=== PATIENT | male | born 1970 | race Two or more races ===

== ENCOUNTER 2020-09-06 08:54 | Outpatient (REF) | payer MEDICARE, MEDICAID, SELFPAY ==
[2020-09-06 09:47] LABS: MANUAL DIFF FLAG NO
[2020-09-06 09:57] LABS: Basophils Percent Auto 0.4 % (0-2); Eosinophils Absolute Auto 0.3 X10*3/uL (0.0-0.4); Eosinophils Percent Auto 5.6 % (0-4); Hematocrit 41.7 % (42-52); Hemoglobin 13.7 g/dl (14.0-18.0); Lymphocytes Absolute Auto 1.4 X10*3/uL (1.2-4.9); Lymphocytes Percent Auto 28.6 % (20-40); Mean Corpuscular HGB Conc 32.9 g/dl (31.0-36.0); Mean Corpuscular Hemoglobin 29.9 pg (27.0-33.0); Mean Platelet Volume 9.5 fL (9.4-12.4); Monocytes Absolute Auto 0.4 X10*3/uL (0.1-1.2); Monocytes Percent Auto 8.4 % (2-11); Neutrophils Absolute Auto 2.9 X10*3/uL (2.0-8.3); Platelet Count 218 X10*3/uL (160-400); Red Blood Count 4.58 X10*6/uL (4.60-5.80); Red Cell Distribution Width 13.5 % (11.0-16.0)
[2020-09-06 10:17] LABS: Estimated Average Glucose 126 mg/dL
[2020-09-06 10:27] LABS: Alanine Aminotransferase 25 U/L (0-40); Albumin Level 4.5 g/dL (3.5-5.0); Alkaline Phosphatase 67 U/L (39-117); Anion Gap 13 (12-20); Aspartate Amino Transferase 20 U/L (5-37); Bilirubin Total 0.6 mg/dL (0.0-1.0); Blood Urea Nitrogen 20 mg/dL (9-16); Calcium 9.2 mg/dL (8.4-10.2); Carbon Dioxide 25 mmol/L (22-29); Chloride 107 mmol/L (96-108); Cholesterol 168 mg/dL; Estimated Glomerular Filt Rate > 60; Glucose Fasting 139 mg/dL (60-99); HDL Cholesterol 40 mg/dL; LDL Cholesterol Calculated 88 mg/dl; Potassium 4.6 mmol/l (3.3-5.1); Sodium 140 mmol/L (135-145); Total Protein 7.4 g/dL (6.5-8.0); Triglycerides 200 mg/dL
[2020-09-06 10:45] LABS: Glucose Urine UA NEG (NEG); Leukocyte Esterase Urine NEG (NEG); Nitrite Urine NEG (NEG); Urine Blood NEG (NEG); Urine Ketones NEG (NEG); Urine Protein NEG (NEG-TRACE)
[2020-09-06 10:50] LABS: Appearance Urine CLEAR; Color Urine YELLOW; UACC Culture Trigger NO
[2020-09-06 10:52] LABS: TSH reflex Free T4 0.62 mIU/mL (0.32-4.0); Vitamin D 25-OH Total 42.7 ng/mL (>30)
[2020-09-06 10:58] LABS: Creatinine Urine 79.79 mg/dL; Microalbumin Urine < 5.0 mg/L
[2020-09-06 11:05] LABS: RBC Urine 0 /HPF (0); Squamous Epithelial Cell Urine TRACE /LPF; WBC Urine 0 /HPF (0-4)
== END 2020-09-06 08:55 | disposition home or self-care (01) ==
LOC: HO.LAB 08:54
PROVIDERS: PCP Internal Medicine; Visit Provider Internal Medicine
DX: E78.5 Hyperlipidemia, unspecified (principal); I10 Essential (primary) hypertension; E11.9 Type 2 diabetes mellitus without complications; K29.70 Gastritis, unspecified, without bleeding; E55.9 Vitamin D deficiency, unspecified; E66.9 Obesity, unspecified; I49.9 Cardiac arrhythmia, unspecified
CPT/HCPCS: 36415; 80053; 80061; 81001; 81003; 82043; 82306; 83036; 84443; 85025

== ENCOUNTER 2020-10-08 10:51 | Outpatient (REF) | payer MEDICARE, MEDICAID, SELFPAY ==
--- NOTE | 2020-10-08 10:56 | XR_ITS ---
EXAMINATION: XR FINGER, RIGHT CLINICAL INFORMATION: Pain COMPARISON: Right hand radiographs 03/16/2019 TECHNIQUE: Three views of the right index finger. FINDINGS: The bones and soft tissues are normal. No fracture. Alignment is anatomic. Joint spaces are maintained. XR/XR finger RT min 2V IMPRESSION: Normal finger radiographs.
== END 2020-10-08 10:52 | disposition home or self-care (01) ==
LOC: HO.XRAY 10:51
PROVIDERS: PCP Internal Medicine; Visit Provider Internal Medicine
DX: M79.644 Pain in right finger(s) (principal)
CPT/HCPCS: 73140

== ENCOUNTER → 2020-10-10 10:40 | Outpatient (BNVA) | payer MEDICARE, MEDICAID, SELFPAY | PROVIDERS: PCP Internal Medicine; Referring Provider Internal Medicine; Visit Provider Nurse Practitioner | DX: R13.12 Dysphagia, oropharyngeal phase (principal); K22.4 Dyskinesia of esophagus; K21.9 Gastro-esophageal reflux disease without esophagitis; K58.2 Mixed irritable bowel syndrome | CPT/HCPCS: 99212 ==

== ENCOUNTER 2020-12-20 09:51 | Outpatient (REF) | payer MEDICARE, MEDICAID, SELFPAY ==
[2020-12-20 10:33] LABS: MANUAL DIFF FLAG NO
[2020-12-20 10:38] LABS: Basophils Percent Auto 0.2 % (0-2); Eosinophils Absolute Auto 0.2 X10*3/uL (0.0-0.4); Eosinophils Percent Auto 4.3 % (0-4); Hematocrit 42.1 % (42-52); Hemoglobin 13.6 g/dl (14.0-18.0); Imm Gran Abs Auto 0.01 X10*3/uL (0.00-0.03); Imm Gran Pct Auto 0.2 % (0.0-0.4); Lymphocytes Absolute Auto 1.4 X10*3/uL (1.2-4.9); Mean Corpuscular HGB Conc 32.3 g/dl (31.0-36.0); Mean Corpuscular Hemoglobin 29.8 pg (27.0-33.0); Mean Corpuscular Volume 92.1 fL (80-98); Mean Platelet Volume 9.5 fL (9.4-12.4); Monocytes Absolute Auto 0.3 X10*3/uL (0.1-1.2); Neutrophils Absolute Auto 2.9 X10*3/uL (2.0-8.3); Neutrophils Percent Auto 59.3 % (45-73); Platelet Count 208 X10*3/uL (160-400); Red Blood Count 4.57 X10*6/uL (4.60-5.80); Red Cell Distribution Width 13.2 % (11.0-16.0); White Blood Count 4.9 X10*3/uL (4.8-10.8)
[2020-12-20 10:50] LABS: Glucose Urine UA NEG (NEG); Leukocyte Esterase Urine NEG (NEG); Nitrite Urine NEG (NEG); Urine Blood NEG (NEG); Urine Ketones NEG (NEG); Urine Protein NEG (NEG-TRACE)
[2020-12-20 10:53] LABS: Appearance Urine CLEAR; Color Urine YELLOW
[2020-12-20 11:01] LABS: Alanine Aminotransferase 36 U/L (0-40); Albumin Level 4.5 g/dL (3.5-5.0); Alkaline Phosphatase 67 U/L (39-117); Anion Gap 11 (12-20); Aspartate Amino Transferase 21 U/L (5-37); Bilirubin Total 0.5 mg/dL (0.0-1.0); Blood Urea Nitrogen 15 mg/dL (9-16); Calcium 9.1 mg/dL (8.4-10.2); Carbon Dioxide 25 mmol/L (22-29); Chloride 109 mmol/L (96-108); Cholesterol 151 mg/dL; Estimated Glomerular Filt Rate > 60; Glucose Fasting 119 mg/dL (60-99); HDL Cholesterol 45 mg/dL; LDL Cholesterol Calculated 79 mg/dl; Potassium 4.3 mmol/l (3.3-5.1); Sodium 141 mmol/L (135-145); Total Protein 7.2 g/dL (6.5-8.0); Triglycerides 139 mg/dL
[2020-12-20 11:02] LABS: Creatinine Urine 124.82 mg/dL; Microalbumin Urine < 5.0 mg/L
[2020-12-20 11:23] LABS: TSH reflex Free T4 0.51 mIU/mL (0.32-4.0); Vitamin D 25-OH Total 42.7 ng/mL (>30)
[2020-12-20 11:40] LABS: Folate > 20.0 ng/mL (> or = 4.0); Vitamin B12 1042 pg/mL (200-900)
== END 2020-12-20 09:52 | disposition home or self-care (01) ==
LOC: HO.LAB 09:51
PROVIDERS: PCP Internal Medicine; Visit Provider Internal Medicine
DX: E53.8 Deficiency of other specified B group vitamins (principal); K29.70 Gastritis, unspecified, without bleeding; I10 Essential (primary) hypertension; E78.00 Pure hypercholesterolemia, unspecified; E11.9 Type 2 diabetes mellitus without complications; E66.3 Overweight; E55.9 Vitamin D deficiency, unspecified
CPT/HCPCS: 36415; 80053; 80061; 81003; 82043; 82306; 82607; 82746; 84443; 85025

== ENCOUNTER → 2021-01-04 08:27 | Outpatient (BNVA) | payer MEDICARE, MEDICAID, SELFPAY | PROVIDERS: PCP Internal Medicine; Visit Provider Internal Medicine Endocrinology, Diabetes & Metabolism | DX: E11.9 Type 2 diabetes mellitus without complications (principal); E16.1 Other hypoglycemia; E66.9 Obesity, unspecified; E53.8 Deficiency of other specified B group vitamins; E55.9 Vitamin D deficiency, unspecified; R14.0 Abdominal distension (gaseous); R10.9 Unspecified abdominal pain; E78.00 Pure hypercholesterolemia, unspecified; I10 Essential (primary) hypertension | CPT/HCPCS: 82947; 99212 ==

== ENCOUNTER 2021-03-20 09:36 | Outpatient (REF) | payer MEDICARE, MEDICAID, SELFPAY ==
[2021-03-20 10:48] LABS: MANUAL DIFF FLAG NO
[2021-03-20 10:51] LABS: Basophils Percent Auto 0.4 % (0-2); Eosinophils Absolute Auto 0.2 X10*3/uL (0.0-0.4); Eosinophils Percent Auto 4.1 % (0-4); Hematocrit 43.1 % (42-52); Imm Gran Abs Auto 0.01 X10*3/uL (0.00-0.03); Imm Gran Pct Auto 0.2 % (0.0-0.4); Lymphocytes Absolute Auto 1.6 X10*3/uL (1.2-4.9); Lymphocytes Percent Auto 30.4 % (20-40); Mean Corpuscular HGB Conc 32.5 g/dl (31.0-36.0); Mean Corpuscular Hemoglobin 29.7 pg (27.0-33.0); Mean Corpuscular Volume 91.5 fL (80-98); Mean Platelet Volume 9.5 fL (9.4-12.4); Monocytes Absolute Auto 0.4 X10*3/uL (0.1-1.2); Monocytes Percent Auto 8.2 % (2-11); Neutrophils Absolute Auto 3.1 X10*3/uL (2.0-8.3); Neutrophils Percent Auto 56.7 % (45-73); Platelet Count 220 X10*3/uL (160-400); Red Blood Count 4.71 X10*6/uL (4.60-5.80); Red Cell Distribution Width 13.4 % (11.0-16.0); White Blood Count 5.4 X10*3/uL (4.8-10.8)
[2021-03-20 10:56] LABS: Glucose Urine UA NEG (NEG); Leukocyte Esterase Urine NEG (NEG); Nitrite Urine NEG (NEG); PH 6.5 (5.0-8.0); Urine Blood NEG (NEG); Urine Ketones NEG (NEG); Urine Protein NEG (NEG-TRACE)
[2021-03-20 11:04] LABS: Appearance Urine CLEAR; Color Urine YELLOW
[2021-03-20 11:05] LABS: Estimated Average Glucose 117 mg/dL; Hemoglobin A1c % 5.7 %
[2021-03-20 11:27] LABS: Creatinine Urine 161.87 mg/dL
[2021-03-20 11:27] LABS: Alanine Aminotransferase 15 U/L (0-40); Albumin Level 4.5 g/dL (3.5-5.0); Alkaline Phosphatase 71 U/L (39-117); Anion Gap 12 (12-20); Aspartate Amino Transferase 14 U/L (5-37); Bilirubin Total 0.6 mg/dL (0.0-1.0); Blood Urea Nitrogen 17 mg/dL (9-16); Calcium 9.5 mg/dL (8.4-10.2); Carbon Dioxide 25 mmol/L (22-29); Chloride 108 mmol/L (96-108); Cholesterol 148 mg/dL; Estimated Glomerular Filt Rate > 60; Glucose Fasting 102 mg/dL (60-99); HDL Cholesterol 42 mg/dL; LDL Cholesterol Calculated 78 mg/dl; Potassium 4.8 mmol/L (3.3-5.1); Sodium 140 mmol/L (135-145); Total Protein 7.5 g/dL (6.5-8.0); Triglycerides 141 mg/dL
[2021-03-20 11:40] LABS: Vitamin D 25-OH Total 44.8 ng/mL (>30)
[2021-03-20 12:02] LABS: Folate > 20.0 ng/mL (> or = 4.0); Vitamin B12 863 pg/mL (200-900)
== END 2021-03-20 09:37 | disposition home or self-care (01) ==
LOC: HO.LAB 09:36
PROVIDERS: PCP Internal Medicine; Visit Provider Internal Medicine
DX: I10 Essential (primary) hypertension (principal); I49.9 Cardiac arrhythmia, unspecified; K29.70 Gastritis, unspecified, without bleeding; E11.9 Type 2 diabetes mellitus without complications; E66.3 Overweight; E78.00 Pure hypercholesterolemia, unspecified; E53.8 Deficiency of other specified B group vitamins; E55.9 Vitamin D deficiency, unspecified
CPT/HCPCS: 36415; 80053; 80061; 81003; 82043; 82306; 82607; 82746; 83036; 84443; 85025

== ENCOUNTER → 2021-04-05 08:24 | Outpatient (BNVA) | payer MEDICARE, MEDICAID, SELFPAY | PROVIDERS: PCP Internal Medicine; Visit Provider Internal Medicine Endocrinology, Diabetes & Metabolism | DX: E11.9 Type 2 diabetes mellitus without complications (principal); E55.9 Vitamin D deficiency, unspecified; E53.8 Deficiency of other specified B group vitamins; I10 Essential (primary) hypertension; E78.00 Pure hypercholesterolemia, unspecified; E66.9 Obesity, unspecified | CPT/HCPCS: 82947; 99212 ==

== ENCOUNTER → 2021-04-16 11:26 | Outpatient (BNVA) | payer MEDICARE, MEDICAID, SELFPAY | PROVIDERS: PCP Internal Medicine; Referring Provider Internal Medicine; Visit Provider Nurse Practitioner | DX: E66.9 Obesity, unspecified (principal); R14.0 Abdominal distension (gaseous); K58.2 Mixed irritable bowel syndrome; K22.4 Dyskinesia of esophagus; K21.9 Gastro-esophageal reflux disease without esophagitis; R13.12 Dysphagia, oropharyngeal phase | CPT/HCPCS: 99212 ==

== ENCOUNTER 2021-05-12 23:29 | Emergency (ER) | payer MEDICARE, MEDICAID, SELFPAY ==
--- NOTE | ~2021-05-12 | CT_ITS ---
EXAMINATION: CT ABDOMEN AND PELVIS WITHOUT CONTRAST CLINICAL INFORMATION: Right testicular/flank pain COMPARISON: 09/14/2018 TECHNIQUE: Multidetector volumetric imaging was performed from the superior aspect of the liver through the pubic symphysis. Sagittal and coronal reformatted images were obtained on the technologist's workstation. This CT examination was performed using dose optimization techniques as appropriate, variously including the following: *Automated exposure control *Adjustment of mA and/or kV according to patient size (this includes techniques or standardized protocols for targeted exams where dose is matched to indication/reason for exam; i.e. extremities or head) *Use of iterative reconstruction technique DLP: 875 mGy-cm FINDINGS: LUNG BASES: The visualized lung bases are unremarkable. LIVER, GALLBLADDER, AND BILIARY TREE: The liver is normal in size, shape, and attenuation. A hypodense lesion in the medial left hepatic lobe anteriorly measures approximately 2.4 cm in diameter, also present previously and in keeping with a known hemangioma. No biliary ductal dilatation is present. The gallbladder is unremarkable with no evidence of radiopaque gallstones, gallbladder wall thickening, or obvious pericholecystic inflammatory changes. PANCREAS: Unremarkable. SPLEEN: Unremarkable. ADRENAL GLANDS: Unremarkable. KIDNEYS AND URETERS: The kidneys are normal in size, shape, and attenuation. No hydronephrosis, hydroureter, or calculi seen. No perinephric stranding. BLADDER: Unremarkable. GASTROINTESTINAL TRACT: The small and large bowel are unremarkable. The appendix is unremarkable. No free fluid or free air is seen. ABDOMINAL WALL: Bilateral fat-containing inguinal hernias noted, right larger than left. LYMPH NODES: Normal. VASCULAR: Unremarkable. PELVIC VISCERA: Unremarkable. OSSEOUS STRUCTURES: Mild scattered endplate osteophytes are noted in the spine. CT/CT abdomen pelvis wo con IMPRESSION: No acute findings identified in the abdomen/pelvis. Bilateral fat-containing inguinal hernias, right larger than left.
--- NOTE | ~2021-05-12 | US_ITS ---
EXAMINATION: US SCROTUM CLINICAL INFORMATION: Testicular pain. COMPARISON: None TECHNIQUE: A sonogram of the scrotum was performed assessing sims-scale appearance and color Doppler flow. Spectral Doppler analysis of the arterial and venous flow were performed in the testes bilaterally. FINDINGS: RIGHT: Right testicle measures 4.3 x 1.8 x 2.1 cm, volume 8.1 mL. No focal testicular parenchymal lesions are visualized. Spectral Doppler analysis of the arterial and venous flow is normal in the right testis. Right epididymal head is normal in size. There is a right epididymal cyst measuring up to 0.7 cm. No right hydrocele or varicocele is seen. Right epididymal Doppler flow is normal. LEFT: Left testicle measures 4.6 x 2.0 x 2.5 cm, volume 11.7 mL. No focal testicular parenchymal lesions are visualized. Spectral Doppler analysis of the arterial and venous flow is normal in the left testis. Left scrotolith is noted measuring up to 0.4 cm. Left epididymal head is normal in size. No left hydrocele or varicocele is seen. Left epididymal Doppler flow is normal. US/US scrotum doppler IMPRESSION: No acute findings identified. Right epididymal head cyst measuring up to 0.7 cm.
--- NOTE | ~2021-05-12 | US_ITS ---
EXAMINATION: US SCROTUM CLINICAL INFORMATION: Testicular pain. COMPARISON: None TECHNIQUE: A sonogram of the scrotum was performed assessing sims-scale appearance and color Doppler flow. Spectral Doppler analysis of the arterial and venous flow were performed in the testes bilaterally. FINDINGS: RIGHT: Right testicle measures 4.3 x 1.8 x 2.1 cm, volume 8.1 mL. No focal testicular parenchymal lesions are visualized. Spectral Doppler analysis of the arterial and venous flow is normal in the right testis. Right epididymal head is normal in size. There is a right epididymal cyst measuring up to 0.7 cm. No right hydrocele or varicocele is seen. Right epididymal Doppler flow is normal. LEFT: Left testicle measures 4.6 x 2.0 x 2.5 cm, volume 11.7 mL. No focal testicular parenchymal lesions are visualized. Spectral Doppler analysis of the arterial and venous flow is normal in the left testis. Left scrotolith is noted measuring up to 0.4 cm. Left epididymal head is normal in size. No left hydrocele or varicocele is seen. Left epididymal Doppler flow is normal. US/US scrotum IMPRESSION: No acute findings identified. Right epididymal head cyst measuring up to 0.7 cm.
[2021-05-13 00:12] VITALS: BP 119/84; PULSE 89; RESP 18; TEMP 36.1; O2SAT 99; BMI 31.9
[2021-05-13 01:42] VITALS: BP 120/80; PULSE 88; RESP 18; TEMP 36.2; O2SAT 99
[2021-05-13 02:50] LABS: Basophils Percent Auto 0.4 % (0-2); Eosinophils Absolute Auto 0.4 X10*3/uL (0.0-0.4); Eosinophils Percent Auto 5.1 % (0-4); Hematocrit 40.3 % (42-52); Hemoglobin 13.4 g/dl (14.0-18.0); Imm Gran Abs Auto 0.01 X10*3/uL (0.00-0.03); Imm Gran Pct Auto 0.1 % (0.0-0.4); Lymphocytes Absolute Auto 2.5 X10*3/uL (1.2-4.9); Lymphocytes Percent Auto 35.7 % (20-40); MANUAL DIFF FLAG NO; Mean Corpuscular HGB Conc 33.3 g/dl (31.0-36.0); Mean Corpuscular Volume 90.4 fL (80-98); Mean Platelet Volume 9.1 fL (9.4-12.4); Monocytes Absolute Auto 0.6 X10*3/uL (0.1-1.2); Neutrophils Absolute Auto 3.4 X10*3/uL (2.0-8.3); Neutrophils Percent Auto 49.7 % (45-73); Platelet Count 197 X10*3/uL (160-400); Red Blood Count 4.46 X10*6/uL (4.60-5.80); Red Cell Distribution Width 13.3 % (11.0-16.0); White Blood Count 6.9 X10*3/uL (4.8-10.8)
[2021-05-13 02:51] LABS: Glucose Urine UA NEG (NEG); Leukocyte Esterase Urine NEG (NEG); Nitrite Urine NEG (NEG); PH 6.5 (5.0-8.0); Specific Gravity - Urine 1.025 (1.005-1.025); Urine Blood 3+ (NEG); Urine Ketones NEG (NEG); Urine Protein 1+ MG/DL (NEG-TRACE)
[2021-05-13 02:52] LABS: Appearance Urine HAZY; Color Urine PINK
[2021-05-13 03:04] LABS: Bacteria Urine 1+ /LPF; RBC Urine TNTC /HPF (0); Squamous Epithelial Cell Urine 1+ /LPF
[2021-05-13 03:31] LABS: Alanine Aminotransferase 12 U/L (0-40); Albumin Level 4.4 g/dL (3.5-5.0); Alkaline Phosphatase 66 U/L (39-117); Anion Gap 10 (12-20); Aspartate Amino Transferase 15 U/L (5-37); Bilirubin Total 0.4 mg/dL (0.0-1.0); Blood Urea Nitrogen 16 mg/dL (9-16); Calcium 9.7 mg/dL (8.4-10.2); Carbon Dioxide 25 mmol/L (22-29); Chloride 112 mmol/L (96-108); Creatinine Clr Calc Pharmacy 75.7; Estimated Glomerular Filt Rate 58; Glucose Random 103 mg/dL (60-115); Potassium 4.4 mmol/L (3.3-5.1); Sodium 143 mmol/L (135-145); Total Protein 7.2 g/dL (6.5-8.0)
--- NOTE | 2021-05-13 03:46 | ED.MALEGU ---
HPI - Male Genitourinary General Chief complaint: Urogenital-Male Stated complaint: bleeding when urinating Time Seen by Provider: 05/13/21 03:46 History of Present Illness HPI Narrative: Patient is a 51-year-old male presents today with having bloody urine. Also noticing pain going down to the testicular area. Patient denies any bowel urinary incontinence. There is no change in BMs. There is no vomiting. Positive sharp pain. Denies any fever chills. Patient from home. No history of similar symptoms in the past. No change with movement. No change with food. No history of abdominal surgery history irritable bowel. History of constipation and diarrhea from irritable bowel. History of GERD. Patient is from home. Related Data Home Medications Medication Instructions Recorded Confirmed alprazolam 1 mg tablet 1 mg PO TID PRN 01/04/21 04/10/21 amitriptyline 25 mg tablet 25 mg PO BEDTIME 01/04/21 04/10/21 clonidine HCl 0.1 mg tablet 0.1 mg PO BEDTIME 01/04/21 04/10/21 vitamin B complex 1 tab PO DAILY 04/05/21 04/10/21 Previous Rx's Medication Instructions Recorded naproxen 500 mg tablet 500 mg PO BID PRN #60 tab 03/25/21 alcohol swabs 1 pad TOPICAL BID 30 Days #100 ea 04/05/21 atorvastatin 40 mg tablet 40 mg PO BEDTIME 90 Days #90 tab 04/05/21 blood sugar diagnostic #100 ea 04/05/21 cholecalciferol (vitamin D3) 25 25 mcg PO DAILY 30 Days #30 cap 04/05/21 mcg (1,000 unit) capsule cyanocobalamin (vitamin B-12) 100 100 mcg PO DAILY 30 Days #30 tab 04/05/21 mcg tablet dulaglutide 0.75 mg/0.5 mL 0.75 mg SUBCUT QWEEK 30 Days #2.5 04/05/21 subcutaneous pen injector ml lancets 28 gauge #100 ea 04/05/21 lisinopril 10 mg tablet 10 mg PO DAILY 90 Days #90 tab 04/05/21 pioglitazone 15 mg tablet 15 mg PO DAILY 90 Days #90 tab 04/05/21 albuterol sulfate 90 mcg/actuation 2 puff INHALATION Q6H PRN 30 Days 04/10/21 aerosol inhaler #18 g topiramate 100 mg tablet 100 mg PO BEDTIME 30 Days #30 tab 04/10/21 dicyclomine 20 mg tablet 20 mg PO QID 30 Days #120 tab 04/16/21 [id number] 1 cap PO QID 30 Days #120 cap 04/16/21 24,000-76,000-120,000 unit capsule,delayed rel pantoprazole 40 mg tablet,delayed 40 mg PO BID #60 tab 04/16/21 release simethicone 180 mg capsule 180 mg PO QID 30 Days #120 cap 04/16/21 ibuprofen 800 mg tablet 800 mg PO TID PRN #90 tab 05/01/21 tramadol 50 mg tablet 50 mg PO TID PRN 30 Days #90 tab 05/10/21 Allergies Allergy/AdvReac Type Severity Reaction Status Date / Time No Known Allergies Allergy Verified 05/13/21 00:12 [No Known Allergies*] Review of Systems Review of Systems: Yes all other systems are reviewed and are negative [facility] Past Medical History Medical History Anxiety Asthma Benign essential hypertension Cardiac arrhythmia Gastritis Lumbar degenerative disc disease Migraine Obesity (BMI 30.0-34.9) Obstructive sleep apnea Pure hypercholesterolemia Type 2 diabetes mellitus without complication, with no history of insulin use Vitamin B12 deficiency Vitamin D deficiency Surgical History History of esophagogastroduodenoscopy (EGD) History of extraction of renal calculus History of repair of rotator cuff Hx of colonoscopy Family History Family History Father No problems noted. Mother Hypertension Cancer Sister Cancer Social History Social History Household Members: Significant Other Alcohol intake: current Alcohol intake frequency: does not drink Advance Directives: No Physical Exam Vital Signs: Vital Signs: Last Vital Signs Temp 97.1 F 05/13/21 01:42 Pulse 88 05/13/21 01:42 Resp 18 05/13/21 01:42 BP 120/80 05/13/21 01:42 Pulse Ox 99 05/13/21 01:42 Body Mass Index 31.9 Appearance: Alert. Oriented X3. No acute distress. Eyes: Pupils equal, round and reactive to light. ENT: Pharynx normal. Neck: Normal inspection. Neck supple. No lymph nodes noted. No crepitus CVS: Normal heart rate and rhythm. Pulses normal. Normal S1 and S2 Respiratory: No respiratory distress. Breath sounds normal. No Wheezing. No rales Abdomen: Soft and nontender. No rigidity. No distention. good BS x4 Skin: Skin warm and dry. Normal skin color. Normal skin turgor. Extremities: No lower extremity edema. Neurovascular intact to all extremities. No Lacerations. No Rash Neuro: Oriented X 3. No motor deficit. No sensory deficit. Moving all extermities. No slurred speech Genital exam creams therapy reflexes intact. There is mild tenderness on palpation of the right testicle. There is no discharge on stripping of the penis. MDM - Male Genitourinary MDM Narrative Medical decision making narrative: Patient's CT scan of the abdomen did not show any evidence of ureteral stone no abscess no perforation no appendicitis. Patient's creatinine is normal. Urine showed no signs of infection. Ultrasound showed no evidence of torsion. No evidence for epididymitis will discharge patient home close follow-up outpatient basis.. Medical Records Attestation: I reviewed the patient's medical records. Lab Data Result diagrams: 05/13/21 02:43 05/13/21 02:43 Labs: Lab Results 05/13/21 05/13/21 05/13/21 Range/Units 02:43 02:43 02:43 WBC 6.9 (4.8-10.8) X10*3/uL RBC 4.46 L (4.60-5.80) X10*6/uL Hgb 13.4 L (14.0-18.0) g/dl Hct 40.3 L (42-52) % MCV 90.4 (80-98) fL MCH 30.0 (27.0-33.0) pg MCHC 33.3 (31.0-36.0) g/dl RDW 13.3 (11.0-16.0) % Plt Count 197 (160-400) X10*3/uL MPV 9.1 L (9.4-12.4) fL Immature Gran % (Auto) 0.1 (0.0-0.4) % Neut % (Auto) 49.7 (45-73) % Lymph % (Auto) 35.7 (20-40) % [place] % (Auto) 9.0 (2-11) % Eos % (Auto) 5.1 H (0-4) % Baso % (Auto) 0.4 (0-2) % Lymph # (Auto) 2.5 (1.2-4.9) X10*3/uL [place] # (Auto) 0.6 (0.1-1.2) X10*3/uL Eos # (Auto) 0.4 (0.0-0.4) X10*3/uL Baso # (Auto) 0.0 (0.0-0.2) X10*3/uL Abs Immat Gran (auto) 0.01 (0.00-0.03) X10*3/uL Absolute Neuts (auto) 3.4 (2.0-8.3) X10*3/uL Absolute Nucleated RBC 0.000 (0.0-0.012) X10*3/uL Nucleated RBC % (auto) 0.0 (0.0-0.2) /100WBC Sodium 143 (135-145) mmol/L Potassium 4.4 (3.3-5.1) mmol/L Chloride 112 H (96-108) mmol/L Carbon Dioxide 25 (22-29) mmol/L Anion Gap 10 L (12-20) BUN 16 (9-16) mg/dL Creatinine 1.32 (0.5-1.4) mg/dL Estim Creat Clear Calc 75.7 Estimated GFR 58 Random Glucose 103 (60-115) mg/dL Calcium 9.7 (8.4-10.2) mg/dL Total Bilirubin 0.4 (0.0-1.0) mg/dL Direct Bilirubin 0.2 (0.0-0.5) mg/dL AST 15 (5-37) U/L ALT 12 (0-40) U/L Alkaline Phosphatase 66 (39-117) U/L Total Protein 7.2 (6.5-8.0) g/dL Albumin 4.4 (3.5-5.0) g/dL Urine Color PINK Urine Appearance HAZY Urine pH 6.5 (5.0-8.0) Ur Specific [place] 1.025 (1.005-1.025) Urine Protein 1+ H (NEG-TRACE) MG/DL Urine Glucose (UA) NEG (NEG) MG/DL Urine Ketones NEG (NEG) MG/DL Urine Blood 3+ H (NEG) Urine Nitrite NEG (NEG) Ur Leukocyte Esterase NEG (NEG) Urine RBC TNTC H (0) /HPF Urine WBC 1-4 (0-4) /HPF Ur Squamous Epith Cells 1+ /LPF Urine Bacteria 1+ /LPF Discharge Plan Discharge Clinical Impression: Abdominal pain in male Patient Disposition: Home, Self-Care Instructions: Abdominal Pain (ED) Prescriptions: No Action naproxen 500 mg tablet 500 mg PO BID PRN (Reason: for pain) Qty: 60 RF: 1 ibuprofen 800 mg tablet 800 mg PO TID PRN (Reason: for fever) Qty: 90 RF: 3 tramadol 50 mg tablet 50 mg PO TID PRN (Reason: pain) 30 Days Qty: 90 RF: 0 albuterol sulfate [ProAir HFA] 90 mcg/actuation HFA aerosol inhaler 2 puff inhalation Q6H PRN (Reason: shortness of breath or wheezing) 30 Days Qty: 18 RF: 5 topiramate 100 mg tablet 100 mg PO BEDTIME 30 Days Qty: 30 RF: 3 amitriptyline 25 mg tablet 25 mg PO BEDTIME RF: 0 alprazolam 1 mg tablet 1 mg PO TID PRNRF: 0 clonidine HCl 0.1 mg tablet 0.1 mg PO BEDTIME RF: 0 pantoprazole [Protonix] 40 mg tablet,delayed release (DR/EC) 40 mg PO BID Qty: 60 RF: 6 Creon 24,000-76,000 -120,000 unit capsule,delayed release(DR/EC) 1 cap PO QID 30 Days Qty: 120 RF: 6 dicyclomine 20 mg tablet 20 mg PO QID 30 Days Qty: 120 RF: 6 simethicone 180 mg capsule 180 mg PO QID 30 Days Qty: 120 RF: 6 vitamin B complex Tablet 1 tab PO DAILY RF: 0 alcohol swabs Pads, Medicated 1 pad topical BID 30 Days Qty: 100 RF: 6 atorvastatin 40 mg tablet 40 mg PO BEDTIME 90 Days Qty: 90 RF: 1 (DME) FreeStyle Lite Strips Strip See Rx Instructions .ROUTE .MEDSUPPLY Qty: 100 RF: 6 cholecalciferol (vitamin D3) 25 mcg (1,000 unit) capsule 25 mcg PO DAILY 30 Days Qty: 30 RF: 6 cyanocobalamin (vitamin B-12) 100 mcg tablet 100 mcg PO DAILY 30 Days Qty: 30 RF: 6 Trulicity 0.75 mg/0.5 mL pen injector 0.75 mg subcut QWEEK 30 Days Qty: 2.5 RF: 6 (DME) lancets 28 gauge misc See Rx Instructions ea topical DAILY Qty: 100 RF: 6 lisinopril 10 mg tablet 10 mg PO DAILY 90 Days Qty: 90 RF: 1 pioglitazone 15 mg tablet 15 mg PO DAILY 90 Days Qty: 90 RF: 1 Referrals: Physician,Unknown [Primary Care Provider] - 2 days
[2021-05-13 04:15] LABS: Bilirubin Direct 0.2 mg/dL (0.0-0.5)
== END 2021-05-13 06:40 | disposition home or self-care (01) ==
PROVIDERS: Emergency Provider Emergency Medicine Emergency Medical Services
DX: R10.9 Unspecified abdominal pain (principal); E11.9 Type 2 diabetes mellitus without complications; I10 Essential (primary) hypertension; Z79.899 Other long term (current) drug therapy
CPT/HCPCS: 36415; 74176; 76870; 80053; 81001; 82248; 85025; 93975; 99283; 99284

== ENCOUNTER → 2021-05-27 13:28 | Outpatient (BNVA) | payer MEDICARE, MEDICAID, SELFPAY | PROVIDERS: PCP Internal Medicine; Visit Provider Nurse Practitioner | DX: K21.9 Gastro-esophageal reflux disease without esophagitis (principal); K58.2 Mixed irritable bowel syndrome; K22.4 Dyskinesia of esophagus; R14.0 Abdominal distension (gaseous); R13.12 Dysphagia, oropharyngeal phase; E66.9 Obesity, unspecified; E11.9 Type 2 diabetes mellitus without complications; R68.81 Early satiety | CPT/HCPCS: 99212 ==

== ENCOUNTER 2021-07-01 08:39 | Outpatient (REF) | payer MEDICARE, MEDICAID, SELFPAY ==
[2021-07-01 09:50] LABS: MANUAL DIFF FLAG NO
[2021-07-01 10:00] LABS: Basophils Percent Auto 0.2 % (0-2); Eosinophils Absolute Auto 0.2 X10*3/uL (0.0-0.4); Eosinophils Percent Auto 3.8 % (0-4); Hematocrit 39.6 % (42-52); Hemoglobin 12.9 g/dl (14.0-18.0); Imm Gran Abs Auto 0.02 X10*3/uL (0.00-0.03); Imm Gran Pct Auto 0.4 % (0.0-0.4); Lymphocytes Absolute Auto 1.5 X10*3/uL (1.2-4.9); Lymphocytes Percent Auto 28.9 % (20-40); Mean Corpuscular HGB Conc 32.6 g/dl (31.0-36.0); Mean Corpuscular Hemoglobin 29.7 pg (27.0-33.0); Mean Corpuscular Volume 91.2 fL (80-98); Mean Platelet Volume 9.5 fL (9.4-12.4); Monocytes Absolute Auto 0.5 X10*3/uL (0.1-1.2); Monocytes Percent Auto 10.3 % (2-11); Neutrophils Absolute Auto 2.9 X10*3/uL (2.0-8.3); Neutrophils Percent Auto 56.4 % (45-73); Platelet Count 225 X10*3/uL (160-400); Red Blood Count 4.34 X10*6/uL (4.60-5.80); Red Cell Distribution Width 13.4 % (11.0-16.0); White Blood Count 5.1 X10*3/uL (4.8-10.8)
[2021-07-01 10:27] LABS: Glucose Urine UA NEG (NEG); Leukocyte Esterase Urine NEG (NEG); Nitrite Urine NEG (NEG); Specific Gravity - Urine >= 1.030 (1.005-1.025); Urine Blood NEG (NEG); Urine Ketones NEG (NEG); Urine Protein NEG (NEG-TRACE)
[2021-07-01 10:30] LABS: Estimated Average Glucose 128 mg/dL; Hemoglobin A1c % 6.1 %
[2021-07-01 10:34] LABS: Appearance Urine CLEAR; Color Urine YELLOW
[2021-07-01 11:08] LABS: Alanine Aminotransferase 28 U/L (0-40); Albumin Level 4.3 g/dL (3.5-5.0); Alkaline Phosphatase 62 U/L (39-117); Anion Gap 13 (12-20); Aspartate Amino Transferase 20 U/L (5-37); Bilirubin Total 0.5 mg/dL (0.0-1.0); Blood Urea Nitrogen 19 mg/dL (9-16); Calcium 9.3 mg/dL (8.4-10.2); Carbon Dioxide 21 mmol/L (22-29); Chloride 114 mmol/L (96-108); Cholesterol 155 mg/dL; Estimated Glomerular Filt Rate > 60; Glucose Fasting 139 mg/dL (60-99); HDL Cholesterol 39 mg/dL; LDL Cholesterol Calculated 81 mg/dl; Potassium 4.5 mmol/L (3.3-5.1); Sodium 143 mmol/L (135-145); Total Protein 7.2 g/dL (6.5-8.0); Triglycerides 175 mg/dL
[2021-07-01 11:13] LABS: Creatinine Urine 210.18 mg/dL; Microalbum/Creatinine Ratio Ur 5.2 ug/mg cr
[2021-07-01 11:16] LABS: TSH reflex Free T4 0.54 uIU/mL (0.32-4.0); Vitamin D 25-OH Total 36.7 ng/mL (>30)
[2021-07-01 11:29] LABS: Folate 15.6 ng/mL (> or = 4.0); Vitamin B12 1016 pg/mL (200-900)
== END 2021-07-01 08:40 | disposition home or self-care (01) ==
LOC: HO.LAB 08:39
PROVIDERS: PCP Internal Medicine; Visit Provider Internal Medicine
DX: E53.8 Deficiency of other specified B group vitamins (principal); I10 Essential (primary) hypertension; K29.70 Gastritis, unspecified, without bleeding; E78.00 Pure hypercholesterolemia, unspecified; E11.9 Type 2 diabetes mellitus without complications; E66.9 Obesity, unspecified; E55.9 Vitamin D deficiency, unspecified
CPT/HCPCS: 36415; 80053; 80061; 81003; 82043; 82306; 82607; 82746; 83036; 84443; 85025

== ENCOUNTER → 2021-07-04 08:28 | Outpatient (BNVA) | payer MEDICARE, MEDICAID, SELFPAY | PROVIDERS: PCP Internal Medicine; Visit Provider Urology | DX: R31.0 Gross hematuria (principal); N50.3 Cyst of epididymis | CPT/HCPCS: 99202 ==

== ENCOUNTER → 2021-07-18 09:25 | Outpatient (BNVA) | payer MEDICARE, MEDICAID, SELFPAY | PROVIDERS: PCP Internal Medicine; Visit Provider Urology | DX: R31.0 Gross hematuria (principal); L72.9 Follicular cyst of the skin and subcutaneous tissue, unspecified | CPT/HCPCS: 52000; 99212 ==

== ENCOUNTER → 2021-07-26 07:59 | Outpatient (REF) | payer MEDICARE, MEDICAID, SELFPAY ==
--- NOTE | ~2021-07-26 | NM_ITS ---
EXAMINATION: RADIONUCLIDE SOLID FOOD GASTRIC EMPTYING 4-HOUR STUDY CLINICAL INFORMATION: Type 2 diabetes. COMPARISON: No previous gastric emptying study is available for comparison. TECHNIQUE: A standard meal consisting of 4 oz of Egg Beaters brand equivalent tagged with 1 mCi Tc-99m Sulfur Colloid, 8 oz water and 2 slices of toast with jelly was administered orally to the patient. Images were obtained using a dual head gamma camera in the anterior and posterior projections over of the stomach immediately post ingestion and at hourly intervals up to 4 hours post ingestion. The anterior and posterior counts at each time interval were averaged using the geometric mean and expressed as percentage of the immediate post ingestion counts. FINDINGS: There is good visualization of activity in the stomach immediately post ingestion. As the study progresses, there there is abnormally decreased clearance of activity from the stomach. At the end of the study there is mild abnormal retention of activity in the stomach at 4 hours. Retention in the stomach at each time interval was: 1 hour 83% (normal 37%-90%) 2 hours 64% (normal 30%-60%) 3 hours 30% 4 hours 22% (normal 0%-10%) NM/NM gastric emptying study IMPRESSION: Abnormal study. There is mild abnormal retention of solid food in the stomach at 4 hours.
== END ==
LOC: HO.NUCMED 07:59
PROVIDERS: Visit Provider Nurse Practitioner
DX: R68.81 Early satiety (principal); E11.9 Type 2 diabetes mellitus without complications
CPT/HCPCS: 78264; A9541

== ENCOUNTER → 2021-08-23 09:31 | Outpatient (BNVA) | payer MEDICARE, MEDICAID, SELFPAY | PROVIDERS: PCP Internal Medicine; Visit Provider Nurse Practitioner | DX: K21.9 Gastro-esophageal reflux disease without esophagitis (principal); K58.2 Mixed irritable bowel syndrome; K22.4 Dyskinesia of esophagus; K30 Functional dyspepsia; K40.20 Bilateral inguinal hernia, without obstruction or gangrene, not specified as recurrent; R13.12 Dysphagia, oropharyngeal phase | CPT/HCPCS: 99212 ==

== ENCOUNTER 2021-09-13 08:36 | Outpatient (REF) | payer MEDICARE, MEDICAID, SELFPAY | END 2021-09-13 08:37 | disposition home or self-care (01) | LOC: HO.LAB 08:36 | PROVIDERS: PCP Internal Medicine; Visit Provider Internal Medicine | DX: Z20.822 Contact with and (suspected) exposure to COVID-19 (principal) | CPT/HCPCS: C9803; U0003; U0005 ==

== ENCOUNTER → 2021-09-27 10:28 | Outpatient (BNVA) | payer MEDICARE, MEDICAID, SELFPAY | PROVIDERS: PCP Internal Medicine; Referring Provider Internal Medicine; Visit Provider Nurse Practitioner | DX: K30 Functional dyspepsia (principal); K58.2 Mixed irritable bowel syndrome; K21.9 Gastro-esophageal reflux disease without esophagitis; K22.4 Dyskinesia of esophagus | CPT/HCPCS: Q3014 ==

== ENCOUNTER 2021-10-01 08:36 | Outpatient (REF) | payer MEDICARE, MEDICAID, SELFPAY ==
[2021-10-01 08:52] LABS: MANUAL DIFF FLAG NO
[2021-10-01 09:27] LABS: Basophils Percent Auto 0.4 % (0-2); Eosinophils Absolute Auto 0.3 X10*3/uL (0.0-0.4); Eosinophils Percent Auto 6.3 % (0-4); Hematocrit 40.9 % (42.0-52.0); Hemoglobin 13.5 g/dl (14.0-18.0); Imm Gran Abs Auto 0.01 X10*3/uL (0.00-0.03); Imm Gran Pct Auto 0.2 % (0.0-0.4); Lymphocytes Absolute Auto 1.6 X10*3/uL (1.2-4.9); Lymphocytes Percent Auto 32.5 % (20-40); Mean Corpuscular Hemoglobin 29.5 pg (27.0-33.0); Mean Corpuscular Volume 89.5 fL (80.0-98.0); Mean Platelet Volume 10.8 fL (9.4-12.4); Monocytes Absolute Auto 0.5 X10*3/uL (0.1-1.2); Monocytes Percent Auto 9.2 % (2-11); Neutrophils Absolute Auto 2.51 x10*3/uL (2.0-8.3); Neutrophils Percent Auto 51.4 % (45-73); Platelet Count 169 X10*3/uL (160-400); Red Blood Count 4.57 X10*6/uL (4.60-5.80); Red Cell Distribution Width 12.9 % (11.0-16.0); White Blood Count 4.9 X10*3/uL (4.8-10.8)
[2021-10-01 09:38] LABS: Estimated Average Glucose 137 mg/dL; Hemoglobin A1c % 6.4 %
[2021-10-01 09:52] LABS: Appearance Urine CLEAR; Color Urine YELLOW; Glucose Urine UA NEG (NEG); Leukocyte Esterase Urine NEG (NEG); Nitrite Urine NEG (NEG); Urine Blood NEG (NEG); Urine Ketones NEG (NEG); Urine Protein NEG (NEG-TRACE)
[2021-10-01 10:02] LABS: Alanine Aminotransferase 23 U/L (0-40); Albumin Level 4.6 g/dL (3.5-5.0); Alkaline Phosphatase 67 U/L (39-117); Anion Gap 12 (12-20); Aspartate Amino Transferase 21 U/L (5-37); Bilirubin Total 0.6 mg/dL (0.0-1.0); Blood Urea Nitrogen 19 mg/dL (9-16); Carbon Dioxide 22 mmol/L (22-29); Chloride 111 mmol/L (96-108); Cholesterol 151 mg/dL; Estimated Glomerular Filt Rate > 60; Glucose Fasting 149 mg/dL (60-99); HDL Cholesterol 38 mg/dL; LDL Cholesterol Calculated 86 mg/dl; Potassium 4.4 mmol/L (3.3-5.1); Sodium 141 mmol/L (135-145); Total Protein 7.6 g/dL (6.5-8.0); Triglycerides 138 mg/dL
[2021-10-01 10:07] LABS: Creatinine Urine 192.17 mg/dL; Microalbum/Creatinine Ratio Ur 4.6 ug/mg cr
[2021-10-01 10:28] LABS: TSH reflex Free T4 1.05 uIU/mL (0.32-4.0); Vitamin D 25-OH Total 38.7 ng/mL (>30)
[2021-10-01 11:34] LABS: Folate 13.2 ng/mL (> or = 4.0); Vitamin B12 1080 pg/mL (200-900)
== END 2021-10-01 08:37 | disposition home or self-care (01) ==
LOC: HO.LAB 08:36
PROVIDERS: PCP Internal Medicine; Visit Provider Internal Medicine
DX: I10 Essential (primary) hypertension (principal); E78.00 Pure hypercholesterolemia, unspecified; E11.9 Type 2 diabetes mellitus without complications; E53.8 Deficiency of other specified B group vitamins; E55.9 Vitamin D deficiency, unspecified
CPT/HCPCS: 36415; 80053; 80061; 81003; 82043; 82306; 82607; 82746; 83036; 84443; 85025

== ENCOUNTER → 2021-10-07 14:29 | Outpatient (BNVA) | payer MEDICARE, MEDICAID, SELFPAY | PROVIDERS: PCP Internal Medicine; Referring Provider Internal Medicine; Visit Provider Surgery | DX: K40.20 Bilateral inguinal hernia, without obstruction or gangrene, not specified as recurrent (principal) | CPT/HCPCS: 99202 ==

== ENCOUNTER 2021-11-05 08:51 | Day surgery (SDC) | payer MEDICARE, MEDICAID, SELFPAY ==
[2021-10-31 11:42] VITALS: BMI 34.4
--- NOTE | 2021-11-04 11:59 | HO.ANESPROP2 ---
Documented by User: Anayeli Ceja NP 11/04/21 12:06 HPI - Anesthesia Eval Consult details Narrative: 51yo M for Bilateral Inguinal Hernia Repairs FOR[facility]LY [facility], [facility] Active Problems Active Problems: All Active Problems (Updated 09/04/21 @ 10:01 by Nathan Mendoza MD) Inguinal hernia bilateral, non-recurrent (Acute) Delayed gastric emptying (Acute) Tonsillitis (Acute) Early satiety (Acute) Epididymal cyst (Acute) Hematuria (Acute) Obesity (BMI 30.0-34.9) (Acute) Abdominal bloating (Acute) Irritable bowel syndrome with both constipation and diarrhea (Acute) GERD (gastroesophageal reflux disease) (Acute) Esophageal dysmotility (Acute) Oropharyngeal dysphagia (Acute) Anxiety (Acute) Obstructive sleep apnea (Acute) Vitamin B12 deficiency (Acute) Vitamin D deficiency (Acute) Gastritis (Acute) Lumbar degenerative disc disease (Acute) Asthma (Acute) Pure hypercholesterolemia (Acute) Migraine (Acute) Cardiac arrhythmia (Acute) Type 2 diabetes mellitus without complication, with no history of insulin use (Acute) Benign essential hypertension (Acute) Past Medical History Medical History Anxiety Asthma Benign essential hypertension Cardiac arrhythmia Epididymal cyst Gastritis Hematuria Lumbar degenerative disc disease Migraine Obesity (BMI 30.0-34.9) Obstructive sleep apnea Pure hypercholesterolemia Type 2 diabetes mellitus without complication, with no history of insulin use Vitamin B12 deficiency Vitamin D deficiency Family History Family History Father No problems noted. Mother Hypertension Cancer Sister Cancer Surgical History Surgical History History of esophagogastroduodenoscopy (EGD) History of extraction of renal calculus History of repair of rotator cuff Hx of colonoscopy Social History Social History Household Members: Significant Other Housing: House Alcohol intake: current Alcohol intake frequency: does not drink Patient Tobacco Use Status: Former Tobacco user Are you DNR?: No Advance Directives: No Advance Directives Information Provided: Yes Advance Directives on File: No service: No Current occupational status: disabled Meds Allergies Allergy/AdvReac Type Severity Reaction Status Date / Time No Known Allergies Allergy Verified 10/07/21 14:36 [No Known Allergies*] Home Medications Medication Instructions Recorded Confirmed Last Taken Type alprazolam 1 mg tablet 1 mg PO TID PRN 01/04/21 10/31/21 Unknown History amitriptyline 25 mg tablet 25 mg PO BEDTIME 01/04/21 10/31/21 Unknown History clonidine HCl 0.1 mg tablet 0.1 mg PO BEDTIME 01/04/21 10/31/21 Unknown History ibuprofen 800 mg tablet 800 mg PO TID PRN 10/31/21 10/31/21 Unknown History lisinopril 10 mg tablet 1 tab PO DAILY 10/31/21 10/31/21 Unknown History Exam Exam Date and Time: November 04, 2021 1159 Height,Weight and Vital Signs: Height 5 ft 7 in Weight 99.79 kg Pertinent Lab Results Pertinent Lab Results: Laboratory Tests 10/01/21 10/01/21 08:44 08:44 WBC 4.9 Hgb 13.5 L Hct 40.9 L Plt Count 169 Sodium 141 Potassium 4.4 Chloride 111 H Carbon Dioxide 22 BUN 19 H Creatinine 1.25 Assessment and Plan Assessment Anesthesia Assessment: Chart Reviewed Documented by User: Alcides Allison 11/05/21 12:05 [facility] Past Medical History Medical History Anxiety Asthma Benign essential hypertension Cardiac arrhythmia Epididymal cyst Gastritis Hematuria Lumbar degenerative disc disease Migraine Obesity (BMI 30.0-34.9) Obstructive sleep apnea Pure hypercholesterolemia Type 2 diabetes mellitus without complication, with no history of insulin use Vitamin B12 deficiency Vitamin D deficiency Functional capacity: independent ambulation Family History Family History Father No problems noted. Mother Hypertension Cancer Sister Cancer Family history of problems with anesthesia: No Surgical History Surgical History History of esophagogastroduodenoscopy (EGD) History of extraction of renal calculus History of repair of rotator cuff Hx of colonoscopy History of Problems with Anesthesia: No Social History Social History Household Members: Significant Other Housing: House Alcohol intake: current Alcohol intake frequency: does not drink Patient Tobacco Use Status: Former Tobacco user Are you DNR?: No Advance Directives: No Advance Directives Information Provided: Yes Advance Directives on File: No service: No Current occupational status: disabled Meds Allergies Allergy/AdvReac Type Severity Reaction Status Date / Time No Known Allergies Allergy Verified 10/07/21 14:36 [No Known Allergies*] Home Medications Medication Instructions Recorded Confirmed Last Taken Type alprazolam 1 mg tablet 1 mg PO TID PRN 01/04/21 10/31/21 Unknown History amitriptyline 25 mg tablet 25 mg PO BEDTIME 01/04/21 10/31/21 Unknown History clonidine HCl 0.1 mg tablet 0.1 mg PO BEDTIME 01/04/21 10/31/21 Unknown History ibuprofen 800 mg tablet 800 mg PO TID PRN 10/31/21 10/31/21 Unknown History lisinopril 10 mg tablet 1 tab PO DAILY 10/31/21 10/31/21 Unknown History Exam Airway Mallampati Class: II Neck ROM: Full Loose/Missing/Broken Teeth: Yes Heart: rrr Lungs: bl breath sounds Assessment and Plan Final Anesthetic Review Family History of Problems with Anesthesia: No History of Problems with Anesthesia: No NPO: Yes ASA Class: II Final Preanesthetic Review: Meds/Allgs Chart Reviewed and Anes Risks/Benef Reviewed Patient Risk: Intermediate Procedure Risk: Intermediate Anesthetic Plan Anesthetic Plan: GA Disposition: Standard PACU
[2021-11-05] VITALS (13 sets, daily range): BP systolic 112–140; BP diastolic 60–83; PULSE 87–103; RESP 16; TEMP 36.3–36.6; O2SAT 90–100
[2021-11-05] MEDS: Lactated Ringers 1,000 ML 100 ML IVCONT (09:26)
[2021-11-05 09:31] LABS: Glucose, Whole Blood 110 mg/dL (60-115)
--- NOTE | 2021-11-05 12:02 | MHC.SHP ---
Pre-Procedural Eval Section A Date of Service: 11/05/21 Section B Chief Complaint: bilateral inguinal hernia Allergies: Allergies Allergy/AdvReac Type Severity Reaction Status Date / Time No Known Allergies Allergy Verified 10/07/21 14:36 [No Known Allergies*] Plan I have reviewed the history and physical and performed a pertinent physical examination on my patient. No changes have occurred unless specified.
--- NOTE | 2021-11-05 14:02 | W.PM.OPN ---
Operative Note Operative Note Date of Service: 11/05/21 Narrative: Preop diagnosis: Bilateral inguinal hernias Postop diagnosis: Bilateral inguinal hernias - direct hernia on the left, indirect hernia on the right Procedure: Repair of bilateral inguinal hernias with mesh Surgeon: Fidencio Perez MD assistant laboratory director: LA[facility] Champion The patient is a 51-year-old male referred to me in the office because of bilateral inguinal hernias.He wanted to proceed with repair. He understood the technique of repair with mesh. He was aware of the risks, benefits, and alternatives . He was brought to the operating room placed supine on the table under general anesthesia via endotracheal tube. Both inguinal areas were prepped and draped in the usual sterile fashion. A surgical time-out was done. The patient received cefazolin 2 g IV preoperatively I infiltrated the planned line of incision on the left inguinal area using lidocaine 1%. I made a short incision on the skin on an imaginary line from the anterior superior iliac spine to the pubic ramus using a blade 15. I carried down this incision through the full-thickness of the skin and thick subcutaneous fat with electrocautery. Please note that the patient was morbidly obese so he had to go through a lot of thick subcutaneous fat before we reached the external oblique aponeurosis. I bluntly dissected the external oblique aponeurosis to define the external ring. I made a short incision on the external oblique aponeurosis using blade 15. And extended this inferomedially to connect with the external ring. The inguinal canal was therefore entered. I applied status on both edges of the external oblique aponeurosis. I bluntly dissected the underside to create a pocket for the mesh. I then bluntly dissected the spermatic cord and its contents using my index finger until was able to pass a Rafael drain around this. This Rafael drain was used for retraction. I examined the spermatic cord and its contents and the vas deferens was identified. There was no hernia sac along the spermatic cord. However there was note of the hernia on the floor of the canal consistent with a direct hernia. I bluntly dissected the hernia off of the rest of the cord until was able to completely reduce this. I reinforced the site of the hernia with large size plug. The plug was secured with Prolene to suture to shelving edge of the inguinal and laterally and the internal oblique superiorly medially using its inner leaves. I then position a keyhole mesh on the canal. Past the tails of the mesh around the cord at the level of the internal ring and these were secured together Prolene 2 sutures. I flattened the mesh on the floor of the canal. I secured the mesh with Prolene to suture to shelving edge of the inguinal and laterally and the internal oblique superiorly and medially as well as the pubic ramus inferomedially. I irrigated And observed for hemostasis. Once hemostasis was ensured, proceeded to remove the [place] drain. I closed the external oblique aponeurosis with a running Dexon 2-0 stitch to re-create the external ring. We then proceeded to do the repair of the right inguinal hernia. The planned line of incision was infiltrated with lidocaine 1%. I made a short incision on the skin with the same landmarks as the contralateral groin. I carried down this incision through the full-thickness of the skin and subcutaneous fat until was able to expose the external oblique aponeurosis. I opened up the external oblique aponeurosis to enter the inguinal canal. I applied hemostats to both divided edges of the aponeurosis. I bluntly dissected the underside of the aponeurosis to create pocket for the mesh. I then proceeded to bluntly dissect the spermatic cord and its contents using my index finger until was able to pass a Rafael drain around this. This Rafael drain was used for traction. I identified the vas deferens and its accompanying vessels. I was able to visualize a fat containing small hernia. I dissected this off of the rest of the cord contents and this led into the internal ring. This was were for an indirect hernia . I reinforced this ring with a small-sized plug. The plug was secured with Prolene 2 sutures to shelving edge of the inguinal meant laterally and the internal oblique superiorly and medially. I reinforced the floor of the canal with a keyhole mesh. The tails of the mesh were passed around the cord at the level of the internal ring and were secured together with Prolene 2 sutures. I flattened the mesh on the floor of the canal. I secured the mesh with Prolene 2-0 sutures to The shelving edge of the inguinal ligament laterally and the internal oblique superiorly and medially and the ramus inferomedially. I then irrigated. Once hemostasis was ensured, I proceeded to then close the external oblique aponeurosis with a running Dexon 2-0 stitch to re-create the external ring. I then proceeded to close the subcutaneous layer on both incisions with simple interrupted 3-0 Dexon sutures. Skin closure was achieved on all incisions using Dexon 4-0 subcuticular running sutures. Steri-Strips and dressings were applied. Both incisions were infiltrated with Marcaine 0.5% for postop analgesia and the procedure was completed The patient tolerated the procedure well. There were no complications noted. Initial and final counts of sponges and instruments were correct. Estimated blood loss was about 20 cc . The patient was extubated without difficulty and transferred to the recovery room with stable vital signs.
[2021-11-05] MEDS: oxyCODONE HCl Immed Release 5 MG TABLET 10 MG PO (14:57)
[2021-11-05] MEDS: fentaNYL citrate/PF 100 MCG/2 ML VIAL 25 MCG IVPUSH ×2 (14:59→15:32)
== END 2021-11-05 16:22 | disposition home or self-care (01) ==
PROVIDERS: PCP Internal Medicine; Visit Provider Surgery
PROC: (CPT 49505; principal; 2021-11-05 11:00)
DX: K40.20 Bilateral inguinal hernia, without obstruction or gangrene, not specified as recurrent (principal); G47.33 Obstructive sleep apnea (adult) (pediatric); I10 Essential (primary) hypertension; E11.9 Type 2 diabetes mellitus without complications; J45.909 Unspecified asthma, uncomplicated; E66.01 Morbid (severe) obesity due to excess calories; Z68.34 Body mass index [BMI] 34.0-34.9, adult; Z79.899 Other long term (current) drug therapy; Z87.891 Personal history of nicotine dependence
CPT/HCPCS: 49505; 82947; C1781; J0690; J1100; J2250; J2405; J3010

== ENCOUNTER → 2021-11-15 07:11 | Outpatient (BNVA) | payer MEDICARE, MEDICAID, SELFPAY | PROVIDERS: PCP Internal Medicine; Referring Provider Internal Medicine; Visit Provider Nurse Practitioner | DX: K30 Functional dyspepsia (principal); K21.9 Gastro-esophageal reflux disease without esophagitis | CPT/HCPCS: 99212 ==

== ENCOUNTER → 2021-11-20 10:34 | Outpatient (BNVA) | payer MEDICARE, MEDICAID, SELFPAY | PROVIDERS: PCP Internal Medicine; Referring Provider Internal Medicine; Visit Provider Surgery | DX: Z48.815 Encounter for surgical aftercare following surgery on the digestive system (principal); Z87.19 Personal history of other diseases of the digestive system | CPT/HCPCS: 99212 ==

== ENCOUNTER → 2021-12-04 15:29 | Outpatient (BNVA) | payer MEDICARE, MEDICAID, SELFPAY | PROVIDERS: PCP Internal Medicine; Referring Provider Internal Medicine; Visit Provider Surgery | DX: K40.20 Bilateral inguinal hernia, without obstruction or gangrene, not specified as recurrent (principal) | CPT/HCPCS: 99212 ==

== ENCOUNTER 2022-01-01 08:32 | Outpatient (REF) | payer MEDICARE, MEDICAID, SELFPAY | END 2022-01-01 08:33 | disposition home or self-care (01) | LOC: HO.LAB 08:32 | PROVIDERS: PCP Internal Medicine; Visit Provider Internal Medicine | DX: Z13.89 Encounter for screening for other disorder (principal) ==

== ENCOUNTER 2022-02-10 08:01 | Outpatient (REF) | payer MEDICARE, MEDICAID, SELFPAY ==
[2022-02-10 08:20] LABS: MANUAL DIFF FLAG NO
[2022-02-10 08:41] LABS: Basophils Percent Auto 0.4 % (0-2); Eosinophils Absolute Auto 0.3 X10*3/uL (0.0-0.4); Eosinophils Percent Auto 5.7 % (0-4); Hematocrit 44.8 % (42.0-52.0); Hemoglobin 13.9 g/dl (14.0-18.0); Imm Gran Abs Auto 0.01 X10*3/uL (0.00-0.03); Imm Gran Pct Auto 0.2 % (0.0-0.4); Lymphocytes Absolute Auto 1.3 X10*3/uL (1.2-4.9); Lymphocytes Percent Auto 27.9 % (20-40); Mean Corpuscular Hemoglobin 28.8 pg (27.0-33.0); Mean Corpuscular Volume 92.9 fL (80.0-98.0); Mean Platelet Volume 9.1 fL (9.4-12.4); Monocytes Absolute Auto 0.5 X10*3/uL (0.1-1.2); Neutrophils Absolute Auto 2.6 x10*3/uL (2.0-8.3); Neutrophils Percent Auto 55.8 % (45-73); Platelet Count 203 X10*3/uL (160-400); Red Blood Count 4.82 X10*6/uL (4.60-5.80); Red Cell Distribution Width 13.2 % (11.0-16.0); White Blood Count 4.7 X10*3/uL (4.8-10.8)
[2022-02-10 08:51] LABS: Estimated Average Glucose 137 mg/dL; Hemoglobin A1c % 6.4 %
[2022-02-10 09:08] LABS: Appearance Urine CLEAR; Color Urine YELLOW; Glucose Urine UA NEG (NEG); Leukocyte Esterase Urine NEG (NEG); Nitrite Urine NEG (NEG); Specific Gravity - Urine 1.025 (1.005-1.025); Urine Blood NEG (NEG); Urine Ketones NEG (NEG); Urine Protein NEG (NEG-TRACE)
[2022-02-10 09:42] LABS: Creatinine Urine 133.61 mg/dL; Microalbum/Creatinine Ratio Ur 3.7 ug/mg cr
[2022-02-10 09:51] LABS: Alanine Aminotransferase 24 U/L (0-40); Albumin Level 4.3 g/dL (3.5-5.0); Alkaline Phosphatase 76 U/L (39-117); Anion Gap 12 (12-20); Aspartate Amino Transferase 16 U/L (5-37); Bilirubin Total 0.4 mg/dL (0.0-1.0); Blood Urea Nitrogen 16 mg/dL (9-16); Calcium 9.6 mg/dL (8.4-10.2); Carbon Dioxide 23 mmol/L (22-29); Chloride 110 mmol/L (96-108); Cholesterol 139 mg/dL; Estimated Glomerular Filt Rate > 60; Glucose Fasting 126 mg/dL (60-99); HDL Cholesterol 42 mg/dL; LDL Cholesterol Calculated 68 mg/dl; Potassium 4.3 mmol/L (3.3-5.1); Sodium 141 mmol/L (135-145); Total Protein 7.3 g/dL (6.5-8.0); Triglycerides 147 mg/dL
[2022-02-10 10:11] LABS: TSH reflex Free T4 0.91 uIU/mL (0.32-4.0); Vitamin D 25-OH Total 30.9 ng/mL (>30)
== END 2022-02-10 08:02 | disposition home or self-care (01) ==
LOC: HO.LAB 08:01
PROVIDERS: PCP Internal Medicine; Visit Provider Internal Medicine
DX: I10 Essential (primary) hypertension (principal); E78.00 Pure hypercholesterolemia, unspecified; E11.9 Type 2 diabetes mellitus without complications; E55.9 Vitamin D deficiency, unspecified
CPT/HCPCS: 36415; 80053; 80061; 81003; 82043; 82306; 83036; 84443; 85025

== ENCOUNTER → 2022-04-03 07:56 | Outpatient (REF) | payer MEDICARE, MEDICAID, SELFPAY ==
--- NOTE | 2022-04-03 08:14 | ECG_ITS ---
Test Reason : TACHYCARDIA Blood Pressure : / mmHG Vent. Rate : 095 BPM Atrial Rate : 095 BPM P-R Int : 196 ms QRS Dur : 094 ms QT Int : 348 ms P-R-T Axes : 049 -12 047 degrees QTc Int : 437 ms Normal sinus rhythm Normal ECG When compared with ECG of 30-JUL-2011 23:43, No significant change was found Referred By: Nathan Mendoza Electronically Signed By:Robert Bravo
== END ==
LOC: HO.CARD 07:56
PROVIDERS: PCP Internal Medicine; Visit Provider Internal Medicine
DX: R00.0 Tachycardia, unspecified (principal)
CPT/HCPCS: 93005

== ENCOUNTER 2022-04-21 08:23 | Outpatient (REF) | payer MEDICARE, MEDICAID, SELFPAY ==
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
== END 2022-04-21 08:24 | disposition home or self-care (01) ==
LOC: HO.SH 08:23
PROVIDERS: Visit Provider Internal Medicine
DX: Z01.118 Encounter for examination of ears and hearing with other abnormal findings (principal); H90.3 Sensorineural hearing loss, bilateral; H93.13 Tinnitus, bilateral
CPT/HCPCS: 92550; 92557; 92588

== ENCOUNTER → 2022-05-16 07:08 | Outpatient (BNVA) | payer MEDICARE, MEDICAID, SELFPAY | PROVIDERS: PCP Internal Medicine; Referring Provider Internal Medicine; Visit Provider Nurse Practitioner | DX: K30 Functional dyspepsia (principal); K21.9 Gastro-esophageal reflux disease without esophagitis; D12.6 Benign neoplasm of colon, unspecified | CPT/HCPCS: 99212 ==

== ENCOUNTER 2022-06-05 07:06 | Outpatient (REF) | payer MEDICARE, MEDICAID, SELFPAY ==
[2022-06-05 07:24] LABS: MANUAL DIFF FLAG NO
[2022-06-05 08:49] LABS: Basophils Percent Auto 0.5 % (0-2); Eosinophils Absolute Auto 0.4 X10*3/uL (0.0-0.4); Eosinophils Percent Auto 7.3 % (0-4); Hematocrit 42.5 % (42.0-52.0); Hemoglobin 13.8 g/dl (14.0-18.0); Imm Gran Abs Auto 0.01 X10*3/uL (0.00-0.03); Imm Gran Pct Auto 0.2 % (0.0-0.4); Lymphocytes Absolute Auto 1.7 X10*3/uL (1.2-4.9); Lymphocytes Percent Auto 28.2 % (20-40); Mean Corpuscular HGB Conc 32.5 g/dl (31.0-36.0); Mean Corpuscular Hemoglobin 29.7 pg (27.0-33.0); Mean Corpuscular Volume 91.4 fL (80.0-98.0); Mean Platelet Volume 9.7 fL (9.4-12.4); Monocytes Absolute Auto 0.5 X10*3/uL (0.1-1.2); Neutrophils Absolute Auto 3.4 x10*3/uL (2.0-8.3); Neutrophils Percent Auto 55.8 % (45-73); Platelet Count 240 X10*3/uL (160-400); Red Blood Count 4.65 X10*6/uL (4.60-5.80); Red Cell Distribution Width 13.6 % (11.0-16.0)
[2022-06-05 09:07] LABS: Estimated Average Glucose 120 mg/dL; Hemoglobin A1c % 5.8 %
[2022-06-05 09:09] LABS: Appearance Urine CLEAR; Color Urine YELLOW; Glucose Urine UA NEG (NEG); Leukocyte Esterase Urine NEG (NEG); Nitrite Urine NEG (NEG); PH 5.5 (5.0-8.0); Urine Blood NEG (NEG); Urine Ketones NEG (NEG); Urine Protein NEG (NEG-TRACE)
[2022-06-05 09:18] LABS: Alanine Aminotransferase 20 U/L (0-40); Albumin Level 4.5 g/dL (3.5-5.0); Alkaline Phosphatase 69 U/L (39-117); Anion Gap 11 (12-20); Aspartate Amino Transferase 17 U/L (5-37); Bilirubin Total 0.5 mg/dL (0.0-1.0); Blood Urea Nitrogen 17 mg/dL (9-16); Calcium 9.2 mg/dL (8.4-10.2); Carbon Dioxide 23 mmol/L (22-29); Chloride 112 mmol/L (96-108); Cholesterol 151 mg/dL; Estimated Glomerular Filt Rate > 60; Glucose Fasting 120 mg/dL (60-99); HDL Cholesterol 38 mg/dL; LDL Cholesterol Calculated 85 mg/dl; Potassium 4.5 mmol/L (3.3-5.1); Sodium 141 mmol/L (135-145); Total Protein 7.4 g/dL (6.5-8.0); Triglycerides 144 mg/dL
[2022-06-05 09:36] LABS: Creatinine Urine 144.08 mg/dL; Microalbum/Creatinine Ratio Ur 4.8 ug/mg cr
[2022-06-05 09:41] LABS: Prostate Specific Antigen Scr 0.74 ng/mL (<0.05-4.0); TSH reflex Free T4 0.84 uIU/mL (0.32-4.0)
== END 2022-06-05 07:07 | disposition home or self-care (01) ==
LOC: HO.LAB 07:06
PROVIDERS: PCP Internal Medicine; Visit Provider Internal Medicine
DX: Z00.00 Encounter for general adult medical examination without abnormal findings (principal); Z12.5 Encounter for screening for malignant neoplasm of prostate; E11.9 Type 2 diabetes mellitus without complications; E55.9 Vitamin D deficiency, unspecified; I10 Essential (primary) hypertension; E78.00 Pure hypercholesterolemia, unspecified
CPT/HCPCS: 36415; 80053; 80061; 81003; 82043; 82306; 83036; 84153; 84443; 85025

== ENCOUNTER → 2022-07-18 09:27 | Outpatient (BNVA) | payer MEDICARE, MEDICAID, SELFPAY | PROVIDERS: PCP Internal Medicine; Visit Provider Urology | DX: N50.3 Cyst of epididymis (principal) | CPT/HCPCS: 99212 ==

== ENCOUNTER 2022-07-28 07:09 | Outpatient (REF) | payer MEDICARE, MEDICAID, SELFPAY ==
--- NOTE | ~2022-07-28 | CT_ITS ---
EXAMINATION: CT HEAD WITHOUT CONTRAST CLINICAL INFORMATION: Migraine. Progressive headache for 2 months. COMPARISON: Previous head CT most recent July 2018 TECHNIQUE: Contiguous axial imaging was performed from the skull base to vertex without intravenous administration of contrast. This CT examination was performed using dose optimization techniques as appropriate, variously including the following: *Automated exposure control *Adjustment of mA and/or kV according to patient size (this includes techniques or standardized protocols for targeted exams where dose is matched to indication/reason for exam; i.e. extremities or head) *Use of iterative reconstruction technique DLP: 434 mGy-cm FINDINGS: There is no evidence of an extra-axial collection. There is no evidence of intra-axial or extra-axial hemorrhage. The ventricles and extra-axial CSF spaces are appropriate. Salvador-white matter differentiation is normal. No mass, mass effect or infarct is seen. Bone windows is normal. There may be small polyps or cysts in the maxillary sinuses, not completely imaged. The visualized paranasal sinuses, mastoid air cells and middle ears are otherwise clear. CT/CT head/brain wo con IMPRESSION: No acute intracranial findings. Question bilateral maxillary sinus disease.
== END 2022-07-28 07:10 | disposition home or self-care (01) ==
LOC: HO.CT 07:09
PROVIDERS: Visit Provider Psychiatry & Neurology Neurology
DX: G43.909 Migraine, unspecified, not intractable, without status migrainosus (principal)
CPT/HCPCS: 70450

== ENCOUNTER 2022-09-19 08:26 | Outpatient (REF) | payer MEDICARE, MEDICAID, SELFPAY ==
[2022-09-19 08:35] LABS: MANUAL DIFF FLAG NO
[2022-09-19 09:02] LABS: Basophils Percent Auto 0.3 % (0-2); Eosinophils Absolute Auto 0.3 X10*3/uL (0.0-0.4); Eosinophils Percent Auto 4.2 % (0-4); Hematocrit 42.6 % (42.0-52.0); Hemoglobin 13.6 g/dl (14.0-18.0); Imm Gran Abs Auto 0.02 X10*3/uL (0.00-0.03); Imm Gran Pct Auto 0.3 % (0.0-0.4); Lymphocytes Absolute Auto 1.6 X10*3/uL (1.2-4.9); Lymphocytes Percent Auto 27.1 % (20-40); Mean Corpuscular HGB Conc 31.9 g/dl (31.0-36.0); Mean Corpuscular Hemoglobin 29.4 pg (27.0-33.0); Mean Corpuscular Volume 92.2 fL (80.0-98.0); Mean Platelet Volume 9.6 fL (9.4-12.4); Monocytes Absolute Auto 0.5 X10*3/uL (0.1-1.2); Monocytes Percent Auto 8.8 % (2-11); Neutrophils Absolute Auto 3.5 x10*3/uL (2.0-8.3); Neutrophils Percent Auto 59.3 % (45-73); Platelet Count 216 X10*3/uL (160-400); Red Blood Count 4.62 X10*6/uL (4.60-5.80); Red Cell Distribution Width 13.5 % (11.0-16.0); White Blood Count 5.9 X10*3/uL (4.8-10.8)
[2022-09-19 09:09] LABS: Estimated Average Glucose 128 mg/dL; Hemoglobin A1C 152.5402 umol/L; Hemoglobin A1c % 6.1 %
[2022-09-19 09:24] LABS: Appearance Urine Clear; Color Urine Yellow; Glucose Urine UA Negative (Negative); Leukocyte Esterase Urine Negative (Negative); Nitrite Urine Negative (Negative); PH 5.5 (5.0-9.0); Specific Gravity - Urine 1.025 (1.005-1.025); Urine Blood Negative (Negative); Urine Ketones Negative (Negative); Urine Protein Negative (Neg-Trace)
[2022-09-19 09:35] LABS: Alanine Aminotransferase 62 U/L (0-40); Albumin Level 4.4 g/dL (3.5-5.0); Alkaline Phosphatase 71 U/L (39-117); Anion Gap 13 (12-20); Aspartate Amino Transferase 30 U/L (5-37); Bilirubin Total 0.5 mg/dL (0.0-1.0); Blood Urea Nitrogen 18 mg/dL (9-16); Calcium 9.1 mg/dL (8.4-10.2); Carbon Dioxide 25 mmol/L (22-29); Chloride 109 mmol/L (96-108); Cholesterol 167 mg/dL; Estimated Glomerular Filt Rate > 60; Glucose Fasting 172 mg/dL (60-99); HDL Cholesterol 45 mg/dL; LDL Cholesterol Calculated 97 mg/dl; Potassium 4.4 mmol/L (3.3-5.1); Sodium 143 mmol/L (135-145); Total Protein 7.3 g/dL (6.5-8.0); Triglycerides 128 mg/dL
[2022-09-19 09:46] LABS: Prostate Specific Antigen 0.74 ng/mL (<0.05-4.0); TSH reflex Free T4 0.69 uIU/mL (0.32-4.0); Vitamin D 25-OH Total 32.4 ng/mL (>30)
[2022-09-19 10:01] LABS: Creatinine Urine 228.99 mg/dL; Microalbum/Creatinine Ratio Ur 4.8 ug/mg cr
== END 2022-09-19 08:27 | disposition home or self-care (01) ==
LOC: HO.LAB 08:26
PROVIDERS: PCP Internal Medicine; Visit Provider Internal Medicine
DX: Z00.00 Encounter for general adult medical examination without abnormal findings (principal); N40.0 Benign prostatic hyperplasia without lower urinary tract symptoms; I10 Essential (primary) hypertension; E78.00 Pure hypercholesterolemia, unspecified; E55.9 Vitamin D deficiency, unspecified; E11.9 Type 2 diabetes mellitus without complications; Z12.5 Encounter for screening for malignant neoplasm of prostate
CPT/HCPCS: 36415; 80053; 80061; 81003; 82043; 82306; 83036; 84153; 84443; 85025

== ENCOUNTER 2022-10-30 07:01 | Day surgery (SDC) | payer MEDICARE, MEDICAID, SELFPAY ==
[2022-10-27 13:04] VITALS: BMI 34.6
--- NOTE | 2022-10-29 11:51 | HO.ANESPROP2 ---
Documented by User: Anayeli Ceja NP 10/29/22 11:53 HPI - Anesthesia Eval Consult details Narrative: 52yo M for Colonoscopy PMF Active Problems Active Problems: All Active Problems (Updated 10/03/22 @ 09:15 by Nathan Mendoza MD) Cellulitis of great toe of right foot (Acute) Left shoulder pain (Acute) Ingrown toenail of both feet (Acute) Tubular adenoma of colon (Acute) Colon cancer screening (Acute) Hearing impairment (Acute) Medicare annual wellness visit, subsequent (Acute) Tachycardia (Acute) Annual physical exam (Acute) Inguinal hernia bilateral, non-recurrent (Acute) Delayed gastric emptying (Acute) Tonsillitis (Acute) Early satiety (Acute) Epididymal cyst (Acute) Hematuria (Acute) Obesity (BMI 30.0-34.9) (Acute) Abdominal bloating (Acute) Irritable bowel syndrome with both constipation and diarrhea (Acute) GERD (gastroesophageal reflux disease) (Acute) Esophageal dysmotility (Acute) Oropharyngeal dysphagia (Acute) Anxiety (Acute) Obstructive sleep apnea (Acute) Vitamin B12 deficiency (Acute) Vitamin D deficiency (Acute) Gastritis (Acute) Lumbar degenerative disc disease (Acute) Asthma (Acute) Pure hypercholesterolemia (Acute) Migraine (Acute) Cardiac arrhythmia (Acute) Type 2 diabetes mellitus without complication, with no history of insulin use (Acute) Benign essential hypertension (Acute) Past Medical History Medical History Anxiety Asthma Benign essential hypertension Cardiac arrhythmia Epididymal cyst Gastritis Hematuria History of anoxic brain injury Lumbar degenerative disc disease Migraine Obesity (BMI 30.0-34.9) Obstructive sleep apnea Pure hypercholesterolemia Type 2 diabetes mellitus without complication, with no history of insulin use Vitamin B12 deficiency Vitamin D deficiency Family History Family History Father No problems noted. Mother Hypertension Cancer Sister Cancer Family history of problems with anesthesia: No Surgical History Surgical History H/O bilateral inguinal hernia repair H/O hernia repair History of esophagogastroduodenoscopy (EGD) History of extraction of renal calculus History of repair of rotator cuff Hx of colonoscopy History of Problems with Anesthesia: No Social History Social History Household Members: Significant Other Housing: House Alcohol intake: current Alcohol intake frequency: does not drink Patient Tobacco Use Status: Never used Tobacco e-Cigarette/Vaping Use: Never Used Second Hand Smoke Exposure: No service: No Current occupational status: disabled Cognitive needs: No Hearing needs: No Vision needs: No Meds Allergies Allergy/AdvReac Type Severity Reaction Status Date / Time No Known Allergies Allergy Verified 10/02/22 23:23 [No Known Allergies*] Home Medications Medication Instructions Recorded Confirmed Last Taken Type alprazolam 1 mg tablet 1 mg PO TID PRN Anxiety 01/04/21 10/02/22 Unknown History amitriptyline 25 mg tablet 25 mg PO BEDTIME 01/04/21 10/02/22 Unknown History clonidine HCl 0.1 mg tablet 0.1 mg PO BEDTIME 01/04/21 10/02/22 Unknown History ibuprofen 800 mg tablet 800 mg PO TID PRN Pain 10/31/21 10/02/22 Unknown History Exam Exam Date and Time: October 29, 2022 1151 Height,Weight and Vital Signs: Height 5 ft 7 in Weight 100.244 kg Pertinent Lab Results Pertinent Lab Results: Laboratory Tests 09/19/22 09/19/22 08:34 08:34 WBC 5.9 Hgb 13.6 L Hct 42.6 Plt Count 216 Sodium 143 Potassium 4.4 Chloride 109 H Carbon Dioxide 25 BUN 18 H Creatinine 1.24 Narrative Narrative: EKG 02/2022 Vent. Rate : 095 BPM ? ? Atrial Rate : 095 BPM ?? P-R Int : 196 ms? QRS Dur : 094 ms ? ? QT Int : 348 ms ? ? ? P-R-T Axes : 049 -12 047 degrees ?? QTc Int : 437 ms ? Normal sinus rhythm Normal ECG When compared with ECG of 30-JUL-2011 23:43, No significant change was found Assessment and Plan Assessment Anesthesia Assessment: Chart Reviewed Final Anesthetic Review Family History of Problems with Anesthesia: No History of Problems with Anesthesia: No Documented by User: Alcides Allison MD 10/30/22 17:35 HPI - Anesthesia Eval Consult details Narrative: 52yo M for Colonoscopy trmors both hands speech impairment , h/o anoxic brain injury . AOx4 PMFSH Past Medical History Medical History Anxiety Asthma Benign essential hypertension Cardiac arrhythmia Epididymal cyst Gastritis Hematuria History of anoxic brain injury Lumbar degenerative disc disease Migraine Obesity (BMI 30.0-34.9) Obstructive sleep apnea Pure hypercholesterolemia Type 2 diabetes mellitus without complication, with no history of insulin use Vitamin B12 deficiency Vitamin D deficiency Family History Family History Father No problems noted. Mother Hypertension Cancer Sister Cancer Surgical History Surgical History H/O bilateral inguinal hernia repair H/O hernia repair History of esophagogastroduodenoscopy (EGD) History of extraction of renal calculus History of repair of rotator cuff Hx of colonoscopy Social History Social History Household Members: Significant Other Housing: House Alcohol intake: current Alcohol intake frequency: does not drink Patient Tobacco Use Status: Never used Tobacco e-Cigarette/Vaping Use: Never Used Second Hand Smoke Exposure: No service: No Current occupational status: disabled Cognitive needs: No Hearing needs: No Vision needs: No Meds Allergies Allergy/AdvReac Type Severity Reaction Status Date / Time No Known Allergies Allergy Verified 10/02/22 23:23 [No Known Allergies*] Home Medications Medication Instructions Recorded Confirmed Last Taken Type alprazolam 1 mg tablet 1 mg PO TID PRN Anxiety 01/04/21 10/02/22 Unknown History amitriptyline 25 mg tablet 25 mg PO BEDTIME 01/04/21 10/02/22 Unknown History clonidine HCl 0.1 mg tablet 0.1 mg PO BEDTIME 01/04/21 10/02/22 Unknown History ibuprofen 800 mg tablet 800 mg PO TID PRN Pain 10/31/21 10/02/22 Unknown History Exam Airway Mallampati Class: II TM Dist: >3cm Neck ROM: Full Loose/Missing/Broken Teeth: Yes (Front tooth chipped . poor dentition ) Heart: S1,S2 Lungs: b/l breath sounds Assessment and Plan Assessment Anesthesia Assessment: Anesthesia Plan Discussed Final Anesthetic Review NPO: Yes ASA Class: III Final Preanesthetic Review: Meds/Allgs Chart Reviewed, Consent Obtained/Reviewed and Anes Risks/Benef Reviewed Patient Risk: Intermediate Procedure Risk: Intermediate Anesthetic Plan Anesthetic Plan: MAC: Disposition: Standard PACU
[2022-10-30 07:12] VITALS: BP 137/82; PULSE 95; RESP 18; TEMP 35.9; O2SAT 97
[2022-10-30 07:24] LABS: Glucose, Whole Blood 138 mg/dL (60-115)
[2022-10-30] MEDS: Lactated Ringers 1,000 ML 100 ML IVCONT (07:29)
--- NOTE | 2022-10-30 08:14 | P.HPSUR_ITS ---
Pre-Procedural Eval Section A Date of Service: 10/30/22 Section B Chief Complaint: screening Details of Present Illness: breast cancer history in family Relevant Family History (Specify if Yes): Yes Relevant Social History: None Present Medications: see Short Stay Collaborative assessment Medical History: Significant History (Anxiety Asthma Benign essential hypertension Cardiac arrhythmia Epididymal cyst Gastritis Hematuria History of anoxic brain injury Lumbar degenerative disc disease Migraine Obesity (BMI 30.0- 34.9) Obstructive sleep apnea Pure hypercholesterolemia Type 2 diabetes mellitus without complication, with n) History of Previous Operations: Relevant previous surgery/procedure and date(s) (H/O bilateral inguinal hernia repair H/O hernia repair History of esophagogastroduodenoscopy (EGD) History of extraction of renal calculus History of repair of rotator cuff Hx of colonoscopy) Allergies: Allergies Allergy/AdvReac Type Severity Reaction Status Date / Time No Known Allergies Allergy Verified 10/02/22 23:23 [No Known Allergies*] Review of Systems Sugical H&P ROS: Negative: Constitution, Cardiovascular, Respiratory, Neurological, Psychiatric, Hem-Onc, Allergic/Immunologic, Gastrointestinal, Genitourinary, Musculoskeletal, Integumentary, Endocrine and Eyes/Ears/Nose/Throat Exam Surgical H&P Exam: Normal: HEENT, Normal: Heart, Normal: Lungs, Normal: E xtremities, Normal: Abdomen, Normal: Skin and Normal: Neurological Plan Diagnosis/Plan: Unchanged I have reviewed the history and physical and performed a pertinent physical examination on my patient. No changes have occurred unless specified.
--- NOTE | 2022-10-30 08:16 | W.PM.OPN ---
Operative Note Operative Note Date of Service: 10/30/22 Narrative: Operative Information Procedure Description: Colonoscopy Indication: screening Anesthesia: MAC COLONOSCOPY Instrument: Olympus variable stiffness pediatric scope 190L Colonoscopy Monitoring: Vital signs and clinical assessment, continuous EKG monitoring, Pulse oximetry, Carbon Dioxide monitoring and blood pressure monitoring were done throughout the procedure. Colon withdrawal time was 8 minutes. Procedure: The patient was placed in the left lateral decubitis position and pre-procedure medications were administered. After a digital rectal examination of the ano-rectum, the video colonoscope was inserted into the rectum and advanced through the colon to the cecum/TI. The colonoscope was slowly withdrawn in a retrograde panoramic fashion and the colon mucosa was carefully examined including a retroflexed view of the rectum. Findings and interventions are described below. Procedure Difficulty: easy Findings: Terminal Ileum-normal Cecum:normal Ascending Colon: normal Transverse Colon -normal Descending Colon:normal Sigmoid Colon: normal Rectum: Retroflexion with medium sized internal hemorrhoids, grade I Anorectum - normal Colon preparation: Preston Bowel Preparation Scale Right colon; 1-2 Transverse colon: 1-2 Left colon; 1-2 (0 = Unprepared colon segment with mucosa not seen due to solid stool that cannot be cleared. 1 = Portion of mucosa of the colon segment seen, but other areas of the colon segment not well seen due to staining, residual stool and/or opaque liquid. 2 = Minor amount of residual staining, small fragments of stool and/or opaque liquid, but mucosa of colon segment seen well. 3 = Entire mucosa of colon segment seen well with no residual staining, small fragments of stool or opaque liquid) Impression and Post Procedure Diagnosis: fair to poor prep internal hemorrhoids Plan: High fiber diet leaflet Avoid straining at stool, epsom salts and sitz bath, anusol supps or cream Repeat Colonoscopy in 1-2 years or earlier if clinically indicated, review prep instructions for next time Above findings were reviewed with the patient and relevant handouts were provided if indicated.
[2022-10-30 08:54] VITALS: BP 105/52; PULSE 103; RESP 16; TEMP 36.3; O2SAT 97
[2022-10-30 09:09] VITALS: BP 130/84; PULSE 93; RESP 16; TEMP 36.2; O2SAT 97
--- NOTE | 2022-10-30 09:52 | PC.NURSE ---
PT LEFT WITH HIS GIRLFRIEND AMA BECAUSE HE DIDN'T WANT TO WAIT FOR THE SHUTTLE BUS WHICH THIS RN WAS TOLD WOULD BE HERE AT 1030 AM. IT WOULD HAVE BEEN AN HOUR WAIT. PT DIDN'T WANT TO SIGN AMA FORM. PT JUST GOT UP AND LEFT.
== END 2022-10-30 09:55 | disposition home or self-care (01) ==
PROVIDERS: PCP Internal Medicine; Visit Provider Internal Medicine Gastroenterology
PROC: 0DJD8ZZ Inspection of Lower Intestinal Tract, Via Natural or Artificial Opening Endoscopic (ICD-10-PCS; CPT 45378; principal; 2022-10-30 08:00)
DX: Z12.11 Encounter for screening for malignant neoplasm of colon (principal); Z86.010 Personal history of colon polyps; K64.0 First degree hemorrhoids; K58.2 Mixed irritable bowel syndrome; K21.9 Gastro-esophageal reflux disease without esophagitis; K29.70 Gastritis, unspecified, without bleeding; E78.5 Hyperlipidemia, unspecified; I10 Essential (primary) hypertension; J45.909 Unspecified asthma, uncomplicated; G47.33 Obstructive sleep apnea (adult) (pediatric); E66.9 Obesity, unspecified; Z68.34 Body mass index [BMI] 34.0-34.9, adult; E11.9 Type 2 diabetes mellitus without complications; Z79.84 Long term (current) use of oral hypoglycemic drugs; Z79.1 Long term (current) use of non-steroidal anti-inflammatories (NSAID); Z79.899 Other long term (current) drug therapy
CPT/HCPCS: G0105; 82947

== ENCOUNTER → 2022-11-13 07:56 | Outpatient (BNVA) | payer MEDICARE, MEDICAID, SELFPAY | PROVIDERS: PCP Internal Medicine; Referring Provider Internal Medicine; Visit Provider Nurse Practitioner | DX: Z12.11 Encounter for screening for malignant neoplasm of colon (principal); K30 Functional dyspepsia; K21.9 Gastro-esophageal reflux disease without esophagitis; K58.2 Mixed irritable bowel syndrome | CPT/HCPCS: 99212 ==

== ENCOUNTER → 2022-11-27 08:57 | Outpatient (REF) | payer MEDICARE, MEDICAID, SELFPAY | LOC: HO.SL 08:57 | PROVIDERS: PCP Internal Medicine; Visit Provider Psychiatry & Neurology Neurology | DX: G47.33 Obstructive sleep apnea (adult) (pediatric) (principal) | CPT/HCPCS: 95806 ==

== ENCOUNTER 2023-01-12 07:02 | Outpatient (REF) | payer MEDICARE, MEDICAID, SELFPAY ==
--- NOTE | ~2023-01-12 | XR_ITS ---
EXAMINATION: XR SHOULDER, LEFT CLINICAL INFORMATION: Left shoulder pain COMPARISON: 03/10/2017 TECHNIQUE: AP external rotation, Grashey, scapular Y, and axillary views of the left shoulder. FINDINGS: Postsurgical changes seen within the greater tuberosity of the humeral head. Secondary degenerative changes is seen along the greater tuberosity. No acute fracture. The joint spaces appear well-maintained. XR/XR shoulder LT min 2V IMPRESSION: Postsurgical changes with secondary degenerative changes of the greater tuberosity of the humeral head
[2023-01-12 07:17] LABS: MANUAL DIFF FLAG NO
[2023-01-12 07:49] LABS: Basophils Percent Auto 0.4 % (0-2); Eosinophils Absolute Auto 0.2 X10*3/uL (0.0-0.4); Eosinophils Percent Auto 4.7 % (0-4); Hematocrit 42.6 % (42.0-52.0); Hemoglobin 13.7 g/dl (14.0-18.0); Imm Gran Abs Auto 0.01 X10*3/uL (0.00-0.03); Imm Gran Pct Auto 0.2 % (0.0-0.4); Lymphocytes Absolute Auto 1.6 X10*3/uL (1.2-4.9); Lymphocytes Percent Auto 35.3 % (20-40); Mean Corpuscular HGB Conc 32.2 g/dl (31.0-36.0); Mean Corpuscular Hemoglobin 29.2 pg (27.0-33.0); Mean Corpuscular Volume 90.8 fL (80.0-98.0); Mean Platelet Volume 9.3 fL (9.4-12.4); Monocytes Absolute Auto 0.5 X10*3/uL (0.1-1.2); Monocytes Percent Auto 11.3 % (2-11); Neutrophils Absolute Auto 2.2 x10*3/uL (2.0-8.3); Neutrophils Percent Auto 48.1 % (45-73); Platelet Count 207 X10*3/uL (160-400); Red Blood Count 4.69 X10*6/uL (4.60-5.80); White Blood Count 4.5 X10*3/uL (4.8-10.8)
[2023-01-12 07:54] LABS: Appearance Urine Clear; Color Urine Yellow; Glucose Urine UA Negative (Negative); Leukocyte Esterase Urine Negative (Negative); Nitrite Urine Negative (Negative); Urine Blood Negative (Negative); Urine Ketones Negative (Negative); Urine Protein Negative (Neg-Trace)
[2023-01-12 07:58] LABS: Estimated Average Glucose 148 mg/dL; Hemoglobin A1c % 6.8 %
[2023-01-12 08:22] LABS: Creatinine Urine 178.29 mg/dL
[2023-01-12 08:28] LABS: Alanine Aminotransferase 22 U/L (0-40); Albumin Level 4.2 g/dL (3.5-5.0); Alkaline Phosphatase 86 U/L (39-117); Anion Gap 12 (12-20); Aspartate Amino Transferase 18 U/L (5-37); Bilirubin Total 0.4 mg/dL (0.0-1.0); Blood Urea Nitrogen 16 mg/dL (9-16); Calcium 9.9 mg/dL (8.4-10.2); Carbon Dioxide 25 mmol/L (22-29); Chloride 111 mmol/L (96-108); Cholesterol 130 mg/dL; Estimated Glomerular Filt Rate > 60; Glucose Fasting 129 mg/dL (60-99); HDL Cholesterol 40 mg/dL; LDL Cholesterol Calculated 65 mg/dl; Potassium 4.4 mmol/L (3.3-5.1); Sodium 144 mmol/L (135-145); Total Protein 6.9 g/dL (6.5-8.0); Triglycerides 127 mg/dL
[2023-01-12 08:35] LABS: TSH reflex Free T4 1.29 uIU/mL (0.32-4.0); Vitamin D 25-OH Total 34.2 ng/mL (>30)
== END 2023-01-12 07:03 | disposition home or self-care (01) ==
LOC: HO.LAB 07:02
PROVIDERS: PCP Internal Medicine; Visit Provider Internal Medicine
DX: Z13.89 Encounter for screening for other disorder (principal)
CPT/HCPCS: 36415; 73030; 80053; 80061; 81003; 82043; 82306; 83036; 84443; 85025

== ENCOUNTER 2023-01-12 07:29 | Emergency (ER) | payer MEDICARE, MEDICAID, SELFPAY ==
--- NOTE | ~2023-01-12 | XR_ITS ---
EXAMINATION: XR ELBOW, RIGHT CLINICAL INFORMATION: Fall. Pain. Rule out fracture. COMPARISON: None TECHNIQUE: AP, lateral, and oblique views of the right elbow. FINDINGS: The bones and soft tissues appear unremarkable. No fracture or joint effusion appreciated. Alignment is anatomic. Joint spaces are maintained. XR/XR elbow RT min 3V IMPRESSION: Normal plain film examination of the right elbow.
[2023-01-12 07:30] VITALS: BP 156/94; PULSE 98; O2SAT 98; BMI 35.2
--- NOTE | 2023-01-12 07:50 | ED_ITS ---
HPI - Extremity Problem General Chief complaint: Extremity Injury, Upper Stated complaint: fell down stairs r elbow inj Time Seen by Provider: 01/12/23 07:38 Source: patient Mode of arrival: ambulatory Limitations: no limitations History of Present Illness HPI Narrative: 52 yo male hx of GERD, anxiety, gastritis, back pain, DM2, arrhythmia, HTN here with c/o falling down the stairs this weekend after slipping landed directly on point of elbow - no other injuries hurts to bend and extend elbow. He has no other injuries. He is R handed - wanted to get it checked out. He can move the arm but was nervous. MD Complaint: extremity pain Onset (ago): day(s) (2) Pain Consistency: intermittent Location: right and elbow Quality: stabbing and dull Radiation: none Relieving factors: nothing Exacerbating factors: range of motion Associated symptoms: denies other symptoms Context: other (fall) Related Data Home Medications Medication Instructions Recorded Confirmed alprazolam 1 mg tablet 1 mg PO TID PRN Anxiety 01/04/21 11/07/22 amitriptyline 25 mg tablet 25 mg PO BEDTIME 01/04/21 10/02/22 clonidine HCl 0.1 mg tablet 0.1 mg PO BEDTIME 01/04/21 11/07/22 ibuprofen 800 mg tablet 800 mg PO TID PRN Pain 10/31/21 11/07/22 Previous Rx's Medication Instructions Recorded alcohol swabs 1 pad topical BID 30 days #100 ea 04/05/21 NEBULIZER and all related supplies #1 ea 05/13/21 blood sugar diagnostic (FreeStyle #100 ea 02/27/22 Lite Strips) lancets 28 gauge #100 ea 03/27/22 dicyclomine 20 mg tablet 20 mg PO QID 30 days #120 tabs 05/16/22 cholecalciferol (vitamin D3) 25 25 mcg PO DAILY 90 days #90 caps 06/10/22 mcg (1,000 unit) capsule dulaglutide 0.75 mg/0.5 mL 0.75 mg (0.5 mL) subcut QWEEK 30 06/10/22 subcutaneous pen injector days #2.5 mL (Trulicity) topiramate 100 mg tablet 100 mg PO BEDTIME 90 days #90 tabs 06/10/22 albuterol sulfate 2.5 mg/3 mL 2.5 mg (3 mL) inhalation TID PRN 09/30/22 (0.083 %) solution for nebulization shortness of breath or wheezing #90 mL albuterol sulfate 90 mcg/actuation 2 puff inhalation Q6H PRN 10/02/22 aerosol inhaler (ProAir HFA) shortness of breath or wheezing 30 days #18 grams atorvastatin 40 mg tablet 40 mg PO BEDTIME 90 days #90 tabs 10/02/22 lisinopril 10 mg tablet 10 mg PO DAILY 90 days #90 tabs 10/02/22 pioglitazone 15 mg tablet 15 mg PO DAILY 90 days #90 tabs 10/02/22 cyanocobalamin (vitamin B-12) 100 100 mcg PO DAILY 30 days #30 tabs 11/03/22 mcg tablet metoclopramide HCl 10 mg tablet 10 mg PO QIDACHS 30 days #120 tabs 11/13/22 (Reglan) pantoprazole 40 mg tablet,delayed 40 mg PO BID #60 tabs 11/13/22 release (Protonix) simethicone 180 mg capsule 180 mg PO QID 30 days #120 caps 11/13/22 acarbose 25 mg tablet 25 mg PO TID 90 days #270 tabs 12/09/22 tramadol 50 mg tablet 50 mg PO TID PRN pain 30 days #90 01/05/23 tabs Allergies Allergy/AdvReac Type Severity Reaction Status Date / Time No Known Allergies Allergy Verified 11/07/22 08:34 [No Known Allergies*] Review of Systems Review of Systems: Constitutional : No Fever, No Chills Cardiovascular : No Chest Pain, No SOB Respiratory : No Cough, No Dyspnea Gastrointestinal : No Nausea, No Vomiting, No Diarrhea, No abdominal Pain Genitourinary : No Dysuria, No Hematuria Musculoskeletal : positive joint pain, No Myalgias, No Joint Swelling Skin : No Skin lacerations, No rash Neuro : No Weakness, No Numbness, No Loss of Consciousness, No Dizziness, No Headache All other systems reviewed and are negative [facility] Past Medical History Attestation statement: The following information was validated with the patient. Medical History Anxiety Asthma Benign essential hypertension Cardiac arrhythmia Epididymal cyst Gastritis Hematuria History of anoxic brain injury Lumbar degenerative disc disease Migraine Obesity (BMI 30.0-34.9) Obstructive sleep apnea Pure hypercholesterolemia Type 2 diabetes mellitus without complication, with no history of insulin use Vitamin B12 deficiency Vitamin D deficiency Surgical History H/O bilateral inguinal hernia repair H/O hernia repair History of esophagogastroduodenoscopy (EGD) History of extraction of renal calculus History of repair of rotator cuff Hx of colonoscopy Family History Family History Father No problems noted. Mother Hypertension Cancer Sister Cancer Social History Social History Household Members: Significant Other Housing: House Alcohol intake: current Alcohol intake frequency: does not drink Patient Tobacco Use Status: Never used Tobacco e-Cigarette/Vaping Use: Never Used Second Hand Smoke Exposure: No Advance Directives: No Advance Directives Information Provided: Yes service: No Current occupational status: disabled Cognitive needs: No Hearing needs: No Vision needs: No Physical Exam Vital Signs: Vital Signs: Last Vital Signs Pulse 98 01/12/23 07:30 BP 156/94 H 01/12/23 07:30 Pulse Ox 98 01/12/23 07:30 O2 Del Method 01/12/23 07:30 BMI result Body Mass Index 35.2 Appearance: Alert. Oriented X3. No acute distress. Eyes: Pupils equal, round and reactive to light. ENT: Pharynx normal. Neck: Normal inspection. Neck supple. CVS: Normal heart rate and rhythm. Pulses normal. Respiratory: No respiratory distress. Breath sounds normal. Abdomen: Soft and nontender. Skin: Skin warm and dry. Normal skin color. Normal skin turgor. Extremities: R elbow full ROM - no effusion, distal NV can make full bicep no issues, some pain with ROM testing. on arrival to room using cellphone with R hand able to put phone in pocket no issues Neuro: Oriented X 3. No motor deficit. No sensory deficit. Medical Decision Making Medical Decision Making MDM Narrative: 52 yo male hx of GERD, anxiety, gastritis, back pain, DM2, arrhythmia, HTN - he has full ROM of elbow, distal NV intact at this time xray ordered no other injuries noted seems more strain fracture unlikely given physical exam. Differential Diagnosis fracture, sprain, strain Independent Interpretation I performed an independent interpretation of an: Plain X-Ray (no fracture seen) Discharge Plan Discharge Clinical Impression: Elbow strain Qualifiers: Encounter type: initial encounter Laterality: right Qualified Code(s): S46.911A - Strain of unspecified muscle, fascia and tendon at shoulder and upper arm level, right arm, initial encounter Patient Disposition: Home, Self-Care Instructions: Elbow Sprain (ED) Additional Instructions: rest ice elevate can take tylenol or motrin as needed for pain no fractures (broken bones) seen on your xray follow up with your doctor if not better in 1 week Prescriptions: No Action albuterol sulfate 2.5 mg /3 mL (0.083 %) solution for nebulization 2.5 mg inhalation TID PRN (Reason: shortness of breath or wheezing) Qty: 90 11RF cyanocobalamin (vitamin B-12) 100 mcg tablet 100 mcg PO DAILY 30 Days Qty: 30 6RF acarbose 25 mg tablet 25 mg PO TID 90 Days Qty: 270 1RF tramadol 50 mg tablet 50 mg PO TID PRN (Reason: pain) 30 Days Qty: 90 0RF ibuprofen 800 mg tablet 800 mg PO TID PRN (Reason: Pain) (DME) lancets 28 gauge misc See Rx Instructions topical DAILY Qty: 100 12RF Rx Instructions: use as directed once a day (DME) NEBULIZER and all related supplies See Rx Instructions .Route .MEDSUPPLY Qty: 1 0RF Rx Instructions: As directed cholecalciferol (vitamin D3) 25 mcg (1,000 unit) capsule 25 mcg PO DAILY 90 Days Qty: 90 3RF Trulicity 0.75 mg/0.5 mL pen injector 0.75 mg subcut QWEEK 30 Days Qty: 2.5 6RF topiramate 100 mg tablet 100 mg PO BEDTIME 90 Days Qty: 90 1RF atorvastatin 40 mg tablet 40 mg PO BEDTIME 90 Days Qty: 90 1RF pioglitazone 15 mg tablet 15 mg PO DAILY 90 Days Qty: 90 1RF lisinopril 10 mg tablet 10 mg PO DAILY 90 Days Qty: 90 1RF albuterol sulfate [ProAir HFA] 90 mcg/actuation HFA aerosol inhaler 2 puff inhalation Q6H PRN (Reason: shortness of breath or wheezing) 30 Days Qty: 18 5RF (DME) FreeStyle Lite Strips Strip See Rx Instructions .ROUTE .MEDSUPPLY Qty: 100 6RF Rx Instructions: Twice a day amitriptyline 25 mg tablet 25 mg PO BEDTIME alprazolam 1 mg tablet 1 mg PO TID PRN (Reason: Anxiety) clonidine HCl 0.1 mg tablet 0.1 mg PO BEDTIME alcohol swabs Pads, Medicated 1 pad topical BID 30 Days Qty: 100 6RF dicyclomine 20 mg tablet 20 mg PO QID 30 Days Qty: 120 6RF metoclopramide HCl [Reglan] 10 mg tablet 10 mg PO QIDACHS 30 Days Qty: 120 6RF pantoprazole [Protonix] 40 mg tablet,delayed release (DR/EC) 40 mg PO BID Qty: 60 6RF simethicone 180 mg capsule 180 mg PO QID 30 Days Qty: 120 6RF Rx Instructions: after meals
== END 2023-01-12 08:08 | disposition home or self-care (01) ==
PROVIDERS: Emergency Provider Emergency Medicine; PCP Internal Medicine
DX: S46.911A Strain of unspecified muscle, fascia and tendon at shoulder and upper arm level, right arm, initial encounter (principal); W10.8XXA Fall (on) (from) other stairs and steps, initial encounter; E11.9 Type 2 diabetes mellitus without complications; I10 Essential (primary) hypertension; E78.00 Pure hypercholesterolemia, unspecified; Y93.9 Activity, unspecified; Y92.9 Unspecified place or not applicable; Y99.9 Unspecified external cause status; Z79.85 Long-term (current) use of injectable non-insulin antidiabetic drugs; Z79.899 Other long term (current) drug therapy; Z79.02 Long term (current) use of antithrombotics/antiplatelets
CPT/HCPCS: 36415; 73030; 73080; 80053; 80061; 81003; 82043; 82306; 83036; 84443; 85025; 99283

== ENCOUNTER → 2023-02-02 10:25 | Outpatient (REF) | payer MEDICARE, MEDICAID, SELFPAY ==
--- NOTE | 2023-02-02 10:29 | CA_ITS ---
Acquisition Time: 2023-02-02 10:42:24 Total Exercise Time: 00:06:08 Test Indications: SOB, ARRHYTHMIA, DYSPNEA Medications: SEE H Protocol: OPAL Max HR: 162 BPM 95% of Pred: 169 BPM Max BP: 170/070 mmHG Max Work Load: 7.2 METS Exercise stress test with exercise 6 min 8 sec of Opal protocol, achieving 94% MPHR, with moderate sob, no chest discomfort, with isolated PVCs, with normotensive response to exercise, without EKG changes meeting criteria for ischemia. In recovery his breathing quickly normalized. Test reviewed with Dr Ren. Referred By: Nathan Mendoza Overread By: SRIKANTH LAMBERT
== END ==
LOC: HO.CARD 10:25
PROVIDERS: PCP Internal Medicine; Visit Provider Internal Medicine
DX: R06.09 Other forms of dyspnea (principal)
CPT/HCPCS: 93017

== ENCOUNTER 2023-02-16 07:30 | Outpatient (RCR) | payer MEDICARE, MEDICAID, SELFPAY ==
--- NOTE | 2023-02-09 14:05 | MHC.OT.EP ---
[address] [phone] Occupational Therapy Plan of Care Patient Name: He Rodríguez Date of Evaluation: 02/09/23 Diagnosis: Right elbow contusion Pain Location: 7/10 resting pain, deep ache 9/10 sharp pain w/ use of hitting elbow Pain Score: 7 Pain Scale Used: Numeric (0 - 10) Aggravating Factors: Lifting, gripping, sleeping Alleviating Factors: Occasional Motrin, ice packs Assessment: 53 yo male, primarily right hand dominant, presents to OT about one month s/p fall down stairs after slipping on ice. He continues to have high pain at rest and exacerbated further with movement, heavy use and sleeping. On assessment, no visible bruising, but has some palpable edema and tenderness in lateral elbow region. Gross grasp is low compared to left and he appears to have some specific ulnar nerve related weakness, but otherwise good range and sensation. He will benefit from cont'd therapy for progression of strength, functional use and pain management. Frequency and Duration: The patient will be seen 2x/wk x 4 weeks Short Term Goals: Ind w/ HEP Ind w/ use of heat and ice appropriately for pain and edema Pt to demo ease w/ reaching behind his back Gross grasp 40lb Ind w/ nighttime/sleep modifications Bioinformaticist Goals: Pain free w/ moderate home care tasks Gross grasp >60lb Pt to report ease w/ sleeping Pt to progress with strengthening program Treatment Plan: Therapeutic Exercise Therapeutic Activity Home Exercise Program Patient Education Edema Control ADL Training Ultrasound MHP Cold Packs Soft Tissue Mobilization Kinesiotaping Electronically Signed By: LIANE Guzman/Sonia CHT Please Sign and return to therapist. Thank you once again for your referral.
--- NOTE | 2023-02-27 10:10 | MHC.OT.DC ---
[address] [phone] F: [phone] Occupational Therapy Discharge Note Patient Name: He Rodríguez Provider: Dr Nathan Mendoza Diagnosis: Right elbow contusion Date of Evaluation: 02/09/23 Date of Discharge: 02/27/23 Treatments to Date: 2 Cancellations to Date: 1 No Shows to Date: 2 Discharge Status: Visit Non-compliance Discharge Summary: He was seen for initial OT visit after right elbow contusion and had one follow up treatment. He was reporting some improvement in pain, primarily occurring with end range flexion of elbow. He has been educated on home exercise program, joint protection and activity modification. We will be discharging at this time due to visit non-compliance. Electronically Signed By: LIANE Guzman/Sonia LORENZ Reviewed/agree with student documentation: Therapist: Please Sign and return to therapist, thank you for your referral.
== END 2023-02-27 10:11 | disposition home or self-care (01) ==
LOC: HO.OT 07:30
PROVIDERS: PCP Internal Medicine; Visit Provider Internal Medicine
DX: S50.01XS Contusion of right elbow, sequela (principal)
CPT/HCPCS: 97035; 97110; 97140; 97165

== ENCOUNTER 2023-03-19 09:37 | Outpatient (REF) | payer MEDICARE, MEDICAID, SELFPAY ==
[2023-03-19 09:52] LABS: MANUAL DIFF FLAG NO
[2023-03-19 10:47] LABS: Estimated Average Glucose 154 mg/dL
[2023-03-19 10:50] LABS: Basophils Percent Auto 0.4 % (0-2); Eosinophils Absolute Auto 0.1 X10*3/uL (0.0-0.4); Eosinophils Percent Auto 2.4 % (0-4); Hematocrit 41.4 % (42.0-52.0); Hemoglobin 13.4 g/dl (14.0-18.0); Imm Gran Abs Auto 0.02 X10*3/uL (0.00-0.03); Imm Gran Pct Auto 0.4 % (0.0-0.4); Lymphocytes Absolute Auto 0.7 X10*3/uL (1.2-4.9); Lymphocytes Percent Auto 13.8 % (20-40); Mean Corpuscular HGB Conc 32.4 g/dl (31.0-36.0); Mean Corpuscular Hemoglobin 29.3 pg (27.0-33.0); Mean Corpuscular Volume 90.4 fL (80.0-98.0); Mean Platelet Volume 9.3 fL (9.4-12.4); Monocytes Absolute Auto 0.4 X10*3/uL (0.1-1.2); Monocytes Percent Auto 7.2 % (2-11); Neutrophils Absolute Auto 3.8 x10*3/uL (2.0-8.3); Neutrophils Percent Auto 75.8 % (45-73); Platelet Count 203 X10*3/uL (160-400); Red Blood Count 4.58 X10*6/uL (4.60-5.80); Red Cell Distribution Width 13.2 % (11.0-16.0)
[2023-03-19 11:23] LABS: Appearance Urine Clear; Color Urine Yellow; Glucose Urine UA Negative (Negative); Leukocyte Esterase Urine Negative (Negative); Nitrite Urine Negative (Negative); Specific Gravity - Urine 1.025 (1.005-1.025); Urine Blood Negative (Negative); Urine Ketones Negative (Negative); Urine Protein Negative (Neg-Trace)
[2023-03-19 11:28] LABS: Alanine Aminotransferase 28 U/L (0-40); Albumin Level 4.1 g/dL (3.5-5.0); Alkaline Phosphatase 76 U/L (39-117); Anion Gap 11 (12-20); Aspartate Amino Transferase 18 U/L (5-37); Bilirubin Total 0.6 mg/dL (0.0-1.0); Blood Urea Nitrogen 19 mg/dL (9-16); Calcium 8.9 mg/dL (8.4-10.2); Carbon Dioxide 24 mmol/L (22-29); Chloride 110 mmol/L (96-108); Cholesterol 154 mg/dL; Estimated Glomerular Filt Rate > 60; Glucose Fasting 170 mg/dL (60-99); HDL Cholesterol 35 mg/dL; LDL Cholesterol Calculated 83 mg/dl; Potassium 4.2 mmol/L (3.3-5.1); Sodium 141 mmol/L (135-145); Total Protein 6.6 g/dL (6.5-8.0); Triglycerides 182 mg/dL
[2023-03-19 11:31] LABS: TSH reflex Free T4 0.65 uIU/mL (0.32-4.0); Vitamin D 25-OH Total 34.2 ng/mL (>30)
[2023-03-19 11:34] LABS: Creatinine Urine 215.06 mg/dL; Microalbum/Creatinine Ratio Ur 4.6 ug/mg cr
== END 2023-03-19 09:38 | disposition home or self-care (01) ==
LOC: HO.LAB 09:37
PROVIDERS: PCP Internal Medicine; Visit Provider Internal Medicine
DX: E78.00 Pure hypercholesterolemia, unspecified (principal); I10 Essential (primary) hypertension; R30.0 Dysuria; E55.9 Vitamin D deficiency, unspecified; E11.9 Type 2 diabetes mellitus without complications
CPT/HCPCS: 36415; 80053; 80061; 81003; 82043; 82306; 83036; 84443; 85025

== ENCOUNTER → 2023-05-14 08:02 | Outpatient (BNVA) | payer MEDICARE, MEDICAID, SELFPAY | PROVIDERS: PCP Internal Medicine; Visit Provider Nurse Practitioner | DX: K30 Functional dyspepsia (principal); K58.2 Mixed irritable bowel syndrome; K21.9 Gastro-esophageal reflux disease without esophagitis; K22.4 Dyskinesia of esophagus | CPT/HCPCS: 99212 ==

== ENCOUNTER 2023-06-29 07:55 | Outpatient (REF) | payer MEDICARE, MEDICAID, SELFPAY ==
--- NOTE | ~2023-06-29 | XR_ITS ---
Examination: Lumbar spine and left fingers. CLINICAL INDICATION: Low back pain and left ring finger pain. COMPARISON: None. TECHNIQUE: Lumbar spine 3 views. Left finger 3 views. FINDINGS: Lumbar spine: There is normal lumbar lordosis. The vertebral heights, alignment and disc heights are normal. There is mild ventral endplate spondylosis lower lumbar spine. No visible acute fracture, dislocation or subluxation seen. No bony erosive changes. The soft tissues are normal. SI joints are normal... Left finger: There is no visible acute fracture, dislocation. No bony erosive changes. The soft tissues are normal. XR/XR lumbar spine 2-3V IMPRESSION: 1. Unremarkable lumbar spine exam except for mild ventral spondylosis lower lumbar spine.. 2. Unremarkable left finger exam.
--- NOTE | ~2023-06-29 | XR_ITS ---
Examination: Lumbar spine and left fingers. CLINICAL INDICATION: Low back pain and left ring finger pain. COMPARISON: None. TECHNIQUE: Lumbar spine 3 views. Left finger 3 views. FINDINGS: Lumbar spine: There is normal lumbar lordosis. The vertebral heights, alignment and disc heights are normal. There is mild ventral endplate spondylosis lower lumbar spine. No visible acute fracture, dislocation or subluxation seen. No bony erosive changes. The soft tissues are normal. SI joints are normal... Left finger: There is no visible acute fracture, dislocation. No bony erosive changes. The soft tissues are normal. XR/XR finger LT min 2V IMPRESSION: 1. Unremarkable lumbar spine exam except for mild ventral spondylosis lower lumbar spine.. 2. Unremarkable left finger exam.
[2023-06-29 08:15] LABS: MANUAL DIFF FLAG NO
[2023-06-29 08:55] LABS: Basophils Percent Auto 0.6 % (0-2); Eosinophils Absolute Auto 0.3 X10*3/uL (0.0-0.4); Eosinophils Percent Auto 4.7 % (0-4); Hematocrit 43.9 % (42.0-52.0); Hemoglobin 14.5 g/dl (14.0-18.0); Imm Gran Abs Auto 0.01 X10*3/uL (0.00-0.03); Imm Gran Pct Auto 0.2 % (0.0-0.4); Lymphocytes Absolute Auto 1.6 X10*3/uL (1.2-4.9); Lymphocytes Percent Auto 30.2 % (20-40); Mean Corpuscular Hemoglobin 29.3 pg (27.0-33.0); Mean Corpuscular Volume 88.7 fL (80.0-98.0); Mean Platelet Volume 9.6 fL (9.4-12.4); Monocytes Absolute Auto 0.4 X10*3/uL (0.1-1.2); Monocytes Percent Auto 8.1 % (2-11); Neutrophils Percent Auto 56.2 % (45-73); Platelet Count 203 X10*3/uL (160-400); Red Blood Count 4.95 X10*6/uL (4.60-5.80); Red Cell Distribution Width 12.9 % (11.0-16.0); White Blood Count 5.3 X10*3/uL (4.8-10.8)
[2023-06-29 09:00] LABS: Appearance Urine Clear; Color Urine Yellow; Glucose Urine UA 100 mg/dL (Negative); Leukocyte Esterase Urine Negative (Negative); Nitrite Urine Negative (Negative); PH 5.5 (5.0-9.0); Specific Gravity - Urine 1.025 (1.005-1.025); Urine Blood Negative (Negative); Urine Ketones Negative (Negative); Urine Protein Negative (Neg-Trace)
[2023-06-29 09:02] LABS: Estimated Average Glucose 151 mg/dL; Hemoglobin A1c % 6.9 %
[2023-06-29 09:33] LABS: Alanine Aminotransferase 41 U/L (0-40); Albumin Level 4.2 g/dL (3.5-5.0); Alkaline Phosphatase 79 U/L (39-117); Anion Gap 14 (12-20); Aspartate Amino Transferase 21 U/L (5-37); Bilirubin Total 0.6 mg/dL (0.0-1.0); Blood Urea Nitrogen 15 mg/dL (9-16); Calcium 9.6 mg/dL (8.4-10.2); Carbon Dioxide 21 mmol/L (22-29); Chloride 109 mmol/L (96-108); Cholesterol 144 mg/dL; Estimated Glomerular Filt Rate > 60; Glucose Fasting 203 mg/dL (60-99); HDL Cholesterol 34 mg/dL; LDL Cholesterol Calculated 80 mg/dl; Potassium 4.2 mmol/L (3.3-5.1); Sodium 140 mmol/L (135-145); Total Protein 7.3 g/dL (6.5-8.0); Triglycerides 153 mg/dL
[2023-06-29 09:51] LABS: TSH reflex Free T4 0.99 uIU/mL (0.32-4.0); Vitamin D 25-OH Total 36.7 ng/mL (>30)
[2023-06-29 11:05] LABS: Creatinine Urine 271.51 mg/dL; Microalbum/Creatinine Ratio Ur 7.7 ug/mg cr
== END 2023-06-29 07:56 | disposition home or self-care (01) ==
LOC: HO.LAB 07:55
PROVIDERS: Absent Provider Internal Medicine; PCP Internal Medicine; Visit Provider Nurse Practitioner Family
DX: M79.645 Pain in left finger(s) (principal); M54.50 Low back pain, unspecified; I10 Essential (primary) hypertension; E78.00 Pure hypercholesterolemia, unspecified; R30.0 Dysuria; E11.9 Type 2 diabetes mellitus without complications; E55.9 Vitamin D deficiency, unspecified
CPT/HCPCS: 36415; 72100; 73140; 80053; 80061; 81003; 82043; 82306; 83036; 84443; 85025

== ENCOUNTER 2023-07-07 08:22 | Outpatient (REF) | payer MEDICARE, MEDICAID, SELFPAY ==
--- NOTE | 2023-07-07 09:05 | PFT_ITS ---
FLOWS: 1. FEV1 101% of predicted at 3.57 L. 2. FVC 87% of predicted at 3.91 L. 3. FEV1 to FVC ratio of 0.91. 4. No bronchodilator response. LUNG VOLUMES: 1. Total lung capacity 77% of predicted at 4.93 L. 2. Residual volume 51% of predicted at 0.98 L. 3. Slow vital capacity 88% of predicted at 3.95 L. 4. Expiratory reserve volume 42% of predicted at 0.43 L. 5. Diffusion capacity is normal. IMPRESSION: Mild restrictive ventilatory defect with no bronchodilator response. Decreased expiratory reserve volume suggests extrathoracic restriction, likely secondary to abdominal obesity. Erick Gifford MD AP/MODL / [id number]
== END 2023-07-07 08:23 | disposition home or self-care (01) ==
LOC: HO.RESP 08:22
PROVIDERS: PCP Internal Medicine; Visit Provider Internal Medicine
DX: J45.909 Unspecified asthma, uncomplicated (principal); R06.09 Other forms of dyspnea
CPT/HCPCS: 94010; 94727; 94729

== ENCOUNTER → 2023-07-07 09:05 | Outpatient (BNV) | payer MEDICARE, MEDICAID, SELFPAY | PROVIDERS: PCP Internal Medicine; Visit Provider Internal Medicine Pulmonary Disease | DX: J45.909 Unspecified asthma, uncomplicated (principal) | CPT/HCPCS: 94060; 94727; 94729 ==

== ENCOUNTER 2023-07-08 10:19 | Outpatient (AMB) | payer MEDICARE, MEDICAID, SELFPAY ==
[2023-07-08 10:30] VITALS: BP 116/80; PULSE 107; O2SAT 98; BMI 33.3
--- NOTE | 2023-07-08 10:30 | A.OFFPC_ITS ---
Vital Signs 07/08/23 10:30 Height 5 ft 8 in Weight 219 lb BMI 33.3 BP 116/80 Blood Pressure Location Lt brachial Position Sitting Pulse 107 H Pulse Source Pulse Oximeter Pulse Oximetry (%) 98 Oxygen Delivery Method Room Air Intake Visit Reasons: asthma, DM, hyperlipidemia, HTN Resistor Winder Required: No Accompanied by: Self / Same As Patient Allergies No Known Allergies [No Known Allergies*] Allergy (Verified 07/08/23 11:12) Medication List - Last Reconciled 07/08/23 by Nathan Mendoza MD acarbose 25 mg PO TID 90 days albuterol sulfate 2.5 mg (3 mL) inhalation TID PRN albuterol sulfate 90 mcg/actuation (ProAir HFA) 2 puffs inhalation Q6H PRN 30 days alcohol swabs 1 pad topical BID 30 days alprazolam 1 mg PO TID PRN amitriptyline 25 mg PO BEDTIME atorvastatin 40 mg PO BEDTIME 90 days blood sugar diagnostic (FreeStyle Lite Strips) Twice a day cholecalciferol (vitamin D3) 25 mcg PO DAILY 90 days clonidine HCl 0.1 mg PO BEDTIME cyanocobalamin (vitamin B-12) 100 mcg PO DAILY 30 days dicyclomine 20 mg PO QID 30 days dulaglutide (Trulicity) 0.75 mg (0.5 mL) subcut QWEEK 30 days fluticasone propionate 220 mcg/actuation (Flovent HFA) 1 puff inhalation BID ibuprofen 800 mg PO TID PRN lancets use as directed once a day lisinopril 10 mg PO DAILY 90 days metoclopramide HCl (Reglan) 10 mg PO QIDACHS 30 days [NEBULIZER and all related supplies As directed] pantoprazole (Protonix) 40 mg PO BID pioglitazone 15 mg PO DAILY 90 days topiramate 100 mg PO BEDTIME 90 days tramadol 50 mg PO TID PRN 30 days Tobacco use date assessed: 07/08/23 Dental Screening Dental Screen Date: 07/08/23 Did you have a dental visit in the last 12 months?: No Did you have a dental problem in the last 6 months where you did not have access to dental care?: No Was dental information given to patient?: No HPI asthma, DM, hyperlipidemia, HTN HPI Details Patient comes in today for his follow up visit States that he feels okay He denies any headaches or dizziness Denies any chest pains, no SOB - states that his breathing has improved a lot since he was started back on his Flovent inhaler Just had his PFTs done yesterday; recalls that he felt very good when they placed him on oxygen before doing the procedure No nausea/vomiting, no abdominal pain No change in bowel habits noted States that his low back pain has been adequately controlled on his current Rx Would like to know how his lower back x-rays done last week came out Needs a few of his Rx refilled Had his follow up labs done last week - to discuss his results [facility] Medical History Anxiety Asthma Benign essential hypertension Cardiac arrhythmia Epididymal cyst Gastritis Hematuria History of anoxic brain injury Lumbar degenerative disc disease Migraine Obesity (BMI 30.0-34.9) Obstructive sleep apnea Pure hypercholesterolemia Type 2 diabetes mellitus without complication, with no history of insulin use Vitamin B12 deficiency Vitamin D deficiency Surgical History H/O bilateral inguinal hernia repair H/O hernia repair History of esophagogastroduodenoscopy (EGD) History of extraction of renal calculus History of repair of rotator cuff Hx of colonoscopy Family History Father No problems noted. Mother Hypertension Cancer Sister Cancer Social History Household Members: Significant Other Housing: House Alcohol intake: never Patient Tobacco Use Status: Never used Tobacco e-Cigarette/Vaping Use: Never Used Second Hand Smoke Exposure: No service: No Current occupational status: disabled Cognitive needs: No Hearing needs: No Vision needs: No Questionnaire PHQ-9 Over the last 2 weeks, how often have you been bothered by any of the following problems? 1. Little interest or pleasure in doing things: more than half the days 2. Feeling down, depressed, or hopeless: several days 3. Trouble falling or staying asleep, or sleeping too much: more than half the days 4. Feeling tired or having little energy: more than half the days 5. Poor appetite or overeating: more than half the days 6. Feeling bad about yourself - or that you are a failure or have let yourself or your family down: not at all 7. Trouble concentrating on things, such as reading the newspaper or watching television: not at all 8. Moving or speaking so slowly that other people could have noticed. Or the opposite - being so fidgety or restless that you have been moving around a lot more than usual: nearly every day 9. Thoughts that you would be better off or of hurting yourself in some way: not at all Total score: 12 Depression Screening Interpretation: Positive Depression Screening Follow-up: Existing condition and In treatment 11263 - PHQ-9 Billing: Yes Source: Developed by Drs. Phil Medina, Leigh Ann, Daniel Ruelas and colleagues, with an educational marcin from [employer]. Thrive Questionnaire Date Thrive assessed: 07/08/23 I am a: Patient What is your living situation today?: I have a steady place to live Within the past 12 months, did the food you bought not last and you didn't have the money to get more?: Never true Within the past 12 months, did you worry whether your food would run out before you got money to buy more?: Never true Do you have trouble paying for medicines?: No Do you have trouble getting transportation to medical appointments?: No Do you have trouble paying your heating and electricity bill?: No Do you have trouble taking care of your child, family member or friend?: No Do you have trouble with day-to-day activities such as bathing, preparing meals, shopping, managing finances, etc.?: No Are you currently unemployed and looking for a job?: No Are you interested in more education?: No Please select the resources that you would like help with: None Currently or been in a relationship where the following occur: no concerns reported AUDIT C Alcohol Use Questionnaire (AUDIT-C) 1. How often do you have a drink containing alcohol?: Never 3. How often do you have six or more drinks on one occasion?: Never Total Score: 0 Score Reviewed/Action Taken: Yes DEVANTE-7 AMB Questionnaire DEVANTE-7 Date DEVANTE - 7 assessed: 07/08/23 Feeling nervous, anxious, or on edge: 0 = Not at all Not being able to stop or control worryin = Not at all Worrying too much about different things: 0 = Not at all Trouble relaxin = Not at all Being so restless that it is hard to sit still: 0 = Not at all Becoming easily annoyed or irritable: 0 = Not at all Feeling afraid as if something awful might happen: 0 = Not at all Total DEVANTE-7 score (0-4 normal; 5-9 mild; 10-14 moderate; 15-21 severe): 0 Source: Developed by Drs. Phil Medina, Leigh Ann, Daniel Ruelas and colleagues, with an educational marcin from [employer]. DEVANTE-7 Assessment Billing DEVANTE-7 Assessment Tool: DEVANTE-7 Assessment 83320 Review of Systems Const Denies fatigue, Denies fever(s) and Denies headache(s) ENT Denies dysphagia, Denies dizziness, Denies otalgia, Denies headache(s), Denies odynophagia and Denies sore throat Card Denies chest pain, Denies palpitations and Denies dyspnea Resp Denies chest congestion, Denies cough, Denies dyspnea and Denies wheezing GI Denies abdominal pain, Denies constipation, Denies dysphagia, Denies heartburn, Denies diarrhea, Denies nausea, Denies odynophagia and Denies vomiting Denies difficulty urinating, Denies dysuria, Denies nocturia and Denies urinary frequency Musc Reports back pain (over the lower back - chronic ) and Reports arthralgias (over both knees; on and off right elbow pain) Skin/Breast Denies rash Neuro Denies dizziness and Denies headache(s) Endo Denies fatigue and Denies palpitations Aller/Immun Denies wheezing Physical exam (Primary Care) Vital Signs: Last Vital Signs Pulse 107 H 07/08/23 10:30 BP 116/80 07/08/23 10:30 Pulse Ox 98 07/08/23 10:30 Oxygen Delivery Method Room Air 07/08/23 10:30 BMI result Body Mass Index 33.3 Tobacco/Smoking Status: Tobacco use Status Tobacco use date assessed 07/08/23 07/08/23 10:38 Patient Tobacco Use Status Never used Tobacco 07/08/23 10:38 e-Cigarette/Vaping Use Never Used 07/08/23 10:38 PHQ-9: PHQ-9 Score PHQ-9: Total score 12 07/08/23 11:18 Depression Screening Interpretation: Positive Depression Screening Follow-up: Existing condition and In treatment Thrive Assessment: Date of Thrive Assessment Date Thrive assessed 07/08/23 07/08/23 10:38 Currently or been in a relationship where the following occur: no concerns reported Const General: no acute distress and alert HENMT Ears: TM's normal bilaterally and EAC's normal Throat: Yes posterior oropharynx normal and Yes tonsils normal (no TP congestion noted) Neck Neck: Yes no lymphadenopathy and Yes supple Resp Auscultation: clear to auscultation bilaterally, no rales and no wheezes Cardio Rate: regular rate Rhythm: regular rhythm Heart sounds: no murmurs GI Palpation (GI): Soft to palpation and nontender Auscultation: normal bowel sounds Back/Spine/Pelvis Thoracic/Lumbar Spine: lumbar spinal tenderness Extrem General: Yes no clubbing, cyanosis or edema Right upper extremity: elbow/forearm Details: tenderness (mild) Location: of the olecranon; no swelling Right lower extremity: knee Details: tenderness and foot Details: tenderness Location: of the great toe and edema (with erythema) Location: of the great toe Left lower extremity: knee Details: tenderness Results Reviewed Results Reviewed: Laboratory Tests 06/29/23 06/29/23 06/29/23 08:12 08:12 08:13 WBC 5.3 Hgb 14.5 Hct 43.9 Plt Count 203 Sodium Potassium Creatinine Estimated GFR Fasting Glucose Hemoglobin A1c % Calcium AST ALT Triglycerides Cholesterol LDL Cholesterol, Calc HDL Cholesterol 25-OH Vitamin D Total TSH Ur Specific [place] 1.025 Urine Protein Negative Urine Glucose (UA) 100 H Urine Blood Negative Microalb/Creat Ratio 7.7 06/29/23 06/29/23 08:13 08:13 WBC Hgb Hct Plt Count Sodium 140 Potassium 4.2 Creatinine 1.26 Estimated GFR > 60 Fasting Glucose 203 H Hemoglobin A1c % 6.9 Calcium 9.6 D AST 21 ALT 41 H Triglycerides 153 Cholesterol 144 LDL Cholesterol, Calc 80 HDL Cholesterol 34 25-OH Vitamin D Total 36.7 TSH 0.99 Ur Specific [place] Urine Protein Urine Glucose (UA) Urine Blood Microalb/Creat Ratio Assessment and Plan Assessment & Plan (1) Pure hypercholesterolemia: Code(s): E78.00 - Pure hypercholesterolemia, unspecified Plan: Results of his labs done last week reviewed and discussed with patient Reinforced low cholesterol diet Continue Atorvastatin 20 mg QD Will recheck his labs in 3 months for follow-up (2) Type 2 diabetes mellitus without complication, with no history of insulin use: Code(s): E11.9 - Type 2 diabetes mellitus without complications Plan: HgbA1c was at 6.9% on his labs done last week (was at 7.0% a few months ago) - goal is < 6.5% Reinforced diabetic diet Continue?Pioglitazone?15 mg QD and Trulicity 0.75 mg SQ once a week; patient also takes Acarbose 25 mg TID Follow-up with endocrinology as scheduled (3) Benign essential hypertension: Code(s): I10 - Essential (primary) hypertension Plan: Reinforced low-sodium diet -? goal is systolic BP of at least 120 to 130 mm or less Continue Lisinopril 10 mg QD (4) Asthma: Code(s): J45.909 - Unspecified asthma, uncomplicated Qualifiers: Asthma complication type: uncomplicated Asthma persistence: persistent Asthma severity: moderate Qualified Code(s): J45.40 - Moderate persistent asthma, uncomplicated Plan: States that his breathing has improved a lot since he was started on Flovent a few months ago and his asthma has been much better controlled lately Had his PFT done yesterday - results are still pending at this time Continue Flovent HFA 220 mcg BID and ProAir HFA 2 puffs 4 times a day as needed Patient uses his nebulizer with Albuterol nebulizer solution 3 to 4 times a day when needed (5) Migraine: Code(s): G43.909 - Migraine, unspecified, not intractable, without status migrainosus Qualifiers: Intractability: not intractable Migraine type: unspecified Status migrainosus presence: without status migrainosus Qualified Code(s): G43.909 - Migraine, unspecified, not intractable, without status migrainosus Plan: Stable on prophylactic Tx with Topiramate 100 mg Q HS Follow up with neurology as scheduled (6) Left shoulder pain: Code(s): M25.512 - Pain in left shoulder Qualifiers: Chronicity: acute Qualified Code(s): M25.512 - Pain in left shoulder Plan: States that his shoulder pain has subsided lately X-rays of the left shoulder done a few months ago revealed (+) mild OA and postsurgical changes Follow up with orthopedics as scheduled (7) Lumbar degenerative disc disease: Code(s): M51.36 - Other intervertebral disc degeneration, lumbar region Plan: Repeat lumbar spine x-rays done last week revealed (+) mild spondylosis of the lumbar spine with no acute changes Reinforced activity and weight lifting restrictions Continue Tramadol 50 mg TID PRN and Naproxen 500 mg BID with food as needed for pain (8) Obesity (BMI 30.0-34.9): Code(s): E66.9 - Obesity, unspecified Plan: Reinforced diet/exercise as tolerated/lose weight Plan Follow up in 3 months Orders: Orders Comprehensive [place]. Panel Fast 3 Months E78.00 - Pure hypercholesterolemia, unspecified Complete Blood Count Auto Diff 3 Months I10 - Essential (primary) hypertension Microalbumin, Random (w Creat) 3 Months E11.9 - Type 2 diabetes mellitus without complications UA CC w/rflx Micro + Cult 3 Months R30.0 - Dysuria TSH reflex Free T4 3 Months E78.00 - Pure hypercholesterolemia, unspecified Hemoglobin A1c 3 Months E11.9 - Type 2 diabetes mellitus without complications Lipid Panel 3 Months E78.00 - Pure hypercholesterolemia, unspecified Vitamin B12 and Folate 3 Months E53.8 - Deficiency of other specified B group vitamins Vitamin D 25-OH Total 3 Months E55.9 - Vitamin D deficiency, unspecified Medications: Refilled albuterol sulfate 90 mcg/actuation (ProAir HFA) 2 puffs inhalation Q6H 30 days PRN 18 grams 5RF shortness of breath or wheezing J45.40 - Moderate persistent asthma, uncomplicated dulaglutide (Trulicity) 0.75 mg (0.5 mL) subcut QWEEK 30 days 2.5 mL 6RF E11.9 - Type 2 diabetes mellitus without complications tramadol 50 mg PO TID 30 days PRN 90 tabs 0RF pain M51.36 - Other intervertebral disc degeneration, lumbar region Coding Level of Care Code Est Pt Level 4 (57774) Diagnoses Pure hypercholesterolemia E78.00 Type 2 diabetes mellitus without complication, with no history of insulin use E11.9 Benign essential hypertension I10 Asthma J45.40 Asthma complication type: uncomplicated Asthma persistence: persistent Asthma severity: moderate Migraine G43.909 Intractability: not intractable Migraine type: unspecified Status migrainosus presence: without status migrainosus Left shoulder pain M25.512 Chronicity: acute Lumbar degenerative disc disease M51.36 Obesity (BMI 30.0-34.9) E66.9 Additional Codes DEVANTE-7 Assessment Billing - DEVANTE-7 Assessment Tool: DEVANTE-7 Assessment 86303 ([id number])
== END 2023-07-08 11:28 | disposition home or self-care (01) ==
PROVIDERS: PCP Internal Medicine; Visit Provider Internal Medicine
DX: E11.9 Type 2 diabetes mellitus without complications (principal); I10 Essential (primary) hypertension; J45.40 Moderate persistent asthma, uncomplicated; G43.909 Migraine, unspecified, not intractable, without status migrainosus; E78.00 Pure hypercholesterolemia, unspecified; M25.512 Pain in left shoulder; M51.36 Other intervertebral disc degeneration, lumbar region; E66.9 Obesity, unspecified
CPT/HCPCS: 99214

== ENCOUNTER 2023-08-26 07:56 | Emergency (ER) | payer MEDICARE, MEDICAID, SELFPAY ==
--- NOTE | ~2023-08-26 | XR_ITS ---
EXAMINATION: XR RIBS, LEFT CLINICAL INFORMATION: Left-sided rib pain COMPARISON: Left RIBS and chest 07/03/2016 TECHNIQUE: 3 views of the left ribs were obtained. FINDINGS: Lungs are clear. No consolidation, pneumothorax, or pleural effusion. Some minimal left basilar atelectasis is present The cardiomediastinal silhouette and pulmonary vasculature are normal. Suture anchors are present in the left humerus. Degenerative changes are seen at the left AC joint There is an acute nondisplaced fracture of the anterolateral left sixth rib. No other fractures are identified. XR/XR ribs LT min 3V w CXR1V IMPRESSION: Acute nondisplaced fracture anterolateral left sixth rib.
[2023-08-26 08:01] VITALS: BP 136/86; PULSE 91; RESP 16; TEMP 37; O2SAT 97; BMI 33.1
--- NOTE | 2023-08-26 08:13 | ED.GENADULT ---
HPI - General Adult General Chief complaint: General Medical Stated complaint: Bruised L Ribs Injury 08/24/23 Time Seen by Provider: 08/26/23 08:13 Source: patient Mode of arrival: ambulatory Limitations: no limitations History of Present Illness HPI narrative: 53-year-old male with history of HTN, diabetes HLD gastritis, lumbar degenerative disc disease migraines, GERD, IBS, obesity who presents to the ER for evaluation of left lateral rib pain after he tripped and fell on the concrete 2 days ago while bringing out the trash. He states he noticed bruising yesterday to the left lateral ribs. He has been having pain with movement and deep breathing. He has been taking Motrin and using icy Hot to the area with minimal relief. He is not on blood thinners. He denies any other injuries. MD complaint: left lateral rib pain Onset (ago): day(s) (2) Location: chest Radiation: non-radiation Severity: moderate Quality: stabbing and sharp Pain Consistency: intermittent Relieving factors: rest Exacerbating factors: movement and other (coughing and deep breaths) Associated symptoms: denies other symptoms Treatments prior to arrival: NSAID Related Data Home Medications Medication Instructions Recorded Confirmed alprazolam 1 mg tablet 1 mg PO TID PRN Anxiety 01/04/21 07/08/23 amitriptyline 25 mg tablet 25 mg PO BEDTIME 01/04/21 07/08/23 clonidine HCl 0.1 mg tablet 0.1 mg PO BEDTIME 01/04/21 07/08/23 ibuprofen 800 mg tablet 800 mg PO TID PRN Pain 10/31/21 07/08/23 Previous Rx's Medication Instructions Recorded alcohol swabs 1 pad topical BID 30 days #100 ea 04/05/21 NEBULIZER and all related supplies #1 ea 05/13/21 blood sugar diagnostic (FreeStyle #100 ea 02/27/22 Lite Strips) lancets 28 gauge #100 ea 03/27/22 dicyclomine 20 mg tablet 20 mg PO QID 30 days #120 tabs 05/16/22 albuterol sulfate 2.5 mg/3 mL 2.5 mg (3 mL) inhalation TID PRN 09/30/22 (0.083 %) solution for nebulization shortness of breath or wheezing #90 mL cyanocobalamin (vitamin B-12) 100 100 mcg PO DAILY 30 days #30 tabs 11/03/22 mcg tablet topiramate 100 mg tablet 100 mg PO BEDTIME 90 days #90 tabs 01/26/23 acarbose 25 mg tablet 25 mg PO TID 90 days #270 tabs 03/30/23 atorvastatin 40 mg tablet 40 mg PO BEDTIME 90 days #90 tabs 03/30/23 lisinopril 10 mg tablet 10 mg PO DAILY 90 days #90 tabs 03/30/23 pioglitazone 15 mg tablet 15 mg PO DAILY 90 days #90 tabs 03/30/23 fluticasone propionate 220 1 puff inhalation BID #12 grams 04/03/23 mcg/actuation HFA aerosol inhaler (Flovent HFA) metoclopramide HCl 10 mg tablet 10 mg PO QIDACHS 30 days #120 tabs 05/14/23 (Reglan) pantoprazole 40 mg tablet,delayed 40 mg PO BID #60 tabs 05/14/23 release (Protonix) cholecalciferol (vitamin D3) 25 25 mcg PO DAILY 90 days #90 caps 06/10/23 mcg (1,000 unit) capsule albuterol sulfate 90 mcg/actuation 2 puff inhalation Q6H PRN 07/08/23 aerosol inhaler (ProAir HFA) shortness of breath or wheezing 30 days #18 grams dulaglutide 0.75 mg/0.5 mL 0.75 mg (0.5 mL) subcut QWEEK 30 07/08/23 subcutaneous pen injector days #2.5 mL (Trulicity) tramadol 50 mg tablet 50 mg PO TID PRN pain 30 days #90 08/04/23 tabs ibuprofen 600 mg tablet 600 mg PO Q8H PRN pain #20 tabs 08/26/23 lidocaine 4 % topical patch 1 patch topical DAILY PRN pain #15 08/26/23 (Lidocaine Pain Relief) ea Allergies Allergy/AdvReac Type Severity Reaction Status Date / Time No Known Allergies Allergy Verified 08/26/23 08:00 [No Known Allergies*] Review of Systems Review of Systems: Yes all other systems are reviewed and are negative PMFSH Past Medical History Medical History Anxiety Asthma Benign essential hypertension Cardiac arrhythmia Epididymal cyst Gastritis Hematuria History of anoxic brain injury Lumbar degenerative disc disease Migraine Obesity (BMI 30.0-34.9) Obstructive sleep apnea Pure hypercholesterolemia Type 2 diabetes mellitus without complication, with no history of insulin use Vitamin B12 deficiency Vitamin D deficiency Surgical History H/O bilateral inguinal hernia repair H/O hernia repair History of esophagogastroduodenoscopy (EGD) History of extraction of renal calculus History of repair of rotator cuff Hx of colonoscopy Family History Family History Father No problems noted. Mother Hypertension Cancer Sister Cancer Social History Social History Household Members: Significant Other Housing: House Alcohol intake: never Patient Tobacco Use Status: Never used Tobacco e-Cigarette/Vaping Use: Never Used Second Hand Smoke Exposure: No Advance Directives: No Advance Directives Information Provided: Yes service: No Current occupational status: disabled Cognitive needs: No Hearing needs: No Vision needs: No Physical Exam ED Vital Signs: Vital Signs - 24 hr 08/26/23 08:01 08/26/23 09:00 Temperature 98.6 F 98.1 F Pulse Rate 91 74 Respiratory Rate 16 15 Blood Pressure 136/86 118/80 Pulse Oximetry 97 98 Oxygen Delivery Method Room Air Room Air BMI result Body Mass Index 33.1 Appearance: Alert. Oriented X3. No acute distress. Head: normocephalic, atraumatic. Eyes: Pupils equal, round and reactive to light. ENT: Pharynx normal. No tonsillar swelling or exudate. Neck: Normal inspection. Neck supple. CVS: Normal heart rate and rhythm. Pulses normal. Respiratory: Left lateral chest wall with 2 small areas of ecchymosis, approx 2cm x2cm w/ associated tenderness, no crepitus. No respiratory distress. Breath sounds normal. Abdomen: Soft and nontender. +BS x4 Skin: Skin warm and dry. Normal skin color. Normal skin turgor. No rashes. Extremities: No lower extremity edema. No joint swelling. Neuro/psych: Oriented X 3. No motor deficit. No sensory deficit. CN II-XII intact. Normal speech and cognition. Medical Decision Making Medical Decision Making MDM Narrative: 53 yo male presenting with left lateral rib pain and bruising s/p mechanical fall at home 2 days ago. Lung sounds are clear, saturating well. breathing comfortable. area of ecchymosis is tender. no crepitus. XRs showing acute nondisplaced fx left 6th rib. no PTX discussed results and treatment with the patient. stable for d/c home. will provide incentive spirometry he will f/u with his PCP. he is on chronic tramadol for pain Differential Diagnosis Differential Diagnoses: The differential diagnosis associated with the presentation includes single rib fx, multiple rib fx, rib contusion, pulmonary contusion Independent Interpretation I performed an independent interpretation of an: Plain X-Ray Interpretation: 1 rib fracture seen, nondisplaced. no PTX Radiology Impression Discussion of test interpretation with radiology: I have reviewed the radiologist's reading. Radiologist Impression: EXAMINATION: XR RIBS, LEFT CLINICAL INFORMATION: Left-sided rib pain COMPARISON: Left RIBS and chest 07/03/2016 TECHNIQUE: 3 views of the left ribs were obtained. FINDINGS: Lungs are clear. No consolidation, pneumothorax, or pleural effusion. Some minimal left basilar atelectasis is present The cardiomediastinal silhouette and pulmonary vasculature are normal. Suture anchors are present in the left humerus. Degenerative changes are seen at the left AC joint There is an acute nondisplaced fracture of the anterolateral left sixth rib. No other fractures are identified. XR/XR ribs LT min 3V w CXR1V IMPRESSION: Acute nondisplaced fracture anterolateral left sixth rib. Independent Historian Clinical information obtained from an independent historian. History obtained from or confirmed by: Spouse External Record Review External record reviewed: Outpatient record, Prior outpatient labs and Prior outpatient radiology Tests considered The following testing was considered but not selected: CT chest considered, low suspicion for multiple rib fractures or other traumatic injuries Prescription Management I considered prescription management with: Pain Medication Chronic Conditions Patient?s care impacted by: Other (chronic pain on chronic opiates) Critical Care Time Critical Care Time Critical Care Time: No Discharge Plan Discharge Clinical Impression: Fracture of rib Qualifiers: Encounter type: initial encounter Rib fracture type: single rib Fracture type: closed Laterality: left Qualified Code(s): S22.32XA - Fracture of one rib, left side, initial encounter for closed fracture Patient Disposition: Home, Self-Care Instructions: Rib Fracture (ED) Additional Instructions: your x-ray showed you broke 1 rib treatment is supportive care - management of the pain and breathing exercises to prevent pneumonia it is important to take deep breaths even though it can be painful take the prescribed medications as directed take your prescribed tramadol as needed for severe pain recommend tylenol 975 mg every 6 hours for pain use ice to the area several times per day follow up with your doctor If you develop new or worsening symptoms call 911 or come back to the ER for further evaluation. Prescriptions: New ibuprofen 600 mg tablet 600 mg PO Q8H PRN (Reason: pain) Qty: 20 0RF lidocaine [Lidocaine Pain Relief] 4 % adhesive patch,medicated 1 patch topical DAILY PRN (Reason: pain) Qty: 15 0RF No Action albuterol sulfate 2.5 mg /3 mL (0.083 %) solution for nebulization 2.5 mg inhalation TID PRN (Reason: shortness of breath or wheezing) Qty: 90 11RF cyanocobalamin (vitamin B-12) 100 mcg tablet 100 mcg PO DAILY 30 Days Qty: 30 6RF fluticasone propionate [Flovent HFA] 220 mcg/actuation HFA aerosol inhaler 1 puff inhalation BID Qty: 12 5RF Rx Instructions: Has to be used TWICE A DAY EVERYDAY cholecalciferol (vitamin D3) 25 mcg (1,000 unit) capsule 25 mcg PO DAILY 90 Days Qty: 90 3RF tramadol 50 mg tablet 50 mg PO TID PRN (Reason: pain) 30 Days Qty: 90 0RF ibuprofen 800 mg tablet 800 mg PO TID PRN (Reason: Pain) (DME) lancets 28 gauge misc See Rx Instructions topical DAILY Qty: 100 12RF Rx Instructions: use as directed once a day (DME) NEBULIZER and all related supplies See Rx Instructions .Route .MEDSUPPLY Qty: 1 0RF Rx Instructions: As directed acarbose 25 mg tablet 25 mg PO TID 90 Days Qty: 270 1RF atorvastatin 40 mg tablet 40 mg PO BEDTIME 90 Days Qty: 90 1RF lisinopril 10 mg tablet 10 mg PO DAILY 90 Days Qty: 90 1RF pioglitazone 15 mg tablet 15 mg PO DAILY 90 Days Qty: 90 1RF albuterol sulfate [ProAir HFA] 90 mcg/actuation HFA aerosol inhaler 2 puff inhalation Q6H PRN (Reason: shortness of breath or wheezing) 30 Days Qty: 18 5RF Trulicity 0.75 mg/0.5 mL pen injector 0.75 mg subcut QWEEK 30 Days Qty: 2.5 6RF (DME) FreeStyle Lite Strips Strip See Rx Instructions .ROUTE .MEDSUPPLY Qty: 100 6RF Rx Instructions: Twice a day topiramate 100 mg tablet 100 mg PO BEDTIME 90 Days Qty: 90 1RF amitriptyline 25 mg tablet 25 mg PO BEDTIME alprazolam 1 mg tablet 1 mg PO TID PRN (Reason: Anxiety) clonidine HCl 0.1 mg tablet 0.1 mg PO BEDTIME alcohol swabs Pads, Medicated 1 pad topical BID 30 Days Qty: 100 6RF dicyclomine 20 mg tablet 20 mg PO QID 30 Days Qty: 120 6RF metoclopramide HCl [Reglan] 10 mg tablet 10 mg PO QIDACHS 30 Days Qty: 120 6RF pantoprazole [Protonix] 40 mg tablet,delayed release (DR/EC) 40 mg PO BID Qty: 60 6RF
[2023-08-26 09:00] VITALS: BP 118/80; PULSE 74; RESP 15; TEMP 36.7; O2SAT 98
== END 2023-08-26 10:18 | disposition home or self-care (01) ==
PROVIDERS: Emergency Provider Emergency Medicine; PCP Internal Medicine
DX: S22.32XA Fracture of one rib, left side, initial encounter for closed fracture (principal); S20.212A Contusion of left front wall of thorax, initial encounter; R07.81 Pleurodynia; R05.9 Cough, unspecified; I10 Essential (primary) hypertension; W01.10XA Fall on same level from slipping, tripping and stumbling with subsequent striking against unspecified object, initial encounter; Y93.9 Activity, unspecified; Y92.480 Sidewalk as the place of occurrence of the external cause; Y99.9 Unspecified external cause status; Z79.899 Other long term (current) drug therapy
CPT/HCPCS: 71101; 94010; 99284

== ENCOUNTER 2023-08-26 12:23 | Outpatient (AMB) | payer MEDICARE, MEDICAID, SELFPAY ==
[2023-08-26 12:45] VITALS: BP 128/82; PULSE 98; O2SAT 97; BMI 33.3
--- NOTE | 2023-08-26 12:45 | MHC.PC.OV ---
Vital Signs 08/26/23 12:45 Height 5 ft 8 in Weight 219 lb BMI 33.3 BP 128/82 Blood Pressure Location Lt brachial Position Sitting Pulse 98 Pulse Source Pulse Oximeter Pulse Oximetry (%) 97 Oxygen Delivery Method Room Air Intake Visit Reasons: broken rib/[facility]/08-26 Mirror Specialist Required: No Accompanied by: Self / Same As Patient Allergies No Known Allergies [No Known Allergies*] Allergy (Verified 08/26/23 13:29) Medication List - Last Reconciled 08/26/23 by Nathan Mendoza MD acarbose 25 mg PO TID 90 days albuterol sulfate 2.5 mg (3 mL) inhalation TID PRN albuterol sulfate 90 mcg/actuation (ProAir HFA) 2 puffs inhalation Q6H PRN 30 days alcohol swabs 1 pad topical BID 30 days alprazolam 1 mg PO TID PRN amitriptyline 25 mg PO BEDTIME atorvastatin 40 mg PO BEDTIME 90 days blood sugar diagnostic (FreeStyle Lite Strips) Twice a day cholecalciferol (vitamin D3) 25 mcg PO DAILY 90 days clonidine HCl 0.1 mg PO BEDTIME cyanocobalamin (vitamin B-12) 100 mcg PO DAILY 30 days dicyclomine 20 mg PO QID 30 days dulaglutide (Trulicity) 0.75 mg (0.5 mL) subcut QWEEK 30 days fluticasone propionate 220 mcg/actuation (Flovent HFA) 1 puff inhalation BID ibuprofen 800 mg PO TID PRN ibuprofen 600 mg PO Q8H PRN lancets use as directed once a day lidocaine 4% (Lidocaine Pain Relief) 1 patch topical DAILY PRN lidocaine 5% 1 patch topical DAILY lisinopril 10 mg PO DAILY 90 days metoclopramide HCl (Reglan) 10 mg PO QIDACHS 30 days [NEBULIZER and all related supplies As directed] pantoprazole (Protonix) 40 mg PO BID pioglitazone 15 mg PO DAILY 90 days topiramate 100 mg PO BEDTIME 90 days tramadol 50 mg PO TID PRN 30 days Tobacco use date assessed: 08/26/23 Dental Screening Dental Screen Date: 08/26/23 Did you have a dental visit in the last 12 months?: No Did you have a dental problem in the last 6 months where you did not have access to dental care?: No Was dental information given to patient?: No HPI broken rib/[facility]/08-26 HPI Details Patient comes in today for his HDF follow up visit He went to the ER earlier this morning for evaluation of increasing pain over his left chest area States that he tripped and fell on his left side on concrete a couple of days ago while he was bringing out the trash He was taking some OTC Motrin and applying some Icy Hot over his left side for the past couple of days with little relief and decided to go to the ER when he felt his pain was getting worse X-rays done at the ER earlier today revealed (+) acute nondisplaced fracture of the anterolateral left 6th rib We was given Rx for 600 mg Ibuprofen as well as Lidocaine patches and discharged home with the appropriate precautions Patient states that he was informed by his pharmacy earlier today that his insurance would not cover the Lidocaine 4% patches that were sent in for him States that he still has the increased pain over his left lower lateral chest wall but otherwise feels okay with no other acute issues [facility] Medical History History of anoxic brain injury Epididymal cyst Hematuria Obesity (BMI 30.0-34.9) Anxiety Obstructive sleep apnea Vitamin B12 deficiency Vitamin D deficiency Gastritis Lumbar degenerative disc disease Asthma Pure hypercholesterolemia Migraine Cardiac arrhythmia Type 2 diabetes mellitus without complication, with no history of insulin use Benign essential hypertension Surgical History H/O bilateral inguinal hernia repair H/O hernia repair History of esophagogastroduodenoscopy (EGD) Hx of colonoscopy History of extraction of renal calculus History of repair of rotator cuff Family History Father No problems noted. Mother Hypertension Cancer Sister Cancer Social History Household Members: Significant Other Housing: House Alcohol intake: never Patient Tobacco Use Status: Never used Tobacco e-Cigarette/Vaping Use: Never Used Second Hand Smoke Exposure: No service: No Current occupational status: disabled Cognitive needs: No Hearing needs: No Vision needs: No Questionnaire PHQ-9 Over the last 2 weeks, how often have you been bothered by any of the following problems? 1. Little interest or pleasure in doing things: more than half the days 2. Feeling down, depressed, or hopeless: several days 3. Trouble falling or staying asleep, or sleeping too much: more than half the days 4. Feeling tired or having little energy: more than half the days 5. Poor appetite or overeating: more than half the days 6. Feeling bad about yourself - or that you are a failure or have let yourself or your family down: not at all 7. Trouble concentrating on things, such as reading the newspaper or watching television: not at all 8. Moving or speaking so slowly that other people could have noticed. Or the opposite - being so fidgety or restless that you have been moving around a lot more than usual: nearly every day 9. Thoughts that you would be better off or of hurting yourself in some way: not at all Total score: 12 Depression Screening Interpretation: Positive Depression Screening Follow-up: Existing condition and In treatment 45291 - PHQ-9 Billing: Yes Source: Developed by Drs. Phil Medina, Leigh Ann, Daniel Ruelas and colleagues, with an educational marcin from [employer]. Thrive Questionnaire Date Thrive assessed: 08/26/23 I am a: Patient What is your living situation today?: I have a steady place to live Within the past 12 months, did the food you bought not last and you didn't have the money to get more?: Never true Within the past 12 months, did you worry whether your food would run out before you got money to buy more?: Never true Do you have trouble paying for medicines?: No Do you have trouble getting transportation to medical appointments?: No Do you have trouble paying your heating and electricity bill?: No Do you have trouble taking care of your child, family member or friend?: No Do you have trouble with day-to-day activities such as bathing, preparing meals, shopping, managing finances, etc.?: No Are you currently unemployed and looking for a job?: No Are you interested in more education?: No Please select the resources that you would like help with: None Currently or been in a relationship where the following occur: no concerns reported AUDIT C Alcohol Use Questionnaire (AUDIT-C) 1. How often do you have a drink containing alcohol?: Never 3. How often do you have six or more drinks on one occasion?: Never Total Score: 0 Score Reviewed/Action Taken: Yes DEVANTE-7 AMB Questionnaire DEVANTE-7 Date DEVANTE - 7 assessed: 08/26/23 Feeling nervous, anxious, or on edge: 0 = Not at all Not being able to stop or control worryin = Not at all Worrying too much about different things: 0 = Not at all Trouble relaxin = Not at all Being so restless that it is hard to sit still: 0 = Not at all Becoming easily annoyed or irritable: 0 = Not at all Feeling afraid as if something awful might happen: 0 = Not at all Total DEVANTE-7 score (0-4 normal; 5-9 mild; 10-14 moderate; 15-21 severe): 0 Source: Developed by Drs. Phil Medina, Leigh Ann, Daniel Ruelas and colleagues, with an educational marcin from [employer]. DEVANTE-7 Assessment Billing DEVANTE-7 Assessment Tool: DEVANTE-7 Assessment 86377 Review of Systems Const Denies fatigue, Denies fever(s) and Denies headache(s) ENT Denies dysphagia, Denies dizziness, Denies headache(s), Denies odynophagia and Denies sore throat Card Reports chest pain (over the lower left lateral chest wall/rib area - see HPI), Denies palpitations and Denies dyspnea Resp Denies chest congestion, Denies cough, Denies dyspnea and Denies wheezing GI Denies abdominal pain, Denies constipation, Denies dysphagia, Denies heartburn, Denies diarrhea, Denies nausea, Denies odynophagia and Denies vomiting Musc Reports back pain (over the lower back - chronic ) and Reports arthralgias (over both knees; on and off right elbow pain) Skin/Breast Denies rash Neuro Denies dizziness and Denies headache(s) Endo Denies fatigue and Denies palpitations Aller/Immun Denies wheezing Physical exam (Primary Care) Vital Signs: Last Vital Signs Pulse 98 08/26/23 12:45 BP 128/82 08/26/23 12:45 Pulse Ox 97 08/26/23 12:45 Oxygen Delivery Method Room Air 08/26/23 12:45 BMI result Body Mass Index 33.3 Tobacco/Smoking Status: Tobacco use Status Tobacco use date assessed 08/26/23 08/26/23 12:51 Patient Tobacco Use Status Never used Tobacco 08/26/23 12:51 e-Cigarette/Vaping Use Never Used 08/26/23 12:51 PHQ-9: PHQ-9 Score PHQ-9: Total score 12 08/26/23 12:51 Depression Screening Interpretation: Positive Depression Screening Follow-up: Existing condition and In treatment Thrive Assessment: Date of Thrive Assessment Date Thrive assessed 08/26/23 08/26/23 12:51 Currently or been in a relationship where the following occur: no concerns reported Const General: no acute distress and alert Neck Neck: Yes no lymphadenopathy and Yes supple Chest Other: (+) tenderness on palpation over the anterolateral left lower chest wall/rib corresponding to the left 6th rib Resp Auscultation: clear to auscultation bilaterally, no rales and no wheezes Cardio Rate: regular rate Rhythm: regular rhythm Heart sounds: no murmurs GI Palpation (GI): Soft to palpation and nontender Auscultation: normal bowel sounds Back/Spine/Pelvis Thoracic/Lumbar Spine: lumbar spinal tenderness Extrem General: Yes no clubbing, cyanosis or edema Right lower extremity: knee Details: tenderness Left lower extremity: knee Details: tenderness Assessment and Plan Assessment & Plan (1) Fracture of rib: Code(s): S22.39XA - Fracture of one rib, unspecified side, initial encounter for closed fracture Qualifiers: Encounter type: subsequent encounter Fracture type: closed Laterality: left Rib fracture type: single rib Fracture healing: with routine healing Qualified Code(s): S22.32XD - Fracture of one rib, left side, subsequent encounter for fracture with routine healing Plan: S/P fall a couple of days ago (08/24/23) Rib x-rays done earlier to day revealed (+) acute nondisplaced fracture of the anterolateral left 6th rib Reminded NOT to do any heavy lifting or participate in any strenuous activities at least over the next couple of weeks so as not to risk aggravating his current injury Continue Ibuprofen 600 mg TID PRN with food Will try sending in Rx for Lidocaine 5% patches, which should be covered by his insurance - to apply to painful areas QD PRN Plan Follow up as scheduled in September 2023 Medications: New lidocaine 5% leave on most painful area for up to 12 hrs 1 patch topical DAILY 30 ea 0RF Coding Level of Care Code Est Pt Level 3 (97836) Diagnoses Closed fracture of one rib of left side with routine healing, subsequent encounter S22.32XD Encounter type: subsequent encounter Fracture type: closed Laterality: left Rib fracture type: single rib Fracture healing: with routine healing Additional Codes DEVANTE-7 Assessment Billing - DEVANTE-7 Assessment Tool: DEVANTE-7 Assessment [id number] ([id number])
== END 2023-08-26 13:31 | disposition home or self-care (01) ==
PROVIDERS: PCP Internal Medicine; Visit Provider Internal Medicine
DX: S22.32XD Fracture of one rib, left side, subsequent encounter for fracture with routine healing (principal)
CPT/HCPCS: 99213

== ENCOUNTER 2023-10-01 07:57 | Outpatient (REF) | payer MEDICARE, MEDICAID, SELFPAY ==
[2023-10-01 08:22] LABS: MANUAL DIFF FLAG NO
[2023-10-01 08:49] LABS: Basophils Percent Auto 0.7 % (0-2); Eosinophils Absolute Auto 0.4 X10*3/uL (0.0-0.4); Eosinophils Percent Auto 7.5 % (0-4); Hematocrit 42.4 % (42.0-52.0); Imm Gran Abs Auto 0.01 X10*3/uL (0.00-0.03); Imm Gran Pct Auto 0.2 % (0.0-0.4); Lymphocytes Absolute Auto 1.8 X10*3/uL (1.2-4.9); Lymphocytes Percent Auto 32.4 % (20-40); Mean Corpuscular Hemoglobin 29.5 pg (27.0-33.0); Mean Corpuscular Volume 89.3 fL (80.0-98.0); Mean Platelet Volume 9.7 fL (9.4-12.4); Monocytes Absolute Auto 0.4 X10*3/uL (0.1-1.2); Monocytes Percent Auto 7.6 % (2-11); Neutrophils Absolute Auto 2.8 x10*3/uL (2.0-8.3); Neutrophils Percent Auto 51.6 % (45-73); Platelet Count 206 X10*3/uL (160-400); Red Blood Count 4.75 X10*6/uL (4.60-5.80); Red Cell Distribution Width 13.1 % (11.0-16.0); White Blood Count 5.5 X10*3/uL (4.8-10.8)
[2023-10-01 08:55] LABS: Estimated Average Glucose 166 mg/dL; Hemoglobin A1c % 7.4 % (<6.0)
[2023-10-01 08:59] LABS: Appearance Urine Clear; Color Urine Yellow; Glucose Urine UA 500 mg/dL (Negative); Leukocyte Esterase Urine Negative (Negative); Nitrite Urine Negative (Negative); PH 5.5 (5.0-9.0); Urine Blood Negative (Negative); Urine Ketones Negative (Negative); Urine Protein Negative (Neg-Trace)
[2023-10-01 09:28] LABS: Alanine Aminotransferase 61 U/L (0-40); Albumin Level 4.3 g/dL (3.5-5.0); Alkaline Phosphatase 91 U/L (39-117); Anion Gap 13 (12-20); Aspartate Amino Transferase 35 U/L (5-37); Bilirubin Total 0.6 mg/dL (0.0-1.0); Blood Urea Nitrogen 16 mg/dL (9-16); Calcium 9.4 mg/dL (8.4-10.2); Carbon Dioxide 24 mmol/L (22-29); Chloride 107 mmol/L (96-108); Cholesterol 149 mg/dL (<200); Estimated Glomerular Filt Rate > 60; Glucose Fasting 231 mg/dL (60-99); HDL Cholesterol 35 mg/dL (>40); LDL Cholesterol Calculated 81 mg/dL (<100); Potassium 4.3 mmol/L (3.3-5.1); Sodium 140 mmol/L (135-145); Total Protein 7.4 g/dL (6.5-8.0); Triglycerides 166 mg/dL (<150)
[2023-10-01 09:31] LABS: Microalbum/Creatinine Ratio Ur 5.3 ug/mg cr (<30)
[2023-10-01 09:48] LABS: TSH reflex Free T4 0.86 uIU/mL (0.32-4.0); Vitamin D 25-OH Total 36.1 ng/mL (>30)
[2023-10-01 09:54] LABS: Folate 14.3 ng/mL (> or = 4.0); Vitamin B12 515 pg/mL (200-900)
== END 2023-10-01 07:58 | disposition home or self-care (01) ==
LOC: HO.LAB 07:57
PROVIDERS: PCP Internal Medicine; Visit Provider Internal Medicine
DX: I10 Essential (primary) hypertension (principal); E55.9 Vitamin D deficiency, unspecified; E53.8 Deficiency of other specified B group vitamins; R30.0 Dysuria; E78.00 Pure hypercholesterolemia, unspecified; E11.9 Type 2 diabetes mellitus without complications
CPT/HCPCS: 36415; 80053; 80061; 81003; 82043; 82306; 82570; 82607; 82746; 83036; 84443; 85025

== ENCOUNTER 2023-10-12 09:41 | Outpatient (AMB) | payer MEDICARE, MEDICAID, SELFPAY ==
[2023-10-12 09:45] VITALS: BP 120/78; PULSE 110; O2SAT 98; BMI 33.4
--- NOTE | 2023-10-12 09:45 | A.OFFPC_ITS ---
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 Required: No Accompanied by: Self / Same As Patient Allergies No Known Allergies [No Known Allergies*] Allergy (Verified 10/12/23 10:12) Medication List - Last Reconciled 10/12/23 by Nathan Mendoza MD acarbose 25 mg PO TID 90 days albuterol sulfate 2.5 mg (3 mL) inhalation TID PRN albuterol sulfate 90 mcg/actuation (ProAir HFA) 2 puffs inhalation Q6H PRN 30 days alcohol swabs 1 pad topical BID 30 days alprazolam 1 mg PO TID PRN amitriptyline 25 mg PO BEDTIME atorvastatin 40 mg PO BEDTIME 90 days blood sugar diagnostic (FreeStyle Lite Strips) Twice a day cholecalciferol (vitamin D3) 25 mcg PO DAILY 90 days clonidine HCl 0.1 mg PO BEDTIME cyanocobalamin (vitamin B-12) 100 mcg PO DAILY 30 days dicyclomine 20 mg PO QID 30 days dulaglutide (Trulicity) 0.75 mg (0.5 mL) subcut QWEEK 30 days fluticasone propionate 220 mcg/actuation (Flovent HFA) 1 puff inhalation BID ibuprofen 800 mg PO TID PRN ibuprofen 600 mg PO Q8H PRN lancets use as directed once a day lidocaine 4% (Lidocaine Pain Relief) 1 patch topical DAILY PRN lidocaine 5% 1 patch topical DAILY lisinopril 10 mg PO DAILY 90 days metoclopramide HCl (Reglan) 10 mg PO QIDACHS 30 days [NEBULIZER and all related supplies As directed] pantoprazole (Protonix) 40 mg PO BID pioglitazone 15 mg PO DAILY 90 days topiramate 100 mg PO BEDTIME 90 days tramadol 50 mg PO TID PRN 30 days Tobacco use date assessed: 10/12/23 Dental Screening Dental Screen Date: 10/12/23 Did you have a dental visit in the last 12 months?: No Did you have a dental problem in the last 6 months where you did not have access to dental care?: No Was dental information given to patient?: No HPI 3mth f/u HPI Details Patient comes in today for his follow up visit States that he feels okay He denies any headaches or dizziness Denies any exertional chest pains but states that his left lower chest wall anteriorly still feels sore from his previous rib Fx; he denies any increased SOB No nausea/vomiting, no abdominal pain No change in bowel habits noted States that his chronic low back pain and joint pains remain adequately controlled on his current Rx Had his follow up labs done a couple of weeks ago - to discuss his results He would also like to get his flu shot today [facility] Medical History History of anoxic brain injury Epididymal cyst Hematuria Obesity (BMI 30.0-34.9) Anxiety Obstructive sleep apnea Vitamin B12 deficiency Vitamin D deficiency Gastritis Lumbar degenerative disc disease Asthma Pure hypercholesterolemia Migraine Cardiac arrhythmia Type 2 diabetes mellitus without complication, with no history of insulin use Benign essential hypertension Surgical History H/O bilateral inguinal hernia repair H/O hernia repair History of esophagogastroduodenoscopy (EGD) Hx of colonoscopy History of extraction of renal calculus History of repair of rotator cuff Family History Father No problems noted. Mother Hypertension Cancer Sister Cancer Social History Household Members: Significant Other Housing: House Alcohol intake: never Patient Tobacco Use Status: Never used Tobacco e-Cigarette/Vaping Use: Never Used Second Hand Smoke Exposure: No service: No Current occupational status: disabled Cognitive needs: No Hearing needs: No Vision needs: No Questionnaire PHQ-9 Over the last 2 weeks, how often have you been bothered by any of the following problems? 1. Little interest or pleasure in doing things: more than half the days 2. Feeling down, depressed, or hopeless: several days 3. Trouble falling or staying asleep, or sleeping too much: more than half the days 4. Feeling tired or having little energy: more than half the days 5. Poor appetite or overeating: more than half the days 6. Feeling bad about yourself - or that you are a failure or have let yourself or your family down: not at all 7. Trouble concentrating on things, such as reading the newspaper or watching television: not at all 8. Moving or speaking so slowly that other people could have noticed. Or the opposite - being so fidgety or restless that you have been moving around a lot more than usual: nearly every day 9. Thoughts that you would be better off or of hurting yourself in some way: not at all Total score: 12 Depression Screening Interpretation: Positive Depression Screening Follow-up: Existing condition and In treatment Depression Screening Done: Yes [id number] - PHQ-9 Billing: Yes Source: Developed by Drs. Phil Medina, Leigh Ann, Daniel Ruelas and colleagues, with an educational marcin from [employer]. Thrive Questionnaire Date Thrive assessed: 10/12/23 I am a: Patient What is your living situation today?: I have a steady place to live Within the past 12 months, did the food you bought not last and you didn't have the money to get more?: Never true Within the past 12 months, did you worry whether your food would run out before you got money to buy more?: Never true Do you have trouble paying for medicines?: No Do you have trouble getting transportation to medical appointments?: No Do you have trouble paying your heating and electricity bill?: No Do you have trouble taking care of your child, family member or friend?: No Do you have trouble with day-to-day activities such as bathing, preparing meals, shopping, managing finances, etc.?: No Are you currently unemployed and looking for a job?: No Are you interested in more education?: No Please select the resources that you would like help with: None Currently or been in a relationship where the following occur: no concerns reported AUDIT C Alcohol Use Questionnaire (AUDIT-C) 1. How often do you have a drink containing alcohol?: Never 3. How often do you have six or more drinks on one occasion?: Never Total Score: 0 Score Reviewed/Action Taken: Yes DEVANTE-7 AMB Questionnaire DEVANTE-7 Date DEVANTE - 7 assessed: 10/12/23 Feeling nervous, anxious, or on edge: 0 = Not at all Not being able to stop or control worryin = Not at all Worrying too much about different things: 0 = Not at all Trouble relaxin = Not at all Being so restless that it is hard to sit still: 0 = Not at all Becoming easily annoyed or irritable: 0 = Not at all Feeling afraid as if something awful might happen: 0 = Not at all Total DEVANTE-7 score (0-4 normal; 5-9 mild; 10-14 moderate; 15-21 severe): 0 Source: Developed by Drs. Phil Medina, Leigh Ann, Daniel Ruelas and colleagues, with an educational marcin from [employer]. DEVANTE-7 Assessment Billing DEVANTE-7 Assessment Tool: DEVANTE-7 Assessment 31366 Review of Systems Const Denies chills, Denies fatigue, Denies fever(s) and Denies headache(s) ENT Denies dysphagia, Denies dizziness, Denies otalgia, Denies headache(s), Denies odynophagia and Denies sore throat Card Reports chest pain (over the lower left lateral chest wall/rib area - (+) rib Fx), Denies palpitations and Denies dyspnea Resp Denies chest congestion, Denies cough, Denies dyspnea and Denies wheezing GI Denies abdominal pain, Denies constipation, Denies dysphagia, Denies heartburn, Denies diarrhea, Denies nausea, Denies odynophagia and Denies vomiting Denies difficulty urinating, Denies nocturia and Denies urinary frequency Musc Reports back pain (over the lower back - chronic ) and Reports arthralgias (over both knees; on and off right elbow pain) Skin/Breast Denies rash Neuro Denies dizziness and Denies headache(s) Endo Denies fatigue and Denies palpitations Aller/Immun Denies wheezing Physical exam (Primary Care) Vital Signs: Last Vital Signs Pulse 110 H 10/12/23 09:45 BP 120/78 10/12/23 09:45 Pulse Ox 98 10/12/23 09:45 Oxygen Delivery Method Room Air 10/12/23 09:45 BMI result Body Mass Index 33.4 Tobacco/Smoking Status: Tobacco use Status Tobacco use date assessed 10/12/23 10/12/23 09:51 Patient Tobacco Use Status Never used Tobacco 10/12/23 09:51 e-Cigarette/Vaping Use Never Used 10/12/23 09:51 PHQ-9: PHQ-9 Score PHQ-9: Total score 12 10/12/23 10:18 Depression Screening Interpretation: Positive Depression Screening Follow-up: Existing condition and In treatment Thrive Assessment: Date of Thrive Assessment Date Thrive assessed 10/12/23 10/12/23 09:51 Currently or been in a relationship where the following occur: no concerns reported Const General: no acute distress and alert HENMT Ears: TM's normal bilaterally and EAC's normal Neck Neck: Yes no lymphadenopathy and Yes supple Chest Other: (+) mild tenderness on palpation over the anterolateral left lower chest wall/rib corresponding to the left 6th rib Resp Auscultation: clear to auscultation bilaterally, no rales and no wheezes Cardio Rate: regular rate Rhythm: regular rhythm Heart sounds: no murmurs GI Palpation (GI): Soft to palpation and nontender Auscultation: normal bowel sounds Back/Spine/Pelvis Thoracic/Lumbar Spine: lumbar spinal tenderness Extrem General: Yes no clubbing, cyanosis or edema Right lower extremity: knee Details: tenderness Left lower extremity: knee Details: tenderness Office Procedures Flu Questionnaire Does the patient have a severe egg allergy?: No Does the patient have severe life threatening allergies?: No Does the patient have a fever or illness today?: No Has the patient ever had Guillain-[place] Syndrome?: No Has the patient ever had any past reaction to a flu shot?: No Immunizations flu vacc [id number] 6mos up(PF) 60 mcg(15 mcgx4)/0.5 mL IM syringe Performing Provider: Nathan Mendoza MD [facility] Administered by: Jonnie Elloitt on 10/12/23 10:34 Dose Route Admin Location Dispensed Lot Number Expiration Date NDC Child Welfare Specialist 0.5 mL IM Left Deltoid 0.5 mL [id number] 05/29/24 [id number] [place] VIS Given Date VIS Provided VIS Publication Date 10/12/23 Single Vaccine 21 Eligibility Eligibility Date Funding Source Not C Eligible 10/12/23 Private Results Reviewed Results Reviewed: Laboratory Tests 10/01/23 10/01/23 10/01/23 08:20 08:20 08:37 WBC 5.5 Hgb 14.0 Hct 42.4 Plt Count 206 Sodium 140 Potassium 4.3 Creatinine 1.07 Estimated GFR > 60 Fasting Glucose 231 H Hemoglobin A1c % 7.4 H Calcium 9.4 AST 35 ALT 61 H Triglycerides 166 H Cholesterol 149 LDL Cholesterol, Calc 81 HDL Cholesterol 35 L Vitamin B12 515 25-OH Vitamin D Total 36.1 TSH 0.86 Urine pH 5.5 Ur Specific [place] 1.020 Urine Protein Negative Urine Glucose (UA) 500 H Urine Blood Negative Microalb/Creat Ratio 5.3 Assessment and Plan Assessment & Plan (1) Pure hypercholesterolemia: Code(s): E78.00 - Pure hypercholesterolemia, unspecified Plan: Results of his labs done a couple of weeks ago reviewed and discussed with patient Reinforced low cholesterol diet Continue Atorvastatin 20 mg QD Will recheck his labs and fasting lipids in 3 months for follow-up (2) Type 2 diabetes mellitus without complication, with no history of insulin use: Code(s): E11.9 - Type 2 diabetes mellitus without complications Plan: His HgbA1c has increased to 7.4% on his labs done a couple of weeks ago (was at 6.9% a few months ago) - goal is < 6.5% Reinforced diabetic diet Continue?Pioglitazone?15 mg QD and Trulicity 0.75 mg SQ once a week; patient also takes Acarbose 25 mg TID He used to see endocrinology but states that he has not been back to see them in about 3 years as he was reportedly advised that his diabetes is well-controlled and he can just follow up with his PCP He is advised to try to watch his diet better and that IF his blood sugar still does not improve by his next visit, then we will consider increasing the dose of his Trulicity to 1.5 mg (3) Benign essential hypertension: Code(s): I10 - Essential (primary) hypertension Plan: Reinforced low-sodium diet -? goal is systolic BP of at least 120 to 130 mm or less Continue Lisinopril 10 mg QD (4) Asthma: Code(s): J45.909 - Unspecified asthma, uncomplicated Qualifiers: Asthma severity: moderate Asthma persistence: persistent Asthma complication type: uncomplicated Qualified Code(s): J45.40 - Moderate persistent asthma, uncomplicated Plan: Stable/controlled Continue Flovent HFA 220 mcg BID and ProAir HFA 2 puffs 4 times a day as needed Patient also uses his nebulizer with Albuterol nebulizer solution 3 to 4 times a day when needed (5) Migraine: Code(s): G43.909 - Migraine, unspecified, not intractable, without status migrainosus Qualifiers: Migraine type: unspecified Status migrainosus presence: without status migrainosus Intractability: not intractable Qualified Code(s): G43.909 - Migraine, unspecified, not intractable, without status migrainosus Plan: Stable/controlled on prophylactic Tx with Topiramate 100 mg Q HS Follow up with neurology as scheduled (6) Fracture of rib: Code(s): S22.39XA - Fracture of one rib, unspecified side, initial encounter for closed fracture Qualifiers: Encounter type: subsequent encounter Fracture healing: with routine healing Fracture type: closed Laterality: left Rib fracture type: single rib Qualified Code(s): S22.32XD - Fracture of one rib, left side, subsequent encounter for fracture with routine healing Plan: S/P fall back on 08/24/23 Rib x-rays back then revealed (+) acute nondisplaced fracture of the anterolateral left 6th rib He is again reminded NOT to do any heavy lifting or participate in any strenuous activities for a few more weeks so as not to risk aggravating his injury Continue Ibuprofen 600 mg TID PRN with food (7) Left shoulder pain: Code(s): M25.512 - Pain in left shoulder Qualifiers: Chronicity: acute Qualified Code(s): M25.512 - Pain in left shoulder Plan: States that his shoulder pain has subsided lately X-rays of the left shoulder done a few months ago revealed (+) mild OA and postsurgical changes Follow up with orthopedics as scheduled (8) Lumbar degenerative disc disease: Code(s): M51.36 - Other intervertebral disc degeneration, lumbar region Plan: Repeat lumbar spine x-rays done last week revealed (+) mild spondylosis of the lumbar spine with no acute changes Reinforced activity and weight lifting restrictions Continue Tramadol 50 mg TID PRN and Naproxen 500 mg BID with food as needed for pain (9) Obesity (BMI 30.0-34.9): Code(s): E66.9 - Obesity, unspecified Plan: Reinforced diet/exercise as tolerated/lose weight Plan Flu vaccine given today Follow up in 3 months Orders: Orders Lipid Panel 3 Months E78.00 - Pure hypercholesterolemia, unspecified Comprehensive [place]. Panel Fast 3 Months E78.00 - Pure hypercholesterolemia, unspecified Hemoglobin A1c 3 Months E11.9 - Type 2 diabetes mellitus without complications Vitamin D 25-OH Total 3 Months E55.9 - Vitamin D deficiency, unspecified Complete Blood Count Auto Diff 3 Months I10 - Essential (primary) hypertension Microalbumin, Random (w Creat) 3 Months E11.9 - Type 2 diabetes mellitus without complications UA CC w/rflx Micro + Cult 3 Months R30.0 - Dysuria TSH reflex Free T4 3 Months E78.00 - Pure hypercholesterolemia, unspecified Influenza [id number] Immunization Today Z23 - Encounter for immunization Coding Level of Care Code Est Pt Level 4 (19720) Diagnoses Pure hypercholesterolemia E78.00 Type 2 diabetes mellitus without complication, with no history of insulin use E11.9 Benign essential hypertension I10 Moderate persistent asthma without complication J45.40 Asthma severity: moderate Asthma persistence: persistent Asthma complication type: uncomplicated Migraine without status migrainosus, not intractable, unspecified migraine type G43.909 Migraine type: unspecified Status migrainosus presence: without status migrainosus Intractability: not intractable Closed fracture of one rib of left side with routine healing, subsequent encounter S22.32XD Encounter type: subsequent encounter Fracture healing: with routine healing Fracture type: closed Laterality: left Rib fracture type: single rib Acute pain of left shoulder M25.512 Chronicity: acute Lumbar degenerative disc disease M51.36 Obesity (BMI 30.0-34.9) E66.9 Additional Codes DEVANTE-7 Assessment Billing - DEVANTE-7 Assessment Tool: DEVANTE-7 Assessment [id number] ([id number])
== END 2023-10-12 10:37 | disposition home or self-care (01) ==
PROVIDERS: PCP Internal Medicine; Visit Provider Internal Medicine
DX: E78.00 Pure hypercholesterolemia, unspecified (principal); E11.9 Type 2 diabetes mellitus without complications; I10 Essential (primary) hypertension; J45.40 Moderate persistent asthma, uncomplicated; G43.909 Migraine, unspecified, not intractable, without status migrainosus; S22.32XD Fracture of one rib, left side, subsequent encounter for fracture with routine healing; M25.512 Pain in left shoulder; M51.36 Other intervertebral disc degeneration, lumbar region; E66.9 Obesity, unspecified; Z68.33 Body mass index [BMI] 33.0-33.9, adult; Z23 Encounter for immunization
CPT/HCPCS: 90471; 90686; 99214

== ENCOUNTER 2023-11-13 07:57 | Outpatient (AMB) | payer MEDICARE, MEDICAID, SELFPAY ==
--- NOTE | 2023-11-13 08:01 | A.OFFVIS_ITS ---
Intake Vital Signs 11/13/23 08:08 Height 5 ft 8 in Weight 219 lb BMI 33.3 BP 121/69 Blood Pressure Location Lt brachial Position Sitting Pulse 89 Intake Visit Reasons: 6 month fu Intake Note: Patient follow up Patient denies any GI issues. Automotive Service Assistant Required: No Accompanied by: Self / Same As Patient Allergies No Known Allergies [No Known Allergies*] Allergy (Verified 11/13/23 08:06) HPI 6 month fu HPI Details Assessment & Plan (1) Delayed gastric emptying: Code(s): K30 - Functional dyspepsia Plan: He does not want to try the simethicone because it is not covered by his insurance and he would have to pay $18, he could consider Good[facility] and I give him a card and it would be closer to $8-9 through this. He is not willing right now. I tried to give him this because he c/o acid brash and I explain that this is gas carrying up stomach contents. He also would be well advised to not eat too late at night, to lose weight and to continue avoiding foods that can cause GERD in the 1st place including carbonated beverages. He continues on his metoclopramide 4 times a day, and his pantoprazole twice a day. He is moving his bowels well. ROV 6 mos. (2) Irritable bowel syndrome with both c onstipation and diarrhea: Code(s): K58.2 - Mixed irritable bowel syndrome (3) GERD (gastroesophageal reflux diseas e): Code(s): K21.9 - Gastro-esophageal reflux disease without esophagitis (4) Esophageal dysmotility: Code(s): K22.4 - Dyskinesia of esophagus Medications: Refilled metoclopramide HCl (Reglan) 10 mg PO QIDACHS 30 days 120 tabs 6 RF K30 - Functional d yspepsia pantoprazole (Prot leonor) 40 mg PO BID 60 t abs 6RF K21.9 - Gastro-eso phageal reflux dis ease without esoph agitis Laboratory Tests 10/01/23 08:20 WBC 5.5 Hgb 14.0 Hct 42.4 Plt Count 206 Estimated GFR > 60 Hemoglobin A1c % 7.4 H Total Bilirubin 0.6 AST 35 ALT 61 H Alkaline Phosphata se 91 TSH 0.86 TODAS VISIT He is out of many of his medications, and he could not get the simethicone because the pharmacy did not receive the rx. I resend it. He is also out of his reglan and bentyl. Will refill it all. He is due for colonoscopy in 2023, will get this ordered. He will need a 2 day prep because he did not fully clear at the last colonoscopy. There are no prior problems with anesthesia or sedation. His asthma is well controlled and he denies any cardiac problems. There are no infectious disease problems. Will see him after scope and in 6 mos. [facility] Medical History (Updated 11/13/23 @ 17:33 by LASHONDA Lay) Obesity (BMI 30-39.9) Screening for prostate cancer Status post fall Colon cancer screening Medicare annual wellness visit, subsequent Annual physical exam Tonsillitis Early satiety Oropharyngeal dysphagia Gastritis History of anoxic brain injury Epididymal cyst Hematuria Anxiety Obstructive sleep apnea Vitamin B12 deficiency Vitamin D deficiency Lumbar degenerative disc disease Asthma Pure hypercholesterolemia Migraine Cardiac arrhythmia Type 2 diabetes mellitus without complication, with no history of insulin use Benign essential hypertension Surgical History H/O bilateral inguinal hernia repair H/O hernia repair History of esophagogastroduodenoscopy (EGD) Hx of colonoscopy History of extraction of renal calculus History of repair of rotator cuff Family History Father No problems noted. Mother Hypertension Cancer Sister Cancer Social History Household Members: Significant Other Housing: House Alcohol intake: never Patient Tobacco Use Status: Never used Tobacco e-Cigarette/Vaping Use: Never Used Second Hand Smoke Exposure: No service: No Current occupational status: disabled Cognitive needs: No Hearing needs: No Vision needs: No Review of Systems Const Denies fatigue, Denies fever(s), Denies night sweats, Denies poor appetite and Denies weight loss Eyes Reports requires corrective lenses ENT Reports Normal hearing present, Denies dental pain, Denies dysphagia, Denies hearing loss, Denies mouth pain, Denies odynophagia, Denies throat swelling, Denies tongue swelling and Reports other (Dentition adequate) GI Denies abdominal pain, Denies melena, Denies bloating, Denies hematochezia, Denies constipation, Denies GI cramping, Denies dysphagia, Denies excessive flatus, Denies early satiety, Denies heartburn, Denies diarrhea, Denies nausea, Denies odynophagia, Denies vomiting and Denies hematemesis Skin/Breast Denies pruritus, Denies lesions, Denies rash and Denies jaundice Neuro Reports Normal hearing present and Denies Abnormal speech present Endo Denies fatigue Aller/Immun Denies throat swelling and Denies tongue swelling Physical Exam Vital Signs: Last Vital Signs Pulse 89 11/13/23 08:08 BP 121/69 11/13/23 08:08 BMI result Body Mass Index 33.3 Const General: cooperative, no acute distress, well developed and well groomed Nutritional Appearance: well nourished, obese and overweight Orientation/consciousness: oriented to person, oriented to place and oriented to time Limitations: No language barrier, ambulation with cane, ambulation with walker and wheelchair HEENT Head: Yes normocephalic and Yes atraumatic Eyes General: appearance normal, both eyes and all related structures Pupils: Equal, round and reactive pupils present Neck Neck: Yes normal visual inspection and Yes no lymphadenopathy Thyroid: Thyroid normal Resp Effort & Inspection: normal respiratory effort and able to speak in complete sentences Auscultation: clear to auscultation bilaterally Cardio Rate: regular rate Rhythm: regular rhythm Heart sounds: Normal, physiologic split S2 sound present Peripheral pulses: radial pulses present and posterior tibial pulses present GI Inspection: No distended and No Abdominal panniculus present Palpation (GI): Soft to palpation, nontender, no guarding, not rigid, No hepatosplenomegaly present and Hepatosplenomegaly present Percussion: Yes normal to percussion Auscultation: normal bowel sounds Rectal Exam - Male: Yes deferred Skin General skin exam: no rashes or lesions noted, turgor normal, skin not dry, no jaundice, No spider nevi and no striae Rashes: no rashes Nails: normal Neuro General: oriented to person, oriented to place and oriented to time Cranial nerves: Yes Equal, round and reactive pupils present and Yes Normal hearing present Speech: No Abnormal speech present Extrem General: Yes normal to inspection, No clubbing, No cyanosis and No edema Psych Thought process: Normal thought process present and not confabulating Thought content: Normal thought content present Insight: Good insight present (Psych) Judgement: Good judgement present (Psych) Results Reviewed Results Reviewed: Laboratory Tests 10/01/23 08:20 WBC 5.5 Hgb 14.0 Hct 42.4 Plt Count 206 Estimated GFR > 60 Hemoglobin A1c % 7.4 H Total Bilirubin 0.6 AST 35 ALT 61 H Alkaline Phosphatase 91 TSH 0.86 Assessment & Plan Assessment & Plan (1) Delayed gastric emptying: Code(s): K30 - Functional dyspepsia (2) Irritable bowel syndrome with both constipation and diarrhea: Code(s): K58.2 - Mixed irritable bowel syndrome (3) GERD (gastroesophageal reflux disease): Code(s): K21.9 - Gastro-esophageal reflux disease without esophagitis (4) Esophageal dysmotility: Code(s): K22.4 - Dyskinesia of esophagus (5) Tubular adenoma of colon: Comment: 2021 scope neg but insufficient prep, repeat 1-2 years with 2 day prep aeb; 2018 scope equals 2 TA s Code(s): D12.6 - Benign neoplasm of colon, unspecified (6) Abdominal bloating: Code(s): R14.0 - Abdominal distension (gaseous) (7) Pre-op examination: Code(s): Z01.818 - Encounter for other preprocedural examination Plan He is out of many of his medications, and he could not get the simethicone because the pharmacy did not receive the rx. I resend it. He is also out of his reglan and bentyl. Will refill it all. He is due for colonoscopy in 2023, will get this ordered. He will need a 2 day prep because he did not fully clear at the last colonoscopy. There are no prior problems with anesthesia or sedation. His asthma is well controlled and he denies any cardiac problems. There are no infectious disease problems. Will see him after scope and in 6 mos. Orders: Orders Colonoscopy - GI Use Only Today D12.6 - Benign neoplasm of colon, unspecified Medications: New simethicone after meals 180 mg PO QID 30 days 120 caps 6RF magnesium citrate Drink qhs 2 nights before colonoscopy and one qam day before colonoscpy 150 mL PO DAILY 300 mL 0RF bisacodyl (Dulcolax (bisacodyl)) 10 mg (2 x 5 mg) PO BEDTIME 2 days 4 tabs 0RF peg 3350-electrolytes 236-22.74-6.74 -5.86 gram (Golytely) until fecal effluent is clear; do not exceed a total volume of 2,000 mL 240 mL PO Q10M 1 day 4,000 mL 0RF Z12.11 - Encounter for screening for malignant neoplasm of colon Refilled pantoprazole (Protonix) 40 mg PO BID 60 tabs 6RF K21.9 - Gastro-esophageal reflux disease without esophagitis metoclopramide HCl (Reglan) 10 mg PO QIDACHS 30 days 120 tabs 6RF K30 - Functional dyspepsia dicyclomine 20 mg PO QID 30 days 120 tabs 6RF K58.2 - Mixed irritable bowel syndrome, R13.12 - Dysphagia, oropharyngeal phase Coding Level of Care Code Est Pt Level 4 (73749) Diagnoses Delayed gastric emptying K30 Irritable bowel syndrome with both constipation and diarrhea K58.2 GERD (gastroesophageal reflux disease) K21.9 Esophageal dysmotility K22.4 Tubular adenoma of colon D12.6 Abdominal bloating R14.0 Pre-op examination Z01.818
[2023-11-13 08:08] VITALS: BP 121/69; PULSE 89; BMI 33.3
== END 2023-11-13 09:27 | disposition home or self-care (01) ==
PROVIDERS: PCP Internal Medicine; Visit Provider Nurse Practitioner
DX: K30 Functional dyspepsia (principal); K58.2 Mixed irritable bowel syndrome; K21.9 Gastro-esophageal reflux disease without esophagitis; K22.4 Dyskinesia of esophagus; D12.6 Benign neoplasm of colon, unspecified; R14.0 Abdominal distension (gaseous); Z01.818 Encounter for other preprocedural examination
CPT/HCPCS: 99214

== ENCOUNTER → 2023-11-13 07:57 | Outpatient (BNVA) | payer MEDICARE, MEDICAID, SELFPAY | PROVIDERS: PCP Internal Medicine; Visit Provider Nurse Practitioner | DX: Z01.818 Encounter for other preprocedural examination (principal); K30 Functional dyspepsia; K58.2 Mixed irritable bowel syndrome; K21.9 Gastro-esophageal reflux disease without esophagitis; K22.4 Dyskinesia of esophagus; D12.6 Benign neoplasm of colon, unspecified; R14.0 Abdominal distension (gaseous) | CPT/HCPCS: 99212 ==

== ENCOUNTER 2023-12-15 10:09 | Outpatient (AMB) | payer MEDICARE, MEDICAID, SELFPAY ==
[2023-12-15 10:08] VITALS: BP 118/76; PULSE 114; TEMP 36.3; O2SAT 98; BMI 32.4
--- NOTE | 2023-12-15 10:08 | MHC.OFFWIV ---
Intake Vital Signs 12/15/23 10:08 12/15/23 10:49 Height 5 ft 8 in Weight 213 lb BMI 32.4 BP 118/76 Blood Pressure Location Lt brachial Position Sitting Pulse 114 H 94 Pulse Source Auscultation Temp 97.4 F Temp Source Temporal Artery Scan Pulse Oximetry (%) 98 Oxygen Delivery Method Room Air Intake Visit Reasons: EP, swollen testicle,blood in urine ([phone]) Intake Note: pt is here today for swollen testicle blood in urine started 3 days ago Patient Tobacco Use Status: Never used Tobacco Allergies No Known Allergies [No Known Allergies*] Allergy (Verified 12/15/23 10:09) Do you need a note to return to daycare/school/sports/work: No HPI HPI Comments History of Present Illness Details Patient is a 53-year-old male here today for a sick visit. He states that he developed blood in his urine and intermittent right testicle pain in his right testicle. Denies any trauma to the area. Patient states that the symptoms developed randomly. He has used [id number] Motrin with some relief. He has a past medical history significant for epididymal cyst and inguinal hernia. Patient states that he is able to pass urine. Denies nausea, vomiting, diarrhea, diaphoresis, chest pain, shortness a breath or fever. Denies saddle numbness. [facility] Medical History (Updated 12/15/23 @ 10:53 by LUDWIG Dunham) Obesity (BMI 30-39.9) Screening for prostate cancer Status post fall Colon cancer screening Medicare annual wellness visit, subsequent Annual physical exam Tonsillitis Early satiety Oropharyngeal dysphagia Gastritis History of anoxic brain injury Epididymal cyst Hematuria Anxiety Obstructive sleep apnea Vitamin B12 deficiency Vitamin D deficiency Lumbar degenerative disc disease Asthma Pure hypercholesterolemia Migraine Cardiac arrhythmia Type 2 diabetes mellitus without complication, with no history of insulin use Benign essential hypertension Surgical History H/O bilateral inguinal hernia repair H/O hernia repair History of esophagogastroduodenoscopy (EGD) Hx of colonoscopy History of extraction of renal calculus History of repair of rotator cuff Family History Father No problems noted. Mother Hypertension Cancer Sister Cancer Social History Household Members: Significant Other Housing: House Alcohol intake: never Patient Tobacco Use Status: Never used Tobacco e-Cigarette/Vaping Use: Never Used Second Hand Smoke Exposure: No service: No Current occupational status: disabled Cognitive needs: No Hearing needs: No Vision needs: No Review of Systems Const Details: Constitutional : No Weight loss, No Fever, No Chills, No Fatigue, No Malaise Cardiovascular : No Chest Pain, No SOB, No Dyspnea on Exertion, No Orthopnea, No Edema, No Palpitations Respiratory : No Cough, No Sputum, No Wheezing Gastrointestinal : No Nausea, No Vomiting, No Diarrhea, No Constipation, No abdominal Pain, No Hematochezia, No Melena Genitourinary : Admits some Hematuria, intermittent right testicle pain. Neuro : No Weakness, No Numbness, No Dizziness, No Headache Psych : No Anxiety/Panic, No Depression Endocrine : No Polyuria, No Polydipsia All other systems reviewed and are negative Physical Exam Vital Signs: Last Vital Signs Temp 97.4 F 12/15/23 10:08 Pulse 114 H 12/15/23 10:08 BP 118/76 12/15/23 10:08 Pulse Ox 98 12/15/23 10:08 Oxygen Delivery Method Room Air 12/15/23 10:08 BMI result Body Mass Index 32.4 Vital signs reviewed stable Const Other: Appearance: Alert.? Oriented X3.? No acute distress.? Neck: Normal inspection.? Neck supple.? CVS: Normal heart rate and rhythm.? Pulses normal.? Respiratory: No respiratory distress.? Breath sounds normal.? Abdomen: Soft and nontender.? Skin: Skin warm and dry.? Normal skin color.? Normal skin turgor.? Back: no CVA tenderness bilaterally Neuro: Oriented X 3.? No motor deficit.? No sensory deficit. CN 2-12 intact Male General Exam: No hernia Scrotum: not erythematous and no scrotal swelling Testes: testicular tenderness and other (Positive Cremasteric Reflex. ) Assessment & Plan Assessment & Plan (1) Right testicular pain: Comment: Will order ultrasound of right testicle. Patient had positive cremasteric reflex. Will prescribe meloxicam to be taken as directed. Patient has been educated on side effects of these medications. Patient has been educated on signs of worsening symptoms and when to report back to the walk-in or when to present to the emergency room. Patient states he understands Code(s): N50.811 - Right testicular pain Plan: Take your medications as prescribed. If you were prescribed antibiotics today, it is important that you take your medication to their entirety, do not skip any doses, do not finish them early. Follow-up with your primary care provider this week. Return to the emergency department with new or worsening symptoms. Such as fevers, chills, chest pain, shortness of breath, nausea, vomiting, dizziness, headache, vision changes, lethargy In case of emergency call 911 Plan Follow-up with PCP Orders: Orders US scrotum Today N50.811 - Right testicular pain Medications: New meloxicam Do not combine with other NSAID's 15 mg PO DAILY 10 tabs 0RF Discontinued ibuprofen Discontinued Reason: No Longer Medically Relevant 600 mg PO Q8H PRN 20 tabs 0RF pain Coding Level of Care Code Est Pt Level 3 (36406) Diagnoses Right testicular pain N50.811 Time Spent (min) 25
[2023-12-15 10:49] VITALS: PULSE 94
== END 2023-12-15 11:09 | disposition home or self-care (01) ==
PROVIDERS: PCP Internal Medicine; Visit Provider Nurse Practitioner Primary Care
DX: N50.811 Right testicular pain (principal)
CPT/HCPCS: 81003; 99213

== ENCOUNTER 2023-12-15 11:27 | Outpatient (REF) | payer MEDICARE, MEDICAID, SELFPAY ==
[2023-12-15 14:06] LABS: Appearance Urine Clear; Color Urine Yellow; Glucose Urine UA Negative (Negative); Leukocyte Esterase Urine Trace (Negative); Nitrite Urine Negative (Negative); UMIC TRIGGER UACC YES; Urine Blood Negative (Negative); Urine Ketones Negative (Negative); Urine Protein Negative (Neg-Trace)
[2023-12-15 14:10] LABS: Bacteria Urine None Seen (None Seen); Hyaline Casts Urine 0-2 /LPF (0-2); RBC Urine 0-2 /HPF (0-2); Squamous Epithelial Cell Urine 0-2 /HPF (0-2); UACC Culture Trigger YES
== END 2023-12-15 11:28 | disposition home or self-care (01) ==
LOC: HO.LAB 11:27
PROVIDERS: Visit Provider Nurse Practitioner Primary Care
DX: N50.811 Right testicular pain (principal)
CPT/HCPCS: 81001; 81003; 87086

== ENCOUNTER 2023-12-17 14:24 | Outpatient (REF) | payer MEDICARE, MEDICAID, SELFPAY ==
--- NOTE | ~2023-12-17 | US_ITS ---
EXAMINATION: US SCROTUM CLINICAL INFORMATION: Right testicular pain. COMPARISON: Ultrasound scrotum 05/13/2021. TECHNIQUE: A sonogram of the scrotum was performed assessing sims-scale appearance and color Doppler flow. Spectral Doppler analysis of the arterial and venous flow were performed in the testes bilaterally. FINDINGS: RIGHT: Right testicle measures 4.6 x 2.5 x 2.5 cm, volume 14.8 mL. No focal testicular parenchymal lesions are visualized. Spectral Doppler analysis of the arterial and venous flow is normal in the right testis. Right epididymal head is normal in size. Right epididymal head cyst measures 0.6 x 0.2 x 0.5 cm No right hydrocele or varicocele is seen. Right epididymal Doppler flow is normal. LEFT: Left testicle measures 4.1 x 2.3 x 1.9 cm, volume 9.5 mL. 0.4 x 0.1 x 0.3 cm scrotolith is noted Spectral Doppler analysis of the arterial and venous flow is normal in the left testis. Left epididymal head is normal in size. No left hydrocele or varicocele is seen. Left epididymal Doppler flow is normal. US/US scrotum IMPRESSION: No acute findings. 0.6 cm right epididymal head cyst. 0.4 cm left scrotolith.
== END 2023-12-17 14:25 | disposition home or self-care (01) ==
LOC: HO.US 14:24
PROVIDERS: PCP Nurse Practitioner Primary Care; Visit Provider Nurse Practitioner Primary Care
DX: N50.811 Right testicular pain (principal)
CPT/HCPCS: 76870

== ENCOUNTER 2024-01-25 08:32 | Outpatient (REF) | payer MEDICARE, MEDICAID, SELFPAY ==
[2024-01-25 08:57] LABS: MANUAL DIFF FLAG NO
[2024-01-25 09:14] LABS: Basophils Percent Auto 0.3 % (0-2); Eosinophils Absolute Auto 0.2 X10*3/uL (0.0-0.4); Hematocrit 45.1 % (42.0-52.0); Hemoglobin 14.8 g/dl (14.0-18.0); Imm Gran Abs Auto 0.02 X10*3/uL (0.00-0.03); Imm Gran Pct Auto 0.3 % (0.0-0.4); Lymphocytes Absolute Auto 1.7 X10*3/uL (1.2-4.9); Lymphocytes Percent Auto 26.7 % (20-40); Mean Corpuscular HGB Conc 32.8 g/dl (31.0-36.0); Mean Corpuscular Hemoglobin 29.3 pg (27.0-33.0); Mean Corpuscular Volume 89.3 fL (80.0-98.0); Mean Platelet Volume 9.4 fL (9.4-12.4); Monocytes Absolute Auto 0.4 X10*3/uL (0.1-1.2); Neutrophils Absolute Auto 3.9 x10*3/uL (2.0-8.3); Neutrophils Percent Auto 62.7 % (45-73); Platelet Count 230 X10*3/uL (160-400); Red Blood Count 5.05 X10*6/uL (4.60-5.80); White Blood Count 6.3 X10*3/uL (4.8-10.8)
[2024-01-25 09:25] LABS: Estimated Average Glucose 166 mg/dL; Hemoglobin A1c % 7.4 % (<6.0)
[2024-01-25 09:57] LABS: Alanine Aminotransferase 25 U/L (0-40); Albumin Level 4.6 g/dL (3.5-5.0); Alkaline Phosphatase 93 U/L (39-117); Anion Gap 11 (12-20); Aspartate Amino Transferase 18 U/L (5-37); Bilirubin Total 0.6 mg/dL (0.0-1.0); Blood Urea Nitrogen 20 mg/dL (9-16); Calcium 9.6 mg/dL (8.4-10.2); Carbon Dioxide 24 mmol/L (22-29); Chloride 110 mmol/L (96-108); Cholesterol 157 mg/dL (<200); Estimated Glomerular Filt Rate > 60; Glucose Fasting 235 mg/dL (60-99); HDL Cholesterol 40 mg/dL (>40); LDL Cholesterol Calculated 92 mg/dL (<100); Potassium 4.2 mmol/L (3.3-5.1); Sodium 141 mmol/L (135-145); Total Protein 7.9 g/dL (6.5-8.0); Triglycerides 126 mg/dL (<150)
[2024-01-25 09:58] LABS: Appearance Urine Clear; Color Urine Yellow; Glucose Urine UA 500 mg/dL (Negative); Leukocyte Esterase Urine Negative (Negative); Nitrite Urine Negative (Negative); Specific Gravity - Urine >= 1.030 (1.005-1.025); UMIC TRIGGER UACC YES; Urine Blood Moderate (2+) (Negative); Urine Ketones Negative (Negative); Urine Protein Negative (Neg-Trace)
[2024-01-25 10:06] LABS: TSH reflex Free T4 0.63 uIU/mL (0.32-4.0); Vitamin D 25-OH Total 30.6 ng/mL (>30)
[2024-01-25 10:21] LABS: Bacteria Urine None Seen (None Seen); Hyaline Casts Urine 0-2 /LPF (0-2); RBC Urine >20 /HPF (0-2); Squamous Epithelial Cell Urine 0-2 /HPF (0-2); WBC Urine 0-5 /HPF (0-5)
[2024-01-25 11:29] LABS: Creatinine Urine 283.76 mg/dL; Microalbum/Creatinine Ratio Ur 7.4 ug/mg cr (<30)
== END 2024-01-25 08:33 | disposition home or self-care (01) ==
LOC: HO.LAB 08:32
PROVIDERS: PCP Internal Medicine; Visit Provider Internal Medicine
DX: E78.00 Pure hypercholesterolemia, unspecified (principal); E11.9 Type 2 diabetes mellitus without complications; E55.9 Vitamin D deficiency, unspecified; I10 Essential (primary) hypertension
CPT/HCPCS: 36415; 80053; 80061; 81001; 81003; 82043; 82306; 82570; 83036; 84443; 85025

== ENCOUNTER 2024-02-08 08:52 | Outpatient (AMB) | payer MEDICARE, MEDICAID, SELFPAY ==
[2024-02-08 08:59] VITALS: BP 118/80; PULSE 96; O2SAT 97; BMI 32.0
--- NOTE | 2024-02-08 08:59 | MHC.PC.OV ---
Vital Signs 02/08/24 08:59 Height 5 ft 8 in Weight 210 lb 4 oz BMI 32.0 BP 118/80 Blood Pressure Location Lt brachial Position Sitting Pulse 96 Pulse Source Pulse Oximeter Pulse Oximetry (%) 97 Oxygen Delivery Method Room Air Intake Visit Reasons: HTN, DM, hyperlipidemia, OA Escort Patients Required: No Accompanied by: Self / Same As Patient Allergies No Known Allergies [No Known Allergies*] Allergy (Verified 02/08/24 09:22) Medication List - Last Reconciled 02/08/24 by Nathan Mendoza MD acarbose 25 mg PO TID 90 days albuterol sulfate 2.5 mg (3 mL) inhalation TID PRN albuterol sulfate 90 mcg/actuation (ProAir HFA) 2 puffs inhalation Q6H PRN 30 days alcohol swabs 1 pad topical BID 30 days alprazolam 1 mg PO TID PRN amitriptyline 25 mg PO BEDTIME atorvastatin 40 mg PO BEDTIME 90 days bisacodyl (Dulcolax (bisacodyl)) 10 mg (2 x 5 mg) PO BEDTIME 2 days blood sugar diagnostic (FreeStyle Lite Strips) Twice a day cholecalciferol (vitamin D3) 25 mcg PO DAILY 90 days clonidine HCl 0.1 mg PO BEDTIME cyanocobalamin (vitamin B-12) 100 mcg PO DAILY 30 days dicyclomine 20 mg PO QID 30 days dulaglutide (Trulicity) 0.75 mg (0.5 mL) subcut QWEEK 30 days fluticasone propionate 220 mcg/actuation (Flovent HFA) 1 puff inhalation BID lancets use as directed once a day lidocaine 4% (Lidocaine Pain Relief) 1 patch topical DAILY PRN lidocaine 5% 1 patch topical DAILY lisinopril 10 mg PO DAILY 90 days magnesium citrate 150 mL PO DAILY meloxicam 15 mg PO DAILY metoclopramide HCl (Reglan) 10 mg PO QIDACHS 30 days [NEBULIZER and all related supplies As directed] pantoprazole (Protonix) 40 mg PO BID peg 3350-electrolytes 236-22.74-6.74 -5.86 gram (Golytely) 240 mL PO Q10M 1 day pioglitazone 15 mg PO DAILY 90 days simethicone 180 mg PO QID 30 days topiramate 100 mg PO BEDTIME 90 days tramadol 50 mg PO TID PRN 30 days Tobacco use date assessed: 02/08/24 Dental Screening Dental Screen Date: 02/08/24 Did you have a dental visit in the last 12 months?: No Did you have a dental problem in the last 6 months where you did not have access to dental care?: No Was dental information given to patient?: No HPI HTN, DM, hyperlipidemia, OA HPI Details Patient comes in today for his follow up visit States that he feels okay He denies any headaches or dizziness Denies any chest pains, no SOB No nausea/vomiting, no abdominal pain No change in bowel habits noted Needs several of his Rx refilled Adds that he was advised by his pharmacist that his Flovent HFA is no longer available and he has to discuss with his PCP about switching him over to another alternative inhaler Had his follow up labs done a couple of weeks ago - to discuss his results FOR[facility]LY [facility] Medical History (Updated 02/08/24 @ 09:25 by Nathan Mendoza MD) Obesity (BMI 30-39.9) Colon cancer screening Oropharyngeal dysphagia Gastritis History of anoxic brain injury Epididymal cyst Hematuria Anxiety Obstructive sleep apnea Vitamin B12 deficiency Vitamin D deficiency Lumbar degenerative disc disease Asthma Pure hypercholesterolemia Migraine Cardiac arrhythmia Type 2 diabetes mellitus without complication, with no history of insulin use Benign essential hypertension Surgical History H/O bilateral inguinal hernia repair H/O hernia repair History of esophagogastroduodenoscopy (EGD) Hx of colonoscopy History of extraction of renal calculus History of repair of rotator cuff Family History Father No problems noted. Mother Hypertension Cancer Sister Cancer Social History Household Members: Significant Other Housing: House Alcohol intake: never Patient Tobacco Use Status: Never used Tobacco e-Cigarette/Vaping Use: Never Used Second Hand Smoke Exposure: No service: No Current occupational status: disabled Cognitive needs: No Hearing needs: No Vision needs: No Questionnaire PHQ-9 Over the last 2 weeks, how often have you been bothered by any of the following problems? 1. Little interest or pleasure in doing things: more than half the days 2. Feeling down, depressed, or hopeless: several days 3. Trouble falling or staying asleep, or sleeping too much: more than half the days 4. Feeling tired or having little energy: more than half the days 5. Poor appetite or overeating: more than half the days 6. Feeling bad about yourself - or that you are a failure or have let yourself or your family down: not at all 7. Trouble concentrating on things, such as reading the newspaper or watching television: not at all 8. Moving or speaking so slowly that other people could have noticed. Or the opposite - being so fidgety or restless that you have been moving around a lot more than usual: nearly every day 9. Thoughts that you would be better off or of hurting yourself in some way: not at all Total score: 12 Depression Screening Interpretation: Positive Depression Screening Follow-up: Existing condition and In treatment Depression Screening Done: Yes 67444 - PHQ-9 Billing: Yes Source: Developed by Drs. Phil Medina, Leigh Ann, Daniel Ruelas and colleagues, with an educational marcin from [employer]. Thrive Questionnaire Date Thrive assessed: 02/08/24 I am a: Patient What is your living situation today?: I have a steady place to live Within the past 12 months, did the food you bought not last and you didn't have the money to get more?: Never true Within the past 12 months, did you worry whether your food would run out before you got money to buy more?: Never true Do you have trouble paying for medicines?: No Do you have trouble getting transportation to medical appointments?: No Do you have trouble paying your heating and electricity bill?: No Do you have trouble taking care of your child, family member or friend?: No Do you have trouble with day-to-day activities such as bathing, preparing meals, shopping, managing finances, etc.?: No Are you currently unemployed and looking for a job?: No Are you interested in more education?: No Please select the resources that you would like help with: None Currently or been in a relationship where the following occur: no concerns reported THRIVE Score: 0 AUDIT C Alcohol Use Questionnaire (AUDIT-C) 1. How often do you have a drink containing alcohol?: Never 3. How often do you have six or more drinks on one occasion?: Never Total Score: 0 Score Reviewed/Action Taken: Yes DEVANTE-7 AMB Questionnaire DEVANTE-7 Date DEVANTE - 7 assessed: 02/08/24 Feeling nervous, anxious, or on edge: 0 = Not at all Not being able to stop or control worryin = Not at all Worrying too much about different things: 0 = Not at all Trouble relaxin = Not at all Being so restless that it is hard to sit still: 0 = Not at all Becoming easily annoyed or irritable: 0 = Not at all Feeling afraid as if something awful might happen: 0 = Not at all Total DEVANTE-7 score (0-4 normal; 5-9 mild; 10-14 moderate; 15-21 severe): 0 Source: Developed by Drs. Phil Medina, Leigh Ann, Daniel Ruelas and colleagues, with an educational marcin from [employer]. DEVANTE-7 Assessment Billing DEVANTE-7 Assessment Tool: DEVANTE-7 Assessment 82288 Review of Systems Const Denies chills, Denies fatigue, Denies fever(s) and Denies headache(s) ENT Denies dysphagia, Denies dizziness, Denies otalgia, Denies headache(s), Denies neck pain, Denies odynophagia and Denies sore throat Card Denies chest pain, Denies palpitations and Denies dyspnea Resp Denies chest congestion, Denies cough, Denies dyspnea and Denies wheezing GI Denies abdominal pain, Denies constipation, Denies dysphagia, Denies heartburn, Denies diarrhea, Denies nausea, Denies odynophagia and Denies vomiting Denies difficulty urinating, Denies nocturia and Denies urinary frequency Musc Reports back pain (over the lower back - chronic ), Reports arthralgias (over both knees; on and off right elbow pain) and Denies neck pain Skin/Breast Denies rash Neuro Denies dizziness and Denies headache(s) Endo Denies fatigue and Denies palpitations Aller/Immun Denies wheezing Physical exam (Primary Care) Vital Signs: Last Vital Signs Pulse 96 02/08/24 08:59 BP 118/80 02/08/24 08:59 Pulse Ox 97 02/08/24 08:59 Oxygen Delivery Method Room Air 02/08/24 08:59 BMI result Body Mass Index 32.0 Tobacco/Smoking Status: Tobacco use Status Tobacco use date assessed 02/08/24 02/08/24 09:07 Patient Tobacco Use Status Never used Tobacco 02/08/24 09:07 e-Cigarette/Vaping Use Never Used 02/08/24 09:07 PHQ-9: PHQ-9 Score PHQ-9: Total score 12 02/08/24 09:07 Depression Screening Interpretation: Positive Depression Screening Follow-up: Existing condition and In treatment Thrive Assessment: Date of Thrive Assessment Date Thrive assessed 02/08/24 02/08/24 09:07 Currently or been in a relationship where the following occur: no concerns reported Const General: no acute distress and alert HENMT Ears: TM's normal bilaterally and EAC's normal Throat: Yes posterior oropharynx normal and Yes tonsils normal Neck Neck: Yes no lymphadenopathy and Yes supple Thyroid: Thyroid normal Resp Auscultation: clear to auscultation bilaterally, no rales and no wheezes Cardio Rate: regular rate Rhythm: regular rhythm Heart sounds: no murmurs GI Palpation (GI): Soft to palpation and nontender Auscultation: normal bowel sounds General: Yes no CVA tenderness Back/Spine/Pelvis Back: no CVA tenderness Thoracic/Lumbar Spine: lumbar spinal tenderness Skin Rashes: no rashes Extrem General: Yes no clubbing, cyanosis or edema Right lower extremity: knee Details: tenderness Left lower extremity: knee Details: tenderness Results Reviewed Results Reviewed: Laboratory Tests 01/25/24 01/25/24 01/25/24 08:49 08:49 08:55 WBC 6.3 Hgb 14.8 Hct 45.1 Plt Count 230 Sodium Potassium 4.2 Creatinine 1.20 Estimated GFR > 60 Fasting Glucose 235 H Hemoglobin A1c % 7.4 H Calcium 9.6 AST 18 ALT 25 Triglycerides 126 Cholesterol 157 LDL Cholesterol, Calc 92 HDL Cholesterol 40 L 25-OH Vitamin D Total 30.6 L TSH 0.63 Ur Specific [place] >= 1.030 H Urine Protein Negative Urine Glucose (UA) 500 H Urine Blood Moderate (2+) H Urine Nitrite Negative Ur Leukocyte Esterase Negative Microalb/Creat Ratio 7.4 01/25/24 08:55 WBC Hgb Hct Plt Count Sodium 141 Potassium Creatinine Estimated GFR Fasting Glucose Hemoglobin A1c % Calcium AST ALT Triglycerides Cholesterol LDL Cholesterol, Calc HDL Cholesterol 25-OH Vitamin D Total TSH Ur Specific [place] Urine Protein Urine Glucose (UA) Urine Blood Urine Nitrite Ur Leukocyte Esterase Microalb/Creat Ratio Assessment and Plan Assessment & Plan (1) Pure hypercholesterolemia: Code(s): E78.00 - Pure hypercholesterolemia, unspecified Plan: Results of his labs done a couple of weeks ago reviewed and discussed with patient Reinforced low cholesterol diet Continue Atorvastatin 20 mg QD Will recheck his labs and fasting lipids in 3 months for follow-up (2) Type 2 diabetes mellitus without complication, with no history of insulin use: Code(s): E11.9 - Type 2 diabetes mellitus without complications Plan: His HgbA1c has remained unchanged at 7.4% on his labs done a couple of weeks ago (was also at 7.4% a few months ago) - goal is < 6.5% Reinforced diabetic diet Continue?Pioglitazone?15 mg QD and Trulicity 0.75 mg SQ once a week; patient also takes Acarbose 25 mg TID He used to see endocrinology but states that he has not been back to see them in about 3 years as he was reportedly advised that his diabetes is well-controlled and he can just follow up with his PCP He is advised to try to watch his diet better and that IF his blood sugar still does not improve by his next visit, then we will consider increasing the dose of his Trulicity to 1.5 mg (3) Benign essential hypertension: Code(s): I10 - Essential (primary) hypertension Plan: Reinforced low-sodium diet -? goal is systolic BP of at least 120 to 130 mm or less Continue Lisinopril 10 mg QD (4) Asthma: Code(s): J45.909 - Unspecified asthma, uncomplicated Qualifiers: Asthma severity: moderate Asthma persistence: persistent Asthma complication type: uncomplicated Qualified Code(s): J45.40 - Moderate persistent asthma, uncomplicated Plan: Stable/controlled Was doing well on Flovent HFA 220 mcg BID and ProAir HFA 2 puffs 4 times a day as needed for years but is unable to get Flovent HFA nowadays due to unavailability of the Rx Will switch him instead to Asmanex 200 mcg 1 inhalation BID Patient also uses his nebulizer with Albuterol nebulizer solution 3 to 4 times a day when needed (5) Migraine: Code(s): G43.909 - Migraine, unspecified, not intractable, without status migrainosus Qualifiers: Migraine type: unspecified Status migrainosus presence: without status migrainosus Intractability: not intractable Qualified Code(s): G43.909 - Migraine, unspecified, not intractable, without status migrainosus Plan: Stable/controlled on prophylactic Tx with Topiramate 100 mg Q HS Follow up with neurology as scheduled (6) Lumbar degenerative disc disease: Code(s): M51.36 - Other intervertebral disc degeneration, lumbar region Plan: Repeat lumbar spine x-rays done last week revealed (+) mild spondylosis of the lumbar spine with no acute changes Reinforced activity and weight lifting restrictions Continue Tramadol 50 mg TID PRN and Naproxen 500 mg BID with food as needed for pain (7) Obesity (BMI 30.0-34.9): Code(s): E66.9 - Obesity, unspecified Plan: Reinforced diet/exercise as tolerated/lose weight - he has been able to lose a few pounds since his last visit Plan Follow up in 3 months Orders: Orders Hemoglobin A1c 3 Months E11.9 - Type 2 diabetes mellitus without complications Complete Blood Count Auto Diff 3 Months D64.9 - Anemia, unspecified Lipid Panel 3 Months E78.00 - Pure hypercholesterolemia, unspecified UA CC w/rflx Micro + Cult 3 Months R30.0 - Dysuria TSH reflex Free T4 3 Months E78.00 - Pure hypercholesterolemia, unspecified Comprehensive [place]. Panel Fast 3 Months E78.00 - Pure hypercholesterolemia, unspecified Microalbumin, Random (w Creat) 3 Months E11.9 - Type 2 diabetes mellitus without complications Vitamin D 25-OH Total 3 Months E55.9 - Vitamin D deficiency, unspecified Medications: New Asmanex HFA 200 mcg/actuation (mometasone) 1 puff inhalation BID 30 days 13 grams 5RF NS Refilled dulaglutide (Trulicity) 0.75 mg (0.5 mL) subcut QWEEK 30 days 2.5 mL 6RF E11.9 - Type 2 diabetes mellitus without complications pioglitazone 15 mg PO DAILY 90 days 90 tabs 1RF E11.9 - Type 2 diabetes mellitus without complications acarbose 25 mg PO TID 90 days 270 tabs 1RF atorvastatin 40 mg PO BEDTIME 90 days 90 tabs 1RF E78.00 - Pure hypercholesterolemia, unspecified cholecalciferol (vitamin D3) 25 mcg PO DAILY 90 days 90 caps 3RF E55.9 - Vitamin D deficiency, unspecified lisinopril 10 mg PO DAILY 90 days 90 tabs 1RF Discontinued fluticasone propionate 220 mcg/actuation (Flovent HFA) Has to be used TWICE A DAY EVERYDAY Discontinued Reason: Doctor's Order 1 puff inhalation BID 12 grams 5RF J45.909 - Unspecified asthma, uncomplicated Coding Level of Care Code Est Pt Level 4 (72212) Diagnoses Pure hypercholesterolemia E78.00 Type 2 diabetes mellitus without complication, with no history of insulin use E11.9 Benign essential hypertension I10 Moderate persistent asthma without complication J45.40 Asthma severity: moderate Asthma persistence: persistent Asthma complication type: uncomplicated Migraine without status migrainosus, not intractable, unspecified migraine type G43.909 Migraine type: unspecified Status migrainosus presence: without status migrainosus Intractability: not intractable Lumbar degenerative disc disease M51.36 Obesity (BMI 30.0-34.9) E66.9 Additional Codes DEVANTE-7 Assessment Billing - DEVANTE-7 Assessment Tool: DEVANTE-7 Assessment 90602 ([id number])
== END 2024-02-08 09:41 | disposition home or self-care (01) ==
PROVIDERS: PCP Internal Medicine; Visit Provider Internal Medicine
DX: I10 Essential (primary) hypertension (principal); E11.9 Type 2 diabetes mellitus without complications; E78.00 Pure hypercholesterolemia, unspecified; J45.40 Moderate persistent asthma, uncomplicated; G43.909 Migraine, unspecified, not intractable, without status migrainosus; M51.36 Other intervertebral disc degeneration, lumbar region
CPT/HCPCS: 99214

== ENCOUNTER 2024-03-01 12:56 | Outpatient (AMB) | payer MEDICARE, MEDICAID, SELFPAY ==
--- NOTE | 2024-03-01 13:12 | A.OFFVIS_ITS ---
Intake Intake Visit Reasons: Testical pain Intake Note: Patient is Present for Follow Up Testicle Pain Urology Medication: none Antibiotic Allergies: none Blood Thinners: none Allergies No Known Allergies [No Known Allergies*] Allergy (Verified 03/01/24 13:17) HPI HPI Comments History of Present Illness Details He is a pleasant male. He is seen for the following urologic conditions - scrotal cyst - microscopic hematuria Scrotal ultrasound persistent small right scrotal cyst No change from prior imaging Background of TBI Reassurance provided Minimal issues at rest Some discomfort on exam Microscopic hematuria Cystoscopy 07/21 NAD 12 month UA negative Scrotal cyst Seen in emergency room with scrotal pain - April 2021 Imaging - 05/20 scrotal ultrasound 7 mm right scr otal cyst Epididymal cyst responded to anti-inflammatories Noted to have microscopic hematuria at same occasion Reassurance provided regarding cyst PFSH Medical History (Updated 03/01/24 @ 13:50 by Moises Pelaez MD) Obesity (BMI 30-39.9) Colon cancer screening Oropharyngeal dysphagia Gastritis History of anoxic brain injury Epididymal cyst Hematuria Anxiety Obstructive sleep apnea Vitamin B12 deficiency Vitamin D deficiency Lumbar degenerative disc disease Asthma Pure hypercholesterolemia Migraine Cardiac arrhythmia Type 2 diabetes mellitus without complication, with no history of insulin use Benign essential hypertension Surgical History H/O bilateral inguinal hernia repair H/O hernia repair History of esophagogastroduodenoscopy (EGD) Hx of colonoscopy History of extraction of renal calculus History of repair of rotator cuff Family History Father No problems noted. Mother Hypertension Cancer Sister Cancer Social History Household Members: Significant Other Housing: House Alcohol intake: never Patient Tobacco Use Status: Never used Tobacco e-Cigarette/Vaping Use: Never Used Second Hand Smoke Exposure: No service: No Current occupational status: disabled Cognitive needs: No Hearing needs: No Vision needs: No Review of Systems Const Denies chills and Denies fever(s) Card Reports no additional complaints and Denies syncope Resp Denies cough GI Denies abdominal pain and Denies heartburn Reports as per HPI and Denies change in libido Neuro Denies syncope Psych Denies change in libido Endo Denies change in libido Physical Exam Const General: cooperative, healthy appearing, comfortable and no acute distress Orientation/consciousness: patient oriented x3 HEENT Face and sinus: Yes normal facial exam Mouth: moist mucous membranes Neck Neck: Yes normal visual inspection, Yes full ROM and Yes trachea midline Chest Chest palpation & inspection: normal inspection of the chest Resp Effort & Inspection: normal respiratory effort, able to speak in complete sentences and no respiratory distress GI Inspection: Yes normal to inspection Back/Spine/Pelvis Cervical Spine: normal cervical lordosis Thoracic/Lumbar Spine: thoracic and lumbar spine normal to inspection Skin General skin exam: no rashes or lesions noted Neuro General: patient oriented x3, gait normal, tone normal and moves all extremities Extrem General: Yes normal to inspection and Yes capillary refill normal Assessment & Plan Assessment & Plan (1) Right testicular pain: Code(s): N50.811 - Right testicular pain Plan P.r.n. follow-up Patient Instructions: Imaging studies, laboratory and physical exam results were discussed and reviewed in detail. No major barriers to patient understanding were identified. An opportunity to ask questions regarding the treatment plan was provided. All questions were answered. The patient expressed understanding and agreement with the above treatment plan. The patient is aware they should contact our office by phone for worsening of their current condition or the appearance of new urologic symptoms. Compliance is encouraged with any medications and followup testing that is ordered. It is a privilege to participate in the urologic care of your patient. If you have any questions or concerns regarding treatment for the above conditions, or other urologic issues, please do not hesitate to contact me. The office telephone contact is [phone]. This note is constructed using voice recognition software. While every effort has been made to ensure accuracy international marketing coordinator errors may have been included. Yours sincerely, Dr Moises Pelaez MD, [facility] - Urology Providers of Expert, Compassionate Care for the Genitourinary System Coding Level of Care Code Est Pt Level 4 (22572) Diagnoses Right testicular pain N50.811
== END 2024-03-01 13:50 | disposition home or self-care (01) ==
PROVIDERS: PCP Internal Medicine; Visit Provider Urology
DX: N50.811 Right testicular pain (principal)
CPT/HCPCS: 99213

== ENCOUNTER → 2024-03-01 12:56 | Outpatient (BNVA) | payer MEDICARE, MEDICAID, SELFPAY | PROVIDERS: PCP Internal Medicine; Visit Provider Urology | DX: N50.811 Right testicular pain (principal) | CPT/HCPCS: 99212 ==

== ENCOUNTER 2024-03-02 08:34 | Day surgery (SDC) | payer MEDICARE, MEDICAID, SELFPAY ==
[2024-02-29 14:16] VITALS: BMI 33.3
[2024-03-02 10:17] VITALS: BMI 32.7
[2024-03-02 10:25] VITALS: BP 112/78; PULSE 70; RESP 16; TEMP 36.6; O2SAT 98
--- NOTE | 2024-03-02 10:30 | HO.ANESPROP2 ---
Documented by User: Anayeli Ceja NP 03/01/24 10:49 HPI - Anesthesia Eval Consult details Narrative: 54yo M for Colonoscopy Anesthesia Pre-Procedure Meds Is the patient on any of the following meds?: Dulaglutide (Trulicity) PMFSH Active Problems Active Problems: All Active Problems (Updated 02/08/24 @ 09:25 by Nathan Mendoza MD) Right testicular pain (Acute) Pre-op examination (Acute) Pain in finger of left hand (Acute) Exertional dyspnea (Acute) Contusion of right elbow (Acute) Cellulitis of great toe of right foot (Acute) Left shoulder pain (Acute) Ingrown toenail of both feet (Acute) Tubular adenoma of colon (Acute) Hearing impairment (Acute) Tachycardia (Acute) Inguinal hernia bilateral, non-recurrent (Acute) Delayed gastric emptying (Acute) Epididymal cyst (Acute) Hematuria (Acute) Obesity (BMI 30.0-34.9) (Acute) Abdominal bloating (Acute) Irritable bowel syndrome with both constipation and diarrhea (Acute) GERD (gastroesophageal reflux disease) (Acute) Esophageal dysmotility (Acute) Anxiety (Acute) Obstructive sleep apnea (Acute) Vitamin B12 deficiency (Acute) Vitamin D deficiency (Acute) Lumbar degenerative disc disease (Acute) Asthma (Acute) Pure hypercholesterolemia (Acute) Migraine (Acute) Cardiac arrhythmia (Acute) Type 2 diabetes mellitus without complication, with no history of insulin use (Acute) Benign essential hypertension (Acute) Past Medical History Medical History Obesity (BMI 30-39.9) Colon cancer screening Oropharyngeal dysphagia Gastritis History of anoxic brain injury Epididymal cyst Hematuria Anxiety Obstructive sleep apnea Vitamin B12 deficiency Vitamin D deficiency Lumbar degenerative disc disease Asthma Pure hypercholesterolemia Migraine Cardiac arrhythmia Type 2 diabetes mellitus without complication, with no history of insulin use Benign essential hypertension Family History Family History Father No problems noted. Mother Hypertension Cancer Sister Cancer Family history of problems with anesthesia: No Surgical History Surgical History H/O bilateral inguinal hernia repair H/O hernia repair History of esophagogastroduodenoscopy (EGD) Hx of colonoscopy History of extraction of renal calculus History of repair of rotator cuff History of Problems with Anesthesia: No Social History Social History Household Members: Significant Other Housing: House Alcohol intake: never Patient Tobacco Use Status: Never used Tobacco e-Cigarette/Vaping Use: Never Used Second Hand Smoke Exposure: No Use of substances other than those prescribed or required for medical reasons: No Are you DNR?: No Advance Directives: No Advance Directives Information Provided: Yes service: No Current occupational status: disabled Cognitive needs: No Hearing needs: No Vision needs: No Meds Allergies Allergy/AdvReac Type Severity Reaction Status Date / Time No Known Allergies Allergy Verified 03/01/24 13:17 [No Known Allergies*] Home Medications Medication Instructions Recorded Confirmed Last Taken Type alprazolam 1 mg tablet 1 mg PO TID PRN Anxiety 01/04/21 02/08/24 Unknown History amitriptyline 25 mg tablet 25 mg PO BEDTIME 01/04/21 02/08/24 Unknown History clonidine HCl 0.1 mg tablet 0.1 mg PO BEDTIME 01/04/21 02/08/24 Unknown History primidone 50 mg tablet 50 mg PO BID 03/01/24 Unknown History Exam Height,Weight and Vital Signs: Height 5 ft 8 in Weight 99.337 kg Pertinent Lab Results Pertinent Lab Results: Laboratory Tests 01/25/24 08:55 WBC 6.3 Hgb 14.8 Hct 45.1 Plt Count 230 Sodium 141 Potassium 4.2 Chloride 110 H Carbon Dioxide 24 BUN 20 H Creatinine 1.20 Assessment and Plan Assessment Anesthesia Assessment: Chart Reviewed Final Anesthetic Review Family History of Problems with Anesthesia: No History of Problems with Anesthesia: No Documented by User: Jaida Dailey DO 03/02/24 10:36 HPI - Anesthesia Eval Anesthesia Pre-Procedure Meds Is the patient on any of the following meds?: Dulaglutide (Trulicity) If Yes to any meds - educate patient: Pt education - increased risk of aspiration PMFSH Past Medical History Medical History Obesity (BMI 30-39.9) Colon cancer screening Oropharyngeal dysphagia Gastritis History of anoxic brain injury Epididymal cyst Hematuria Anxiety Obstructive sleep apnea Vitamin B12 deficiency Vitamin D deficiency Lumbar degenerative disc disease Asthma Pure hypercholesterolemia Migraine Cardiac arrhythmia Type 2 diabetes mellitus without complication, with no history of insulin use Benign essential hypertension Family History Family History Father No problems noted. Mother Hypertension Cancer Sister Cancer Family history of problems with anesthesia: No Surgical History Surgical History H/O bilateral inguinal hernia repair H/O hernia repair History of esophagogastroduodenoscopy (EGD) Hx of colonoscopy History of extraction of renal calculus History of repair of rotator cuff History of Problems with Anesthesia: No Social History Social History Household Members: Significant Other Housing: House Alcohol intake: never Patient Tobacco Use Status: Never used Tobacco e-Cigarette/Vaping Use: Never Used Second Hand Smoke Exposure: No Use of substances other than those prescribed or required for medical reasons: No Are you DNR?: No Advance Directives: No Advance Directives Information Provided: Yes service: No Current occupational status: disabled Cognitive needs: No Hearing needs: No Vision needs: No Meds Allergies Allergy/AdvReac Type Severity Reaction Status Date / Time No Known Allergies Allergy Verified 03/01/24 13:17 [No Known Allergies*] Home Medications Medication Instructions Recorded Confirmed Last Taken Type alprazolam 1 mg tablet 1 mg PO TID PRN Anxiety 01/04/21 02/08/24 Unknown History amitriptyline 25 mg tablet 25 mg PO BEDTIME 01/04/21 02/08/24 Unknown History clonidine HCl 0.1 mg tablet 0.1 mg PO BEDTIME 01/04/21 02/08/24 Unknown History primidone 50 mg tablet 50 mg PO BID 03/01/24 Unknown History Exam Exam Date and Time: March 02, 2024 1030 Height,Weight and Vital Signs: Height 5 ft 8 in Weight 99.337 kg Height 5 ft 8 in Weight 97.522 kg Vital Signs Temperature 97.8 F 03/02/24 10:25 Pulse Rate 70 03/02/24 10:25 Respiratory Rate 16 03/02/24 10:25 Blood Pressure 112/78 03/02/24 10:25 Pulse Oximetry 98 03/02/24 10:25 Oxygen Delivery Method Room Air 03/02/24 10:25 Temperature 97.8 F 03/02/24 10:25 Pulse Rate 70 03/02/24 10:25 Respiratory Rate 16 03/02/24 10:25 Blood Pressure 112/78 03/02/24 10:25 Pulse Oximetry 98 03/02/24 10:25 Oxygen Delivery Method Room Air 03/02/24 10:25 Airway Mallampati Class: I TM Dist: >3cm Neck ROM: Full Loose/Missing/Broken Teeth: No (patient denies any loose or broken teeth) Heart: S1S2 Lungs: CTAB Assessment and Plan Assessment Anesthesia Assessment: Anesthesia Plan Discussed and Chart Reviewed Final Anesthetic Review Family History of Problems with Anesthesia: No History of Problems with Anesthesia: No NPO: Yes ASA Class: III Final Preanesthetic Review: No Changes in Pt Med Stat, Meds/Allgs Chart Reviewed, Consent Obtained/Reviewed and Anes Risks/Benef Reviewed Patient Risk: Intermediate Procedure Risk: Intermediate Anesthetic Plan Anesthetic Plan: Spinal, Regional Block (left adductor canal and ipack block) and Agree w/ Assess. and Plan Disposition: Standard PACU
[2024-03-02] MEDS: Lactated Ringers 1,000 ML 100 ML IVCONT (10:43)
[2024-03-02 10:52] LABS: Glucose, Whole Blood 116 mg/dL (60-115)
--- NOTE | 2024-03-02 11:12 | MHC.SHP ---
Pre-Procedural Eval Section A - 24 Hr Update-Section A only Date of Service: 03/02/24 Section B - Complete if H&P > 30 days Chief Complaint: Benign neoplasm of colon, unspecified Relevant Family History (Specify if Yes): No Relevant Social History: None Present Medications: see Short Stay Collaborative assessment Medical History: Significant History (Obesity (BMI 30-39.9) Colon cancer screening Oropharyngeal dysphagia Gastritis History of anoxic brain injury Epididymal cyst Hematuria Anxiety Obstructive sleep apnea Vitamin B12 deficiency Vitamin D deficiency Lumbar degenerative disc disease Asthma Pure hypercholesterolemia Migraine Cardiac arrhy) History of Previous Operations: Relevant previous surgery/procedure and date(s) ( H/O bilateral inguinal hernia repair H/O hernia repair History of esophagogastroduodenoscopy (EGD) Hx of colonoscopy History of extraction of renal calculus History of repair of rotator cuff) Allergies: Allergies Allergy/AdvReac Type Severity Reaction Status Date / Time No Known Allergies Allergy Verified 03/01/24 13:17 [No Known Allergies*] Review of Systems Sugical H&P ROS: Negative: Constitution, Cardiovascular, Respiratory, Neurological, Psychiatric, Hem-Onc, Allergic/Immunologic, Gastrointestinal, Genitourinary, Musculoskeletal, Integumentary, Endocrine and Eyes/Ears/Nose/Throat Exam Surgical H&P Exam: Normal: HEENT, Normal: Heart, Normal: Lungs, Normal: Extremities, Normal: Abdomen, Normal: Skin and Normal: Neurological Plan Diagnosis/Plan: Unchanged I have reviewed the history and physical and performed a pertinent physical examination on my patient. No changes have occurred unless specified. Time Spent With Patient Time: Total time managing care of this patient today ____ minutes.
[2024-03-02 12:20] VITALS: BP 118/77; PULSE 85; RESP 16; TEMP 36.1; O2SAT 99
--- NOTE | 2024-03-02 12:20 | P.OP_ITS ---
Operative Note Operative Note Date of Service: 03/02/24 Narrative: Operative Information Procedure Description: Colonoscopy Indication: screening Anesthesia: MAC COLONOSCOPY Instrument: Olympus variable stiffness pediatric scope 190L Colonoscopy Monitoring: Vital signs and clinical assessment, continuous EKG monitoring, Pulse oximetry, Carbon Dioxide monitoring and blood pressure monitoring were done throughout the procedure. Colon withdrawal time was 10 minutes. Procedure: The patient was placed in the left lateral decubitis position and pre-procedure medications were administered. After a digital rectal examination of the ano-rectum, the video colonoscope was inserted into the rectum and advanced through the colon to the cecum/TI. The colonoscope was slowly withdrawn in a retrograde panoramic fashion and the colon mucosa was carefully examined including a retroflexed view of the rectum. Findings and interventions are described below. Procedure Difficulty: easy Findings: Terminal Ileum-normal Cecum:normal Right sided retroflexion- normal Ascending Colon: normal Transverse Colon -normal Descending Colon:normal Sigmoid Colon: normal Rectum: Retroflexion with small internal hemorrhoids seen, grade I Anorectum - normal Intervention: none Colon preparation: [place] Bowel Preparation Scale Right colon; 2 Transverse colon: 3 Left colon; 3 (0 = Unprepared colon segment with mucosa not seen due to solid stool that cannot be cleared. 1 = Portion of mucosa of the colon segment seen, but other areas of the colon segment not well seen due to staining, residual stool and/or opaque liquid. 2 = Minor amount of residual staining, small fragments of stool and/or opaque liquid, but mucosa of colon segment seen well. 3 = Entire mucosa of colon segment seen well with no residual staining, small fragments of stool or opaque liquid) Impression and Post Procedure Diagnosis: internal hemorrhoids Plan: High fiber diet leaflet Avoid straining at stool, epsom salts and sitz bath, anusol supps or cream Repeat Colonoscopy in 10 years or earlier if clinically indicated Above findings were reviewed with the patient and relevant handouts were provided if indicated.
[2024-03-02 12:35] VITALS: BP 118/79; PULSE 75; RESP 15; TEMP 36.3; O2SAT 100
== END 2024-03-02 13:03 | disposition home or self-care (01) ==
PROVIDERS: PCP Internal Medicine; Visit Provider Internal Medicine Gastroenterology
PROC: 0DJD8ZZ Inspection of Lower Intestinal Tract, Via Natural or Artificial Opening Endoscopic (ICD-10-PCS; CPT 45378; principal; 2024-03-02 12:40)
DX: Z12.11 Encounter for screening for malignant neoplasm of colon (principal); K64.0 First degree hemorrhoids; Z86.010 Personal history of colon polyps; I10 Essential (primary) hypertension; E11.9 Type 2 diabetes mellitus without complications; J45.909 Unspecified asthma, uncomplicated; G47.33 Obstructive sleep apnea (adult) (pediatric)
CPT/HCPCS: G0105; 82947; J2704

== ENCOUNTER → 2024-03-02 08:34 | Outpatient (BNV) | payer MEDICARE, MEDICAID, SELFPAY | PROVIDERS: PCP Internal Medicine; Visit Provider Internal Medicine Gastroenterology | DX: Z12.11 Encounter for screening for malignant neoplasm of colon (principal); K64.0 First degree hemorrhoids | CPT/HCPCS: G0121 ==

== ENCOUNTER 2024-03-16 12:53 | Outpatient (AMB) | payer MEDICARE, MEDICAID, SELFPAY ==
--- NOTE | 2024-03-16 13:02 | A.OFFVIS_ITS ---
Intake Vital Signs 03/16/24 13:15 Height 5 ft 8 in Weight 213 lb BMI 32.4 BP 145/80 H Blood Pressure Location Lt brachial Position Sitting Pulse 91 Intake Visit Reasons: s/p colon Intake Note: Patient is seen in office for post op assessment post colonoscopy. Pt c/o: no concerns at the time of visit, here for results [place] Required: No Accompanied by: Self / Same As Patient Allergies No Known Allergies [No Known Allergies*] Allergy (Verified 03/16/24 13:18) HPI s/p colon HPI Details Assessment & Plan (1) Delayed gastric emptying: Code(s): K30 - Functional dyspepsia (2) Irritable bowel syndrome with both c onstipation and diarrhea: Code(s): K58.2 - Mixed irritable bowel syndrome (3) GERD (gastroesophageal reflux diseas e): Code(s): K21.9 - Gastro-esophageal reflux disease without esophagitis (4) Esophageal dysmotility: Code(s): K22.4 - Dyskinesia of esophagus (5) Tubular adenoma of colon: Comment: 2021 scope neg but insufficient prep, re peat 1-2 years with 2 day prep aeb; 2018 scope equals 2 TA s Code(s): D12.6 - Benign neoplasm of colon, unspecified (6) Abdominal bloating: Code(s): R14.0 - Abdominal distension (gaseous) (7) Pre-op examination: Code(s): Z01.818 - Encounter for other preprocedural examination Plan He is out of many of his medications, and he could not get the simethicone ruth ann use the pharmacy did not receive the rx. I resend it. He is also out of his reglan and bentyl. Will refill it all. He is due for colonoscopy in 2023, will get this ordered. He will need a 2 day prep because he did not fully clear at the last colonoscopy. There are no prior problems with anesthesia or sedation. His asthma is well controlled and he denies any cardiac problems. There are no infectious disease problems. Will see him after scope and in 6 mos. Orders: Orders Colonoscopy - GI U se Only Today D12.6 - Benign wen plasm of colon, un specified Medications: New simethicone aft er meals 180 mg PO QID 30 days 120 caps 6RF magnesium citrate Drink qhs 2 nig hts before colonos copy and one qam d ay before colonosc py 150 mL PO DAILY 3 00 mL 0RF bisacodyl (Dulcola x (bisacodyl)) 10 mg (2 x 5 mg) P O BEDTIME 2 days 4 tabs 0RF peg 3350-electroly sin 236-22.74-6.74 -5.86 gram (Golyt tasneem) until feca l effluent is chandrika r; do not exceed a total volume of 2 ,000 mL 240 mL PO Q10M 1 day 4,000 mL 0RF Z12.11 - Encounter for screening for malignant neoplas m of colon Refilled pantoprazole (Prot leonor) 40 mg PO BID 60 t abs 6RF K21.9 - Gastro-eso phageal reflux dis ease without esoph agitis metoclopramide HCl (Reglan) 10 mg PO QIDACHS 30 days 120 tabs 6 RF K30 - Functional d yspepsia dicyclomine 20 mg PO QID 30 d ays 120 tabs 6RF K58.2 - Mixed irri table bowel syndro me, R13.12 - Dysph agia, oropharyngea l phase COLONOSCOPY Findings: Terminal Ileum-normal Cecum:normal Right sided retroflexion- normal Ascending Colon: normal Transverse Colon -normal Descending Colon:normal Sigmoid Colon: normal Rectum: Retroflexion with small internal hemorrhoids seen, grade I Anorectum - normal Intervention: none Impression and Post Procedure Diagnosis: internal hemorrhoids Plan: High fiber diet leaflet Avoid straining at stool, epsom salts and sitz bath, anusol supps or cream Repeat Colonoscopy in 10 years or earlier if clinically indicated BIOPSY TODAY'S VISIT He is agreeable to a 10 year follow-up. The procedure was well tolerated. The results were explained and the patient is agreeable to the follow-up interval as stated. The bowel pattern has returned to normal. Education was provided to tell any 1st degree relatives about their findings to be sure that they are screened by age 45. Educated that they will be put on a recall list when it is time for their repeat scope but should they move out of state or away from the hospital they will need to remember along with their primary to repeat the procedure in a timely fashion to avoid any adverse complications. He continues on his Reglan 10 mg 4 times a day, dicyclomine, pantoprazole 40 mg twice a day and simethicone with good control of his GI conditions. He is satisfied now with his GI regimen. Return office visit in 6 months [facility] Medical History Obesity (BMI 30-39.9) Colon cancer screening Oropharyngeal dysphagia Gastritis History of anoxic brain injury Epididymal cyst Hematuria Anxiety Obstructive sleep apnea Vitamin B12 deficiency Vitamin D deficiency Lumbar degenerative disc disease Asthma Pure hypercholesterolemia Migraine Cardiac arrhythmia Type 2 diabetes mellitus without complication, with no history of insulin use Benign essential hypertension Surgical History H/O bilateral inguinal hernia repair H/O hernia repair History of esophagogastroduodenoscopy (EGD) Hx of colonoscopy History of extraction of renal calculus History of repair of rotator cuff Family History Father No problems noted. Mother Hypertension Cancer Sister Cancer Social History Household Members: Significant Other Housing: House Alcohol intake: never Patient Tobacco Use Status: Never used Tobacco e-Cigarette/Vaping Use: Never Used Second Hand Smoke Exposure: No service: No Current occupational status: disabled Cognitive needs: No Hearing needs: No Vision needs: No Review of Systems Const Denies fatigue, Denies fever(s), Denies night sweats, Denies poor appetite and Denies weight loss ENT Reports Normal hearing present, Denies dysphagia, Denies odynophagia, Denies throat swelling and Denies tongue swelling Card Reports no additional complaints Resp Reports no additional complaints GI Details: Denies abdominal pain, Denies melena, Denies bloating, Denies hematochezia, Denies constipation, Reports GI cramping, Denies dysphagia, Denies excessive flatus, Reports early satiety, Reports heartburn, Denies diarrhea, Denies nausea, Denies odynophagia, Denies vomiting and Denies hematemesis Skin/Breast Denies pruritus, Denies lesions, Denies rash and Denies jaundice Neuro Reports Normal hearing present and Denies Abnormal speech present Endo Denies fatigue Aller/Immun Denies throat swelling and Denies tongue swelling Physical Exam Vital Signs: Last Vital Signs Pulse 91 03/16/24 13:15 BP 145/80 H 03/16/24 13:15 BMI result Body Mass Index 32.4 Const General: cooperative, no acute distress, well developed and well groomed Nutritional Appearance: well nourished and obese Orientation/consciousness: oriented to person, oriented to place and oriented to time Limitations: No language barrier HEENT Head: Yes normocephalic and Yes atraumatic Eyes General: appearance normal, both eyes and all related structures Pupils: Equal, round and reactive pupils present Neck Neck: Yes normal visual inspection and Yes no lymphadenopathy Thyroid: Thyroid normal Resp Effort & Inspection: normal respiratory effort and able to speak in complete sentences Auscultation: clear to auscultation bilaterally Cardio Rate: regular rate Rhythm: regular rhythm Heart sounds: Normal, physiologic split S2 sound present Peripheral pulses: radial pulses present and posterior tibial pulses present GI Inspection: No distended, No Abdominal panniculus present and Yes obesity Palpation (GI): Soft to palpation, nontender, no guarding, not rigid and No hepatosplenomegaly present Percussion: Yes normal to percussion Auscultation: normal bowel sounds Rectal Exam - Male: Yes deferred Skin General skin exam: no rashes or lesions noted, turgor normal, skin not dry, no jaundice, No spider nevi and no striae Rashes: no rashes Nails: normal Neuro General: oriented to person, oriented to place and oriented to time Cranial nerves: Yes Equal, round and reactive pupils present and Yes Normal hearing present Speech: No Abnormal speech present Extrem General: Yes normal to inspection, No clubbing, No cyanosis and No edema Psych Appearance: grossly normal and well kempt Mental Status: mental status grossly normal Speech and movement: Normal speech and movement present Affect: normal affect Attitude: cooperative Thought process: Normal thought process present and not confabulating Thought content: Normal thought content present Insight: Limited insight present (Psych) Assessment & Plan Assessment & Plan (1) Tubular adenoma of colon: Comment: 2021 scope neg but insufficient prep, repeat 1-2 years with 2 day prep aeb; 2019 scope equals 2 TA s Code(s): D12.6 - Benign neoplasm of colon, unspecified (2) Irritable bowel syndrome with both constipation and diarrhea: Code(s): K58.2 - Mixed irritable bowel syndrome (3) GERD (gastroesophageal reflux disease): Code(s): K21.9 - Gastro-esophageal reflux disease without esophagitis Plan He is agreeable to a 10 year follow-up. The procedure was well tolerated. The results were explained and the patient is agreeable to the follow-up interval as stated. The bowel pattern has returned to normal. Education was provided to tell any 1st degree relatives about their findings to be sure that they are screened by age 45. Educated that they will be put on a recall list when it is time for their repeat scope but should they move out of state or away from the hospital they will need to remember along with their primary to repeat the procedure in a timely fashion to avoid any adverse complications. He continues on his Reglan 10 mg 4 times a day, dicyclomine, pantoprazole 40 mg twice a day and simethicone with good control of his GI conditions. He is satisfied now with his GI regimen. Return office visit in 6 months Medications: Refilled dicyclomine 20 mg PO QID 120 tabs 6RF 30 days K58.2 - Mixed irritable bowel syndrome, R13.12 - Dysphagia, oropharyngeal phase simethicone after meals 180 mg PO QID 120 caps 6RF 30 days metoclopramide HCl (Reglan) 10 mg PO QIDACHS 120 tabs 6RF 30 days K30 - Functional dyspepsia pantoprazole (Protonix) 40 mg PO BID 60 tabs 6RF K21.9 - Gastro-esophageal reflux disease without esophagitis Discontinued bisacodyl (Dulcolax (bisacodyl)) Discontinued Reason: Patient Completed Course 10 mg (2 x 5 mg) PO BEDTIME 2 days 4 tabs 0RF peg 3350-electrolytes 236-22.74-6.74 -5.86 gram (Golytely) until fecal effluent is clear; do not exceed a total volume of 2,000 mL Discontinued Reason: Patient Completed Course 240 mL PO Q10M 1 day 4,000 mL 0RF Z12.11 - Encounter for screening for malignant neoplasm of colon Coding Level of Care Code Est Pt Level 3 (51935) Diagnoses Tubular adenoma of colon D12.6 Irritable bowel syndrome with both constipation and diarrhea K58.2 GERD (gastroesophageal reflux disease) K21.9
[2024-03-16 13:15] VITALS: BP 145/80; PULSE 91; BMI 32.4
== END 2024-03-16 13:41 | disposition home or self-care (01) ==
PROVIDERS: PCP Internal Medicine; Visit Provider Nurse Practitioner
DX: D12.6 Benign neoplasm of colon, unspecified (principal); K58.2 Mixed irritable bowel syndrome; K21.9 Gastro-esophageal reflux disease without esophagitis
CPT/HCPCS: 99213

== ENCOUNTER → 2024-03-16 12:53 | Outpatient (BNVA) | payer MEDICARE, MEDICAID, SELFPAY | PROVIDERS: PCP Internal Medicine; Visit Provider Nurse Practitioner | DX: D12.6 Benign neoplasm of colon, unspecified (principal); K21.9 Gastro-esophageal reflux disease without esophagitis; K58.2 Mixed irritable bowel syndrome | CPT/HCPCS: 99212 ==

== ENCOUNTER 2024-04-06 08:46 | Outpatient (AMB) | payer MEDICARE, MEDICAID, SELFPAY ==
[2024-04-06 08:47] VITALS: BP 118/68; PULSE 74; O2SAT 97; BMI 32.2
--- NOTE | 2024-04-06 08:47 | A.OFFVIS_ITS ---
Intake Vital Signs 04/06/24 08:47 Height 5 ft 8 in Weight 212 lb 0.2 oz BMI 32.2 BP 118/68 Blood Pressure Location Lt brachial Position Sitting Pulse 74 Pulse Source Pulse Oximeter Pulse Oximetry (%) 97 Oxygen Delivery Method Room Air Intake Visit Reasons: TERESA G0439 Intake Note: Patient is here for an Annual Wellness Visit. 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 Dobson last month - was recommended to get repeat colonoscopy in 10 years IPPE/AWV: c/o of Annual Wellness Visit, subsequent visit. Medical / Social History Reviewed Past Medical History Yes . [place] of Care / Care Team list updated Yes . Surgical/Hospitalization History Yes . Current Medications (including OTC and supplements) Yes . Family History Yes . Tobacco Control form Yes . AUDIT-C (Alcohol use) form Yes . Illicit drug use in Social History Yes . Current diagnosis of depression? No Appropriate PHQ2/PHQ9 completed Yes . Data entered by Substation Operator Conversion and reviewed by provider Home Safety Throw rugs? No Grab bars? No Raised toilet seats? No Working smoke detectors? Yes Working carbon monoxide detectors? Yes Data entered by Substation Operator Conversion and reviewed by provider Activities of Daily Living (ADLs) Difficulty bathing or showering? No Difficulty dressing? No Difficulty using the toilet? No Difficulty getting in and out of bed? No Difficulty walking? No Receives help from another person with any of the above tasks? No Instrumental Activities of Daily Living (IADLs) Uses the telephone without help Gets to places out of walking distance without help Goes shopping for groceries without help Prepares own meals without help Does own minor home maintenance without help Does own laundry without help Does own housework without help Manages own money without help Currently takes medications? Yes Takes medication without help End-of-Life Planning Discussed advance directive Yes Advance directive on file Discussed wishes expressed in advance directive agreed to following patient's wishes Fall Risk: Fall History Have you had any falls with injury in the past year? No . Have you had two or more falls in the past year? No . Fall Risk Assessment: No falls in the past year . HRA filled out by the patient, reviewed by Provider and scanned. [facility] Medical History Obesity (BMI 30-39.9) Colon cancer screening Oropharyngeal dysphagia Gastritis History of anoxic brain injury Epididymal cyst Hematuria Anxiety Obstructive sleep apnea Vitamin B12 deficiency Vitamin D deficiency Lumbar degenerative disc disease Asthma Pure hypercholesterolemia Migraine Cardiac arrhythmia Type 2 diabetes mellitus without complication, with no history of insulin use Benign essential hypertension Surgical History H/O bilateral inguinal hernia repair H/O hernia repair History of esophagogastroduodenoscopy (EGD) Hx of colonoscopy History of extraction of renal calculus History of repair of rotator cuff Family History Father No problems noted. Mother Hypertension Cancer Sister Cancer Social History Household Members: Significant Other Housing: House Alcohol intake: never Patient Tobacco Use Status: Never used Tobacco e-Cigarette/Vaping Use: Never Used Second Hand Smoke Exposure: No service: No Current occupational status: disabled Cognitive needs: No Hearing needs: No Vision needs: No Questionnaire Medicare Wellness Checkup [age] What gender do you identify with?: male During the past 4 weeks, how much have you been bothered by emotional problems such as feeling anxious, depressed, irritable, sad or downhearted, and blue?: moderately During the past 4 weeks, has your physical & emotional health limited your social activities with family, friends, neighbors, or groups?: moderately During the past 4 weeks, how much bodily pain have you generally had?: moderate pain During the past 4 weeks, was someone available to help you if you needed & wanted help?: yes, some During the past 4 weeks, what was the hardest physical activity you could do for at least 2 minutes?: moderate Can you get to places out of walking distance without help? (For eg., can you travel alone on buses, taxis or drive your car?): No Can you go shopping for groceries or clothes without someone's help?: Yes Can you prepare your own meals?: Yes Can you do your housework without help?: Yes Because of any health problems, do you need the help of another person with your personal care needs such as eating, bathing, dressing or getting around the house?: No Can you handle your own money without help?: Yes During the past 4 weeks, how would you rate your health in general?: good During the past 4 weeks how have things been going for you?: good & bad parts about equal Are you having difficulties driving your car?: not applicable, I don't use a car Do you always fasten your seat belt when you are in a car?: yes, usually During past 4 weeks, have you been bothered by the following: never: Falling or dizzy when standing up and Problems using the telephone?, sometimes: Teeth or denture problems? and always: Sexual problems?, Trouble eating well? and Tiredness or fatigue? Have you fallen 2 or more times in the past year?: Yes Are you afraid of falling?: Yes Are you a smoker?: no During the past 4 weeks, how many drinks of wine, beer, or other alcoholic beverages did you have?: no alcohol at all Do you exercise for about 20 minutes 3 or more times a week?: no, I usually do not exercise this much Have you been given information to help with the following?: yes: Keeping track of your medications? and no: Hazards in your house that might hurt you? How often do you have trouble taking medicines the way you have been told to take them?: I always take medicine as prescribed How confident are you that you can control & manage most of your health problems?: very confident What is your race?: or origin or descent Mini Mental State Exam (MMSE) Orientation What is the (year) (season) (date) (day) (month)?: year, season, date, day and month Where are we (state) (county) (town or city) (hospital) (floor)?: state, county, town or city, hospital/clinic and floor Score Score: 10 Activity of Daily Living Bathing - sponge bath, tub bath or shower: receives no assistance (gets in/out by self, if usual bathing means Dressing - getting clothes from closets & drawers, including inner/outer garments & fasteners.: gets clothes & gets completely dressed without help Toileting - going to the 'toilet room' for urine/bowel elimination & cleaning self/arranging clothes: goes to toilet room, cleans self, arranges clothes without help Transfer: moves in & out of bed and chair without help (may use support object) Continence: controls urination/bowel movements completely by self Feeding: feeds self without help Total Score: 0 Information obtained from: patient Using telephone: independent Traveling: independent Shopping: independent Preparing meals: independent Housework: independent Taking medicine: independent Managing money: independent PHQ-9 Over the last 2 weeks, how often have you been bothered by any of the following problems? 1. Little interest or pleasure in doing things: several days 2. Feeling down, depressed, or hopeless: not at all 3. Trouble falling or staying asleep, or sleeping too much: nearly every day 4. Feeling tired or having little energy: nearly every day 5. Poor appetite or overeating: more than half the days 6. Feeling bad about yourself - or that you are a failure or have let yourself or your family down: not at all 7. Trouble concentrating on things, such as reading the newspaper or watching television: not at all 8. Moving or speaking so slowly that other people could have noticed. Or the opposite - being so fidgety or restless that you have been moving around a lot more than usual: more than half the days 9. Thoughts that you would be better off or of hurting yourself in some way: not at all Total score: 11 Depression Screening Interpretation: Positive Depression Screening Follow-up: Existing condition and In treatment Depression Screening Done: Yes 34474 - PHQ-9 Billing: Yes Source: Developed by Drs. Phil Medina, Leigh Ann, Daniel Ruelas and colleagues, with an educational marcin from [employer]. Review of Systems Const Denies chills, Denies fatigue, Denies fever(s) and Denies headache(s) ENT Reports dysphagia ((+) oropharyngeal dysphagia - follows up with ENT for this issue), Denies dizziness, Denies otalgia, Denies headache(s), Denies neck pain, Denies odynophagia and Denies sore throat Card Denies chest pain, Denies palpitations and Denies dyspnea Resp Denies chest congestion, Denies cough, Denies dyspnea and Denies wheezing GI Denies abdominal pain, Denies constipation, Reports dysphagia ((+) oropharyngeal dysphagia - follows up with ENT for this issue), Denies heartburn, Denies diarrhea, Denies nausea, Denies odynophagia and Denies vomiting Denies difficulty urinating, Denies nocturia and Denies urinary frequency Musc Reports abnormal gait (unsteady gait), Reports back pain (over the lower back - chronic ), Reports arthralgias (over both knees; on and off right elbow pain) and Denies neck pain Skin/Breast Denies rash Neuro Reports abnormal gait (unsteady gait), Denies dizziness and Denies headache(s) Endo Denies fatigue and Denies palpitations Aller/Immun Denies wheezing Physical Exam Vital Signs: Last Vital Signs Pulse 74 04/06/24 08:47 BP 118/68 04/06/24 08:47 Pulse Ox 97 04/06/24 08:47 Oxygen Delivery Method Room Air 04/06/24 08:47 BMI result Body Mass Index 32.2 IPPE/AWV: Balance Romberg NO . Tandem walk NO . Walk and Turn Yes . Rise from sit to stand NO . Vision Corrective lens No Vision screen pass Hearing Whisper test pass on right side; fail on left side . Urinary incont. no. EKG Yes - ordered. Const General: no acute distress and alert Orientation/consciousness: patient oriented x3 HEENT Ears: TM's normal bilaterally and EAC's normal Throat: Yes posterior oropharynx normal and Yes tonsils normal Neck Neck: Yes no lymphadenopathy and Yes supple Thyroid: Thyroid normal Resp Auscultation: clear to auscultation bilaterally, no rales and no wheezes Cardio Rate: regular rate Rhythm: regular rhythm Heart sounds: no murmurs GI Palpation (GI): Soft to palpation and nontender Auscultation: normal bowel sounds General: Yes no CVA tenderness Back/Spine/Pelvis Back: no CVA tenderness Thoracic/Lumbar Spine: lumbar spinal tenderness Skin Rashes: no rashes Neuro General: patient oriented x3, moves all extremities and no focal motor deficits Cognition (Neuro): normal cognition Gait exam (Neuro): Normal gait present (but unsteady - unable to do Romberg or tandem walking) Extrem General: Yes no clubbing, cyanosis or edema Psych Thought process: Normal thought process present Assessment & Plan Assessment & Plan (1) Medicare annual wellness visit, subsequent: Code(s): Z00.00 - Encounter for general adult medical examination without abnormal findings Plan: HRA form completed and discussed with patient. Form will be scanned into patient's chart. Plan Follow up as scheduled in May 2024 Quality Reporting (2019) Depression/Bipolar (159/160/161/177) PHQ-9: Total score: 11 Coding Level of Care Code Medicare Subsequent (G0439) Diagnoses Medicare annual wellness visit, subsequent Z00.00
== END 2024-04-06 10:00 | disposition home or self-care (01) ==
PROVIDERS: PCP Internal Medicine; Visit Provider Internal Medicine
DX: Z00.00 Encounter for general adult medical examination without abnormal findings (principal)
CPT/HCPCS: G0439

== ENCOUNTER 2024-05-23 08:37 | Outpatient (REF) | payer MEDICARE, MEDICAID, SELFPAY ==
[2024-05-23 09:03] LABS: MANUAL DIFF FLAG NO
[2024-05-23 09:18] LABS: Basophils Percent Auto 0.6 % (0-2); Eosinophils Absolute Auto 0.2 X10*3/uL (0.0-0.4); Eosinophils Percent Auto 4.2 % (0-4); Hematocrit 40.8 % (42.0-52.0); Hemoglobin 13.8 g/dl (14.0-18.0); Imm Gran Abs Auto 0.01 X10*3/uL (0.00-0.03); Imm Gran Pct Auto 0.2 % (0.0-0.4); Lymphocytes Absolute Auto 1.7 X10*3/uL (1.2-4.9); Lymphocytes Percent Auto 31.7 % (20-40); Mean Corpuscular HGB Conc 33.8 g/dl (31.0-36.0); Mean Corpuscular Hemoglobin 30.1 pg (27.0-33.0); Mean Corpuscular Volume 89.1 fL (80.0-98.0); Mean Platelet Volume 9.4 fL (9.4-12.4); Monocytes Absolute Auto 0.4 X10*3/uL (0.1-1.2); Monocytes Percent Auto 7.2 % (2-11); Neutrophils Absolute Auto 3.1 x10*3/uL (2.0-8.3); Neutrophils Percent Auto 56.1 % (45-73); Platelet Count 212 X10*3/uL (160-400); Red Blood Count 4.58 X10*6/uL (4.60-5.80); Red Cell Distribution Width 13.2 % (11.0-16.0); White Blood Count 5.4 X10*3/uL (4.8-10.8)
[2024-05-23 09:32] LABS: Estimated Average Glucose 163 mg/dL; Hemoglobin A1c % 7.3 % (<6.0)
[2024-05-23 10:00] LABS: Appearance Urine Clear; Color Urine Yellow; Glucose Urine UA 500 mg/dL (Negative); Leukocyte Esterase Urine Negative (Negative); Nitrite Urine Negative (Negative); PH 5.5 (5.0-9.0); Specific Gravity - Urine 1.025 (1.005-1.025); Urine Blood Negative (Negative); Urine Ketones Trace mg/dL (Negative); Urine Protein Trace mg/dL (Neg-Trace)
[2024-05-23 10:02] LABS: Alanine Aminotransferase 45 U/L (0-40); Albumin Level 4.3 g/dL (3.5-5.0); Alkaline Phosphatase 106 U/L (39-117); Anion Gap 15 (12-20); Aspartate Amino Transferase 23 U/L (5-37); Bilirubin Total 0.3 mg/dL (0.0-1.0); Blood Urea Nitrogen 14 mg/dL (9-16); Calcium 8.9 mg/dL (8.4-10.2); Carbon Dioxide 23 mmol/L (22-29); Chloride 108 mmol/L (96-108); Cholesterol 146 mg/dL (<200); Estimated Glomerular Filt Rate > 60; Glucose Fasting 240 mg/dL (60-99); HDL Cholesterol 37 mg/dL (>40); LDL Cholesterol Calculated 62 mg/dL (<100); Potassium 4.4 mmol/L (3.3-5.1); Sodium 142 mmol/L (135-145); Total Protein 7.4 g/dL (6.5-8.0); Triglycerides 239 mg/dL (<150)
[2024-05-23 10:18] LABS: TSH reflex Free T4 1.05 uIU/mL (0.32-4.0); Vitamin D 25-OH Total 31.9 ng/mL (>30)
[2024-05-23 10:31] LABS: Microalbum/Creatinine Ratio Ur 6.2 ug/mg cr (<30)
== END 2024-05-23 08:38 | disposition home or self-care (01) ==
LOC: HO.LAB 08:37
PROVIDERS: PCP Internal Medicine; Visit Provider Internal Medicine
DX: E11.9 Type 2 diabetes mellitus without complications (principal); D64.9 Anemia, unspecified; E78.00 Pure hypercholesterolemia, unspecified; E55.9 Vitamin D deficiency, unspecified; R30.0 Dysuria
CPT/HCPCS: 36415; 80053; 80061; 81003; 82043; 82306; 82570; 83036; 84443; 85025

== ENCOUNTER 2024-05-30 09:52 | Outpatient (AMB) | payer MEDICARE, MEDICAID, SELFPAY ==
--- NOTE | 2024-05-30 09:56 | A.OFFPC_ITS ---
Vital Signs 05/30/24 09:58 Height 5 ft 8 in Weight 212 lb BMI 32.2 BP 118/72 Blood Pressure Location Lt brachial Position Sitting Pulse 99 Pulse Source Pulse Oximeter Pulse Oximetry (%) 98 Oxygen Delivery Method Room Air Intake Visit Reasons: DM, hyperlipidemia, HTN, lumbar DDD, OA Intake Note: Patient is here to follow up on DM, HLD, HTN, LDDD, OA. Painting Contractor Required: No Mining Manager: Not Required per policy Accompanied by: Self / Same As Patient Allergies No Known Allergies [No Known Allergies*] Allergy (Verified 05/30/24 10:55) Medication List - Last Reconciled 05/30/24 by Nathan Mendoza MD acarbose 25 mg PO TID 90 days albuterol sulfate 2.5 mg (3 mL) inhalation TID PRN albuterol sulfate 90 mcg/actuation (ProAir HFA) 2 puffs inhalation Q6H PRN 30 days alcohol swabs 1 pad topical BID 30 days alprazolam 1 mg PO TID PRN amitriptyline 25 mg PO BEDTIME Asmanex HFA 200 mcg/actuation (mometasone) 1 puff inhalation BID 30 days NS atorvastatin 40 mg PO BEDTIME 90 days blood sugar diagnostic (FreeStyle Lite Strips) Twice a day cholecalciferol (vitamin D3) 25 mcg PO DAILY 90 days clonidine HCl 0.1 mg PO BEDTIME dicyclomine 20 mg PO QID 30 days dulaglutide (Trulicity) 0.75 mg (0.5 mL) subcut QWEEK 30 days lancets use as directed once a day lisinopril 10 mg PO DAILY 90 days meloxicam 15 mg PO DAILY metoclopramide HCl (Reglan) 10 mg PO QIDACHS 30 days [NEBULIZER and all related supplies As directed] pantoprazole (Protonix) 40 mg PO BID pioglitazone 15 mg PO DAILY 90 days primidone 50 mg PO BID Pulmicort Flexhaler 180 mcg/actuation (budesonide) 1 inh inhalation BID NS simethicone 180 mg PO QID 30 days topiramate 100 mg PO BEDTIME 90 days tramadol 50 mg PO TID PRN 30 days Tobacco use date assessed: 05/30/24 Dental Screening Dental Screen Date: 02/08/24 HPI DM, hyperlipidemia, HTN, lumbar DDD, OA HPI Details Patient comes in today for his follow-up visit States that he feels okay He denies any headaches or dizziness Denies any chest pains, no shortness of breath No nausea /vomiting, no abdominal pain No change in bowel habits noted States that his chronic low back pain and joint pains remain adequately controlled on his current medications Needs a couple of his Rx refilled Had his follow-up labs done last week - to discuss his results [facility] Medical History Obesity (BMI 30-39.9) Colon cancer screening Oropharyngeal dysphagia Gastritis History of anoxic brain injury Epididymal cyst Hematuria Anxiety Obstructive sleep apnea Vitamin B12 deficiency Vitamin D deficiency Lumbar degenerative disc disease Asthma Pure hypercholesterolemia Migraine Cardiac arrhythmia Type 2 diabetes mellitus without complication, with no history of insulin use Benign essential hypertension Surgical History (Updated 05/30/24 @ 10:04 by DONALDO López) H/O bilateral inguinal hernia repair H/O hernia repair History of esophagogastroduodenoscopy (EGD) Hx of colonoscopy History of extraction of renal calculus History of repair of rotator cuff Family History Father No problems noted. Mother Hypertension Cancer Sister Cancer Social History Household Members: Significant Other Housing: House Alcohol intake: never Patient Tobacco Use Status: Never used Tobacco e-Cigarette/Vaping Use: Never Used Second Hand Smoke Exposure: No service: No Current occupational status: disabled Cognitive needs: No Hearing needs: No Vision needs: No Questionnaire Thrive Questionnaire Date Thrive assessed: 02/08/24 DEVANTE-7 AMB Questionnaire DEVANTE-7 Date DEVANTE - 7 assessed: 02/08/24 Source: Developed by Drs. Phil Medina, Leigh Ann, Daniel Ruelas and colleagues, with an educational marcin from [email or web address]. Review of Systems Const Denies chills, Denies fatigue, Denies fever(s) and Denies headache(s) ENT Reports dysphagia ((+) oropharyngeal dysphagia - follows up with ENT for this issue), Denies dizziness, Denies otalgia, Denies headache(s), Denies neck pain, Denies odynophagia and Denies sore throat Card Denies chest pain, Denies palpitations and Denies dyspnea Resp Denies chest congestion, Denies cough, Denies dyspnea and Denies wheezing GI Denies abdominal pain, Denies constipation, Reports dysphagia ((+) oropharyngeal dysphagia - follows up with ENT for this issue), Denies heartburn, Denies diarrhea, Denies nausea, Denies odynophagia and Denies vomiting Denies difficulty urinating, Denies nocturia and Denies urinary frequency Musc Reports abnormal gait (unsteady gait), Reports back pain (over the lower back - chronic ), Reports arthralgias (over both knees; on and off right elbow pain) and Denies neck pain Skin/Breast Denies rash Neuro Reports abnormal gait (unsteady gait), Denies dizziness and Denies headache(s) Endo Denies fatigue and Denies palpitations Aller/Immun Denies wheezing Physical exam (Primary Care) Vital Signs: Last Vital Signs Pulse 99 05/30/24 09:58 BP 118/72 05/30/24 09:58 Pulse Ox 98 05/30/24 09:58 Oxygen Delivery Method Room Air 05/30/24 09:58 BMI result Body Mass Index 32.2 Tobacco/Smoking Status: Tobacco use Status Tobacco use date assessed 05/30/24 05/30/24 10:03 Patient Tobacco Use Status Never used Tobacco 05/30/24 10:03 e-Cigarette/Vaping Use Never Used 05/30/24 10:03 Thrive Assessment: Date of Thrive Assessment Date Thrive assessed 02/08/24 05/30/24 10:03 Const General: no acute distress and alert HENMT Ears: TM's normal bilaterally and EAC's normal Throat: Yes posterior oropharynx normal and Yes tonsils normal Neck Neck: Yes no lymphadenopathy and Yes supple Thyroid: Thyroid normal Resp Auscultation: clear to auscultation bilaterally, no rales and no wheezes Cardio Rate: regular rate Rhythm: regular rhythm Heart sounds: no murmurs GI Palpation (GI): Soft to palpation and nontender Auscultation: normal bowel sounds General: Yes no CVA tenderness Back/Spine/Pelvis Back: no CVA tenderness Thoracic/Lumbar Spine: lumbar spinal tenderness Skin Rashes: no rashes Extrem General: Yes no clubbing, cyanosis or edema Right lower extremity: knee Details: tenderness Left lower extremity: knee Details: tenderness Results Reviewed Results Reviewed: Laboratory Tests 05/23/24 05/23/24 08:55 08:58 WBC 5.4 Hgb 13.8 L Hct 40.8 L Plt Count 212 Sodium 142 Potassium 4.4 Creatinine 1.17 Estimated GFR > 60 Fasting Glucose 240 H Hemoglobin A1c % 7.3 H Calcium 8.9 D AST 23 ALT 45 H Triglycerides 239 H Cholesterol 146 LDL Cholesterol, Calc 62 HDL Cholesterol 37 L 25-OH Vitamin D Total 31.9 TSH 1.05 Ur Specific [place] 1.025 Urine Protein Trace Urine Glucose (UA) 500 H Urine Blood Negative Urine Nitrite Negative Ur Leukocyte Esterase Negative Microalb/Creat Ratio 6.2 Assessment and Plan Assessment & Plan (1) Pure hypercholesterolemia: Code(s): E78.00 - Pure hypercholesterolemia, unspecified Plan: Results of his labs done last week reviewed and discussed with patient Reinforced low cholesterol diet Continue Atorvastatin 40 mg QD Will recheck his labs and fasting lipids in 3 months for follow-up (2) Type 2 diabetes mellitus without complication, with no history of insulin use: Code(s): E11.9 - Type 2 diabetes mellitus without complications Plan: His HgbA1c was at 7.3% on his labs done last week (was at 7.4% a few months ago) - goal is < 6.5% Reinforced diabetic diet Continue?Pioglitazone?15 mg QD and Trulicity 0.75 mg SQ once a week; patient also takes Acarbose 25 mg TID He used to see endocrinology but states that he has not been back to see them in about 3 years as he was reportedly advised that his diabetes is well-controlled and he can just follow up with his PCP He is advised to try to watch his diet better and that IF his blood sugar still does not improve by his next visit, then we will consider increasing the dose of his Trulicity to 1.5 mg (3) Benign essential hypertension: Code(s): I10 - Essential (primary) hypertension Plan: Reinforced low-sodium diet -? goal is systolic BP of at least 120 to 130 mm or less Continue Lisinopril 10 mg QD (4) Asthma: Code(s): J45.909 - Unspecified asthma, uncomplicated Qualifiers: Asthma complication type: uncomplicated Asthma persistence: persistent Asthma severity: moderate Qualified Code(s): J45.40 - Moderate persistent asthma, uncomplicated Plan: Stable/controlled Was doing well on Flovent HFA 220 mcg BID and ProAir HFA 2 puffs 4 times a day as needed for years but is unable to get Flovent HFA nowadays due to unavailability of the Rx and he was switched over to Asmanex 200 mcg 1 inhalation BID instead - patient states that he has been doing well on his new inhaler without any significant issues Patient also uses his nebulizer with Albuterol nebulizer solution 3 to 4 times a day when needed (5) Migraine: Code(s): G43.909 - Migraine, unspecified, not intractable, without status migrainosus Qualifiers: Intractability: not intractable Migraine type: unspecified Status migrainosus presence: without status migrainosus Qualified Code(s): G43.909 - Migraine, unspecified, not intractable, without status migrainosus Plan: Stable/controlled on prophylactic Tx with Topiramate 100 mg Q HS Follow up with neurology as scheduled (6) Lumbar degenerative disc disease: Code(s): M51.36 - Other intervertebral disc degeneration, lumbar region Plan: Repeat lumbar spine x-rays done a few months ago revealed (+) mild spondylosis of the lumbar spine with no acute changes Reinforced activity and weight lifting restrictions Continue Tramadol 50 mg TID PRN and Naproxen 500 mg BID with food as needed for pain (7) Obesity (BMI 30.0-34.9): Code(s): E66.9 - Obesity, unspecified Plan: Reinforced diet/exercise as tolerated/lose weight Plan Follow up in 3 months Orders: Orders Hemoglobin A1c 3 Months E11.9 - Type 2 diabetes mellitus without complications Lipid Panel 3 Months E78.00 - Pure hypercholesterolemia, unspecified Microalbumin, Random (w Creat) 3 Months E11.9 - Type 2 diabetes mellitus without complications Complete Blood Count Auto Diff 3 Months D64.9 - Anemia, unspecified Comprehensive [place]. Panel Fast 3 Months E78.00 - Pure hypercholesterolemia, unspecified TSH reflex Free T4 3 Months E78.00 - Pure hypercholesterolemia, unspecified UA CC w/rflx Micro + Cult 3 Months R30.0 - Dysuria Vitamin D 25-OH Total 3 Months E55.9 - Vitamin D deficiency, unspecified Medications: Refilled atorvastatin 40 mg PO BEDTIME 90 tabs 1RF 90 days E78.00 - Pure hypercholes terolemia, unspecified lisinopril 10 mg PO DAILY 90 tabs 1RF 90 days Coding Level of Care Code Est Pt Level 4 (47172) Diagnoses Pure hypercholesterolemia E78.00 Type 2 diabetes mellitus without complication, with no history of insulin use E11.9 Benign essential hypertension I10 Moderate persistent asthma without complication J45.40 Asthma complication type: uncomplicated Asthma persistence: persistent Asthma severity: moderate Migraine without status migrainosus, not intractable, unspecified migraine type G43.909 Intractability: not intractable Migraine type: unspecified Status migrainosus presence: without status migrainosus Lumbar degenerative disc disease M51.36 Obesity (BMI 30.0-34.9) E66.9
[2024-05-30 09:58] VITALS: BP 118/72; PULSE 99; O2SAT 98; BMI 32.2
== END 2024-05-30 11:11 | disposition home or self-care (01) ==
PROVIDERS: PCP Internal Medicine; Visit Provider Internal Medicine
DX: E78.00 Pure hypercholesterolemia, unspecified (principal); E11.9 Type 2 diabetes mellitus without complications; I10 Essential (primary) hypertension; J45.40 Moderate persistent asthma, uncomplicated; G43.909 Migraine, unspecified, not intractable, without status migrainosus; M51.36 Other intervertebral disc degeneration, lumbar region
CPT/HCPCS: 99214

== ENCOUNTER 2024-09-20 08:48 | Outpatient (AMB) | payer MEDICARE, MEDICAID, SELFPAY ==
--- NOTE | 2024-09-20 09:05 | A.OFFVIS_ITS ---
Vital Signs 09/20/24 09:12 Height 5 ft 8 in Weight 205 lb 7.533 oz BMI 31.2 BP 134/95 H Blood Pressure Location Lt brachial Position Sitting Pulse 91 Intake Visit Reasons: 6 months follow up Intake Note: Patient in office today in 6 months follow up of GERD. CC: Patient c/o abdominal bloating and states that he does not feel the Simethicone is not helping and last time he went to get it the insurance did not cover it. Water Quality Analyst Required: No Accompanied by: Self / Same As Patient Allergies No Known Allergies [No Known Allergies*] Allergy (Verified 09/20/24 09:15) HPI HPI 6 months follow up: Details: Assessment & Plan (1) Tubular adenoma of colon: Comment: 2021 scope neg but insufficient prep, repeat 1-2 years with 2 day prep aeb; 2018 scope equals 2 TA s Code(s): D12.6 - Benign neoplasm of colon, unspecified (2) Irritable bowel syndrome with both constipation and diarrhea: Code(s): K58.2 - Mixed irritable bowel syndrome (3) GERD (gastroesophageal reflux disease): Code(s): K21.9 - Gastro-esophageal reflux disease without esophagitis Plan He is agreeable to a 10 year follow-up. The procedure was well tolerated. The results were explained and the patient is agreeable to the follow-up interval as stated. The bowel pattern has returned to normal. Education was provided to tell any 1st degree relatives about their findings to be sure that they are screened by age 45. Educated that they will be put on a recall list when it is time for their repeat scope but should they move out of state or away from the hospital they will need to remember along with their primary to repeat the procedure in a timely fashion to avoid any adverse complications. He continues on his Reglan 10 mg 4 times a day, dicyclomine, pantoprazole 40 mg twice a day and simethicone with good control of his GI conditions. He is satisfied now with his GI regimen. Return office visit in 6 months Medications: Refilled dicyclomine 20 mg PO QID 120 tabs 6RF 30 days K58.2 - Mixed irritable bowel syndrome, R13.12 - Dysphagia, oropharyngeal phase simethicone after meals 180 mg PO QID 120 caps 6RF 30 days metoclopramide HCl (Reglan) 10 mg PO QIDACHS 120 tabs 6RF 30 days K30 - Functional dyspepsia pantoprazole (Protonix) 40 mg PO BID 60 tabs 6RF K21.9 - Gastro-esophageal reflux disease without esophagitis Discontinued bisacodyl (Dulcolax (bisacodyl)) Discontinued Reason: Patient Completed Course 10 mg (2 x 5 mg) PO BEDTIME 2 days 4 tabs 0RF peg 3350-electrolytes 236-22.74-6.74 -5.86 gram (Golytely) until fecal effluent is clear; do not exceed a total volume of 2,000 mL Discontinued Reason: Patient Completed Course 240 mL PO Q10M 1 day 4,000 mL 0RF Z12.11 - Encounter for screening for malignant neoplasm of colon TODAY'S VISIT He continues on his Reglan 10 mg 4 times a day, dicyclomine, pantoprazole 40 mg twice a day and simethicone with good control of his GI conditions. He is satisfied now with his GI regimen. He continues to c/o fatigue and daytime somnolence. He wants me to order labs, his PCP ordered the most common to screen, I will add EBV, CRP, ESR, SUSSY, B 12 and folate. He says he sleeps well and does not snore. He also had a negative sleep study. For this if no pathology medication s/e are in the ddx since he is on amitriptyline, bentyl, high dose topamax, primidone etc. ROV 6mos PFSH Medical History Cellulitis of great toe of right foot Contusion of right elbow Pre-op examination Obesity (BMI 30-39.9) Colon cancer screening Oropharyngeal dysphagia Gastritis History of anoxic brain injury Epididymal cyst Hematuria Anxiety Obstructive sleep apnea Vitamin B12 deficiency Vitamin D deficiency Lumbar degenerative disc disease Asthma Pure hypercholesterolemia Migraine Cardiac arrhythmia Type 2 diabetes mellitus without complication, with no history of insulin use Benign essential hypertension Surgical History H/O bilateral inguinal hernia repair H/O hernia repair History of esophagogastroduodenoscopy (EGD) Hx of colonoscopy History of extraction of renal calculus History of repair of rotator cuff Family History Father No problems noted. Mother Hypertension Cancer Sister Cancer Social History Household Members: Significant Other Housing: House Alcohol intake: never Patient Tobacco Use Status: Never used Tobacco e-Cigarette/Vaping Use: Never Used Second Hand Smoke Exposure: No service: No Current occupational status: disabled Cognitive needs: No Hearing needs: No Vision needs: No Review of Systems Const Reports fatigue, Denies fever(s), Denies night sweats, Denies poor appetite and Denies weight loss ENT Reports Normal hearing present, Denies dental pain, Denies dysphagia, Denies hearing loss, Denies mouth pain, Denies odynophagia, Denies throat swelling, Denies tongue swelling and Reports other (Dentition adequate) Card Reports no additional complaints Resp Reports no additional complaints GI Details: Denies abdominal pain, Denies melena, Denies bloating, Denies hematochezia, Reports constipation, Denies GI cramping, Denies dysphagia, Denies excessive flatus, Reports early satiety, Reports heartburn, Denies diarrhea, Denies nausea, Denies odynophagia, Denies vomiting and Denies hematemesis Musc Reports myalgias Skin/Breast Denies pruritus, Denies lesions, Denies rash and Denies jaundice Neuro Reports Normal hearing present and Denies Abnormal speech present Psych Reports abnormal sleep pattern Endo Reports fatigue Aller/Immun Denies throat swelling and Denies tongue swelling Physical Exam Vital Signs: Last Vital Signs Pulse 91 09/20/24 09:12 BP 134/95 H 09/20/24 09:12 BMI result Body Mass Index 31.2 Const General: cooperative, no acute distress, well developed and well groomed Nutritional Appearance: well nourished and obese Orientation/consciousness: oriented to person, oriented to place and oriented to time Limitations: language barrier and other limitations HEENT Head: Yes normocephalic and Yes atraumatic Eyes General: appearance normal, both eyes and all related structures Pupils: Equal, round and reactive pupils present Neck Neck: Yes normal visual inspection and Yes no lymphadenopathy Thyroid: Thyroid normal Resp Effort & Inspection: normal respiratory effort and able to speak in complete sentences Auscultation: clear to auscultation bilaterally Cardio Rate: regular rate Rhythm: regular rhythm Heart sounds: Normal, physiologic split S2 sound present Peripheral pulses: radial pulses present and posterior tibial pulses present GI Inspection: No distended, No Abdominal panniculus present and Yes obesity Palpation (GI): Soft to palpation, nontender, no guarding, not rigid and No he patosplenomegaly present Percussion: Yes normal to percussion Auscultation: normal bowel sounds Rectal Exam - Male: Yes deferred Skin General skin exam: no rashes or lesions noted, turgor normal, skin not dry, no jaundice, No spider nevi and no striae Rashes: no rashes Nails: normal Neuro General: oriented to person, oriented to place and oriented to time Cranial nerves: Yes Equal, round and reactive pupils present and Yes Normal hearing present Speech: No Abnormal speech present Extrem General: Yes normal to inspection, No clubbing, No cyanosis and No edema Psych Appearance: grossly normal and well kempt Mental Status: mental status grossly normal Speech and movement: Normal speech and movement present Affect: normal affect Attitude: cooperative Thought process: Normal thought process present and not confabulating Thought content: Normal thought content present Insight: Limited insight present (Psych) Judgement: Limited judgement present (Psych) Assessment & Plan Assessment & Plan (1) Irritable bowel syndrome with both constipation and diarrhea: Code(s): K58.2 - Mixed irritable bowel syndrome Category: Medical (2) Fatigue: Code(s): R53.83 - Other fatigue Category: Medical (3) GERD (gastroesophageal reflux disease): Code(s): K21.9 - Gastro-esophageal reflux disease without esophagitis Category: Medical (4) Esophageal dysmotility: Code(s): K22.4 - Dyskinesia of esophagus Category: Medical (5) Tubular adenoma of colon: Comment: 02/2024= negative scope repeat in 5 years; 2021 scope neg but insufficient prep, repeat 1-2 years with 2 day prep aeb; 2019 scope equals 2 TA s Code(s): D12.6 - Benign neoplasm of colon, unspecified Category: Medical (6) Delayed gastric emptying: Code(s): K30 - Functional dyspepsia Category: Medical (7) Vitamin D deficiency: Code(s): E55.9 - Vitamin D deficiency, unspecified Category: Medical (8) Vitamin B12 deficiency: Code(s): E53.8 - Deficiency of other specified B group vitamins Category: Medical (9) Arthralgia: Code(s): M25.50 - Pain in unspecified joint Category: Medical Plan He continues on his Reglan 10 mg 4 times a day, dicyclomine, pantoprazole 40 mg twice a day and simethicone with good control of his GI conditions. He is satisfied now with his GI regimen. He continues to c/o fatigue and daytime somnolence. He wants me to order labs, his PCP ordered the most common to screen, I will add EBV, CRP, ESR, SUSSY, B 12 and folate. He says he sleeps well and does not snore. He also had a negative sleep study. For this if no pathology medication s/e are in the ddx since he is on amitriptyline, bentyl, high dose topamax, primidone etc. ROV 6mos Orders: Orders Red Blood Cell Folate Today E53.8 - Deficiency of other specified B group vitamins, E55.9 - Vitamin D deficiency, unspecified, M25.50 - Pain in unspecified joint, R53.83 - Other fatigue SUSSY Reflex Titer and Pattern Today E53.8 - Deficiency of other specified B group vitamins, E55.9 - Vitamin D deficiency, unspecified, M25.50 - Pain in unspecified joint, R53.83 - Other fatigue Creatine Kinase Total Today E53.8 - Deficiency of other specified B group vitamins, E55.9 - Vitamin D deficiency, unspecified, M25.50 - Pain in unspecified joint, R53.83 - Other fatigue C Reactive Protein Today E53.8 - Deficiency of other specified B group vitamins, E55.9 - Vitamin D deficiency, unspecified, M25.50 - Pain in unsp ecified joint, R53.83 - Other fatigue Erythrocyte Sedimentation Rate Today E53.8 - Deficiency of other specified B group vitamins, E55.9 - Vitamin D deficiency, unspecified, M25.50 - Pain in unspecified joint, R53.83 - Other fatigue Domo-Nielsen Virus Profile Today E53.8 - Deficiency of other specified B group vitamins, E55.9 - Vitamin D deficiency, unspecified, M25.50 - Pain in unspecified joint, R53.83 - Other fatigue Medications: Refilled metoclopramide HCl (Reglan) 10 mg PO QIDACHS 120 tabs 6RF 30 days K30 - Functional dyspepsia simethicone after meals 180 mg PO QID 120 caps 6RF 30 days dicyclomine 20 mg PO QID 120 tabs 6RF 30 days K58.2 - Mixed irritable bowel syndrome, R13.12 - Dysphagia, oropharyngeal phase pantoprazole (Protonix) 40 mg PO BID 60 tabs 6RF K21.9 - Gastro-esophageal reflux disease without esophagitis Coding Level of Care Code Est Pt Level 3 (49189) Complex EM visit Add On G2211 Diagnoses Irritable bowel syndrome with both constipation and diarrhea K58.2 Fatigue R53.83 GERD (gastroesophageal reflux disease) K21.9 Esophageal dysmotility K22.4 Tubular adenoma of colon D12.6 Delayed gastric emptying K30 Vitamin D deficiency E55.9 Vitamin B12 deficiency E53.8 Arthralgia M25.50
[2024-09-20 09:12] VITALS: BP 134/95; PULSE 91; BMI 31.2
== END 2024-09-20 10:13 | disposition home or self-care (01) ==
PROVIDERS: PCP Internal Medicine; Visit Provider Nurse Practitioner
DX: K58.2 Mixed irritable bowel syndrome (principal); R53.83 Other fatigue; K21.9 Gastro-esophageal reflux disease without esophagitis; K22.4 Dyskinesia of esophagus; D12.6 Benign neoplasm of colon, unspecified; K30 Functional dyspepsia; E55.9 Vitamin D deficiency, unspecified; E53.8 Deficiency of other specified B group vitamins; M25.50 Pain in unspecified joint
CPT/HCPCS: 99213; G2211

== ENCOUNTER → 2024-09-20 08:48 | Outpatient (BNVA) | payer MEDICARE, MEDICAID, SELFPAY | PROVIDERS: PCP Internal Medicine; Visit Provider Nurse Practitioner | DX: K21.9 Gastro-esophageal reflux disease without esophagitis (principal); K22.4 Dyskinesia of esophagus; K30 Functional dyspepsia; K58.2 Mixed irritable bowel syndrome; D12.6 Benign neoplasm of colon, unspecified; E53.8 Deficiency of other specified B group vitamins; E55.9 Vitamin D deficiency, unspecified; M25.50 Pain in unspecified joint; R53.83 Other fatigue | CPT/HCPCS: 99212 ==

== ENCOUNTER 2024-09-22 10:02 | Emergency (ER) | payer MEDICARE, MEDICAID, SELFPAY ==
--- NOTE | ~2024-09-22 | XR_ITS ---
EXAMINATION: XR ELBOW, LEFT CLINICAL INFORMATION: Status post fall. COMPARISON: None available. TECHNIQUE: AP, lateral, and oblique views of the left elbow. FINDINGS: No acute cortical disruption or malalignment. No lytic or blastic lesions. No joint effusion. No metallic or radiopaque foreign body. No subcutaneous emphysema. XR/XR elbow LT min 3V IMPRESSION: No acute fracture or dislocation. Negative. Electronically signed by: Maco Carpenter MD 09/22/2024 10:56 AM EDT
[2024-09-22 10:19] VITALS: BP 136/88; PULSE 90; RESP 18; TEMP 36.4; O2SAT 98; BMI 31.7
--- NOTE | 2024-09-22 13:19 | ED.EXTPRO ---
HPI - Extremity Problem General Chief complaint: Extremity Injury, Upper Stated complaint: L elbow injury - arm/hand numbness Time Seen by Provider: 09/22/24 13:14 Source: patient Mode of arrival: ambulatory Limitations: no limitations History of Present Illness ED Provider: juan manuel BURT Narrative: Patient is a 54-year-old left hand dominant male presenting to the ED with complaint of left elbow pain for the past 4 days. States that while walking his dogs, he tripped and landed onto his left elbow. States that today he developed some numbness/tingling to his left forearm. He denies head strike or loss of consciousness at the time of the fall. Denies anticoagulation. MD Complaint: joint pain Onset (ago): day(s) Location: left Associated symptoms: denies other symptoms Related Data Home Medications ?Medication ?Instructions ?Recorded ?Confirmed alprazolam 1 mg tablet 1 mg PO TID PRN Anxiety 01/04/21 05/30/24 amitriptyline 25 mg tablet 25 mg PO BEDTIME 01/04/21 05/30/24 clonidine HCl 0.1 mg tablet 0.1 mg PO BEDTIME 01/04/21 05/30/24 primidone 50 mg tablet 50 mg PO BID 03/01/24 05/30/24 Previous Rx's ?Medication ?Instructions ?Recorded alcohol swabs 1 pad topical BID 30 days #100 ea 04/05/21 NEBULIZER and all related supplies #1 ea 05/13/21 blood sugar diagnostic (FreeStyle #100 ea 02/27/22 Lite Strips) lancets 28 gauge #100 ea 03/27/22 topiramate 100 mg tablet 100 mg PO BEDTIME 90 days #90 tabs 01/26/23 meloxicam 15 mg tablet 15 mg PO DAILY #10 tabs 12/15/23 Asmanex HFA 200 mcg/actuation 1 puff inhalation BID 30 days #13 02/08/24 aerosol inhaler (mometasone) grams acarbose 25 mg tablet 25 mg PO TID 90 days #270 tabs 02/08/24 cholecalciferol (vitamin D3) 25 25 mcg PO DAILY 90 days #90 caps 02/08/24 mcg (1,000 unit) capsule dulaglutide 0.75 mg/0.5 mL 0.75 mg (0.5 mL) subcut QWEEK 30 02/08/24 subcutaneous pen injector days #2.5 mL (Trulicity) pioglitazone 15 mg tablet 15 mg PO DAILY 90 days #90 tabs 02/08/24 albuterol sulfate 2.5 mg/3 mL 2.5 mg (3 mL) inhalation TID PRN 04/22/24 (0.083 %) solution for nebulization shortness of breath or wheezing #90 mL albuterol sulfate 90 mcg/actuation 2 puff inhalation Q6H PRN 04/22/24 aerosol inhaler (ProAir HFA) shortness of breath or wheezing 30 days #18 grams atorvastatin 40 mg tablet 40 mg PO BEDTIME 90 days #90 tabs 05/30/24 lisinopril 10 mg tablet 10 mg PO DAILY 90 days #90 tabs 05/30/24 tramadol 50 mg tablet 50 mg PO TID PRN pain 30 days #90 09/13/24 tabs dicyclomine 20 mg tablet 20 mg PO QID 30 days #120 tabs 09/20/24 metoclopramide HCl 10 mg tablet 10 mg PO QIDACHS 30 days #120 tabs 09/20/24 (Reglan) pantoprazole 40 mg tablet,delayed 40 mg PO BID #60 tabs 09/20/24 release (Protonix) simethicone 180 mg capsule 180 mg PO QID 30 days #120 caps 09/20/24 Allergies Allergy/AdvReac Type Severity Reaction Status Date / Time No Known Allergies Allergy Verified 09/22/24 10:22 [No Known Allergies*] Review of Systems Review of Systems: As per HPI Yes all other systems are reviewed and are negative Constitutional: Constitutional: Reports as per HPI PMFSH Past Medical History Medical History Cellulitis of great toe of right foot Contusion of right elbow Pre-op examination Obesity (BMI 30-39.9) Colon cancer screening Oropharyngeal dysphagia Gastritis History of anoxic brain injury Epididymal cyst Hematuria Anxiety Obstructive sleep apnea Vitamin B12 deficiency Vitamin D deficiency Lumbar degenerative disc disease Asthma Pure hypercholesterolemia Migraine Cardiac arrhythmia Type 2 diabetes mellitus without complication, with no history of insulin use Benign essential hypertension Surgical History H/O bilateral inguinal hernia repair H/O hernia repair History of esophagogastroduodenoscopy (EGD) Hx of colonoscopy History of extraction of renal calculus History of repair of rotator cuff Family History Family History Father No problems noted. Mother Hypertension Cancer Sister Cancer Social History Social History Household Members: Significant Other Housing: House Alcohol intake: never Patient Tobacco Use Status: Never used Tobacco e-Cigarette/Vaping Use: Never Used Second Hand Smoke Exposure: No Advance Directives: No Advance Directives Information Provided: Yes Do you have a plan to hurt others: No Plan service: No Current occupational status: disabled Cognitive needs: No Hearing needs: No Vision needs: No Physical Exam Vital Signs: Vital Signs: Last Vital Signs Temp 97.8 F 09/22/24 13:29 Pulse 75 09/22/24 13:29 Resp 15 09/22/24 13:29 BP 115/73 09/22/24 13:29 Pulse Ox 98 09/22/24 13:29 O2 Del Method Room Air 09/22/24 13:29 BMI result Body Mass Index 31.7 Vital signs have been reviewed and appear to be correct. Blood pressure normal. Heart rate normal. Respiratory rate normal. Temperature normal. Oxygen saturation normal. Const: General: cooperative, healthy appearing and no acute distress Orientation/consciousness: oriented to person, oriented to place, oriented to time and patient oriented x3 Limitations: no limitations HEENT: Head: Yes normocephalic and Yes atraumatic Ears: external ears normal General nose exam: Normal external nose present Face and sinus: Yes face symmetric Mouth: oropharynx normal and moist mucous membranes Throat: Yes uvula midline Eyes: Pupils: Equal, round and reactive pupils present Neck: Neck: Yes normal visual inspection and Yes supple Resp: Effort & Inspection: normal respiratory effort and able to speak in complete sentences Auscultation: clear to auscultation bilaterally Cardio: Rate: regular rate Rhythm: regular rhythm Heart sounds: S1 normal heart sound present and S2 normal heart sound present GI: Palpation (GI): Soft to palpation and nontender Auscultation: normoactive bowel sounds : General: Yes no CVA tenderness Back/Spine/Pelvis: Back: no CVA tenderness Skin: General skin exam: elasticity normal and turgor normal Neuro: General: oriented to person, oriented to place, oriented to time, patient oriented x3, moves all extremities, no focal motor deficits and CN's II-XI intact bilaterally Cranial nerves: Yes Equal, round and reactive pupils present Cognition (Neuro): normal cognition Extrem: General: Yes full ROM, Yes normal exam except as noted, Yes no pedal edema and Yes no calf tenderness Left upper extremity: elbow/forearm Details: normal to inspection, normal ROM and distal pulses intact; no tenderness, no swelling, no unusual warmth, no abrasions, no ecchymosis, no crepitus and no deformity Psych: Mental Status: mental status grossly normal Affect: normal affect Thought process: Normal thought process present Medical Decision Making Medical Decision Making MDM Narrative: Patient is a 54-year-old left hand dominant male presenting to the ED with complaint of left elbow pain for the past 4 days. On exam patient is awake, A+Ox3, VS WNL, afebrile, normal neurological exam without focal deficits, physical exam findings as above. Given reported symptoms and physical exam findings, initial differential includes left elbow contusion, strain, fracture. X-ray left elbow notable for no acute fractures. My interpretation is in agreement with the radiologist's interpretation. Patient updated on results and all questions answered. Patient has full range of motion, no evidence of bursitis or septic joint. Advised patient to alternate Tylenol and ibuprofen, apply ice intermittently. Return precautions discussed at bedside. Patient verbalized understanding of and agreement with plan. Differential Diagnosis Differential Diagnoses: The differential diagnosis associated with the presentation includes as per [facility] Independent Interpretation I performed an independent interpretation of an: Plain X-Ray Interpretation: No acute fracture left elbow Radiology Impression Discussion of test interpretation with radiology: I have reviewed the radiologist's reading. Radiologist Impression: XR/XR elbow LT min 3V IMPRESSION: No acute fracture or dislocation. Negative. External Record Review External record reviewed: Inpatient record, Office record and Outpatient record Discharge Plan Discharge Clinical Impression: Strain of elbow, left Patient Disposition: Home, Self-Care Instructions: Contusion in Adults (ED), R.I.C.E. Treatment (ED) Additional Instructions: You were evaluated in the emergency department today for left elbow pain after a fall. Your x-rays did not show evidence of any fractures. We recommend that you take 600mg ibuprofen or 650mg of Tylenol every 6 hours as needed for pain. Apply ice to the area for 10-15 minutes at a time several times daily, using caution not to apply ice directly to skin. Return if you develop new redness, swelling, cannot bend or straighten your elbow, develop fever, or any other new or concerning symptoms. Prescriptions: No Action albuterol sulfate 2.5 mg /3 mL (0.083 %) solution for nebulization 2.5 mg inhalation TID PRN (Reason: shortness of breath or wheezing) Qty: 90 11RF albuterol sulfate [ProAir HFA] 90 mcg/actuation HFA aerosol inhaler 2 puff inhalation Q6H PRN (Reason: shortness of breath or wheezing) 30 Days Qty: 18 5RF tramadol 50 mg tablet 50 mg PO TID PRN (Reason: pain) 30 Days Qty: 90 0RF (DME) lancets 28 gauge misc See Rx Instructions topical DAILY Qty: 100 12RF Rx Instructions: use as directed once a day (DME) NEBULIZER and all related supplies See Rx Instructions .Route .MEDSUPPLY Qty: 1 0RF Rx Instructions: As directed Asmanex HFA 200 mcg/actuation HFA aerosol inhaler 1 puff inhalation BID 30 Days Qty: 13 5RF acarbose 25 mg tablet 25 mg PO TID 90 Days Qty: 270 1RF cholecalciferol (vitamin D3) 25 mcg (1,000 unit) capsule 25 mcg PO DAILY 90 Days Qty: 90 3RF Trulicity 0.75 mg/0.5 mL pen injector 0.75 mg subcut QWEEK 30 Days Qty: 2.5 6RF pioglitazone 15 mg tablet 15 mg PO DAILY 90 Days Qty: 90 1RF meloxicam 15 mg tablet 15 mg PO DAILY Qty: 10 0RF Rx Instructions: Do not combine with other NSAID's (DME) FreeStyle Lite Strips Strip See Rx Instructions .ROUTE .MEDSUPPLY Qty: 100 6RF Rx Instructions: Twice a day topiramate 100 mg tablet 100 mg PO BEDTIME 90 Days Qty: 90 1RF atorvastatin 40 mg tablet 40 mg PO BEDTIME 90 Days Qty: 90 1RF lisinopril 10 mg tablet 10 mg PO DAILY 90 Days Qty: 90 1RF amitriptyline 25 mg tablet 25 mg PO BEDTIME alprazolam 1 mg tablet 1 mg PO TID PRN (Reason: Anxiety) clonidine HCl 0.1 mg tablet 0.1 mg PO BEDTIME alcohol swabs Pads, Medicated 1 pad topical BID 30 Days Qty: 100 6RF primidone 50 mg tablet 50 mg PO BID dicyclomine 20 mg tablet 20 mg PO QID 30 Days Qty: 120 6RF metoclopramide HCl [Reglan] 10 mg tablet 10 mg PO QIDACHS 30 Days Qty: 120 6RF pantoprazole [Protonix] 40 mg tablet,delayed release (DR/EC) 40 mg PO BID Qty: 60 6RF simethicone 180 mg capsule 180 mg PO QID 30 Days Qty: 120 6RF Rx Instructions: after meals Print Language: Chilean
[2024-09-22 13:29] VITALS: BP 115/73; PULSE 75; RESP 15; TEMP 36.6; O2SAT 98
[2024-09-22 14:12] VITALS: BP 115/73; PULSE 75; RESP 16; TEMP 36.6; O2SAT 95
== END 2024-09-22 14:13 | disposition home or self-care (01) ==
PROVIDERS: Emergency Provider Emergency Medicine; PCP Internal Medicine
DX: S53.402A Unspecified sprain of left elbow, initial encounter (principal); M79.602 Pain in left arm; W01.0XXA Fall on same level from slipping, tripping and stumbling without subsequent striking against object, initial encounter; Y93.89 Activity, other specified; Y92.89 Other specified places as the place of occurrence of the external cause; Y99.8 Other external cause status; Z79.899 Other long term (current) drug therapy
CPT/HCPCS: 73080; 99283

== ENCOUNTER → 2024-09-22 10:23 | Outpatient (BNV) | payer MEDICARE, MEDICAID, SELFPAY | PROVIDERS: PCP Internal Medicine; Visit Provider Radiology Diagnostic Radiology | DX: M25.522 Pain in left elbow (principal) | CPT/HCPCS: 73080 ==

== ENCOUNTER 2024-09-26 08:08 | Outpatient (REF) | payer MEDICARE, MEDICAID, SELFPAY ==
[2024-09-26 08:33] LABS: MANUAL DIFF FLAG NO
[2024-09-26 09:00] LABS: Basophils Percent Auto 0.1 % (0-2); Eosinophils Absolute Auto 0.2 X10*3/uL (0.0-0.4); Eosinophils Percent Auto 2.1 % (0-4); Hematocrit 42.3 % (42.0-52.0); Imm Gran Abs Auto 0.02 X10*3/uL (0.00-0.03); Imm Gran Pct Auto 0.3 % (0.0-0.4); Lymphocytes Absolute Auto 1.4 X10*3/uL (1.2-4.9); Lymphocytes Percent Auto 17.8 % (20-40); Mean Corpuscular HGB Conc 33.1 g/dl (31.0-36.0); Mean Corpuscular Hemoglobin 29.7 pg (27.0-33.0); Mean Corpuscular Volume 89.8 fL (80.0-98.0); Mean Platelet Volume 9.4 fL (9.4-12.4); Monocytes Absolute Auto 0.5 X10*3/uL (0.1-1.2); Monocytes Percent Auto 6.3 % (2-11); Neutrophils Absolute Auto 5.9 x10*3/uL (2.0-8.3); Neutrophils Percent Auto 73.4 % (45-73); Platelet Count 200 X10*3/uL (160-400); Red Blood Count 4.71 X10*6/uL (4.60-5.80); Red Cell Distribution Width 12.7 % (11.0-16.0)
[2024-09-26 09:00] LABS: Appearance Urine Clear; Color Urine Yellow; Glucose Urine UA 100 mg/dL (Negative); Leukocyte Esterase Urine Negative (Negative); Nitrite Urine Negative (Negative); PH 5.5 (5.0-9.0); Urine Blood Negative (Negative); Urine Ketones Negative (Negative); Urine Protein Negative (Neg-Trace)
[2024-09-26 09:09] LABS: Estimated Average Glucose 154 mg/dL; Hemoglobin A1C 192.8646 umol/L; Total Hemoglobin (HGBA1C) 3640.0351 umol/L
[2024-09-26 09:29] LABS: Creatinine Urine 78.03 mg/dL; Microalbumin Urine < 5.0 mg/L
[2024-09-26 09:33] LABS: Alanine Aminotransferase 31 U/L (0-40); Albumin Level 4.4 g/dL (3.5-5.0); Alkaline Phosphatase 91 U/L (39-117); Anion Gap 10 (12-20); Aspartate Amino Transferase 24 U/L (5-37); Bilirubin Total 0.4 mg/dL (0.0-1.0); Blood Urea Nitrogen 10 mg/dL (9-16); C Reactive Protein 1.07 mg/dL (< or = 0.50); Calcium 9.3 mg/dL (8.4-10.2); Carbon Dioxide 25 mmol/L (22-29); Chloride 110 mmol/L (96-108); Cholesterol 143 mg/dL (<200); Estimated Glomerular Filt Rate > 60; Glucose Fasting 219 mg/dL (60-99); HDL Cholesterol 39 mg/dL (>40); LDL Cholesterol Calculated 59 mg/dL (<100); Potassium 3.7 mmol/L (3.3-5.1); Sodium 141 mmol/L (135-145); Total Protein 7.5 g/dL (6.5-8.0); Triglycerides 228 mg/dL (<150)
[2024-09-26 09:43] LABS: Erythrocyte Sedimentation Rate 11 MM/HR (0-15)
[2024-09-28 03:38] LABS: EBV-NA IgG Index >600.00 U/mL; EBV-VCA IgM Ab <36.00 U/mL
[2024-09-29 11:14] LABS: Red Blood Cell Folate 564 ng/mL RBC (>280)
[2024-09-29 12:08] LABS: Anti Nuclear Antibody Screen NEGATIVE (NEGATIVE)
== END 2024-09-26 08:09 | disposition home or self-care (01) ==
LOC: HO.LAB 08:08
PROVIDERS: Absent Provider Nurse Practitioner; PCP Internal Medicine; Visit Provider Internal Medicine
DX: E11.9 Type 2 diabetes mellitus without complications (principal); E53.8 Deficiency of other specified B group vitamins; E55.9 Vitamin D deficiency, unspecified; R53.83 Other fatigue; M25.50 Pain in unspecified joint; D64.9 Anemia, unspecified; E78.00 Pure hypercholesterolemia, unspecified
CPT/HCPCS: 36415; 80053; 80061; 81003; 82043; 82306; 82550; 82570; 82747; 83036; 84443; 85025; 85652; 86038; 86140; 86664; 86665

== ENCOUNTER 2024-10-07 09:00 | Outpatient (AMB) | payer MEDICARE, MEDICAID, SELFPAY ==
--- NOTE | 2024-10-07 09:07 | A.OFFPC_ITS ---
Vital Signs 10/07/24 09:08 Height 5 ft 8 in Weight 202 lb 6 oz BMI 30.8 BP 118/70 Blood Pressure Location Lt brachial Position Sitting Pulse 102 H Pulse Source Pulse Oximeter Pulse Oximetry (%) 99 Oxygen Delivery Method Room Air Intake Visit Reasons: DM, hyperlipidemia, HTN, elevated LFTs Upper Trimmer Required: No Accompanied by: Self / Same As Patient Allergies No Known Allergies [No Known Allergies*] Allergy (Verified 10/07/24 10:00) Medication List - Last Reconciled 10/07/24 by Nathan Mendoza MD acarbose 25 mg PO TID 90 days albuterol sulfate 2.5 mg (3 mL) inhalation TID PRN albuterol sulfate 90 mcg/actuation (ProAir HFA) 2 puffs inhalation Q6H PRN 30 days alcohol swabs 1 pad topical BID 30 days alprazolam 1 mg PO TID PRN amitriptyline 25 mg PO BEDTIME Asmanex HFA 200 mcg/actuation (mometasone) 1 puff inhalation BID 30 days NS atorvastatin 40 mg PO BEDTIME 90 days blood sugar diagnostic (FreeStyle Lite Strips) Twice a day cholecalciferol (vitamin D3) 25 mcg PO DAILY 90 days clonidine HCl 0.1 mg PO BEDTIME dicyclomine 20 mg PO QID 30 days dulaglutide (Trulicity) 0.75 mg (0.5 mL) subcut QWEEK 30 days lancets use as directed once a day lisinopril 10 mg PO DAILY 90 days meloxicam 15 mg PO DAILY metoclopramide HCl (Reglan) 10 mg PO QIDACHS 30 days [NEBULIZER and all related supplies As directed] pantoprazole (Protonix) 40 mg PO BID pioglitazone 15 mg PO DAILY 90 days primidone 50 mg PO BID simethicone 180 mg PO QID 30 days topiramate 100 mg PO BEDTIME 90 days tramadol 50 mg PO TID PRN 30 days Tobacco use date assessed: 10/07/24 Dental Screening Dental Screen Date: 10/07/24 Did you have a dental visit in the last 12 months?: No Did you have a dental problem in the last 6 months where you did not have access to dental care?: No Was dental information given to patient?: No HPI DM, hyperlipidemia, HTN, elevated LFTs HPI Details Patient comes in today for his follow up visit States that he has been experiencing increased fatigue lately Patient feels that he sleeps well at night Had a home sleep study done last year that showed only mild CAMELIA that was also positional and he was advised then that he does not need CPAP therapy Patient adds that he fell on his left elbow about a week ago and his elbow is still bothering him a lot (pain) at this time He had x-rays of the elbow done a couple of weeks ago that came back normal He denies any headaches or dizziness Denies any chest pains, no SOB No nausea/vomiting, no abdominal pain No change in bowel habits noted States that his chronic low back pain and joint pains remain adequately controlled on his current Rx Needs a few of his Rx refilled; states that his Tramadol will also be due early next week and he would like to have this sent in as well so he does not have to call back next week He had his follow up labs done last week - to discuss his results [facility] Medical History (Updated 10/07/24 @ 11:10 by Nathan Mendoza MD) Obesity (BMI 30-39.9) Colon cancer screening Oropharyngeal dysphagia Gastritis History of anoxic brain injury Epididymal cyst Hematuria Anxiety Obstructive sleep apnea Vitamin B12 deficiency Vitamin D deficiency Lumbar degenerative disc disease Asthma Pure hypercholesterolemia Migraine Cardiac arrhythmia Type 2 diabetes mellitus without complication, with no history of insulin use Benign essential hypertension Surgical History H/O bilateral inguinal hernia repair H/O hernia repair History of esophagogastroduodenoscopy (EGD) Hx of colonoscopy History of extraction of renal calculus History of repair of rotator cuff Family History Father No problems noted. Mother Hypertension Cancer Sister Cancer Social History Household Members: Significant Other Housing: House Alcohol intake: never Patient Tobacco Use Status: Never used Tobacco e-Cigarette/Vaping Use: Never Used Second Hand Smoke Exposure: No service: No Current occupational status: disabled Cognitive needs: No Hearing needs: No Vision needs: No Questionnaire PHQ-9 Over the last 2 weeks, how often have you been bothered by any of the following problems? 1. Little interest or pleasure in doing things: several days 2. Feeling down, depressed, or hopeless: not at all 3. Trouble falling or staying asleep, or sleeping too much: nearly every day 4. Feeling tired or having little energy: nearly every day 5. Poor appetite or overeating: more than half the days 6. Feeling bad about yourself - or that you are a failure or have let yourself or your family down: not at all 7. Trouble concentrating on things, such as reading the newspaper or watching television: not at all 8. Moving or speaking so slowly that other people could have noticed. Or the opposite - being so fidgety or restless that you have been moving around a lot more than usual: more than half the days 9. Thoughts that you would be better off or of hurting yourself in some way: not at all Total score: 11 Depression Screening Interpretation: Positive Depression Screening Follow-up: Existing condition and In treatment Depression Screening Done: Yes 60106 - PHQ-9 Billing: Yes Source: Developed by Drs. Phil Medina, Leigh Ann, Daniel Ruelas and colleagues, with an educational marcin from [employer]. Thrive Questionnaire Date Thrive assessed: 10/07/24 I am a: Patient What is your living situation today?: I have a steady place to live Within the past 12 months, did the food you bought not last and you didn't have the money to get more?: Never true Within the past 12 months, did you worry whether your food would run out before you got money to buy more?: Never true Do you have trouble paying for medicines?: No Do you have trouble getting transportation to medical appointments?: No Do you have trouble paying your heating and electricity bill?: No Do you have trouble taking care of your child, family member or friend?: No Do you have trouble with day-to-day activities such as bathing, preparing meals, shopping, managing finances, etc.?: No Are you currently unemployed and looking for a job?: No Are you interested in more education?: No Please select the resources that you would like help with: None Currently or been in a relationship where the following occur: No concerns reported THRIVE Score: 0 AUDIT C Alcohol Use Questionnaire (AUDIT-C) 1. How often do you have a drink containing alcohol?: Never 3. How often do you have six or more drinks on one occasion?: Never Total Score: 0 Score Reviewed/Action Taken: Yes DEVANTE-7 AMB Questionnaire DEVANTE-7 Date DEVANTE - 7 assessed: 10/07/24 Feeling nervous, anxious, or on edge: 0 = Not at all Not being able to stop or control worryin = Not at all Worrying too much about different things: 0 = Not at all Trouble relaxin = Not at all Being so restless that it is hard to sit still: 0 = Not at all Becoming easily annoyed or irritable: 0 = Not at all Feeling afraid as if something awful might happen: 0 = Not at all Total DEVANTE-7 score (0-4 normal; 5-9 mild; 10-14 moderate; 15-21 severe): 0 Source: Developed by Drs. Phil Medina, Leigh Ann, Daniel Ruelas and colleagues, with an educational marcin from [employer]. Review of Systems Const Denies chills, Denies difficulty sleeping, Reports fatigue (increased lately), Denies fever(s) and Denies headache(s) ENT Denies dysphagia, Denies dizziness, Denies otalgia, Denies headache(s), Denies neck pain, Denies odynophagia and Denies sore throat Card Denies chest pain, Denies palpitations and Denies dyspnea Resp Denies chest congestion, Denies cough and Denies dyspnea GI Denies abdominal pain, Denies constipation, Denies dysphagia, Denies heartburn, Denies diarrhea, Denies nausea, Denies odynophagia and Denies vomiting Denies difficulty urinating, Denies nocturia and Denies urinary frequency Musc Reports abnormal gait (unsteady gait), Reports back pain (over the lower back - chronic ), Reports arthralgias (over both knees; increased left elbow pain recently) and Denies neck pain Skin/Breast Denies rash Neuro Reports abnormal gait (unsteady gait), Denies dizziness and Denies headache(s) Endo Reports fatigue (increased lately) and Denies palpitations Physical exam (Primary Care) Vital Signs: Last Vital Signs Pulse 102 H 10/07/24 09:08 BP 118/70 10/07/24 09:08 Pulse Ox 99 10/07/24 09:08 Oxygen Delivery Method Room Air 10/07/24 09:08 BMI result Body Mass Index 30.8 Tobacco/Smoking Status: Tobacco use Status Tobacco use date assessed 10/07/24 10/07/24 09:12 Patient Tobacco Use Status Never used Tobacco 10/07/24 09:12 e-Cigarette/Vaping Use Never Used 10/07/24 09:12 PHQ-9: PHQ-9 Score PHQ-9: Total score 11 10/07/24 09:12 Depression Screening Interpretation: Positive Depression Screening Follow-up: Existing condition and In treatment Thrive Assessment: Date of Thrive Assessment Date Thrive assessed 10/07/24 10/07/24 09:12 Currently or been in a relationship where the following occur: No concerns re ported Const General: no acute distress and alert HENMT Ears: TM's normal bilaterally and EAC's normal Throat: Yes posterior oropharynx normal and Yes tonsils normal Neck Neck: Yes no lymphadenopathy and Yes supple Thyroid: Thyroid normal Resp Auscultation: clear to auscultation bilaterally, no rales and no wheezes Cardio Rate: regular rate Rhythm: regular rhythm Heart sounds: no murmurs GI Palpation (GI): Soft to palpation and nontender Auscultation: normal bowel sounds General: Yes no CVA tenderness Back/Spine/Pelvis Back: no CVA tenderness Thoracic/Lumbar Spine: lumbar spinal tenderness Skin Rashes: no rashes Extrem General: Yes no clubbing, cyanosis or edema Left upper extremity: elbow/forearm Details: tenderness; no swelling Right lower extremity: knee Details: tenderness Left lower extremity: knee Details: tenderness Results Reviewed Results Reviewed: Laboratory Tests 09/26/24 09/26/24 08:28 08:31 WBC 8.0 Hgb 14.0 Hct 42.3 Plt Count 200 ESR 11 Sodium 141 Potassium 3.7 Creatinine 1.10 Estimated GFR > 60 Fasting Glucose 219 H Hemoglobin A1c % 7.0 H Calcium 9.3 AST 24 ALT 31 C-Reactive Protein 1.07 H Triglycerides 228 H Cholesterol 143 LDL Cholesterol, Calc 59 HDL Cholesterol 39 L 25-OH Vitamin D Total 40.0 TSH 0.70 Ur Specific [place] 1.010 Urine Protein Negative Urine Glucose (UA) 100 H Urine Blood Negative Urine Nitrite Negative Ur Leukocyte Esterase Negative SUSSY Screen NEGATIVE EBV Capsid Ag IgG Ab 163.00 H Coding Level of Care Code Est Pt Level 4 (08237) Complex EM visit Add On G2211 Diagnoses Pure hypercholesterolemia E78.00 Type 2 diabetes mellitus without complication, with no history of insulin use E11.9 Benign essential hypertension I10 Moderate persistent asthma without complication J45.40 Asthma severity: moderate Asthma persistence: persistent Asthma complication type: uncomplicated Migraine without status migrainosus, not intractable, unspecified migraine type G43.909 Migraine type: unspecified Status migrainosus presence: without status migrainosus Intractability: not intractable Degeneration of intervertebral disc of lumbar region with discogenic back pain M51.360 Disc-related pain type: discogenic back pain only Obstructive sleep apnea G47.33 Vitamin D deficiency E55.9 Chronic fatigue R53.82 Fatigue type: chronic, unspecified Anxiety F41.9 Obesity (BMI 30.0-34.9) E66.9 Additional Codes PHQ-9 - 07909 - PHQ-9 Billing: Yes ([id number]) Assessment & Plan Assessment & Plan (1) Pure hypercholesterolemia: Code(s): E78.00 - Pure hypercholesterolemia, unspecified Category: Medical Plan: Results of his labs done last week reviewed and discussed with patient Reinforced low cholesterol diet Continue Atorvastatin 40 mg QD Will recheck his labs and fasting lipids in 3 months for follow-up (2) Type 2 diabetes mellitus without complication, with no history of insulin use: Code(s): E11.9 - Type 2 diabetes mellitus without complications Category: Medical Plan: His HgbA1c was at 7.0% on his labs done last week (was previously at 7.3% a few months ago) - goal is < 6.5% Reinforced diabetic diet Continue?Pioglitazone?15 mg QD and Trulicity 0.75 mg SQ once a week; patient also takes Acarbose 25 mg TID He used to see endocrinology but states that he has not been back to see them in about 3 years as he was reportedly advised that since his diabetes is well- controlled, he can just follow up with his PCP and see endocrinology only when needed (3) Benign essential hypertension: Code(s): I10 - Essential (primary) hypertension Category: Medical Plan: Reinforced low-sodium diet -? goal is systolic BP of at least 120 to 130 mm or less Continue Lisinopril 10 mg QD (4) Asthma: Code(s): J45.909 - Unspecified asthma, uncomplicated Category: Medical Qualifiers: Asthma severity: moderate Asthma persistence: persistent Asthma complication type: uncomplicated Qualified Code(s): J45.40 - Moderate persistent asthma, uncomplicated Plan: Stable/controlled He was doing well on Flovent HFA 220 mcg BID and ProAir HFA 2 puffs 4 times a day as needed for years but is unable to get Flovent HFA nowadays due to unavailability of the Rx and he was switched out He is now on Asmanex 200 mcg 1 inhalation BID instead and patient states that he has been doing well on his new inhaler without any significant issues Patient also uses his nebulizer with Albuterol nebulizer solution 3 to 4 times a day when needed (5) Migraine: Code(s): G43.909 - Migraine, unspecified, not intractable, without status migrainosus Category: Medical Qualifiers: Migraine type: unspecified Status migrainosus presence: without status migrainosus Intractability: not intractable Qualified Code(s): G43.909 - Migraine, unspecified, not intractable, without status migrainosus Plan: Stable/controlled on prophylactic Tx with Topiramate 100 mg Q HS Follow up with neurology as scheduled (6) Lumbar degenerative disc disease: Code(s): M51.36 - Other intervertebral disc degeneration, lumbar region Category: Medical Qualifiers: Disc-related pain type: discogenic back pain only Qualified Code(s): M51.360 - Other intervertebral disc degeneration, lumbar region with discogenic back pain only Plan: Repeat lumbar spine x-rays done a few months ago revealed (+) mild spondylosis of the lumbar spine with no acute changes Reinforced activity and weight lifting restrictions Continue Tramadol 50 mg TID PRN and Naproxen 500 mg BID with food as needed for pain (7) Obstructive sleep apnea: Code(s): G47.33 - Obstructive sleep apnea (adult) (pediatric) Category: Medical Plan: Home sleep study done in 2022 revealed (+) mild CAMELIA He was advised back then that he does not need CPAP and should try to lose some weight and avoid sleeping on his side Follow up with Sleep Medicine as scheduled or as needed (8) Vitamin D deficiency: Code(s): E55.9 - Vitamin D deficiency, unspecified Category: Medical Plan: Continue Vitamin D3 2000 units QD (9) Fatigue: Code(s): R53.83 - Other fatigue Category: Medical Qualifiers: Fatigue type: chronic, unspecified Qualified Code(s): R53.82 - Chronic fatigue, unspecified Plan: Patient tested positive for EBV but IgM was negative Have advised him that the rest of his labs do not show any findings to help explain his increased fatigue recently and that his sleep apnea is the only co ndition right now that has an effect on this but his CAMELIA was also very mild on his test done in 2022 Have advised patient to continue observing for now and that the recent change back in Daylight Savings Time as well as the current change in the season may also be affecting him and these should ease up over some time (10) Anxiety: Code(s): F41.9 - Anxiety disorder, unspecified Category: Medical Plan: Continue Alprazolam 1 mt TID PRN (11) Obesity (BMI 30.0-34.9): Code(s): E66.9 - Obesity, unspecified Category: Medical Plan: Reinforced diet/exercise as tolerated/lose weight Plan Follow up in 3 months Orders: Orders Hemoglobin A1c 3 Months E11.9 - Type 2 diabetes mellitus without complications Vitamin D 25-OH Total 3 Months E55.9 - Vitamin D deficiency, unspecified Complete Blood Count Auto Diff 3 Months D64.9 - Anemia, unspecified Comprehensive [place]. Panel Fast 3 Months E78.00 - Pure hypercholesterolemia, unspecified Lipid Panel 3 Months E78.00 - Pure hypercholesterolemia, unspecified Microalbumin, Random (w Creat) 3 Months E11.9 - Type 2 diabetes mellitus without complications UA CC w/rflx Micro + Cult 3 Months R30.0 - Dysuria TSH reflex Free T4 3 Months E78.00 - Pure hypercholesterolemia, unspecified Medications: Refilled tramadol 50 mg PO TID 30 days PRN 90 tabs 0RF pain M51.36 - Other intervertebral disc degeneration, lumbar region pioglitazone 15 mg PO DAILY 90 days 90 tabs 1RF E11.9 - Type 2 diabetes mellitus without complications atorvastatin 40 mg PO BEDTIME 90 days 90 tabs 1RF E78.00 - Pure hypercholesterolemia, unspecified lisinopril 10 mg PO DAILY 90 days 90 tabs 1RF
[2024-10-07 09:08] VITALS: BP 118/70; PULSE 102; O2SAT 99; BMI 30.8
== END 2024-10-07 10:08 | disposition home or self-care (01) ==
PROVIDERS: PCP Internal Medicine; Visit Provider Internal Medicine
DX: E78.00 Pure hypercholesterolemia, unspecified (principal); E11.9 Type 2 diabetes mellitus without complications; E66.9 Obesity, unspecified; Z68.30 Body mass index [BMI] 30.0-30.9, adult; I10 Essential (primary) hypertension; J45.40 Moderate persistent asthma, uncomplicated; G43.909 Migraine, unspecified, not intractable, without status migrainosus; M51.360 Other intervertebral disc degeneration, lumbar region with discogenic back pain only; G47.33 Obstructive sleep apnea (adult) (pediatric); E55.9 Vitamin D deficiency, unspecified; R53.82 Chronic fatigue, unspecified; F41.9 Anxiety disorder, unspecified

== ENCOUNTER → 2024-10-07 09:00 | Outpatient (BNVA) | payer MEDICARE, MEDICAID, SELFPAY | PROVIDERS: PCP Internal Medicine; Visit Provider Internal Medicine | DX: E78.00 Pure hypercholesterolemia, unspecified (principal); E11.9 Type 2 diabetes mellitus without complications; I10 Essential (primary) hypertension; J45.40 Moderate persistent asthma, uncomplicated; G43.909 Migraine, unspecified, not intractable, without status migrainosus; M51.360 Other intervertebral disc degeneration, lumbar region with discogenic back pain only; G47.33 Obstructive sleep apnea (adult) (pediatric); E55.9 Vitamin D deficiency, unspecified; R53.82 Chronic fatigue, unspecified; F41.9 Anxiety disorder, unspecified; E66.9 Obesity, unspecified | CPT/HCPCS: 96127; 99212 ==

== ENCOUNTER 2025-01-11 08:46 | Outpatient (REF) | payer MEDICARE, MEDICAID, SELFPAY ==
[2025-01-11 09:14] LABS: MANUAL DIFF FLAG NO
[2025-01-11 09:31] LABS: Basophils Percent Auto 0.6 % (0-2); Eosinophils Absolute Auto 0.1 X10*3/uL (0.0-0.4); Eosinophils Percent Auto 2.5 % (0-4); Hematocrit 42.8 % (42.0-52.0); Hemoglobin 14.3 g/dl (14.0-18.0); Imm Gran Abs Auto 0.01 X10*3/uL (0.00-0.03); Imm Gran Pct Auto 0.2 % (0.0-0.4); Lymphocytes Absolute Auto 1.4 X10*3/uL (1.2-4.9); Lymphocytes Percent Auto 27.2 % (20-40); Mean Corpuscular HGB Conc 33.4 g/dl (31.0-36.0); Mean Corpuscular Hemoglobin 29.4 pg (27.0-33.0); Mean Corpuscular Volume 88.1 fL (80.0-98.0); Mean Platelet Volume 9.6 fL (9.4-12.4); Monocytes Absolute Auto 0.4 X10*3/uL (0.1-1.2); Monocytes Percent Auto 6.8 % (2-11); Neutrophils Absolute Auto 3.3 x10*3/uL (2.0-8.3); Neutrophils Percent Auto 62.7 % (45-73); Platelet Count 218 X10*3/uL (160-400); Red Blood Count 4.86 X10*6/uL (4.60-5.80); Red Cell Distribution Width 12.8 % (11.0-16.0); White Blood Count 5.2 X10*3/uL (4.8-10.8)
[2025-01-11 09:37] LABS: Estimated Average Glucose 237 mg/dL; Hemoglobin A1C 321.9682 umol/L; Hemoglobin A1c % 9.9 % (<6.0); Total Hemoglobin (HGBA1C) 3809.7732 umol/L
[2025-01-11 09:50] LABS: Appearance Urine Clear; Color Urine Yellow; Glucose Urine UA >=1000 mg/dL (Negative); Leukocyte Esterase Urine Negative (Negative); Nitrite Urine Negative (Negative); Specific Gravity - Urine >= 1.030 (1.005-1.025); UMIC TRIGGER UACC YES; Urine Blood Small (1+) (Negative); Urine Ketones Negative (Negative); Urine Protein Negative (Neg-Trace)
[2025-01-11 09:53] LABS: Bacteria Urine None Seen (None Seen); Hyaline Casts Urine 0-2 /LPF (0-2); RBC Urine >20 /HPF (0-2); Squamous Epithelial Cell Urine 0-2 /HPF (0-2); WBC Urine 0-5 /HPF (0-5)
[2025-01-11 10:23] LABS: Alanine Aminotransferase 46 U/L (0-40); Albumin Level 4.4 g/dL (3.5-5.0); Alkaline Phosphatase 109 U/L (39-117); Anion Gap 12 (12-20); Aspartate Amino Transferase 31 U/L (5-37); Bilirubin Total 0.5 mg/dL (0.0-1.0); Blood Urea Nitrogen 16 mg/dL (9-16); Carbon Dioxide 22 mmol/L (22-29); Chloride 107 mmol/L (96-108); Cholesterol 145 mg/dL (<200); Estimated Glomerular Filt Rate 55; Glucose Fasting 393 mg/dL (60-99); HDL Cholesterol 39 mg/dL (>40); LDL Cholesterol Calculated 79 mg/dL (<100); Potassium 4.6 mmol/L (3.3-5.1); Sodium 136 mmol/L (135-145); Total Protein 7.8 g/dL (6.5-8.0); Triglycerides 137 mg/dL (<150)
[2025-01-11 10:25] LABS: Vitamin D 25-OH Total 22.9 ng/mL (>30)
[2025-01-11 11:21] LABS: Creatinine Urine 119.64 mg/dL; Microalbum/Creatinine Ratio Ur 10.8 ug/mg cr (<30)
== END 2025-01-11 08:47 | disposition home or self-care (01) ==
LOC: HO.LAB 08:46
PROVIDERS: PCP Internal Medicine; Visit Provider Internal Medicine
DX: D64.9 Anemia, unspecified (principal); E55.9 Vitamin D deficiency, unspecified; E78.00 Pure hypercholesterolemia, unspecified; E11.9 Type 2 diabetes mellitus without complications
CPT/HCPCS: 36415; 80053; 80061; 81001; 82043; 82306; 82570; 83036; 84443; 85025

== ENCOUNTER 2025-01-19 09:04 | Outpatient (REF) | payer MEDICARE, MEDICAID, SELFPAY ==
[2025-01-19 12:29] LABS: Appearance Urine Clear; Color Urine Yellow; Glucose Urine UA >=1000 mg/dL (Negative); Leukocyte Esterase Urine Negative (Negative); Nitrite Urine Negative (Negative); PH 5.5 (5.0-9.0); Specific Gravity - Urine >= 1.030 (1.005-1.025); UMIC TRIGGER UACC YES; Urine Blood Negative (Negative); Urine Ketones Negative (Negative); Urine Protein Negative (Neg-Trace)
[2025-01-19 12:31] LABS: Bacteria Urine None Seen (None Seen); Hyaline Casts Urine 0-2 /LPF (0-2); RBC Urine 0-2 /HPF (0-2); Squamous Epithelial Cell Urine 0-2 /HPF (0-2); WBC Urine 0-5 /HPF (0-5)
[2025-01-24 13:47] LABS: Glutamic acid decarboxylase Ab <5 IU/mL (<5)
== END 2025-01-19 09:05 | disposition home or self-care (01) ==
LOC: HO.LAB 09:04
PROVIDERS: PCP Internal Medicine; Visit Provider Internal Medicine
DX: E11.9 Type 2 diabetes mellitus without complications (principal); E78.00 Pure hypercholesterolemia, unspecified; I10 Essential (primary) hypertension; J45.40 Moderate persistent asthma, uncomplicated; G43.909 Migraine, unspecified, not intractable, without status migrainosus; M51.360 Other intervertebral disc degeneration, lumbar region with discogenic back pain only; G47.33 Obstructive sleep apnea (adult) (pediatric); E55.9 Vitamin D deficiency, unspecified; F41.9 Anxiety disorder, unspecified; E66.9 Obesity, unspecified; Z79.4 Long term (current) use of insulin; Z79.899 Other long term (current) drug therapy
CPT/HCPCS: 36415; 81001; 84681; 86341; 96127; 99212

== ENCOUNTER 2025-01-19 09:04 | Outpatient (AMB) | payer MEDICARE, MEDICAID, SELFPAY ==
[2025-01-19 09:04] VITALS: BP 106/80; PULSE 96; O2SAT 96; BMI 31.7
--- NOTE | 2025-01-19 09:04 | A.OFFPC_ITS ---
Vital Signs 01/19/25 09:04 Height 5 ft 8 in Weight 208 lb 6 oz BMI 31.7 BP 106/80 Blood Pressure Location Lt brachial Position Sitting Pulse 96 Pulse Source Pulse Oximeter Pulse Oximetry (%) 96 Oxygen Delivery Method Room Air Intake Visit Reasons: 3mth f/u Crotch Breaker Required: No Accompanied by: Self / Same As Patient Allergies No Known Allergies [No Known Allergies*] Allergy (Verified 01/19/25 09:54) Medication List - Last Reconciled 01/19/25 by Nathan Mendoza MD acarbose 25 mg PO TID 90 days albuterol sulfate 90 mcg/actuation (ProAir HFA) 2 puffs inhalation Q6H PRN 30 days albuterol sulfate 2.5 mg (3 mL) inhalation TID PRN alcohol swabs 1 pad topical BID 30 days alprazolam 1 mg PO TID PRN amitriptyline 25 mg PO BEDTIME Asmanex HFA 200 mcg/actuation (mometasone) 1 puff inhalation BID 30 days NS atorvastatin 40 mg PO BEDTIME 90 days blood sugar diagnostic (FreeStyle Lite Strips) Twice a day cholecalciferol (vitamin D3) 25 mcg PO DAILY 90 days clonidine HCl 0.1 mg PO BEDTIME dicyclomine 20 mg PO QID 30 days dulaglutide (Trulicity) 0.75 mg (0.5 mL) subcut QWEEK 30 days lancets use as directed once a day lisinopril 10 mg PO DAILY 90 days meloxicam 15 mg PO DAILY metoclopramide HCl (Reglan) 10 mg PO QIDACHS 30 days [NEBULIZER and all related supplies As directed] pantoprazole (Protonix) 40 mg PO BID pioglitazone 15 mg PO DAILY 90 days primidone 50 mg PO BID simethicone 180 mg PO QID 30 days topiramate 100 mg PO BEDTIME 90 days tramadol 50 mg PO TID PRN 30 days Tobacco use date assessed: 01/19/25 Dental Screening Dental Screen Date: 01/19/25 Did you have a dental visit in the last 12 months?: No Did you have a dental problem in the last 6 months where you did not have access to dental care?: No Was dental information given to patient?: No HPI 3mth f/u HPI Details Patient comes in today for his follow-up visit States that he feels okay He denies any headaches or dizziness Denies any chest pains, no shortness of breath No nausea /vomiting, no abdominal pain No change in bowel habits noted States that his chronic low back pain and joint pains remain adequately controlled on his current medications Needs a couple of his Rx refilled; also needs to get a new glucometer as his old unit broke down a while back and he has not been able to check and monitor his blood sugar for the past few months He had his follow-up labs done last week - to discuss his results [facility] Medical History Obesity (BMI 30-39.9) Colon cancer screening Oropharyngeal dysphagia Gastritis History of anoxic brain injury Epididymal cyst Hematuria Anxiety Obstructive sleep apnea Vitamin B12 deficiency Vitamin D deficiency Lumbar degenerative disc disease Asthma Pure hypercholesterolemia Migraine Cardiac arrhythmia Type 2 diabetes mellitus without complication, with no history of insulin use Benign essential hypertension Surgical History H/O bilateral inguinal hernia repair H/O hernia repair History of esophagogastroduodenoscopy (EGD) Hx of colonoscopy History of extraction of renal calculus History of repair of rotator cuff Family History Father No problems noted. Mother Hypertension Cancer Sister Cancer Social History Household Members: Significant Other Housing: House Alcohol intake: never Patient Tobacco Use Status: Never used Tobacco e-Cigarette/Vaping Use: Never Used Second Hand Smoke Exposure: No service: No Current occupational status: disabled Cognitive needs: No Hearing needs: No Vision needs: No Questionnaire PHQ-9 Over the last 2 weeks, how often have you been bothered by any of the following problems? 1. Little interest or pleasure in doing things: several days 2. Feeling down, depressed, or hopeless: not at all 3. Trouble falling or staying asleep, or sleeping too much: nearly every day 4. Feeling tired or having little energy: nearly every day 5. Poor appetite or overeating: more than half the days 6. Feeling bad about yourself - or that you are a failure or have let yourself or your family down: not at all 7. Trouble concentrating on things, such as reading the newspaper or watching television: not at all 8. Moving or speaking so slowly that other people could have noticed. Or the opposite - being so fidgety or restless that you have been moving around a lot more than usual: more than half the days 9. Thoughts that you would be better off or of hurting yourself in some way: not at all Total score: 11 Depression Screening Interpretation: Positive Depression Screening Follow-up: Existing condition and In treatment Depression Screening Done: Yes 92963 - PHQ-9 Billing: Yes Source: Developed by Drs. Phil Medina, Leigh Ann, Daniel Ruelas and colleagues, with an educational marcin from [employer] Thrive Questionnaire Date Thrive assessed: 01/19/25 I am a: Patient What is your living situation today?: I have a steady place to live Within the past 12 months, did the food you bought not last and you didn't have the money to get more?: Never true Within the past 12 months, did you worry whether your food would run out before you got money to buy more?: Never true Do you have trouble paying for medicines?: No Do you have trouble getting transportation to medical appointments?: No Do you have trouble paying your heating and electricity bill?: No Do you have trouble taking care of your child, family member or friend?: No Do you have trouble with day-to-day activities such as bathing, preparing meals, shopping, managing finances, etc.?: No Are you currently unemployed and looking for a job?: No Are you interested in more education?: No Please select the resources that you would like help with: None Currently or been in a relationship where the following occur: No concerns reported THRIVE Score: 0 AUDIT C Alcohol Use Questionnaire (AUDIT-C) 1. How often do you have a drink containing alcohol?: Never 3. How often do you have six or more drinks on one occasion?: Never Total Score: 0 Score Reviewed/Action Taken: Yes DEVANTE-7 AMB Questionnaire DEVANTE-7 Date DEVANTE - 7 assessed: 01/19/25 Feeling nervous, anxious, or on edge: 0 = Not at all Not being able to stop or control worryin = Not at all Worrying too much about different things: 0 = Not at all Trouble relaxin = Not at all Being so restless that it is hard to sit still: 0 = Not at all Becoming easily annoyed or irritable: 0 = Not at all Feeling afraid as if something awful might happen: 0 = Not at all Total DEVANTE-7 score (0-4 normal; 5-9 mild; 10-14 moderate; 15-21 severe): 0 Source: Developed by Drs. Phil Medina, Leigh Ann, Daniel Ruelas and colleagues, with an educational marcin from [employer] Review of Systems Const Denies chills, Denies fatigue, Denies fever(s) and Denies headache(s) ENT Denies dizziness, Denies otalgia, Denies headache(s), Denies neck pain, Denies odynophagia and Denies sore throat Card Denies chest pain, Denies palpitations and Denies dyspnea Resp Denies chest congestion, Denies cough and Denies dyspnea GI Denies abdominal pain, Denies constipation, Denies heartburn, Denies diarrhea, Denies nausea, Denies odynophagia and Denies vomiting Denies difficulty urinating, Denies nocturia and Denies urinary frequency Musc Reports abnormal gait (unsteady gait), Reports back pain (over the lower back - chronic ), Reports arthralgias (over both knees; on and off in the right elbow) and Denies neck pain Skin/Breast Denies rash Neuro Reports abnormal gait (unsteady gait), Denies dizziness and Denies headache(s) Endo Denies fatigue and Denies palpitations Physical exam (Primary Care) Vital Signs: Last Vital Signs Pulse 96 01/19/25 09:04 BP 106/80 01/19/25 09:04 Pulse Ox 96 01/19/25 09:04 Oxygen Delivery Method Room Air 01/19/25 09:04 BMI result Body Mass Index 31.7 Tobacco/Smoking Status: Tobacco use Status Tobacco use date assessed 01/19/25 01/19/25 09:07 Patient Tobacco Use Status Never used Tobacco 01/19/25 09:07 e-Cigarette/Vaping Use Never Used 01/19/25 09:07 PHQ-9: PHQ-9 Score PHQ-9: Total score 11 01/19/25 09:07 Depression Screening Interpretation: Positive Depression Screening Follow-up: Existing condition and In treatment Thrive Assessment: Date of Thrive Assessment Date Thrive assessed 01/19/25 01/19/25 09:07 Currently or been in a relationship where the following occur: No concerns reported Const General: no acute distress and alert HENMT Ears: TM's normal bilaterally and EAC's normal Throat: Yes posterior oropharynx normal and Yes tonsils normal Neck Neck: Yes supple and No lymphadenopathy Thyroid: Thyroid normal Resp Auscultation: clear to auscultation bilaterally, no rales and no wheezes Cardio Rate: regular rate Rhythm: regular rhythm Heart sounds: no murmurs GI Palpation (GI): Soft to palpation and nontender Auscultation: normal bowel sounds General: Yes no CVA tenderness Back/Spine/Pelvis Back: no CVA tenderness Thoracic/Lumbar Spine: lumbar spinal tenderness Skin Rashes: no rashes Extrem General: Yes no clubbing, cyanosis or edema Left upper extremity: elbow/forearm Details: tenderness; no swelling Right lower extremity: knee Details: tenderness Left lower extremity: knee Details: tenderness Results Reviewed Results Reviewed: Laboratory Tests 01/11/25 01/11/25 09:00 09:13 WBC 5.2 Hgb 14.3 Hct 42.8 Plt Count 218 Sodium 136 Potassium 4.6 D Creatinine 1.37 Estimated GFR 55 Fasting Glucose 393 H* Hemoglobin A1c % 9.9 H Calcium 9.0 AST 31 ALT 46 H Triglycerides 137 Cholesterol 145 LDL Cholesterol, Calc 79 HDL Cholesterol 39 L 25-OH Vitamin D Total 22.9 L TSH 0.60 Ur Specific [place] >= 1.030 H Urine Protein Negative Urine Glucose (UA) >=1000 H Urine Blood Small (1+) H Urine Nitrite Negative Ur Leukocyte Esterase Negative Microalb/Creat Ratio 10.8 Coding Level of Care Code Est Pt Level 4 (90166) Complex EM visit Add On G2211 Diagnoses Type 2 diabetes mellitus without complication, with no history of insulin use E11.9 Pure hypercholesterolemia E78.00 Benign essential hypertension I10 Moderate persistent asthma without complication J45.40 Asthma severity: moderate Asthma persistence: persistent Asthma complication type: uncomplicated Migraine without status migrainosus, not intractable, unspecified migraine type G43.909 Migraine type: unspecified Status migrainosus presence: without status migrainosus Intractability: not intractable Degeneration of intervertebral disc of lumbar region with discogenic back pain M51.360 Disc-related pain type: discogenic back pain only Obstructive sleep apnea G47.33 Vitamin D deficiency E55.9 Anxiety F41.9 Obesity (BMI 30.0-34.9) E66.9 Additional Codes PHQ-9 - 85619 - PHQ-9 Billing: Yes ([id number]) Assessment & Plan Assessment & Plan (1) Type 2 diabetes mellitus without complication, with no history of insulin use: Code(s): E11.9 - Type 2 diabetes mellitus without complications Category: Medical Plan: His HgbA1c went up abruptly to 9.9% on his labs done last week (was previously at 7.0% a few months ago) - goal is < 6.5% Reinforced diabetic diet Patient states that he has been taking all of his medications as prescribed and has not really changed his diet lately Continue?Pioglitazone?15 mg QD and Trulicity 0.75 mg SQ once a week; patient also takes Acarbose 25 mg TID Will send him to the lab today to check his C-peptide level and DEVANTE Ab - explained to patient that if he is doing everything the same as before and taking all of his meds as previously prescribed, then it is possible that he may be transitioning into becoming an insulin-dependent diabetic and may now require to be started on insulin Advised that the labs he will get done now may help answer that question We will have him continue on all of his current labs in the meantime and start him additionally on Basaglar 10 units Q HS He used to see endocrinology but states that he has not been back to see them in about 3 years as he was reportedly advised that since his diabetes is well-contr olled, he can just follow up with his PCP and see endocrinology only when needed BUT as his diabetes now appears to be getting abruptly out of control again, is requesting to be referred back to endocrinology - referral placed Rx for new glucometer, lancets and test strips sent to his local pharmacy as well today (2) Pure hypercholesterolemia: Code(s): E78.00 - Pure hypercholesterolemia, unspecified Category: Medical Plan: Results of his labs done last week reviewed and discussed with patient - his cholesterol numbers remain well-controlled Reinforced low cholesterol diet Continue Atorvastatin 40 mg QD Will recheck his labs and fasting lipids in 3 months for follow-up (3) Benign essential hypertension: Code(s): I10 - Essential (primary) hypertension Category: Medical Plan: Reinforced low-sodium diet -? goal is systolic BP of at least 120 to 130 mm or less Continue Lisinopril 10 mg QD (4) Asthma: Code(s): J45.909 - Unspecified asthma, uncomplicated Category: Medical Qualifiers: Asthma severity: moderate Asthma persistence: persistent Asthma complication type: uncomplicated Qualified Code(s): J45.40 - Moderate persistent asthma, uncomplicated Plan: Stable/controlled He was doing well on Flovent HFA 220 mcg BID and ProAir HFA 2 puffs 4 times a day as needed for years but is unable to get Flovent HFA nowadays due to unavailability of the Rx and he was switched out He is now on Asmanex 200 mcg 1 inhalation BID instead and patient states that he has been doing well on his new inhaler without any significant issues Patient also uses his nebulizer with Albuterol nebulizer solution 3 to 4 times a day when needed (5) Migraine: Code(s): G43.909 - Migraine, unspecified, not intractable, without status migrainosus Category: Medical Qualifiers: Migraine type: unspecified Status migrainosus presence: without status migrainosus Intractability: not intractable Qualified Code(s): G43.909 - Migraine, unspecified, not intractable, without status migrainosus Plan: Stable/controlled on prophylactic Tx with Topiramate 100 mg Q HS Follow up with neurology as scheduled (6) Lumbar degenerative disc disease: Code(s): M51.36 - Other intervertebral disc degeneration, lumbar region Category: Medical Qualifiers: Disc-related pain type: discogenic back pain only Qualified Code(s): M51.360 - Other intervertebral disc degeneration, lumbar region with discogenic back pain only Plan: Repeat lumbar spine x-rays done last year revealed (+) mild spondylosis of the lumbar spine with no acute changes Reinforced activity and weight lifting restrictions Continue Tramadol 50 mg TID PRN and Naproxen 500 mg BID with food as needed for pain (7) Obstructive sleep apnea: Code(s): G47.33 - Obstructive sleep apnea (adult) (pediatric) Category: Medical Plan: Home sleep study done in 2022 revealed (+) mild CAMELIA He was advised back then that he does not need CPAP and should try to lose some weight and avoid sleeping on his side Follow up with Sleep Medicine as scheduled or as needed (8) Vitamin D deficiency: Code(s): E55.9 - Vitamin D deficiency, unspecified Category: Medical Plan: Continue Vitamin D3 2000 units QD (9) Anxiety: Code(s): F41.9 - Anxiety disorder, unspecified Category: Medical Plan: Continue Alprazolam 1 mt TID PRN (10) Obesity (BMI 30.0-34.9): Code(s): E66.9 - Obesity, unspecified Category: Medical Plan: Reinforced diet/exercise as tolerated/lose weight Plan Follow up in 3 months Orders: Orders C Peptide Today E11.9 - Type 2 diabetes mellitus without complications Complete Blood Count Auto Diff 3 Months D64.9 - Anemia, unspecified Hemoglobin A1c 3 Months E11.9 - Type 2 diabetes mellitus without complications TSH reflex Free T4 3 Months E78.00 - Pure hypercholesterolemia, unspecified Vitamin D 25-OH Total 3 Months E55.9 - Vitamin D deficiency, unspecified Glutamic acid decarboxylase Ab Today E11.9 - Type 2 diabetes mellitus without complications Comprehensive [place]. Panel Fast 3 Months E78.00 - Pure hypercholesterolemia, unspecified Lipid Panel 3 Months E78.00 - Pure hypercholesterolemia, unspecified Microalbumin, Random (w Creat) 3 Months E11.9 - Type 2 diabetes mellitus without complications UA CC w/rflx Micro + Cult 3 Months R30.0 - Dysuria Referrals Endocrinology Referral E11.9 - Type 2 diabetes mellitus without complications Medications: New Basaglar KwJeffery U-100 Insulin (insulin glargine) 10 units (0.1 mL) subcut QPM 15 mL 2RF NS E11.9 - Type 2 diabetes mellitus without complications 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 meter (FreeStyle Lite Meter kit) As directed 1 ea 0RF E11.9 - Type 2 diabetes mellitus without complications blood sugar diagnostic (FreeStyle Test strips) As directed once a day 100 ea 12RF E11.9 - Type 2 diabetes mellitus without complications lancets (FreeStyle Lancets) As directed once a day 100 ea 12RF E11.9 - Type 2 diabetes mellitus without complications pen needle, diabetic (BD Ultra-Fine Melissa Pen Needle) As directed once a day 100 ea 5RF E11.9 - Type 2 diabetes mellitus without complications Refilled lisinopril 10 mg PO DAILY 90 days 90 tabs 1RF atorvastatin 40 mg PO BEDTIME 90 days 90 tabs 1RF E78.00 - Pure hypercholesterolemia, unspecified
== END 2025-01-19 10:08 | disposition home or self-care (01) ==
PROVIDERS: PCP Internal Medicine; Visit Provider Internal Medicine
DX: E11.9 Type 2 diabetes mellitus without complications (principal); E78.00 Pure hypercholesterolemia, unspecified; E66.9 Obesity, unspecified; Z68.31 Body mass index [BMI] 31.0-31.9, adult; I10 Essential (primary) hypertension; J45.40 Moderate persistent asthma, uncomplicated; G43.909 Migraine, unspecified, not intractable, without status migrainosus; M51.360 Other intervertebral disc degeneration, lumbar region with discogenic back pain only; F41.9 Anxiety disorder, unspecified; G47.33 Obstructive sleep apnea (adult) (pediatric); E55.9 Vitamin D deficiency, unspecified

== ENCOUNTER 2025-01-24 08:13 | Outpatient (AMB) | payer MEDICARE, MEDICAID, SELFPAY ==
--- NOTE | 2025-01-24 08:07 | A.OFFVIS_ITS ---
Vital Signs 01/24/25 08:15 Height 5 ft 8 in Weight 212 lb 1.355 oz BMI 32.2 BP 114/62 Blood Pressure Location Rt brachial Position Sitting Pulse 89 Pulse Source Pulse Oximeter Pulse Oximetry (%) 98 Oxygen Delivery Method Room Air Intake Visit Reasons: Type 2 diabetes mellitus without complications Intake Note: NEW Patient presents today to establish treatment for Type 2 Diabetes Mellitus: Last Diabetic eye exam was on: 11/2024 Last Podiatry exam was on: Doesn't have one Most recent HbA1c: 9.9%, 01/11/2025 Random Glucose- 264 mg/dL, Today Veterinary Pharmacologist Required: No Accompanied by: Self / Same As Patient Allergies No Known Allergies [No Known Allergies*] Allergy (Verified 01/24/25 08:20) Medication List - Last Reconciled 01/24/25 by Veronica Fountain NP acarbose 25 mg PO TID 90 days albuterol sulfate 90 mcg/actuation (ProAir HFA) 2 puffs inhalation Q6H PRN 30 days albuterol sulfate 2.5 mg (3 mL) inhalation TID PRN alcohol swabs 1 pad topical DAILY 30 days alprazolam 1 mg PO TID PRN amitriptyline 25 mg PO BEDTIME Asmanex HFA 200 mcg/actuation (mometasone) 1 puff inhalation BID 30 days NS atorvastatin 40 mg PO BEDTIME 90 days Basaglar Moy U-100 Insulin (insulin glargine) 20 units (0.2 mL) subcut QPM 30 days NS blood sugar diagnostic (FreeStyle Test strips) As directed -once a day blood sugar diagnostic (FreeStyle Lite Strips) Twice a day 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 meter (FreeStyle Lite Meter kit) As directed cholecalciferol (vitamin D3) 25 mcg PO DAILY 90 days clonidine HCl 0.1 mg PO BEDTIME dicyclomine 20 mg PO QID 30 days lancets use as directed once a day lancets (FreeStyle Lancets) As directed- once a day lisinopril 10 mg PO DAILY 90 days meloxicam 15 mg PO DAILY metoclopramide HCl (Reglan) 10 mg PO QIDACHS 30 days [NEBULIZER and all related supplies As directed] pantoprazole (Protonix) 40 mg PO BID pen needle, diabetic (BD Ultra-Fine Melissa Pen Needle) As directed once a day primidone 50 mg PO BID simethicone 180 mg PO QID 30 days tirzepatide (Mounjaro) 2.5 mg (0.5 mL) subcut QWEEK 4 weeks topiramate 100 mg PO BEDTIME 90 days tramadol 50 mg PO TID PRN 30 days HPI Comments Details: 54 YO male who is seen in consultation for T2DM at the request of PCP. He was followed by endocrinology at [facility] up until 2020. Initially diagnosed with T2DM in 2019, pre diabetes since 2010 Was initially started on treatment with metformin. Acarbose caused bloating, Metformin diarrhea Patient was having reactive hypoglycemia in the past and a workup for insulin induced hypoglycemia was normal per notation of Dr. Castillo's last note. Current regimen: Basaglar 10 units just started takes at 6pm Pioglitazone 15 mg daily Never took Trulicity 0.75 weekly stopped taking when he started insulin Checks sugars to times per day. Range: 233-390. Reports low sugars never. Family history of T2DM in none Denies retinopathy: Has eyes checked yearly, last eye exam Denies neuropathy, last foot exam today in the office, does not see podiatry. Has nephropathy:on JESSICA inhibitor microalbumin 01/11/2025 13.0 EGFR 55 Has HLD, on statin. Last LDL 79 as measured on 01/11/2025. Denies CAD. Diet: Follows a balanced diet. Eats rice just once monthly Weight: Has been stable Has not had diabetes diabetes education. [facility] Medical History Obesity (BMI 30-39.9) Colon cancer screening Oropharyngeal dysphagia Gastritis History of anoxic brain injury Epididymal cyst Hematuria Anxiety Obstructive sleep apnea Vitamin B12 deficiency Vitamin D deficiency Lumbar degenerative disc disease Asthma Pure hypercholesterolemia Migraine Cardiac arrhythmia Type 2 diabetes mellitus without complication, with no history of insulin use Benign essential hypertension Surgical History H/O bilateral inguinal hernia repair H/O hernia repair History of esophagogastroduodenoscopy (EGD) Hx of colonoscopy History of extraction of renal calculus History of repair of rotator cuff Family History Father No problems noted. Mother Hypertension Cancer Sister Cancer Social History Household Members: Significant Other Housing: House Alcohol intake: never Patient Tobacco Use Status: Never used Tobacco e-Cigarette/Vaping Use: Never Used Second Hand Smoke Exposure: No service: No Current occupational status: disabled Cognitive needs: No Hearing needs: No Vision needs: No Physical Exam Vital Signs: Last Vital Signs Pulse 89 01/24/25 08:15 BP 114/62 01/24/25 08:15 Pulse Ox 98 01/24/25 08:15 Oxygen Delivery Method Room Air 01/24/25 08:15 BMI result Body Mass Index 32.2 Absence of Cushingoid features. Absence of acromegalic features. Neck exam reveals nl size thyroid about 15 gms. No thyroid nodules palpable. No carotid bruits present. Lungs CTA. Heart S1 S2, Reg R/R. No M/R/ G. Skin exam reveals absence of vitiligo or acanthosis nigricans. Abdominal exam reveals Soft NT/ND with NA BS. No organomegaly present. Const Other: Absence of Cushingoid features. Absence of acromegalic features. Neck exam reveals nl size thyroid about 15 gms. No thyroid nodules palpable. No carotid bruits present. Lungs CTA. Heart S1 S2, Reg R/R. No M/R G. Skin exam reveals absence of vitiligo or acanthosis nigricans. No edema Visual exam of foot performed. No ulcerations or open lesions. No inter digit maceration or fissuring. No onychomycosis, no callouses. Sensation absent to right foot, normal to left monofilament exam. Vibratory sensation is normal with 128 Hz tuning fork. Neck Other: . Extrem Other: Visual exam of foot performed. No ulcerations or open lesions. No onchomycosis, no callouses.Pulses 2 + distally Sensation intact to monofilament exam. Vibratory sensation sensed is intact with 128 Hz tuning fork Results Reviewed Results Reviewed: Laboratory Last Values Glucose (Clinic) 264 mg/dL (60-115) H 01/24/25 08:22 Assessment & Plan Assessment & Plan (1) Type 2 diabetes mellitus without complication, with no history of insulin use: Code(s): E11.9 - Type 2 diabetes mellitus without complications Category: Medical Plan: 54-year-old type 2 diabetic with nephropathy with most recent A1c of 9.9%. He has history of anoxic brain injury as an infant. He appeared to understand all instructions today and was able to repeat information given. He was advised on correct insulin administration and he will start priming each dose was 2 units. Is currently rotating sites. Increase Basaglar to 20 units will trial low-dose Mounjaro 2.5 we will need to watch for any increase in GERD He will meet with Mikayla Nolasco CDE and Merissa Owens RD. Insulin can be adjusted upward as needed with appt. Back in 4 weeks and if needed we will start a mealtime insulin for at least 1 of his meals. The patient had an opportunity to ask questions regarding treatment plan. The patient expressed understanding and agreement with the above treatment plan. Written handouts given non low and high blood sugar and was advised to carry a source of sugar with him at all times. The patient is aware they should contact our office by phone for worsening glucose readings or for any low blood sugars which may warrant a change in benigno betes medication. Compliance is encouraged with medications and any followup testing/consults which may have been ordered. Orders: Referrals [facility] Nutrition Referral E11.9 - Type 2 diabetes mellitus without complications Diabetes Education Referral E11.9 - Type 2 diabetes mellitus without complications Medications: New tirzepatide (Mounjaro) 2.5 mg (0.5 mL) subcut QWEEK 4 weeks 2 mL 3RF Changed From Basaglar KwikPen U-100 Insulin (insulin glargine) 10 units (0.1 mL) subcut QPM 15 mL 2RF NS E11.9 - Type 2 diabetes mellitus without complications To Basaglar KwikPen U-100 Insulin (insulin glargine) 20 units (0.2 mL) subcut QPM 30 days 9 mL 6RF NS E11.9 - Type 2 diabetes mellitus without complications Discontinued pioglitazone Discontinued Reason: No Longer Medically Relevant 15 mg PO DAILY 90 days 90 tabs 1RF E11.9 - Type 2 diabetes mellitus without complications Patient Instructions: Take 15 carb carbohydrate grams to treat a low sugar (3-4 glucose tablets, half a glass of juice or 15 carbohydrate grams of soft candy such as gummie snacks). Recheck your sugar in 15 minutes and re-treat again with 15 carbohydrate grams if low or still with symptoms. Do not drive a car or operate machinery if you do not know what your blood sugar is, if it is low or in excess of 300. Visual exam of foot performed. No ulcerations or open lesions. No inter digit maceration or fissuring. No onychomycosis, no callouses. Sensation intact to monofilament exam. Vibratory sensation is normal with 128 Hz tuning fork. The patient was counseled to achieve a target A1C of 7% (154 avg). Fasting blood sugars should be 90-130 in the morning and less than 180 two hours after meals. Reviewed the relationship between poor diabetic control and the development of complications. Coding Level of Care Code Est Pt Level 5 (28437) Complex EM visit Add On G2211 Diagnoses Type 2 diabetes mellitus without complication, with no history of insulin use E11.9 Time Spent (min) 60 Comment Time spent reviewing labs/provider notes, face to face, chart doc
[2025-01-24 08:15] VITALS: BP 114/62; PULSE 89; O2SAT 98; BMI 32.2
[2025-01-24 08:26] LABS: Glucose, Whole Blood 264 mg/dL (60-115)
== END 2025-01-24 09:06 | disposition home or self-care (01) ==
PROVIDERS: PCP Internal Medicine; Visit Provider Nurse Practitioner Adult Health
DX: E11.9 Type 2 diabetes mellitus without complications (principal)
CPT/HCPCS: 99215; G2211

== ENCOUNTER → 2025-01-24 08:13 | Outpatient (BNVA) | payer MEDICARE, MEDICAID, SELFPAY | PROVIDERS: PCP Internal Medicine; Visit Provider Nurse Practitioner Adult Health | DX: E11.9 Type 2 diabetes mellitus without complications (principal); Z79.84 Long term (current) use of oral hypoglycemic drugs | CPT/HCPCS: 82947; 99212 ==

== ENCOUNTER 2025-02-01 07:58 | Outpatient (AMB) | payer MEDICARE, MEDICAID, SELFPAY ==
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
== END 2025-02-01 08:39 | disposition home or self-care (01) ==
PROVIDERS: PCP Internal Medicine; Visit Provider Registered Nurse Diabetes Educator
DX: E11.9 Type 2 diabetes mellitus without complications (principal)

== ENCOUNTER → 2025-02-01 07:58 | Outpatient (BNVA) | payer MEDICARE, MEDICAID, SELFPAY | PROVIDERS: PCP Internal Medicine; Visit Provider Registered Nurse Diabetes Educator | DX: E11.9 Type 2 diabetes mellitus without complications (principal) | CPT/HCPCS: 99211 ==

== ENCOUNTER 2025-02-14 09:26 | Outpatient (AMB) | payer MEDICARE, MEDICAID, SELFPAY ==
--- NOTE | 2025-02-14 09:39 | A.OFFVIS_ITS ---
VS Expanded 02/14/25 09:40 02/22/25 10:45 Height 5 ft 8 in 5 ft 8 in Weight 200 lb 13.458 oz 201 lb BMI 30.5 30.6 Intake Visit Reasons: T2DM Allergies No Known Allergies [No Known Allergies*] Allergy (Verified 02/21/25 08:31) Nutrition Presentation Details: Pt presents for MNT for T2DM Pt has hx of delayed gastric emptying Pt reports starting to reduce to no sugar beverages and trying low sugar pastries typical meal: B: Breakfast raisin bran with 1% milk L: rice/chicken or burger with bun, no fries, diet soda D; dinner: rice/beans, baked chicken, water or diet coke walking dog 10 minutes 3 times/d etoh/smoking:denies food frequency fruits: 0-1/d ve/d dairy: 2-3 c/d starches > 25 servings fish: 0-1x/wk reports having increased appetite for sweets and working on reducing frquency, reading labels BS Monitoring Most Recent Diabetes Results: Microalb/Creat Ratio 10.8 ug/mg cr (<30) 01/11/25 Cholesterol 145 mg/dL (<200) 01/11/25 HDL Cholesterol 39 mg/dL (>40) L 01/11/25 Triglycerides 137 mg/dL (<150) 01/11/25 Creatinine 1.37 mg/dL (0.5-1.4) 01/11/25 Blood Urea Nitrogen 16 mg/dL (9-16) 01/11/25 Sodium 136 mmol/L (135-145) 01/11/25 Potassium 4.6 mmol/L (3.3-5.1) 01/11/25 Chloride 107 mmol/L (96-108) 01/11/25 Carbon Dioxide 22 mmol/L (22-29) 01/11/25 Calcium 9.0 mg/dL (8.4-10.2) 01/11/25 AST 31 U/L (5-37) 01/11/25 ALT 46 U/L (0-40) H 01/11/25 Total Protein 7.8 g/dL (6.5-8.0) 01/11/25 Albumin 4.4 g/dL (3.5-5.0) 01/11/25 X[facility]Jeor Equation Height: 5 ft 8 in Weight: 201 lb Resting Metabolic Rate: 1734.55 Calculated Activity Level: Mild Activity Calories Needed to Maintain Weight: 2385.01 Diagnosis Nutrition problem #1: excessive energy intake As related to (etiology) #1: diagnosis As evidenced by (sign/symptom) #1: abnormal lab values ON LICENSE OF [facility] Medical History Obesity (BMI 30-39.9) Colon cancer screening Oropharyngeal dysphagia Gastritis History of anoxic brain injury Epididymal cyst Hematuria Anxiety Obstructive sleep apnea Vitamin B12 deficiency Vitamin D deficiency Lumbar degenerative disc disease Asthma Pure hypercholesterolemia Migraine Cardiac arrhythmia Type 2 diabetes mellitus without complication, with no history of insulin use Benign essential hypertension Surgical History H/O bilateral inguinal hernia repair H/O hernia repair History of esophagogastroduodenoscopy (EGD) Hx of colonoscopy History of extraction of renal calculus History of repair of rotator cuff Family History Father No problems noted. Mother Hypertension Cancer Sister Cancer Social History Household Members: Significant Other Housing: House Alcohol intake: never Patient Tobacco Use Status: Never used Tobacco e-Cigarette/Vaping Use: Never Used Second Hand Smoke Exposure: No service: No Current occupational status: disabled Cognitive needs: No Hearing needs: No Vision needs: No Assessment & Plan Assessment & Plan (1) Obesity (BMI 30.0-34.9): Code(s): E66.9 - Obesity, unspecified Category: Medical Plan: Wt: 91 Kg ( 02/21 ) Est kcal needs as per MSJ: 2400 (40% carb, 30% protein/fat) Est fluid needs as per 25-30 ml/d: 2700 Est prot per day as per 1 g/kg bw: 91 Recommend fiber intake : 8-10 g per day and gradually increase to 25-28 g per day for women and 35-38 g for men or as tolerated Recommend sodium intake per day : less than 2300 mg Educated patient on: ( R = reviewed V = verbalizes understanding N/R = needs review N/A = not applicable * Food sources of carbohydrate, adequate serving sizes and its role in various health conditions: R * Differences between complex carbohydrates a simple carbohydrates, role of fiber in diet: R * Lean protein sources of foods: R V NR * Differences between types of fats and role in diet (mono on saturated fat fatty acids, saturated fatty acids, trans fats): R V N/R * Food sources of sodium in salt and healthy modifications for heart health in kidney health: R V R/V * Vitamins and minerals: R V N/R * Healthy plate method concept: R * Physical activity: Benefits a precaution: R V N/R * Hypoglycemia protocol (rule of 15): R V N/R * Dietary prevention of Hyperglycemia: R Patient Instructions: have yogurt with fruit added as snack Follow health yplate method at dinner (reduce portion of starch at dinner to 1 1/2 cup serving) Coding Level of Care Code Nutr Indiv Intake (49998) Diagnoses Obesity (BMI 30.0-34.9) E66.9 Time Spent (min) 30
[2025-02-14 09:40] VITALS: BMI 30.5
[2025-02-22 10:45] VITALS: BMI 30.6
== END 2025-02-14 10:08 | disposition home or self-care (01) ==
LOC: HO.ENCR 09:27
PROVIDERS: PCP Internal Medicine; Visit Provider Dietitian, Registered
DX: E66.9 Obesity, unspecified (principal)

== ENCOUNTER → 2025-02-14 09:26 | Outpatient (BNVA) | payer MEDICARE, MEDICAID, SELFPAY | PROVIDERS: PCP Internal Medicine; Visit Provider Dietitian, Registered | DX: E11.9 Type 2 diabetes mellitus without complications (principal); E66.9 Obesity, unspecified; Z68.30 Body mass index [BMI] 30.0-30.9, adult; Z71.3 Dietary counseling and surveillance | CPT/HCPCS: 97802 ==

== ENCOUNTER 2025-02-21 08:25 | Outpatient (AMB) | payer MEDICARE, MEDICAID, SELFPAY ==
--- NOTE | 2025-02-21 07:43 | MHC.OFFVIS ---
Vital Signs 02/21/25 08:30 Height 5 ft 8 in Weight 200 lb 9.93 oz BMI 30.5 BP 120/80 Blood Pressure Location Rt brachial Position Sitting Pulse 89 Pulse Source Pulse Oximeter Intake Visit Reasons: T2DM Intake Note: Patient presents today for a follow-up on Type 2 Diabetes Mellitus: Last Diabetic eye exam was on: 11/2024 Last Podiatry exam was on: Patient does not see a Screen Printing Stencil Preparer Most recent HbA1c: 9.9%, 01/11/2025 Random Glucose- 140 mg/dL, Today Engagement Engineer Required: No Accompanied by: Self / Same As Patient Allergies No Known Allergies [No Known Allergies*] Allergy (Verified 02/21/25 08:31) HPI Comments Details: 54 YO male who is seen in f/u for T2DM. He was last seen one month ago at which time Mounjaro was prescribed and he was referred to Mikayla MELO and has had 1 visit with the an additional visit scheduled He was followed by endocrinology at [facility] up until 2020. He has a history of anoxic brain injury as an . Has good recall of the medications he is taking. Initially diagnosed with T2DM in 2019, pre diabetes since 2009 Was initially started on treatment with metformin. Acarbose caused bloating, Metformin diarrhea Patient was having reactive hypoglycemia in the past and a workup for insulin induced hypoglycemia was normal per notation of Dr. Castillo's last note. Current regimen: acarbose 25mg tid Basaglar 10 units he takes if glucose over 200 (takes about once weekly) Mounjaro 2.5mg weekly He is starting this today He will be receiving [employer] Jazmine 3+ sensors in the mail today and we will return for training. He has seen Merissa Owens RD in his doing much better on maintaining balanced meals and avoidance of high concentrated sweets. Checks sugars 1-2 times per day. Meter average is 155 with no lows. Reports low sugars rare. He carries glucose gel. Family history of T2DM in mother Denies retinopathy: Has eyes checked yearly Denies neuropathy. Symptoms: No numbness, tingling pain or cramping. last foot exam today in the office, does not see podiatry. Has nephropathy:on JESSICA inhibitor microalbumin 01/11/2025 13.0 EGFR 55 Has HLD, on statin. Last LDL 79 as measured on 01/11/2025. Denies CAD. Diet: Follows a balanced diet. Eats rice just once monthly Weight: Has been stable Has had recent RD and CDE visit [facility] Medical History Obesity (BMI 30-39.9) Colon cancer screening Oropharyngeal dysphagia Gastritis History of anoxic brain injury Epididymal cyst Hematuria Anxiety Obstructive sleep apnea Vitamin B12 deficiency Vitamin D deficiency Lumbar degenerative disc disease Asthma Pure hypercholesterolemia Migraine Cardiac arrhythmia Type 2 diabetes mellitus without complication, with no history of insulin use Benign essential hypertension Surgical History H/O bilateral inguinal hernia repair H/O hernia repair History of esophagogastroduodenoscopy (EGD) Hx of colonoscopy History of extraction of renal calculus History of repair of rotator cuff Family History Father No problems noted. Mother Hypertension Cancer Sister Cancer Social History Household Members: Significant Other Housing: House Alcohol intake: never Patient Tobacco Use Status: Never used Tobacco e-Cigarette/Vaping Use: Never Used Second Hand Smoke Exposure: No service: No Current occupational status: disabled Cognitive needs: No Hearing needs: No Vision needs: No Physical Exam Vital Signs: Last Vital Signs Pulse 89 02/21/25 08:30 BP 120/80 02/21/25 08:30 BMI result Body Mass Index 30.5 Office Procedures Glucose Monitoring Details 95565 - Continuous Glucose Monitoring, patient provides equipment Procedure code (CPT) selection complete Results Reviewed Results Reviewed: Laboratory Last Values Glucose (Clinic) 140 mg/dL (60-115) H 02/21/25 08:35 Assessment & Plan Assessment & Plan (1) Type 2 diabetes mellitus without complication, with no history of insulin use: Code(s): E11.9 - Type 2 diabetes mellitus without complications Category: Medical Plan: 54-year-old type 2 diabetic with nephropathy with most recent A1c of 9.9%. Has improving glycemic control and we will be starting on Mounjaro 2.5 mg and freestyle Jazmine 3 sensor. He has history of anoxic brain injury as an . He appeared to understand all instructions today and was able to repeat information given. The patient had an opportunity to ask questions regarding treatment plan. The patient expressed understanding and agreement with the above treatment plan. The patient is aware they should contact our office by phone for worsening glucose readings or for any low blood sugars which may warrant a change in diabetes medication. Compliance is encouraged with medications and any followup testing/consults which may have been ordered. Follow up with [facility] [employer] [facility] in 3 months (2) Vitamin D deficiency: Code(s): E55.9 - Vitamin D deficiency, unspecified Category: Medical Plan: Low vitamin-D on labs. 50 mcg daily prescribed Orders: Orders AMB Glucose Monitoring Today E11.9 - Type 2 diabetes mellitus without complications Medications: New ergocalciferol (vitamin D2) 50 mcg PO DAILY 3 months 90 caps 3RF Refilled acarbose 25 mg PO TID 90 days 270 tabs 1RF Discontinued cholecalciferol (vitamin D3) Discontinued Reason: Doctor's Order 25 mcg PO DAILY 90 days 90 caps 3RF E55.9 - Vitamin D deficiency, unspecified Patient Instructions: Take 15 carb carbohydrate grams to treat a low sugar (3-4 glucose tablets, half a glass of juice or 15 carbohydrate grams of soft candy such as gummie snacks). Recheck your sugar in 15 minutes and re-treat again with 15 carbohydrate grams if low or still with symptoms. Do not drive a car or operate machinery if you do not know what your blood sugar is, if it is low or in excess of 300. Check your feet daily looking for any signs of infection, drainage, redness, ulceration and seek medical attention if this occurs. Break in shoes gradually and do not wear open-toed shoes or walk stocking footed or barefooted. Coding Level of Care Code Est Pt Level 4 (15692) Complex EM visit Add On G2211 Diagnoses Type 2 diabetes mellitus without complication, with no history of insulin use E11.9 Vitamin D deficiency E55.9 CPT Codes Details - CPT: 28517 - Continuous Glucose Monitoring, patient provides equipment ([id number]) Time Spent (min) 30 Comment Time spent reviewing labs/provider notes, face to face, chart doc
[2025-02-21 08:30] VITALS: BP 120/80; PULSE 89; BMI 30.5
[2025-02-21 08:39] LABS: Glucose, Whole Blood 140 mg/dL (60-115)
== END 2025-02-21 08:50 | disposition home or self-care (01) ==
LOC: HO.ENCR 08:25
PROVIDERS: PCP Internal Medicine; Visit Provider Nurse Practitioner Adult Health
DX: E11.9 Type 2 diabetes mellitus without complications (principal); E55.9 Vitamin D deficiency, unspecified
CPT/HCPCS: 99214; G2211

== ENCOUNTER → 2025-02-21 08:25 | Outpatient (BNVA) | payer MEDICARE, MEDICAID, SELFPAY | PROVIDERS: PCP Internal Medicine; Visit Provider Nurse Practitioner Adult Health | DX: E11.9 Type 2 diabetes mellitus without complications (principal); E55.9 Vitamin D deficiency, unspecified; Z79.899 Other long term (current) drug therapy; Z79.84 Long term (current) use of oral hypoglycemic drugs | CPT/HCPCS: 82947; 95249; 99212 ==

== ENCOUNTER 2025-02-23 08:28 | Outpatient (AMB) | payer MEDICARE, MEDICAID, SELFPAY ==
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
== END 2025-02-23 09:15 | disposition home or self-care (01) ==
LOC: HO.ENCR 08:28
PROVIDERS: PCP Internal Medicine; Visit Provider Registered Nurse Diabetes Educator
DX: E11.9 Type 2 diabetes mellitus without complications (principal)

== ENCOUNTER → 2025-02-23 08:28 | Outpatient (BNVA) | payer MEDICARE, MEDICAID, SELFPAY | PROVIDERS: PCP Internal Medicine; Visit Provider Registered Nurse Diabetes Educator | DX: E11.9 Type 2 diabetes mellitus without complications (principal) | CPT/HCPCS: 99211 ==

== ENCOUNTER 2025-03-09 07:54 | Outpatient (AMB) | payer MEDICARE, MEDICAID, SELFPAY ==
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
== END 2025-03-09 08:17 | disposition home or self-care (01) ==
LOC: HO.ENCR 07:55
PROVIDERS: PCP Internal Medicine; Visit Provider Registered Nurse Diabetes Educator
DX: E11.9 Type 2 diabetes mellitus without complications (principal)

== ENCOUNTER → 2025-03-09 07:54 | Outpatient (BNVA) | payer MEDICARE, MEDICAID, SELFPAY | PROVIDERS: PCP Internal Medicine; Visit Provider Registered Nurse Diabetes Educator | DX: E11.9 Type 2 diabetes mellitus without complications (principal) | CPT/HCPCS: 99211 ==

== ENCOUNTER 2025-03-14 09:58 | Outpatient (AMB) | payer MEDICARE, MEDICAID, SELFPAY ==
[2025-03-14 10:14] VITALS: BP 98/67; PULSE 97; BMI 30.6
--- NOTE | 2025-03-14 10:14 | A.OFFVIS_ITS ---
Vital Signs 03/14/25 10:14 Height 5 ft 8 in Weight 201 lb BMI 30.6 BP 98/67 Blood Pressure Location Rt brachial Position Sitting Pulse 97 Intake Visit Reasons: 6 mnth follow up Intake Note: Patient in office today in 6 months follow up of GERD. CC: Patient c/o heartburn. Denies other GI symptoms today. [employer] Required: No Accompanied by: Self / Same As Patient Allergies No Known Allergies [No Known Allergies*] Allergy (Verified 03/14/25 10:21) HPI HPI 6 mnth follow up: Details: Assessment & Plan (1) Irritable bowel syndrome with both constipation and diarrhea: Code(s): K58.2 - Mixed irritable bowel syndrome Category: Medical (2) Fatigue: Code(s): R53.83 - Other fatigue Category: Medical (3) GERD (gastroesophageal reflux disease): Code(s): K21.9 - Gastro-esophageal reflux disease without esophagitis Category: Medical (4) Esophageal dysmotility: Code(s): K22.4 - Dyskinesia of esophagus Category: Medical (5) Tubular adenoma of colon: Comment: 02/2024= negative scope repeat in 5 years; 2021 scope neg but insufficient prep, repeat 1-2 years with 2 day prep aeb; 2018 scope equals 2 TA s Code(s): D12.6 - Benign neoplasm of colon, unspecified Category: Medical (6) Delayed gastric emptying: Code(s): K30 - Functional dyspepsia Category: Medical (7) Vitamin D deficiency: Code(s): E55.9 - Vitamin D deficiency, unspecified Category: Medical (8) Vitamin B12 deficiency: Code(s): E53.8 - Deficiency of other specified B group vitamins Category: Medical (9) Arthralgia: Code(s): M25.50 - Pain in unspecified joint Category: Medical Plan He continues on his Reglan 10 mg 4 times a day, dicyclomine, pantoprazole 40 mg twice a day and simethicone with good control of his GI conditions. He is satisfied now with his GI regimen. He continues to c/o fatigue and daytime somnolence. He wants me to order labs, his PCP ordered the most common to screen, I will add EBV, CRP, ESR, SUSSY, B 12 and folate. He says he sleeps well and does not snore. He also had a negative sleep study. For this if no pathology medication s/e are in the ddx since he is on amitriptyline, bentyl, high dose topamax, primidone etc. ROV 6mos Orders: Orders Red Blood Cell Folate Today E53.8 - Deficiency of other specified B group vitamins, E55.9 - Vitamin D deficiency, unspecified, M25.50 - Pain in unspecified joint, R53.83 - Other fatigue SUSSY Reflex Titer and Pattern Today E53.8 - Deficiency of other specified B group vitamins, E55.9 - Vitamin D deficiency, unspecified, M25.50 - Pain in unspecified joint, R53.83 - Other fatigue Creatine Kinase Total Today E53.8 - Deficiency of other specified B group vitamins, E55.9 - Vitamin D deficiency, unspecified, M25.50 - Pain in unspecified joint, R53.83 - Other fatigue C Reactive Protein Today E53.8 - Deficiency of other specified B group vitamins, E55.9 - Vitamin D deficiency, unspecified, M25.50 - Pain in unspecified joint, R53.83 - Other fatigue Erythrocyte Sedimentation Rate Today E53.8 - Deficiency of other specified B group vitamins, E55.9 - Vitamin D deficiency, unspecified, M25.50 - Pain in unspecified joint, R53.83 - Other fatigue Domo-Nielsen Virus Profile Today E53.8 - Deficiency of other specified B group vitamins, E55.9 - Vitamin D deficiency, unspecified, M25.50 - Pain in unspecified joint, R53.83 - Other fatigue Medications: Refilled metoclopramide HCl (Reglan) 10 mg PO QIDACHS 120 tabs 6RF 30 days K30 - Functional dyspepsia simethicone after meals 180 mg PO QID 120 caps 6RF 30 days dicyclomine 20 mg PO QID 120 tabs 6RF 30 days K58.2 - Mixed irritable bowel syndrome, R13.12 - Dysphagia, oropharyngeal phase pantoprazole (Protonix) 40 mg PO BID 60 tabs 6RF K21.9 - Gastro-esophageal reflux disease without esophagitis LABS: Laboratory Tests 09/26/24 08:31 ESR 11 SUSSY Screen NEGATIVE -[address] [facility] [address]: Nathan Mendoza MD ORDERED: EBV Test Result Flag Reference EBV-VCA IgG Ab 163.00 H U/mL U/mL Interpretation ---- <18.00 Negative 18.00-21.99 Equivocal >21.99 Positive EBV-VCA IgM Ab <36.00 U/mL U/mL Interpretation ---- <36.00 Negative 36.00-43.99 Equivocal >43.99 Positive EBV-NA IgG >600.00 H U/mL U/mL Interpretation ---- <18.00 Negative 18.00-21.99 Equivocal >21.99 Positive EBV-Interp SEE NOTE 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 CPK and folate was not obtained of unknown reason TODAY'S VISIT He is doing well on his GI regimen. He continues on his Reglan 10 mg 4 times a day, dicyclomine, pantoprazole 40 mg twice a day and simethicone His sleepiness has mostly resolved, ? r/t medication of his diabetes control. He now has a BG sensor! He is now on Mounjaro and a basal insulin and is doing better and is losing some weight r/t this and dieting. ROV 6 mos. [facility] Medical History Obesity (BMI 30-39.9) Colon cancer screening Oropharyngeal dysphagia Gastritis History of anoxic brain injury Epididymal cyst Hematuria Anxiety Obstructive sleep apnea Vitamin B12 deficiency Vitamin D deficiency Lumbar degenerative disc disease Asthma Pure hypercholesterolemia Migraine Cardiac arrhythmia Type 2 diabetes mellitus without complication, with no history of insulin use Benign essential hypertension Surgical History H/O bilateral inguinal hernia repair H/O hernia repair History of esophagogastroduodenoscopy (EGD) Hx of colonoscopy History of extraction of renal calculus History of repair of rotator cuff Family History Father No problems noted. Mother Hypertension Cancer Sister Cancer Social History Household Members: Significant Other Housing: House Alcohol intake: never Patient Tobacco Use Status: Never used Tobacco e-Cigarette/Vaping Use: Never Used Second Hand Smoke Exposure: No service: No Current occupational status: disabled Cognitive needs: No Hearing needs: No Vision needs: No Review of Systems Const Denies fatigue, Denies fever(s), Denies night sweats, Denies poor appetite and Reports weight loss (Medication and intentional dieting) ENT Reports Normal hearing present, Denies dental pain, Denies dysphagia, Denies hearing loss, Denies mouth pain, Denies odynophagia, Denies throat swelling, Denies tongue swelling and Reports other (Dentition adequate) Card Reports no additional complaints Resp Reports no additional complaints GI Details: Denies abdominal pain, Denies melena, Reports bloating, Denies hematochezia, Denies constipation, Denies GI cramping, Denies dysphagia, Denies excessive flatus, Reports early satiety, Reports heartburn, Denies diarrhea, Denies nausea, Denies odynophagia, Denies vomiting and Denies hematemesis Skin/Breast Denies pruritus, Denies lesions, Denies rash and Denies jaundice Neuro Reports Normal hearing present and Denies Abnormal speech present Endo Denies fatigue Aller/Immun Denies throat swelling and Denies tongue swelling Physical Exam Vital Signs: Last Vital Signs Pulse 97 03/14/25 10:14 BP 98/67 03/14/25 10:14 BMI result Body Mass Index 30.6 Const General: cooperative, no acute distress, well developed and well groomed Nutritional Appearance: well nourished and obese Orientation/consciousness: oriented to person, oriented to place and oriented to time Limitations: No language barrier HEENT Head: Yes normocephalic and Yes atraumatic Eyes General: appearance normal, both eyes and all related structures Pupils: Equal, round and reactive pupils present Neck Neck: Yes normal visual inspection and Yes no lymphadenopathy Thyroid: Thyroid normal Resp Effort & Inspection: normal respiratory effort and able to speak in complete sentences Auscultation: clear to auscultation bilaterally Cardio Rate: regular rate Rhythm: regular rhythm Heart sounds: Normal, physiologic split S2 sound present Peripheral pulses: radial pulses present and posterior tibial pulses present GI Inspection: No distended, No Abdominal panniculus present and Yes obesity Palpation (GI): Soft to palpation, nontender, no guarding, not rigid and No hepatosplenomegaly present Percussion: Yes normal to percussion Auscultation: normal bowel sounds Rectal Exam - Male: Yes deferred Skin General skin exam: no rashes or lesions noted, turgor normal, skin not dry, no jaundice, No spider nevi and no striae Rashes: no rashes Nails: normal Neuro General: oriented to person, oriented to place and oriented to time Cranial nerves: Yes Equal, round and reactive pupils present and Yes Normal hearing present Speech: No Abnormal speech present Extrem General: Yes normal to inspection, No clubbing, No cyanosis and No edema Psych Appearance: grossly normal and well kempt Mental Status: mental status grossly normal Speech and movement: Normal speech and movement present Affect: normal affect Attitude: cooperative Thought process: Normal thought process present and not confabulating Thought content: Normal thought content present Insight: Limited insight present (Psych) Judgement: Limited judgement present (Psych) Assessment & Plan Assessment & Plan (1) Delayed gastric emptying: Code(s): K30 - Functional dyspepsia Category: Medical (2) Abdominal bloating: Code(s): R14.0 - Abdominal distension (gaseous) Category: Medical (3) Irritable bowel syndrome with both constipation and diarrhea: Code(s): K58.2 - Mixed irritable bowel syndrome Category: Medical (4) GERD (gastroesophageal reflux disease): Code(s): K21.9 - Gastro-esophageal reflux disease without esophagitis Category: Medical (5) Esophageal dysmotility: Code(s): K22.4 - Dyskinesia of esophagus Category: Medical Plan He is doing well on his GI regimen. He continues on his Reglan 10 mg 4 times a day, dicyclomine, pantoprazole 40 mg twice a day and simethicone His sleepiness has mostly resolved, ? r/t medication of his diabetes control. He now has a BG sensor! He is now on Mounjaro and a basal insulin and is doing better and is losing some weight r/t this and dieting. ROV 6 mos. Medications: Refilled pantoprazole (Protonix) 40 mg PO BID 60 tabs 6RF K21.9 - Gastro-esophageal reflux disease without esophagitis simethicone after meals 180 mg PO QID 120 caps 6RF 30 days dicyclomine 20 mg PO QID 120 tabs 6RF 30 days K58.2 - Mixed irritable bowel syndrome, R13.12 - Dysphagia, oropharyngeal phase metoclopramide HCl (Reglan) 10 mg PO QIDACHS 120 tabs 6RF 30 days K30 - Functional dyspepsia Coding Level of Care Code Est Pt Level 3 (29354) Diagnoses Delayed gastric emptying K30 Abdominal bloating R14.0 Irritable bowel syndrome with both constipation and diarrhea K58.2 GERD (gastroesophageal reflux disease) K21.9 Esophageal dysmotility K22.4
== END 2025-03-14 10:57 | disposition home or self-care (01) ==
LOC: HO.HGI 09:58
PROVIDERS: PCP Internal Medicine; Visit Provider Nurse Practitioner
DX: K30 Functional dyspepsia (principal); R14.0 Abdominal distension (gaseous); K58.2 Mixed irritable bowel syndrome; K21.9 Gastro-esophageal reflux disease without esophagitis; K22.4 Dyskinesia of esophagus
CPT/HCPCS: 99213

== ENCOUNTER → 2025-03-14 09:58 | Outpatient (BNVA) | payer MEDICARE, MEDICAID, SELFPAY | PROVIDERS: PCP Internal Medicine; Visit Provider Nurse Practitioner | DX: K21.9 Gastro-esophageal reflux disease without esophagitis (principal); K58.2 Mixed irritable bowel syndrome; K30 Functional dyspepsia; K22.4 Dyskinesia of esophagus; R53.83 Other fatigue; D12.6 Benign neoplasm of colon, unspecified; E55.9 Vitamin D deficiency, unspecified; E53.8 Deficiency of other specified B group vitamins; M25.50 Pain in unspecified joint; R13.12 Dysphagia, oropharyngeal phase; R14.0 Abdominal distension (gaseous) | CPT/HCPCS: 99212 ==

== ENCOUNTER 2025-04-07 08:43 | Outpatient (AMB) | payer MEDICARE, MEDICAID, SELFPAY ==
[2025-04-07 08:46] VITALS: BP 100/60; PULSE 83; O2SAT 96; BMI 30.3
--- NOTE | 2025-04-07 08:46 | AM.OFFVISMDC ---
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 Required: No Accompanied by: Self / Same As Patient Allergies No Known Allergies [No Known Allergies*] Allergy (Verified 04/07/25 09:10) Medication List - Last Reconciled 04/07/25 by Nathan Mendoza MD albuterol sulfate 90 mcg/actuation (ProAir HFA) 2 puffs inhalation Q6H PRN 30 days albuterol sulfate 2.5 mg (3 mL) inhalation TID PRN alcohol swabs 1 pad topical DAILY 30 days alprazolam 1 mg PO TID PRN amitriptyline 25 mg PO BEDTIME Asmanex HFA 200 mcg/actuation (mometasone) 1 puff inhalation BID 30 days NS atorvastatin 40 mg PO BEDTIME 90 days Basaglar KwikPen U-100 Insulin (insulin glargine) 20 units (0.2 mL) subcut QPM 30 days NS blood sugar diagnostic (FreeStyle Lite Strips) Twice a day 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 meter (FreeStyle Lite Meter kit) As directed 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 sensor (FreeStyle Jazmine 3 Plus Sensor device) every 15 days clonidine HCl 0.1 mg PO BEDTIME dicyclomine 20 mg PO QID 30 days ergocalciferol (vitamin D2) 50 mcg PO DAILY 3 months FreeStyle Jazmine 3 [place] (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,sports medicine specialist,cont) As directed for use with freestyle Jazmine 3 sensors NS glucose 4 grams PO Q15M PRN lancets use as directed once a day lancets (FreeStyle Lancets) As directed- once a day lisinopril 10 mg PO DAILY 90 days meloxicam 15 mg PO DAILY metoclopramide HCl (Reglan) 10 mg PO QIDACHS 30 days [NEBULIZER and all related supplies As directed] pantoprazole (Protonix) 40 mg PO BID pen needle, diabetic (BD Ultra-Fine Melissa Pen Needle) As directed once a day primidone 50 mg PO BID simethicone 180 mg PO QID 30 days tirzepatide (Mounjaro) 5 mg (0.5 mL) subcut QWEEK 28 days topiramate 100 mg PO BEDTIME 90 days tramadol 50 mg PO TID PRN 30 days Do you need a note to return to daycare/school/sports/work: No HPI SWV G0439 HPI Details Patient comes in today for his Medicare Annual Wellness Exam States that he feels okay BUT reports that he continues to feel unbalanced often and thinks that his unsteadiness in his gait has been slowly getting worse lately States that he almost fell the other day just trying to get to the bathroom but fortunately was able to catch himself He denies any pain or increased numbness/weakness in his legs/feet He denies any headaches or dizziness Denies any chest pains, no increased SOB No nausea/vomiting, no abdominal pain No change in bowel habits noted His colonoscopy is up-to-date and his next colonoscopy is due in 2033 (10 years) Tejon of care was reviewed and updated today Patient does not have a healthcare proxy on file; he was provided with a MOLST form and an HCP form and is instructed to complete these as soon as possible and bring them back for completion and scanning into his file IPPE/AWV: c/o of Annual Wellness Visit, subsequent visit. Medical / Social History Reviewed Past Medical History Yes . Tejon of Care / Care Team list updated Yes . Surgical/Hospitalization History Yes . Current Medications (including OTC and supplements) Yes . Family History Yes . Tobacco Control form Yes . AUDIT-C (Alcohol use) form Yes . Illicit drug use in Social History Yes . Current diagnosis of depression? No Appropriate PHQ2/PHQ9 completed Yes . Data entered by Reproduction Order Processor and reviewed by provider Home Safety Throw rugs? No Grab bars? No Raised toilet seats? No Working smoke detectors? Yes Working carbon monoxide detectors? Yes Data entered by Reproduction Order Processor and reviewed by provider Activities of Daily Living (ADLs) Difficulty bathing or showering? No Difficulty dressing? No Difficulty using the toilet? No Difficulty getting in and out of bed? No Difficulty walking? Yes - due to his unsteady gait Receives help from another person with any of the above tasks? No Instrumental Activities of Daily Living (IADLs) Uses the telephone without help Gets to places out of walking distance without help Goes shopping for groceries without help Prepares own meals without help Does own minor home maintenance without help Does own laundry without help Does own housework without help Manages own money without help Currently takes medications? Yes Takes medication without help End-of-Life Planning Discussed advance directive Yes Advance directive on file Discussed wishes expressed in advance directive agreed to following patient's wishes Fall Risk: Fall History Have you had any falls with injury in the past year? No . Have you had two or more falls in the past year? No . Fall Risk Assessment: No falls in the past year . HRA filled out by the patient, reviewed by Provider and scanned. [facility] Medical History (Updated 04/07/25 @ 09:20 by Nathan Mendoza MD) Obesity (BMI 30-39.9) Colon cancer screening Oropharyngeal dysphagia Gastritis History of anoxic brain injury Epididymal cyst Hematuria Anxiety Obstructive sleep apnea Vitamin B12 deficiency Vitamin D deficiency Lumbar degenerative disc disease Asthma Pure hypercholesterolemia Migraine Cardiac arrhythmia Type 2 diabetes mellitus without complication, with no history of insulin use Benign essential hypertension Surgical History (Updated 04/07/25 @ 09:23 by Nathan Mendoza MD) H/O bilateral inguinal hernia repair H/O hernia repair History of esophagogastroduodenoscopy (EGD) Hx of colonoscopy History of extraction of renal calculus History of repair of rotator cuff Family History Father No problems noted. Mother Hypertension Cancer Sister Cancer Social History Household Members: Significant Other Housing: House Alcohol intake: never Patient Tobacco Use Status: Never used Tobacco e-Cigarette/Vaping Use: Never Used Second Hand Smoke Exposure: No service: No Current occupational status: disabled Cognitive needs: No Hearing needs: No Vision needs: No Questionnaire Medicare Wellness Checkup What gender do you identify with?: male During the past 4 weeks, how much have you been bothered by emotional problems such as feeling anxious, depressed, irritable, sad or downhearted, and blue?: moderately During the past 4 weeks, has your physical & emotional health limited your social activities with family, friends, neighbors, or groups?: moderately During the past 4 weeks, how much bodily pain have you generally had?: mild pain During the past 4 weeks, was someone available to help you if you needed & wanted help?: yes, some During the past 4 weeks, what was the hardest physical activity you could do for at least 2 minutes?: moderate Can you get to places out of walking distance without help? (For eg., can you travel alone on buses, taxis or drive your car?): Yes Can you go shopping for groceries or clothes without someone's help?: Yes Can you prepare your own meals?: Yes Can you do your housework without help?: Yes Because of any health problems, do you need the help of another person with your personal care needs such as eating, bathing, dressing or getting around the house?: No Can you handle your own money without help?: Yes During the past 4 weeks, how would you rate your health in general?: fair During the past 4 weeks how have things been going for you?: good & bad parts about equal Are you having difficulties driving your car?: not applicable, I don't use a car Do you always fasten your seat belt when you are in a car?: yes, usually During past 4 weeks, have you been bothered by the following: never: Teeth or denture problems? and Problems using the telephone?, sometimes: Trouble eating well? and Tiredness or fatigue? and always: Sexual problems? Have you fallen 2 or more times in the past year?: Yes Are you afraid of falling?: Yes Are you a smoker?: no During the past 4 weeks, how many drinks of wine, beer, or other alcoholic beverages did you have?: no alcohol at all Do you exercise for about 20 minutes 3 or more times a week?: no, I usually do not exercise this much Have you been given information to help with the following?: yes: Hazards in your house that might hurt you? and yes: Keeping track of your medications? How often do you have trouble taking medicines the way you have been told to take them?: I always take medicine as prescribed How confident are you that you can control & manage most of your health problems?: very confident What is your race?: or origin or descent Mini Mental State Exam (MMSE) Orientation What is the (year) (season) (date) (day) (month)?: year, season, date, day and month Where are we (state) (county) (town or city) (hospital) (floor)?: state, county, town or city, hospital/clinic and floor Score Score: 10 Activity of Daily Living Bathing - sponge bath, tub bath or shower: receives no assistance (gets in/out by self, if usual bathing means Dressing - getting clothes from closets & drawers, including inner/outer garments & fasteners.: gets clothes & gets completely dressed without help Toileting - going to the 'toilet room' for urine/bowel elimination & cleaning self/arranging clothes: goes to toilet room, cleans self, arranges clothes without help Transfer: moves in & out of bed and chair without help (may use support object) Continence: controls urination/bowel movements completely by self Feeding: feeds self without help Total Score: 0 Information obtained from: patient Using telephone: independent Traveling: independent Shopping: independent Preparing meals: independent Housework: independent Taking medicine: independent Managing money: independent PHQ-9 Over the last 2 weeks, how often have you been bothered by any of the following problems? 1. Little interest or pleasure in doing things: several days 2. Feeling down, depressed, or hopeless: several days 3. Trouble falling or staying asleep, or sleeping too much: not at all 4. Feeling tired or having little energy: not at all 5. Poor appetite or overeating: several days 6. Feeling bad about yourself - or that you are a failure or have let yourself or your family down: not at all 7. Trouble concentrating on things, such as reading the newspaper or watching television: not at all 8. Moving or speaking so slowly that other people could have noticed. Or the opposite - being so fidgety or restless that you have been moving around a lot more than usual: several days 9. Thoughts that you would be better off or of hurting yourself in some way: not at all Total score: 4 Depression Screening Interpretation: Positive Depression Screening Follow-up: Existing condition and In treatment Depression Screening Done: Yes 68652 - PHQ-9 Billing: Yes Source: Developed by Leigh Masters.W. Seth, Daniel Ruelas and colleagues, with an educational marcin from [employer]. PHQ-2/PHQ-9 PHQ-2 Over the last 2 weeks, how often have you been bothered by any of the following problems? 1. Little interest or pleasure in doing things: several days 2. Feeling down, depressed, or hopeless: several days Total score: 2 If score is 3 or greater, continue 3. Trouble falling or staying asleep, or sleeping too much: not at all 4. Feeling tired or having little energy: not at all 5. Poor appetite or overeating: several days 6. Feeling bad about yourself - or that you are a failure or have let yourself or your family down: not at all 7. Trouble concentrating on things, such as reading the newspaper or watching television: not at all 8. Moving or speaking so slowly that other people could have noticed. Or the opposite - being so fidgety or restless that you have been moving around a lot more than usual: several days 9. Thoughts that you would be better off or of hurting yourself in some way: not at all Total score: 4 0-4 None-Minimal, 5-9 Mild, 10-14 Moderate, 15-19 Moderately Severe, 20-27 Severe Source: Developed by Drs. Phil Medina, Leigh Ann, Daniel Ruelas and colleagues, with an educational marcin from [employer]. Thrive Questionnaire Date Thrive assessed: 04/07/25 I am a: Patient What is your living situation today?: I have a steady place to live Within the past 12 months, did the food you bought not last and you didn't have the money to get more?: Never true Within the past 12 months, did you worry whether your food would run out before you got money to buy more?: Never true Do you have trouble paying for medicines?: No Do you have trouble getting transportation to medical appointments?: No Do you have trouble paying your heating and electricity bill?: No Do you have trouble taking care of your child, family member or friend?: No Do you have trouble with day-to-day activities such as bathing, preparing meals, shopping, managing finances, etc.?: No Are you currently unemployed and looking for a job?: No Are you interested in more education?: No Please select the resources that you would like help with: None Currently or been in a relationship where the following occur: No concerns reported THRIVE Score: 0 DEVANTE-7 AMB Questionnaire DEVANTE-7 Date DEVANTE - 7 assessed: 04/07/25 Feeling nervous, anxious, or on edge: 0 = Not at all Not being able to stop or control worryin = Not at all Worrying too much about different things: 0 = Not at all Trouble relaxin = Not at all Being so restless that it is hard to sit still: 0 = Not at all Becoming easily annoyed or irritable: 0 = Not at all Feeling afraid as if something awful might happen: 0 = Not at all Total DEVANET-7 score (0-4 normal; 5-9 mild; 10-14 moderate; 15-21 severe): 0 Source: Developed by Drs. Phil Medina, Leigh Ann, Daniel Ruelas and colleagues, with an educational marcin from [employer]. Review of Systems Const Denies chills, Denies fatigue, Denies fever(s) and Denies headache(s) ENT Reports dysphagia ((+) oropharyngeal dysphagia - follows up with ENT for this issue), Denies dizziness, Denies otalgia, Denies headache(s), Denies neck pain, Denies odynophagia and Denies sore throat Card Denies chest pain, Denies palpitations and Denies dyspnea Resp Denies chest congestion, Denies cough and Denies dyspnea GI Denies abdominal pain, Denies constipation, Reports dysphagia ((+) oropharyngeal dysphagia - follows up with ENT for this issue), Denies heartburn, Denies diarrhea, Denies nausea, Denies odynophagia and Denies vomiting Denies difficulty urinating, Denies nocturia and Denies urinary frequency Musc Reports abnormal gait (unsteady gait), Reports back pain (over the lower back - chronic ), Reports arthralgias (over both knees; on and off right elbow pain) and Denies neck pain Skin/Breast Denies rash Neuro Reports abnormal gait (unsteady gait), Denies dizziness and Denies headache(s) Endo Denies fatigue and Denies palpitations Physical Exam Vital Signs: Last Vital Signs Pulse 83 04/07/25 08:46 BP 100/60 04/07/25 08:46 Pulse Ox 96 04/07/25 08:46 Oxygen Delivery Method Room Air 04/07/25 08:46 BMI result Body Mass Index 30.3 IPPE/AWV: Balance Romberg NO . Tandem walk NO . Walk and Turn Yes . Rise from sit to stand NO . Vision Corrective lens No Vision screen pass Hearing Whisper test pass on right side; fail on left side . Urinary incont. no. EKG Yes - ordered. Const General: no acute distress and alert Orientation/consciousness: patient oriented x3 HEENT Ears: TM's normal bilaterally and EAC's normal Throat: Yes posterior oropharynx normal and Yes tonsils normal Neck Neck: Yes supple and No lymphadenopathy Thyroid: Thyroid normal Resp Auscultation: clear to auscultation bilaterally, no rales and no wheezes Cardio Rate: regular rate Rhythm: regular rhythm Heart sounds: no murmurs GI Palpation (GI): Soft to palpation and nontender Auscultation: normal bowel sounds General: Yes no CVA tenderness Back/Spine/Pelvis Back: no CVA tenderness Thoracic/Lumbar Spine: lumbar spinal tenderness Skin Rashes: no rashes Neuro General: patient oriented x3, moves all extremities and no focal motor deficits Cognition (Neuro): normal cognition Gait exam (Neuro): Normal gait present (but unsteady - unable to do Romberg or tandem walking) Extrem General: Yes no clubbing, cyanosis or edema Psych Thought process: Normal thought process present Assessment & Plan Assessment & Plan (1) Medicare annual wellness visit, subsequent: Code(s): Z00.00 - Encounter for general adult medical examination without abnormal findings Plan: MCKENNA updated HRA form completed and discussed with patient. Form will be scanned into patient's chart. (2) Unsteady gait: Code(s): R26.81 - Unsteadiness on feet Plan: Will refer him to neurology for further evaluation and management of his unsteady gait, which patient had for a few years now and he feels that this has been slowly getting worse lately Plan Follow up as scheduled in May 2025 Orders: Referrals Neurology Referral R26.81 - Unsteadiness on feet, R29.6 - Repeated falls Quality Reporting (2019) Depression/Bipolar (159/160/161/177) PHQ-9: Total score: 4 Coding Level of Care Code Medicare Subsequent (G0439) Est Pt Level 3 (99274) Diagnoses Medicare annual wellness visit, subsequent Z00.00 Unsteady gait R26.81 CPT Codes Advance Care Planning - Time spent: 1-15 minutes, on File ([id number]) Additional Codes PHQ-9 - 74716 - PHQ-9 Billing: Yes ([id number]) Advance Care Planning Advance Care Planning discussion: Exists, not on file (HCP and MOLST forms provided to patient to bring home and complete - discussed in office) Date of discussion: 04/07/25 Who was present: patient, PCP Forms completed: Health Care Proxy and MOLST Time spent: 1-15 minutes, on File
== END 2025-04-07 09:30 | disposition home or self-care (01) ==
LOC: HO.HMCH 08:44
PROVIDERS: PCP Internal Medicine; Visit Provider Internal Medicine
DX: Z00.00 Encounter for general adult medical examination without abnormal findings (principal); R26.81 Unsteadiness on feet

== ENCOUNTER → 2025-04-07 08:43 | Outpatient (BNVA) | payer MEDICARE, MEDICAID, SELFPAY | PROVIDERS: PCP Internal Medicine; Visit Provider Internal Medicine | DX: Z00.00 Encounter for general adult medical examination without abnormal findings (principal); R26.81 Unsteadiness on feet | CPT/HCPCS: 96127; 99212 ==

== ENCOUNTER 2025-05-09 07:48 | Outpatient (AMB) | payer MEDICARE, MEDICAID, SELFPAY ==
--- NOTE | 2025-05-09 08:09 | MHC.AMDMED ---
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 Accompanied by: Self / Same As Patient Allergies No Known Allergies [No Known Allergies*] Allergy (Verified 04/07/25 09:10) HPI Comprehensive Diabetes Asmnt Most Recent Diabetes Results: Microalb/Creat Ratio 10.8 ug/mg cr (<30) 01/11/25 Cholesterol 145 mg/dL (<200) 01/11/25 HDL Cholesterol 39 mg/dL (>40) L 01/11/25 Triglycerides 137 mg/dL (<150) 01/11/25 Creatinine 1.37 mg/dL (0.5-1.4) 01/11/25 Blood Urea Nitrogen 16 mg/dL (9-16) 01/11/25 Sodium 136 mmol/L (135-145) 01/11/25 Potassium 4.6 mmol/L (3.3-5.1) 01/11/25 Chloride 107 mmol/L (96-108) 01/11/25 Carbon Dioxide 22 mmol/L (22-29) 01/11/25 Calcium 9.0 mg/dL (8.4-10.2) 01/11/25 AST 31 U/L (5-37) 01/11/25 ALT 46 U/L (0-40) H 01/11/25 Total Protein 7.8 g/dL (6.5-8.0) 01/11/25 Albumin 4.4 g/dL (3.5-5.0) 01/11/25 [facility] Medical History (Updated 04/07/25 @ 09:20 by Nathan Mendoza MD) Obesity (BMI 30-39.9) Colon cancer screening Oropharyngeal dysphagia Gastritis History of anoxic brain injury Epididymal cyst Hematuria Anxiety Obstructive sleep apnea Vitamin B12 deficiency Vitamin D deficiency Lumbar degenerative disc disease Asthma Pure hypercholesterolemia Migraine Cardiac arrhythmia Type 2 diabetes mellitus without complication, with no history of insulin use Benign essential hypertension Surgical History (Updated 04/07/25 @ 09:23 by Nathan Mendoza MD) H/O bilateral inguinal hernia repair H/O hernia repair History of esophagogastroduodenoscopy (EGD) Hx of colonoscopy History of extraction of renal calculus History of repair of rotator cuff Family History Father No problems noted. Mother Hypertension Cancer Sister Cancer Social History Household Members: Significant Other Housing: House Alcohol intake: never Patient Tobacco Use Status: Never used Tobacco e-Cigarette/Vaping Use: Never Used Second Hand Smoke Exposure: No service: No Current occupational status: disabled Cognitive needs: No Hearing needs: No Vision needs: No Assessment & Plan Assessment & Plan (1) Type 2 diabetes mellitus without complication, with no history of insulin use: Code(s): E11.9 - Type 2 diabetes mellitus without complications Plan: Personal Continuous Glucose Monitor: Patients CGM information reviewed, Pt uses [employer] with smartphone Patient's glucose is well controlled. There a few episodes of hypoglycemia in the last 14 days. Reviewed with patient how to treat hypoglycemia. Goal Assessment:? Patient will have next A1c drawn in 2 months Patient will be due for next A1c at visit with endocrine BRIM SHAPER on 05/24/2025 Signs and symptoms of low blood sugar (happen quickly) Each person's reaction to low blood sugar is different. Learn your own signs and symptoms of when your blood sugar is low. Taking time to write these symptoms down may help you learn your own symptoms of when your blood sugar is low. From milder, more common indicators to most severe, signs and symptoms of low blood sugar include: Feeling shaky Being nervous or anxious Sweating, chills and clamminess Irritability or impatience Confusion Fast heartbeat Feeling lightheaded or dizzy Hunger Nausea Color draining from the skin (pallor) Feeling Sleepy Feeling weak or having no energy Blurred/impaired vision Tingling or numbness in the lips, tongue, or cheeks Headaches Coordination problems, clumsiness Hypoglycemia or blood glucose under 70 mg/dL use the rule of 15's: If you have your blood glucose meter test your blood glucose, if you do not have your meter still follow below instruction: Keep quick-sugar foods with you at all times.? Take 15 grams of fast acting carbohydrates. Examples are 4 ounces of fruit juice or regular soda pop, 8 ounces fat-free milk, 1 tablespoon of table sugar, honey or corn syrup, jam, one miniature box of raisins, 7-8 gumdrops or Life Savers candy, 4 glucose tablets, and glucose gel.? Retest blood glucose in 15 minutes, if blood glucose is still under 80 mg/dL,repeat rule of 15's. If blood glucose is under 50, take 30 grams of fast acting carbohydrates patient reports treating hypoglycemia with orange juice, or candy If you are having hypoglycemia, or insulin reaction, more that a few times a week, call MD or personal development educator Reviewed how to interpret trend arrows Reminded patient that to check finger sticks if symptoms do not match sensor reading. Discussed lag time between finger stick and sensor data.? Patient able to insert sensor independently at home without issue.? Portions of this note were created using voice recognition software, please excuse any words or phrases that may have been misinterpreted. Patient Instructions: Reduce Basaglar from 10 to 8 units Follow-up with personal development educator as needed Coding Level of Care Code Est Pt Level 1 (33874) Diagnoses Type 2 diabetes mellitus without complication, with no history of insulin use E11.9
== END 2025-05-09 08:40 | disposition home or self-care (01) ==
LOC: HO.ENCR 07:48
PROVIDERS: PCP Internal Medicine; Visit Provider Registered Nurse Diabetes Educator
DX: E11.9 Type 2 diabetes mellitus without complications (principal)

== ENCOUNTER → 2025-05-09 07:48 | Outpatient (BNVA) | payer MEDICARE, MEDICAID, SELFPAY | PROVIDERS: PCP Internal Medicine; Visit Provider Registered Nurse Diabetes Educator | DX: E11.9 Type 2 diabetes mellitus without complications (principal) | CPT/HCPCS: 99211 ==

== ENCOUNTER 2025-05-24 07:51 | Outpatient (AMB) | payer MEDICARE, MEDICAID, SELFPAY ==
--- NOTE | 2025-05-24 07:13 | A.OFFVIS_ITS ---
Vital Signs 05/24/25 08:01 Height 5 ft 8 in Weight 196 lb 3.382 oz BMI 29.8 BP 130/76 Blood Pressure Location Rt brachial Position Sitting Pulse 100 Pulse Source Pulse Oximeter Pulse Oximetry (%) 98 Oxygen Delivery Method Room Air Intake Visit Reasons: T2DM Intake Note: Patient presents today for a follow-up on Type 2 Diabetes Mellitus: Last Diabetic eye exam was on: 11/2024 Last Podiatry exam was on: Patient does not see a Baker Most recent HbA1c: 6.4%, 05/24/2025 Random Glucose- 119 mg/dL, Today Allergies No Known Allergies (No Known Allergies*) Allergy (Verified 04/07/25 09:10) HPI Comments Details: 55 YO male who is seen in f/u for T2DM. He was last seen 02/21/2025. He has been started on Mounjaro in a [employer] Jazmine 3+ glucose sensor in his doing well with this. He has been working with the breastfeeding educator. A1C 05/24/25 6.4%. He was followed by endocrinology at [facility] up until 2020, restarted 01/24/25. He has a history of anoxic brain injury as an . Has good recall of the medications he is taking. Initially diagnosed with T2DM in 2019, pre diabetes since 2010 Was initially started on treatment with metformin. Acarbose caused bloating, Metformin diarrhea Patient was having reactive hypoglycemia in the past and a workup for insulin induced hypoglycemia was normal per notation of Dr. Castillo's last note. Current regimen: Basaglar 10 units he takes if glucose over 200 (takes about once weekly) Mounjaro 5.0mg Meter download shows an average of 157 testing 1-2 times daily with no lows Sensor download 144 average He has seen Merissa Owens RD and is doing much better on maintaining balanced meals and avoidance of high concentrated sweets. Reports low sugars rare. He carries glucose gel. He has had a few lows on his sensor, when he re confirms with fingerstick numbers a re typically in the 120- 130. Family history of T2DM in mother Denies retinopathy: Has eyes checked yearly. Last eye exam 11/2024 Denies neuropathy. Symptoms: No numbness, tingling pain or cramping. last foot exam today in the office, does not see podiatry. Has nephropathy:on JESSICA inhibitor microalbumin 01/11/2025 13.0 EGFR 55 He sees a neurologist and has been tested for sleep apnea which was negative. Has HLD, on statin. Last LDL 79 as measured on 01/11/2025. Denies CAD. Diet: Follows a balanced diet. Eats rice just once monthly Weight: Weight down 4 lb since last visit. He has been walking regularly Has had recent RD and CDE visit [facility] Medical History (Updated 05/24/25 @ 08:27 by Veronica Fountain NP) Type 2 diabetes mellitus Obesity (BMI 30-39.9) Colon cancer screening Oropharyngeal dysphagia Gastritis History of anoxic brain injury Epididymal cyst Hematuria Anxiety Obstructive sleep apnea Vitamin B12 deficiency Vitamin D deficiency Lumbar degenerative disc disease Asthma Pure hypercholesterolemia Migraine Cardiac arrhythmia Benign essential hypertension Surgical History (Updated 04/07/25 @ 09:23 by Nathan Mendoza MD) H/O bilateral inguinal hernia repair H/O hernia repair History of esophagogastroduodenoscopy (EGD) Hx of colonoscopy History of extraction of renal calculus History of repair of rotator cuff Family History Father No problems noted. Mother Hypertension Cancer Sister Cancer Social History Household Members: Significant Other Housing: House Alcohol intake: never Patient Tobacco Use Status: Never used Tobacco e-Cigarette/Vaping Use: Never Used Second Hand Smoke Exposure: No service: No Current occupational status: disabled Cognitive needs: No Hearing needs: No Vision needs: No Physical Exam Vital Signs: Last Vital Signs Pulse 100 05/24/25 08:01 BP 130/76 05/24/25 08:01 Pulse Ox 98 05/24/25 08:01 Oxygen Delivery Method Room Air 05/24/25 08:01 BMI result Body Mass Index 29.8 Const Other: Absence of Cushingoid features. Absence of acromegalic features. Neck exam reveals nl size thyroid about 15 gms. No thyroid nodules palpable. Heart S1 S2, Reg R/R. No M/R G. Skin exam reveals absence of vitiligo or acanthosis nigricans. No edema Visual exam of foot performed. No ulcerations or open lesions. No inter digit maceration or fissuring. No onychomycosis, no callouses. Sensation intact to monofilament exam. Vibratory sensation is normal with 128 Hz tuning fork. Pulses positive Results AMB Hemoglobin A1c AMB Hemoglobin A1c 6.4 % Last Edit by DONALDO Hallman on 05/24/25 08:18 Results Reviewed Results Reviewed: Laboratory Last Values Glucose (Clinic) 119 mg/dL (60-115) H 05/24/25 08:07 Assessment & Plan Assessment & Plan (1) Type 2 diabetes mellitus: Code(s): E11.9 - Type 2 diabetes mellitus without complications Category: Medical Plan: 55-YEAR-OLD TYPE 2 DIABETIC without known complications WITH WELL-CONTROLLED DIABETES. A1c 6.4%. Would recommend that he stay on a glucose sensor. He was asked to purchased either medical alert bracelet or necklace. Continue current meds The patient had an opportunity to ask questions regarding treatment plan. The patient expressed understanding and agreement with the above treatment plan. The patient is aware they should contact our office by phone for worsening glucose readings or for any low blood sugars which may warrant a change in diabetes medication. Compliance is encouraged with medications and any followup testing/consults which may have been ordered. He will follow up in 3 months with Yenifer BETHEA Orders: Orders AMB Hemoglobin A1c Today E11.9 - Type 2 diabetes mellitus without complications Patient Instructions: Carry a sugar source The patient was counseled to achieve a target A1C of 7% (154 avg). Fasting blood sugars should be 90-130 in the morning and less than 180 two hours after meals. Reviewed the relationship between poor diabetic control and the development of complications. Check your feet daily looking for any signs of infection, drainage, redness, ulceration and seek medical attention if this occurs. Break in shoes gradually and do not wear open-toed shoes or walk stocking footed or barefooted. Coding Level of Care Code Est Pt Level 4 (79386) Complex EM visit Add On G2211 Diagnoses Type 2 diabetes mellitus E11.9 Time Spent (min) 30 Comment Time spent reviewing labs/provider notes, face to face, chart doc
[2025-05-24 08:01] VITALS: BP 130/76; PULSE 100; O2SAT 98; BMI 29.8
[2025-05-24 08:11] LABS: Glucose, Whole Blood 119 mg/dL (60-115)
== END 2025-05-24 08:21 | disposition home or self-care (01) ==
LOC: HO.ENCR 07:51
PROVIDERS: PCP Internal Medicine; Visit Provider Nurse Practitioner Adult Health
DX: E11.9 Type 2 diabetes mellitus without complications (principal)
CPT/HCPCS: 99214; G2211

== ENCOUNTER → 2025-05-24 07:51 | Outpatient (BNVA) | payer MEDICARE, MEDICAID, SELFPAY | PROVIDERS: PCP Internal Medicine; Visit Provider Nurse Practitioner Adult Health | DX: E11.9 Type 2 diabetes mellitus without complications (principal); Z79.4 Long term (current) use of insulin | CPT/HCPCS: 82947; 83036; 99212 ==

== ENCOUNTER 2025-05-29 07:06 | Outpatient (REF) | payer MEDICARE, MEDICAID, SELFPAY ==
[2025-05-29 07:27] LABS: MANUAL DIFF FLAG NO
[2025-05-29 07:59] LABS: Basophils Absolute Auto 0.1 X10*3/uL (0.0-0.2); Basophils Percent Auto 0.8 % (0-2); Eosinophils Absolute Auto 0.6 X10*3/uL (0.0-0.4); Eosinophils Percent Auto 9.1 % (0-4); Hematocrit 43.3 % (42.0-52.0); Hemoglobin 14.3 g/dl (14.0-18.0); Imm Gran Abs Auto 0.02 X10*3/uL (0.00-0.03); Imm Gran Pct Auto 0.3 % (0.0-0.4); Mean Corpuscular Hemoglobin 29.8 pg (27.0-33.0); Mean Corpuscular Volume 90.2 fL (80.0-98.0); Mean Platelet Volume 9.5 fL (9.4-12.4); Monocytes Absolute Auto 0.5 X10*3/uL (0.1-1.2); Monocytes Percent Auto 7.1 % (2-11); Neutrophils Absolute Auto 3.5 x10*3/uL (2.0-8.3); Neutrophils Percent Auto 52.7 % (45-73); Platelet Count 207 X10*3/uL (160-400); White Blood Count 6.6 X10*3/uL (4.8-10.8)
[2025-05-29 08:07] LABS: Estimated Average Glucose 137 mg/dL; Hemoglobin A1c % 6.4 % (<6.0)
[2025-05-29 08:17] LABS: Appearance Urine Clear; Color Urine Dark Yellow; Glucose Urine UA Negative (Negative); Leukocyte Esterase Urine Trace (Negative); Nitrite Urine Negative (Negative); PH 5.5 (5.0-9.0); Specific Gravity - Urine 1.025 (1.005-1.025); UMIC TRIGGER UACC YES; Urine Blood Negative (Negative); Urine Ketones Trace mg/dL (Negative); Urine Protein Trace mg/dL (Neg-Trace)
[2025-05-29 08:20] LABS: Bacteria Urine None Seen (None Seen); RBC Urine 0-2 /HPF (0-2); Squamous Epithelial Cell Urine 0-2 /HPF (0-2); UACC Culture Trigger YES
[2025-05-29 08:33] LABS: Alanine Aminotransferase 23 U/L (0-40); Albumin Level 4.4 g/dL (3.5-5.0); Alkaline Phosphatase 79 U/L (39-117); Anion Gap 8 (12-20); Aspartate Amino Transferase 18 U/L (5-37); Bilirubin Total 0.5 mg/dL (0.0-1.0); Blood Urea Nitrogen 16 mg/dL (9-16); Calcium 8.9 mg/dL (8.4-10.2); Carbon Dioxide 25 mmol/L (22-29); Chloride 113 mmol/L (96-108); Cholesterol 140 mg/dL (<200); Estimated Glomerular Filt Rate > 60; Glucose Fasting 143 mg/dL (60-99); HDL Cholesterol 36 mg/dL (>40); LDL Cholesterol Calculated 72 mg/dL (<100); Potassium 4.4 mmol/L (3.3-5.1); Sodium 142 mmol/L (135-145); Total Protein 7.3 g/dL (6.5-8.0); Triglycerides 164 mg/dL (<150)
[2025-05-29 08:53] LABS: TSH reflex Free T4 0.65 uIU/mL (0.32-4.0); Vitamin D 25-OH Total 29.4 ng/mL (>30)
[2025-05-29 09:46] LABS: Creatinine Urine 393.42 mg/dL; Microalbum/Creatinine Ratio Ur 6.1 ug/mg cr (<30)
== END 2025-05-29 07:07 | disposition home or self-care (01) ==
LOC: HO.LAB 07:06
PROVIDERS: PCP Internal Medicine; Visit Provider Internal Medicine
DX: D64.9 Anemia, unspecified (principal); E78.00 Pure hypercholesterolemia, unspecified; E11.9 Type 2 diabetes mellitus without complications; E55.9 Vitamin D deficiency, unspecified
CPT/HCPCS: 36415; 80053; 80061; 81001; 82043; 82306; 82570; 83036; 84443; 85025; 87086

== ENCOUNTER 2025-06-08 09:12 | Outpatient (AMB) | payer MEDICARE, MEDICAID, SELFPAY ==
[2025-06-08 09:15] VITALS: BP 100/78; PULSE 115; O2SAT 96; BMI 30.3
--- NOTE | 2025-06-08 09:15 | A.OFFPC_ITS ---
Vital Signs 06/08/25 09:15 Height 5 ft 8 in Weight 199 lb BMI 30.3 BP 100/78 Blood Pressure Location Lt brachial Position Sitting Pulse 115 H Pulse Source Pulse Oximeter Pulse Oximetry (%) 96 Oxygen Delivery Method Room Air Intake Visit Reasons: DM, hyperlipidemia, HTN Mushroom Spawn Maker Required: No Accompanied by: Self / Same As Patient Allergies No Known Allergies (No Known Allergies*) Allergy (Verified 06/08/25 09:38) Medication List - Last Reconciled 06/08/25 by Nathan Mendoza MD albuterol sulfate 90 mcg/actuation (ProAir HFA) 2 puffs inhalation Q6H PRN 30 days albuterol sulfate 2.5 mg (3 mL) inhalation TID PRN alcohol swabs 1 pad topical DAILY 30 days alprazolam 1 mg PO TID PRN amitriptyline 25 mg PO BEDTIME Asmanex HFA 200 mcg/actuation (mometasone) 1 puff inhalation BID 30 days NS atorvastatin 40 mg PO BEDTIME 90 days Basaglar KwikPen U-100 Insulin (insulin glargine) 20 units (0.2 mL) subcut QPM 30 days NS blood sugar diagnostic (FreeStyle Lite Strips) Twice a day 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 meter (FreeStyle Lite Meter kit) As directed 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 sensor (FreeStyle Jazmine 3 Plus Sensor device) every 15 days clonidine HCl 0.1 mg PO BEDTIME dicyclomine 20 mg PO QID 30 days ergocalciferol (vitamin D2) 50 mcg PO DAILY 3 months FreeStyle Jazmine 3 [place] (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,black topper,cont) As directed for use with freestyle Jazmine 3 sensors NS glucose 4 grams PO Q15M PRN lancets use as directed once a day lancets (FreeStyle Lancets) As directed- once a day lisinopril 10 mg PO DAILY 90 days meloxicam 15 mg PO DAILY metoclopramide HCl (Reglan) 10 mg PO QIDACHS 30 days [NEBULIZER and all related supplies As directed] pantoprazole (Protonix) 40 mg PO BID pen needle, diabetic (BD Ultra-Fine Melissa Pen Needle) As directed once a day primidone 50 mg PO BID simethicone 180 mg PO QID 30 days tirzepatide (Mounjaro) 5 mg (0.5 mL) subcut QWEEK 28 days topiramate 100 mg PO BEDTIME 90 days tramadol 50 mg PO TID PRN 30 days Tobacco use date assessed: 06/08/25 Dental Screening Dental Screen Date: 06/08/25 Did you have a dental visit in the last 12 months?: No Did you have a dental problem in the last 6 months where you did not have access to dental care?: No Was dental information given to patient?: No HPI DM, hyperlipidemia, HTN HPI Details Patient comes in today for his follow up visit States that he has been experiencing frequent/recurrent diarrhea, including having postprandial loose stools often, for the past month or so Relates that he also tends to wake up often around 4 am in the morning to go to the bathroom - also has loose stools at this time Reports (+) on and off abdominal pain and cramping that are often associated with his bowel movements States that he has also been experiencing frequent heartburns lately and that the medications that GI currently has him on are not really helping much and he would like to get something else that can help with his heartburns He is currently on Mounjaro 5 mg once a week but states that his GI symptoms preceded his starting on Mounjaro and that his symptoms have not gotten any worse since he started taking his Mounjaro injections He denies any recent travel He denies any headaches or dizziness; denies any fever Denies any chest pains, no SOB No nausea/vomiting, no abdominal pain No change in bowel habits noted He had his follow up labs done last week - to discuss his results [facility] Medical History (Updated 06/08/25 @ 12:36 by Nathan Mendoza MD) Type 2 diabetes mellitus Obesity (BMI 30-39.9) Colon cancer screening Oropharyngeal dysphagia Gastritis History of anoxic brain injury Epididymal cyst Hematuria Anxiety Obstructive sleep apnea Vitamin B12 deficiency Vitamin D deficiency Lumbar degenerative disc disease Asthma Pure hypercholesterolemia Migraine Cardiac arrhythmia Benign essential hypertension Surgical History H/O bilateral inguinal hernia repair H/O hernia repair History of esophagogastroduodenoscopy (EGD) Hx of colonoscopy History of extraction of renal calculus History of repair of rotator cuff Family History Father No problems noted. Mother Hypertension Cancer Sister Cancer Social History Household Members: Significant Other Housing: House Alcohol intake: never Patient Tobacco Use Status: Never used Tobacco e-Cigarette/Vaping Use: Never Used Second Hand Smoke Exposure: No service: No Current occupational status: disabled Current occupational exposures/hazards: No Cognitive needs: No Hearing needs: No Vision needs: No Questionnaire PHQ-9 Over the last 2 weeks, how often have you been bothered by any of the following problems? 1. Little interest or pleasure in doing things: not at all 2. Feeling down, depressed, or hopeless: not at all 3. Trouble falling or staying asleep, or sleeping too much: not at all 4. Feeling tired or having little energy: not at all 5. Poor appetite or overeating: not at all 6. Feeling bad about yourself - or that you are a failure or have let yourself or your family down: not at all 7. Trouble concentrating on things, such as reading the newspaper or watching television: not at all 8. Moving or speaking so slowly that other people could have noticed. Or the opposite - being so fidgety or restless that you have been moving around a lot more than usual: not at all 9. Thoughts that you would be better off or of hurting yourself in some way: not at all Total score: 0 Depression Screening Interpretation: Negative Depression Screening Done: Yes 13319 - PHQ-9 Billing: Yes Source: Developed by Drs. Phil Medina, Leigh Ann, Daniel Ruelas and colleagues, with an educational marcin from [employer]. Thrive Questionnaire Date Thrive assessed: 06/08/25 I am a: Patient What is your living situation today?: I have a steady place to live Within the past 12 months, did the food you bought not last and you didn't have the money to get more?: I choose not to answer this question Within the past 12 months, did you worry whether your food would run out before you got money to buy more?: I choose not to answer this question Do you have trouble paying for medicines?: I choose not to answer this question Do you have trouble getting transportation to medical appointments?: I choose not to answer this question Do you have trouble paying your heating and electricity bill?: I choose not to answer this question Do you have trouble taking care of your child, family member or friend?: No Do you have trouble with day-to-day activities such as bathing, preparing meals, shopping, managing finances, etc.?: I choose not to answer this question Are you currently unemployed and looking for a job?: No Are you interested in more education?: No Please select the resources that you would like help with: None Currently or been in a relationship where the following occur: I choose not to answer THRIVE Score: 0 AUDIT C Alcohol Use Questionnaire (AUDIT-C) 1. How often do you have a drink containing alcohol?: Never 3. How often do you have six or more drinks on one occasion?: Never Total Score: 0 Score Reviewed/Action Taken: Yes DEVANTE-7 AMB Questionnaire DEVANTE-7 Date DEVANTE - 7 assessed: 06/08/25 Feeling nervous, anxious, or on edge: 0 = Not at all Not being able to stop or control worryin = Not at all Worrying too much about different things: 0 = Not at all Trouble relaxin = Not at all Being so restless that it is hard to sit still: 0 = Not at all Becoming easily annoyed or irritable: 0 = Not at all Feeling afraid as if something awful might happen: 0 = Not at all Total DEVANTE-7 score (0-4 normal; 5-9 mild; 10-14 moderate; 15-21 severe): 0 Source: Developed by Drs. Phil Medina, Leigh Ann, Daniel Ruelas and colleagues, with an educational marcin from [employer]. Review of Systems Const Denies chills, Denies fatigue, Denies fever(s) and Denies headache(s) ENT Reports dysphagia ((+) oropharyngeal dysphagia - follows up with ENT for this issue), Denies dizziness, Denies otalgia, Denies headache(s), Denies neck pain, Denies odynophagia and Denies sore throat Card Denies chest pain, Denies palpitations and Denies dyspnea Resp Denies chest congestion, Denies cough and Denies dyspnea GI Reports as per HPI, Reports abdominal pain (on and off cramping pain), Denies hematochezia, Denies constipation, Reports dysphagia ((+) oropharyngeal dysphagia - follows up with ENT for this issue), Denies heartburn, Reports diarrhea, Reports loose stools, Denies nausea, Denies odynophagia and Denies vomiting Denies difficulty urinating, Denies nocturia and Denies urinary frequency Musc Reports abnormal gait (unsteady gait), Reports back pain (over the lower back - chronic ), Reports arthralgias (over both knees; on and off right elbow pain) and Denies neck pain Skin/Breast Denies rash Neuro Reports abnormal gait (unsteady gait), Denies dizziness and Denies headache(s) Endo Denies fatigue and Denies palpitations Physical exam (Primary Care) Vital Signs: Last Vital Signs Pulse 115 H 06/08/25 09:15 BP 100/78 06/08/25 09:15 Pulse Ox 96 06/08/25 09:15 Oxygen Delivery Method Room Air 06/08/25 09:15 BMI result Body Mass Index 30.3 Tobacco/Smoking Status: Tobacco use Status Tobacco use date assessed 06/08/25 06/08/25 09:19 Patient Tobacco Use Status Never used Tobacco 06/08/25 09:19 e-Cigarette/Vaping Use Never Used 06/08/25 09:19 PHQ-9: PHQ-9 Score PHQ-9: Total score 0 06/08/25 09:40 Depression Screening Interpretation: Negative Thrive Assessment: Date of Thrive Assessment Date Thrive assessed 06/08/25 06/08/25 09:19 Currently or been in a relationship where the following occur: I choose not to answer Const General: no acute distress and alert HENMT Ears: TM's normal bilaterally and EAC's normal Throat: Yes posterior oropharynx normal and Yes tonsils normal Neck Neck: Yes supple and No lymphadenopathy Thyroid: Thyroid normal Resp Auscultation: clear to auscultation bilaterally, no rales and no wheezes Cardio Rate: regular rate Rhythm: regular rhythm Heart sounds: no murmurs GI Palpation (GI): Soft to palpation and nontender Auscultation: normal bowel sounds General: Yes no CVA tenderness Back/Spine/Pelvis Back: no CVA tenderness Thoracic/Lumbar Spine: lumbar spinal tenderness Skin Rashes: no rashes Extrem General: Yes no clubbing, cyanosis or edema Left upper extremity: elbow/forearm Details: tenderness; no swelling Right lower extremity: knee Details: tenderness Left lower extremity: knee Details: tenderness Results Reviewed Results Reviewed: Laboratory Tests 05/29/25 05/29/25 07:22 07:25 WBC 6.6 Hgb 14.3 Hct 43.3 Plt Count 207 Sodium 142 Potassium 4.4 Creatinine 1.09 Estimated GFR > 60 Fasting Glucose 143 H Hemoglobin A1c % 6.4 H Calcium 8.9 AST 18 ALT 23 Triglycerides 164 H Cholesterol 140 LDL Cholesterol, Calc 72 HDL Cholesterol 36 L 25-OH Vitamin D Total 29.4 L TSH 0.65 Ur Specific Mcclusky 1.025 Urine Protein Trace Urine Glucose (UA) Negative Urine Blood Negative Urine Nitrite Negative Ur Leukocyte Esterase Trace H Coding Level of Care Code Est Pt Level 4 (79317) Complex EM visit Add On G2211 Diagnoses Diarrhea, unspecified type R19.7 Diarrhea type: unspecified type Type 2 diabetes mellitus without complication, with no history of insulin use E11.9 Pure hypercholesterolemia E78.00 Benign essential hypertension I10 Moderate persistent asthma without complication J45.40 Asthma complication type: uncomplicated Asthma persistence: persistent Asthma severity: moderate Migraine without status migrainosus, not intractable, unspecified migraine type G43.909 Intractability: not intractable Migraine type: unspecified Status migrainosus presence: without status migrainosus Gastroesophageal reflux disease without esophagitis K21.9 Esophagitis presence: without esophagitis Degeneration of intervertebral disc of lumbar region with discogenic back pain M51.360 Disc-related pain type: discogenic back pain only Obstructive sleep apnea G47.33 Vitamin D deficiency E55.9 Anxiety F41.9 Obesity (BMI 30.0-34.9) E66.9 Additional Codes PHQ-9 - 28414 - PHQ-9 Billing: Yes ([id number]) Assessment & Plan Assessment & Plan (1) Diarrhea: Code(s): R19.7 - Diarrhea, unspecified Category: Medical Qualifiers: Diarrhea type: unspecified type Qualified Code(s): R19.7 - Diarrhea, unspecified Plan: Patient does have (+) Hx of IBS so his recent symptoms may be related to this Will send patient for stool work ups for further evaluation Will also send him for abdominal US for further evaluation (2) Type 2 diabetes mellitus without complication, with no history of insulin use: Code(s): E11.9 - Type 2 diabetes mellitus without complications Category: Medical Plan: His HgbA1c has come back down to 6.4% on his labs done last week (was up at 9.9% a few months ago) - goal is < 6.5% Reinforced diabetic diet - he is now seeing diabetic director of neurology regularly Continue Basaglar 20 units Q HS especially if his glucose is over 200 mg/dl and Mounjaro 5 mg SQ once a week He was taken off his previous meds (Pioglitazone, Trulicity and Acarbose) Follow up with endocrinology as scheduled (3) Pure hypercholesterolemia: Code(s): E78.00 - Pure hypercholesterolemia, unspecified Category: Medical Plan: Results of his labs done last week reviewed and discussed with patient - his cholesterol numbers remain well-controlled Reinforced low cholesterol diet Continue Atorvastatin 40 mg QD Will recheck his labs and fasting lipids in 3 months for follow-up (4) Benign essential hypertension: Code(s): I10 - Essential (primary) hypertension Category: Medical Plan: Reinforced low-sodium diet -? goal is systolic BP of at least 120 to 130 mm or less Continue Lisinopril 10 mg QD (5) Asthma: Code(s): J45.909 - Unspecified asthma, uncomplicated Category: Medical Qualifiers: Asthma complication type: uncomplicated Asthma persistence: persistent Asthma severity: moderate Qualified Code(s): J45.40 - Moderate persistent asthma, uncomplicated Plan: Controlled He was doing well on Flovent HFA 220 mcg BID and ProAir HFA 2 puffs 4 times a day as needed for years but is unable to get Flovent HFA nowadays due to unavailability of the Rx and he was switched out Continue Asmanex 200 mcg 1 inhalation BID - patient states that he has been doing well this without any significant issues Patient also uses his nebulizer with Albuterol nebulizer solution 3 to 4 times a day when needed (6) Migraine: Code(s): G43.909 - Migraine, unspecified, not intractable, without status migrainosus Category: Medical Qualifiers: Intractability: not intractable Migraine type: unspecified Status migrainosus presence: without status migrainosus Qualified Code(s): G43.909 - Migraine, unspecified, not intractable, without status migrainosus Plan: Stable/controlled on prophylactic Tx with Topiramate 100 mg Q HS Follow up with neurology as scheduled (7) GERD (gastroesophageal reflux disease): Code(s): K21.9 - Gastro-esophageal reflux disease without esophagitis Category: Medical Qualifiers: Esophagitis presence: without esophagitis Qualified Code(s): K21.9 - Gastro-esophageal reflux disease without esophagitis Plan: Dietary restrictions reinforced Continue Pantoprazole 40 mg QD Will start him additionally for now on Famotidine 20 mg BID PRN for his recent frequent heartburns Follow up with GI as scheduled (8) Lumbar degenerative disc disease: Code(s): M51.36 - Other intervertebral disc degeneration, lumbar region Category: Medical Qualifiers: Disc-related pain type: discogenic back pain only Qualified Code(s): M51.360 - Other intervertebral disc degeneration, lumbar region with discogenic back pain only Plan: Repeat lumbar spine x-rays done last year revealed (+) mild spondylosis of the lumbar spine with no acute changes Reinforced activity and weight lifting restrictions Continue Tramadol 50 mg TID PRN and Naproxen 500 mg BID with food as needed for pain (9) Obstructive sleep apnea: Code(s): G47.33 - Obstructive sleep apnea (adult) (pediatric) Category: Medical Plan: Home sleep study done in 2022 revealed (+) mild CAMELIA He was advised back then that he does not need CPAP and should try to lose some weight and avoid sleeping on his side Follow up with Sleep Medicine as scheduled or as needed (10) Vitamin D deficiency: Code(s): E55.9 - Vitamin D deficiency, unspecified Category: Medical Plan: Continue Vitamin D3 2000 units QD (11) Anxiety: Code(s): F41.9 - Anxiety disorder, unspecified Category: Medical Plan: Continue Alprazolam 1 mt TID PRN (12) Obesity (BMI 30.0-34.9): Code(s): E66.9 - Obesity, unspecified Category: Medical Plan: Reinforced diet/exercise as tolerated/lose weight Plan Follow up in 3 months Orders: Orders Ova and Parasite Today R19.7 - Diarrhea, unspecified US abdomen complete Today K52.9 - Noninfective gastroenteritis and colitis, unspecified, R10.9 - Unspecified abdominal pain Lipid Panel 3 Months E78.00 - Pure hypercholesterolemia, unspecified Comprehensive [place]. Panel Fast 3 Months E78.00 - Pure hypercholesterolemia, unspecified Complete Blood Count Auto Diff 3 Months D64.9 - Anemia, unspecified Hemoglobin A1c 3 Months E11.9 - Type 2 diabetes mellitus without complications Microalbumin, Random (w Creat) 3 Months E11.9 - Type 2 diabetes mellitus without complications Giardia Ag Stool EIA Today R19.7 - Diarrhea, unspecified Leukocytes Stool Qualitative Today R19.7 - Diarrhea, unspecified Routine Culture w Gram Stain Today R19.7 - Diarrhea, unspecified Medications: New famotidine 20 mg PO BID PRN 60 tabs 0RF heartburn
== END 2025-06-08 09:53 | disposition home or self-care (01) ==
LOC: HO.HMCH 09:14
PROVIDERS: PCP Internal Medicine; Visit Provider Internal Medicine
DX: E11.9 Type 2 diabetes mellitus without complications (principal); R19.7 Diarrhea, unspecified; E78.00 Pure hypercholesterolemia, unspecified; I10 Essential (primary) hypertension; J45.40 Moderate persistent asthma, uncomplicated; G43.909 Migraine, unspecified, not intractable, without status migrainosus; K21.9 Gastro-esophageal reflux disease without esophagitis; M51.360 Other intervertebral disc degeneration, lumbar region with discogenic back pain only; G47.33 Obstructive sleep apnea (adult) (pediatric); E66.9 Obesity, unspecified; E55.9 Vitamin D deficiency, unspecified; F41.9 Anxiety disorder, unspecified

== ENCOUNTER → 2025-06-08 09:12 | Outpatient (BNVA) | payer MEDICARE, MEDICAID, SELFPAY | PROVIDERS: PCP Internal Medicine; Visit Provider Internal Medicine | DX: R19.7 Diarrhea, unspecified (principal); E11.9 Type 2 diabetes mellitus without complications; E78.00 Pure hypercholesterolemia, unspecified; I10 Essential (primary) hypertension; J45.40 Moderate persistent asthma, uncomplicated; G43.909 Migraine, unspecified, not intractable, without status migrainosus; K21.9 Gastro-esophageal reflux disease without esophagitis; M51.360 Other intervertebral disc degeneration, lumbar region with discogenic back pain only; G47.33 Obstructive sleep apnea (adult) (pediatric); E55.9 Vitamin D deficiency, unspecified; F41.9 Anxiety disorder, unspecified; E66.9 Obesity, unspecified; Z68.30 Body mass index [BMI] 30.0-30.9, adult; Z71.3 Dietary counseling and surveillance | CPT/HCPCS: 96127; 99212 ==

== ENCOUNTER 2025-06-10 08:33 | Outpatient (REF) | payer MEDICARE, MEDICAID, SELFPAY ==
[2025-06-10 10:17] LABS: Leukocytes Stool Qualitative NEGATIVE (NEGATIVE)
== END 2025-06-10 08:34 | disposition home or self-care (01) ==
LOC: HO.LNP 08:33
PROVIDERS: Visit Provider Internal Medicine
DX: R19.7 Diarrhea, unspecified (principal)
CPT/HCPCS: 87177; 87209; 87329; 89055

== ENCOUNTER 2025-07-18 11:07 | Outpatient (AMB) | payer MEDICARE, MEDICAID, SELFPAY | END 2025-07-18 11:10 | disposition home or self-care (01) | LOC: HO.HMGAL 11:07 | PROVIDERS: PCP Internal Medicine; Visit Provider Registered Nurse Emergency | DX: J30.89 Other allergic rhinitis (principal) | CPT/HCPCS: 95117; 95165 ==

== ENCOUNTER 2025-07-24 11:01 | Outpatient (AMB) | payer MEDICARE, MEDICAID, SELFPAY | END 2025-07-24 11:37 | disposition home or self-care (01) | LOC: HO.HMGAL 11:01 | PROVIDERS: PCP Internal Medicine; Visit Provider Registered Nurse Emergency | DX: J30.89 Other allergic rhinitis (principal) | CPT/HCPCS: 95117; 95165 ==

== ENCOUNTER 2025-07-28 08:15 | Outpatient (REF) | payer MEDICARE, MEDICAID, SELFPAY ==
--- NOTE | ~2025-07-28 | US_ITS ---
EXAMINATION: US ABDOMEN COMPLETE CLINICAL INFORMATION: Abdominal pain. COMPARISON: Abdomen ultrasound 10/13/2018. Correlation made with CT abdomen and pelvis 12/13/2020. TECHNIQUE: Real-time imaging of the abdominal viscera. FINDINGS: PANCREAS: Visualized portions are unremarkable. ABDOMINAL AORTA: The proximal, mid, and distal segments are normal in caliber. INFERIOR VENA CAVA: Visualized portions are normal. LIVER: The liver is normal in size. Right hepatic lobe measures 14.8 cm. The liver contour is normal. Diffusely increased parenchymal echogenicity suggestive of steatosis. Focal fatty sparing abutting the gallbladder fossa. No suspicious focal hepatic lesion. There is an oval echogenic for a lesion measuring 2.2 x 2.2 x 1.9 cm, consistent with a known hemangioma. There is no intrahepatic biliary duct dilatation seen. GALLBLADDER: The gallbladder is physiologically distended without evidence of stones, sludge, polyps, wall thickening or pericholecystic fluid. COMMON BILE DUCT: Normal in caliber measuring 0.4 cm in diameter. RIGHT KIDNEY: No hydronephrosis. No renal calculi or focal parenchymal lesions. The kidney measures 10.5 cm in maximum dimension. LEFT KIDNEY: No hydronephrosis. No renal calculi or focal parenchymal lesions. The kidney measures 10.6 cm in maximum dimension. SPLEEN: The spleen measures 10.3 cm in maximum dimension. FREE FLUID: None. US/US abdomen complete IMPRESSION: 1. Diffusely increased hepatic echogenicity suggestive of steatosis. There is a 2.2 cm stable segment 4A hemangioma, seen on prior studies and stable. 2. Normal gallbladder and bile ducts. 3. Remainder of the exam is normal. Electronically signed by: Vinicio Khan MD 07/28/2025 10:56 AM EDT
== END 2025-07-28 08:16 | disposition home or self-care (01) ==
LOC: HO.US 08:15
PROVIDERS: PCP Internal Medicine; Visit Provider Internal Medicine
DX: R10.9 Unspecified abdominal pain (principal); K52.9 Noninfective gastroenteritis and colitis, unspecified
CPT/HCPCS: 76700

== ENCOUNTER → 2025-07-28 08:17 | Outpatient (BNV) | payer MEDICARE, MEDICAID, SELFPAY | PROVIDERS: PCP Internal Medicine; Visit Provider Radiology Diagnostic Radiology | DX: R10.9 Unspecified abdominal pain (principal) | CPT/HCPCS: 76700 ==

== ENCOUNTER 2025-08-07 08:42 | Outpatient (AMB) | payer MEDICARE, MEDICAID, SELFPAY | END 2025-08-07 08:43 | disposition home or self-care (01) | LOC: HO.HMGAL 08:42 | PROVIDERS: PCP Internal Medicine; Visit Provider Registered Nurse Emergency | DX: J30.89 Other allergic rhinitis (principal) | CPT/HCPCS: 95117; 95165 ==

== ENCOUNTER 2025-08-14 08:31 | Outpatient (REF) | payer MEDICARE, MEDICAID, SELFPAY ==
[2025-08-14 14:44] LABS: Folate 9.1 ng/mL (> or = 4.0); Vitamin B12 361 pg/mL (200-900)
== END 2025-08-14 08:32 | disposition home or self-care (01) ==
LOC: HO.HKASLDS 08:31
PROVIDERS: PCP Internal Medicine; Visit Provider Psychiatry & Neurology Neurology
DX: G25.2 Other specified forms of tremor (principal); R26.81 Unsteadiness on feet; Z79.899 Other long term (current) drug therapy
CPT/HCPCS: 36415; 82607; 82746; 99202

== ENCOUNTER 2025-08-14 08:31 | Outpatient (AMB) | payer MEDICARE, MEDICAID, SELFPAY ==
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
[2025-08-14 08:38] VITALS: BP 116/80; PULSE 88; O2SAT 98; BMI 30.7
== END 2025-08-14 09:26 | disposition home or self-care (01) ==
LOC: HO.HSMS 08:32
PROVIDERS: PCP Internal Medicine; Visit Provider Psychiatry & Neurology Neurology
DX: G25.2 Other specified forms of tremor (principal); R26.81 Unsteadiness on feet
CPT/HCPCS: 99204; G2211

== ENCOUNTER 2025-08-21 08:36 | Outpatient (AMB) | payer MEDICARE, MEDICAID, SELFPAY | END 2025-08-21 08:40 | disposition home or self-care (01) | LOC: HO.HMGAL 08:36 | PROVIDERS: PCP Internal Medicine; Visit Provider Registered Nurse Emergency | DX: J30.89 Other allergic rhinitis (principal) | CPT/HCPCS: 95117; 95165 ==

== ENCOUNTER 2025-08-22 08:51 | Outpatient (AMB) | payer MEDICARE, MEDICAID, SELFPAY ==
--- NOTE | 2025-08-22 08:54 | A.OFFVIS_ITS ---
Vital Signs 08/22/25 08:58 Height 5 ft 8 in Weight 202 lb 2.622 oz BMI 30.7 BP 100/66 Blood Pressure Location Rt brachial Position Sitting Pulse 97 Pulse Source Pulse Oximeter Pulse Oximetry (%) 97 Oxygen Delivery Method Room Air Intake Visit Reasons: T2DM Intake Note: Patient present today to follow up on Type 2 Diabetes Mellitus. Last Diabetic Eye exam: 11/2024 Last Podiatry Visit: Does not see a Angiography Technologist Random Glucose: 141 mg/dl Hgb A1C: 7.1% Data Coder Operator Required: No Accompanied by: Self / Same As Patient Allergies No Known Allergies (No Known Allergies*) Allergy (Verified 08/22/25 08:59) Medication List - Last Reconciled 08/22/25 by LAKE Verma albuterol sulfate 90 mcg/actuation (ProAir HFA) 2 puffs inhalation Q6H PRN 30 days albuterol sulfate 2.5 mg (3 mL) inhalation TID PRN alcohol swabs 1 pad topical DAILY 30 days alprazolam 1 mg PO TID PRN amitriptyline 25 mg PO BEDTIME Asmanex HFA 200 mcg/actuation (mometasone) 1 puff inhalation BID 30 days NS atorvastatin 40 mg PO BEDTIME 90 days Basaglar KwikPen U-100 Insulin (insulin glargine) 10 units (0.1 mL) subcut QPM 30 days NS blood sugar diagnostic (FreeStyle Lite Strips) Twice a day 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 meter (FreeStyle Lite Meter kit) As directed 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 sensor (FreeStyle Jazmine 3 Plus Sensor device) every 15 days clonidine HCl 0.1 mg PO BEDTIME dicyclomine 20 mg PO QID 30 days famotidine 20 mg PO BID PRN FreeStyle Jazmine 3 [place] (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,senior environmental engineer,cont) As directed for use with freestyle Jazmine 3 sensors NS glucose 4 grams PO Q15M PRN lancets use as directed once a day lancets (FreeStyle Lancets) As directed- once a day lisinopril 10 mg PO DAILY 90 days meloxicam 15 mg PO DAILY metoclopramide HCl (Reglan) 10 mg PO QIDACHS 30 days [NEBULIZER and all related supplies As directed] pantoprazole (Protonix) 40 mg PO BID pen needle, diabetic (BD Ultra-Fine Melissa Pen Needle) As directed once a day primidone 50 mg PO BID tirzepatide (Mounjaro) 7.5 mg (0.5 mL) subcut QWEEK topiramate 100 mg PO BEDTIME 90 days tramadol 50 mg PO TID PRN 30 days HPI Comments Details: This is a 55-year-old male with a past medical history of tremors, type 2 diabetes, tachycardia, IBS, esophageal dysmotility, hyperlipidemia, asthma, hypertension and obesity presenting for diabetic management. He also has a history of anoxic brain injury as an infant. This is my 1st visit with the patient. He was last seen by my colleague on 05/24/2025. He was initially diagnosed with type 2 diabetes in 2019. Family history of type 2 diabetes in mother. Hemoglobin A1c today 08/22/2025: 7.1%. Reviewed glucometer download. In range 100% of the time. Average glucose 157. Range 141 to 170. Current regimen: Basaglar 10 units nightly, Mounjaro 5 mg weekly Patient has seen the registered dietitian, Roman Craven, and he is fo llowed by the parent educator, Mikayla Nolasco. Hypoglycemia: occasional lows overnight (2-3 times per month) treated with OJ or glucose tablets Hyperglycemia: No symptoms Complications: Nephropathy (microalbuminuria and CKD stage III documented however recent tests normal); mild nephropathy in his toes on exam today He has hyperlipidemia, on statin. Patient is walking regularly and following a low-carbohydrate diet. He eats rice once a month. Eats a lot of salad. Drinks coke zero. ROS: Constitutional: No unexplained weight loss, fever, chills, fatigue or night swea ts. Eyes: No vision changes, blurry vision, double vision Respiratory: No shortness of breath Cardiovascular: No chest pain, chest pressure or chest discomfort. No palpitations or pedal edema. Gastrointestinal: No anorexia, nausea, vomiting or diarrhea. No abdominal pain Neurologic: No headache, dizziness, syncope, no numbness or tingling in the extremities. Endocrine: No cold or heat intolerance. No polyuria or polydipsia. Physical exam: Constitutional: Alert, in no distress. Neck: Supple, Full range of motion. No lymphadenopathy. No palpable thyroid masses. Respiratory: Clear to auscultation. Cardiovascular: S1 S2 regular. No murmurs Right foot: Warm and well perfused. No clubbing, cyanosis or edema. Intact DP pulse. Decreased vibratory sensation. Intact sensation to monofilament. No open wounds. Ingrown 1st toenail. Left foot: Warm and well perfused. No clubbing, cyanosis or edema. Intact DP pulse. Decreased vibratory sensation. Intact sensation to monofilament. No open wounds. Ingrown 1st toenail. [facility] Medical History (Updated 08/22/25 @ 09:21 by LAKE Verma) Diabetic neuropathy Ingrown nail Type 2 diabetes mellitus with nephropathy Numbness Coarse tremors Type 2 diabetes mellitus Obesity (BMI 30-39.9) Colon cancer screening Oropharyngeal dysphagia Gastritis History of anoxic brain injury Epididymal cyst Hematuria Anxiety Obstructive sleep apnea Vitamin B12 deficiency Vitamin D deficiency Lumbar degenerative disc disease Asthma Pure hypercholesterolemia Migraine Cardiac arrhythmia Benign essential hypertension Surgical History H/O bilateral inguinal hernia repair H/O hernia repair History of esophagogastroduodenoscopy (EGD) Hx of colonoscopy History of extraction of renal calculus History of repair of rotator cuff Family History Father No problems noted. Mother Hypertension Cancer Sister Cancer Social History Household Members: Significant Other Housing: House Alcohol intake: never Patient Tobacco Use Status: Never used Tobacco e-Cigarette/Vaping Use: Never Used Second Hand Smoke Exposure: No service: No Current occupational status: disabled Current occupational exposures/hazards: No Cognitive needs: No Hearing needs: No Vision needs: No Physical Exam Vital Signs: Last Vital Signs Pulse 97 08/22/25 08:58 BP 100/66 08/22/25 08:58 Pulse Ox 97 08/22/25 08:58 Oxygen Delivery Method Room Air 08/22/25 08:58 BMI result Body Mass Index 30.7 Results AMB Hemoglobin A1c AMB Hemoglobin A1c 7.1 % Last Edit by DONALDO Mccollum on 08/22/25 09:24 Results Reviewed Results Reviewed: Laboratory Last Values Glucose (Clinic) 141 mg/dL (60-115) H 08/22/25 09:04 Hgb A1c (Clinic) 7.1 % (4.0-6.0) H 08/22/25 09:07 Laboratory Tests 05/29/25 05/29/25 07:22 07:25 Plt Count 207 Creatinine 1.09 Estimated GFR > 60 AST 18 ALT 23 Triglycerides 164 H Cholesterol 140 LDL Cholesterol, Calc 72 HDL Cholesterol 36 L TSH 0.65 Urine Creatinine 393.42 Urine Microalbumin 24.0 Microalb/Creat Ratio 6.1 Assessment & Plan Assessment & Plan (1) Type 2 diabetes mellitus with nephropathy: Code(s): E11.21 - Type 2 diabetes mellitus with diabetic nephropathy Category: Medical Plan: In summary this is a 55-year-old male with controlled type 2 diabetes with nephropathy. Discussed pathophysiology of Type II Diabetes Mellitus with the patient in detail.? I explained the correction risks and complications associated with uncontrolled diabetes including nephropathy, neuropathy, peripheral vascular disease, retinopathy, increased risk of heart disease and stroke.? Discussed lifestyle modification with the patient. Recommended 30 minutes of moderately vigorous exercise 5 days per week to promote weight loss. Continue routine eye exams. Patient met with the dietitian and certified parent educator. Increase Mounjaro to 7.5 mg weekly and continue Basaglar 10 units nightly. If he has low blood sugars he will reduce Basaglar to 5 units nightly and call the office. Continue JESSICA inhibitor for renal protection. Refer to podiatry for ingrown nails. (2) Benign essential hypertension: Code(s): I10 - Essential (primary) hypertension Category: Medical Plan: Hypertension is well-controlled. Continue current regimen. Recommended low-so dium diet. Continue to exercise to promote weight loss. (3) Pure hypercholesterolemia: Code(s): E78.00 - Pure hypercholesterolemia, unspecified Category: Medical Plan: Continue statin. Continue to work on low carbohydrate and low sugar diet to im prove triglycerides. Continue exercising. Plan Follow up in 3 months for type 2 diabetes. Orders: Orders AMB Hemoglobin A1c Today E11.9 - Type 2 diabetes mellitus without complications Referrals Podiatry Referral E11.40 - Type 2 diabetes mellitus with diabetic neuropathy, unspecified, L60.0 - Ingrowing nail Medications: New tirzepatide (Mounjaro) 7.5 mg (0.5 mL) subcut QWEEK 2 mL 3RF Changed From Basaglar KwikPen U-100 Insulin (insulin glargine) 20 units (0.2 mL) subcut QPM 30 days 9 mL 6RF NS E11.9 - Type 2 diabetes mellitus without complications To Basaglar KwikPen U-100 Insulin (insulin glargine) 10 units (0.1 mL) subcut QPM 3 mL 6RF 30 days NS E11.9 - Type 2 diabetes mellitus without complications Discontinued tirzepatide (Mounjaro) Discontinued Reason: Doctor's Order 5 mg (0.5 mL) subcut QWEEK 28 days 2 mL 6RF Patient Instructions: If you experience low blood sugar, treat this by eating a chewable fruit candy like skittles or jelly beans (about 8 pieces), 4 ounces (1/2 cup) of fruit juice (not diet), 1 tablespoon of honey or 4 glucose tablets. If your blood sugar is under 50, take double the amount of one of the above. Recheck your blood sugar in 15 minutes. Start Mounjaro 7.5 mg weekly 1 week after last dose of Mounjaro 5 mg weekly. Continue basaglar insulin 10 units nightly. If you have increased low blood sugars after increasing Mounjaro decrease basaglar to 5 units nightly and call the office. Coding Level of Care Code Est Pt Level 4 (99574) Complex EM visit Add On G2211 Diagnoses Type 2 diabetes mellitus with nephropathy E11.21 Benign essential hypertension I10 Pure hypercholesterolemia E78.00
[2025-08-22 08:58] VITALS: BP 100/66; PULSE 97; O2SAT 97; BMI 30.7
== END 2025-08-22 09:37 | disposition home or self-care (01) ==
LOC: HO.ENCR 08:52
PROVIDERS: PCP Internal Medicine; Visit Provider Physician Assistant Medical
DX: E11.21 Type 2 diabetes mellitus with diabetic nephropathy (principal); I10 Essential (primary) hypertension; E78.00 Pure hypercholesterolemia, unspecified

== ENCOUNTER → 2025-08-22 08:51 | Outpatient (BNVA) | payer MEDICARE, MEDICAID, SELFPAY | PROVIDERS: PCP Internal Medicine; Visit Provider Physician Assistant Medical | DX: E11.21 Type 2 diabetes mellitus with diabetic nephropathy (principal); I10 Essential (primary) hypertension; E78.00 Pure hypercholesterolemia, unspecified; Z79.4 Long term (current) use of insulin; Z79.85 Long-term (current) use of injectable non-insulin antidiabetic drugs | CPT/HCPCS: 82947; 83036; 99212 ==

== ENCOUNTER 2025-09-04 09:05 | Outpatient (AMB) | payer MEDICARE, MEDICAID, SELFPAY | END 2025-09-04 09:45 | disposition home or self-care (01) | LOC: HO.HMGAL 09:05 | PROVIDERS: PCP Internal Medicine; Visit Provider Registered Nurse Emergency | DX: J30.89 Other allergic rhinitis (principal) | CPT/HCPCS: 95117; 95165 ==

== ENCOUNTER 2025-09-04 09:11 | Outpatient (REF) | payer MEDICARE, MEDICAID, SELFPAY ==
[2025-09-04 09:24] LABS: MANUAL DIFF FLAG NO
[2025-09-04 10:02] LABS: Hematocrit 40.0 % (42.0-52.0); Hemoglobin 13.8 g/dl (14.0-18.0); Imm Gran Abs Auto 0.01 X10*3/uL (0.00-0.03); Imm Gran Pct Auto 0.2 % (0.0-0.4); Lymphocytes Absolute Auto 1.6 X10*3/uL (1.2-4.9); Mean Corpuscular HGB Conc 34.5 g/dl (31.0-36.0); Mean Corpuscular Hemoglobin 29.9 pg (27.0-33.0); Mean Corpuscular Volume 86.8 fL (80.0-98.0); NRBC Abs Auto 0.000 X10*3/uL (0.0-0.012); NRBC Pct Auto 0.0 /100WBC (0.0-0.2); Platelet Count 234 X10*3/uL (160-400); Red Blood Count 4.61 X10*6/uL (4.60-5.80); White Blood Count 5.9 X10*3/uL (4.8-10.8)
[2025-09-04 10:42] LABS: Microalbum/Creatinine Ratio Ur 10.0 ug/mg cr (<30)
[2025-09-04 10:42] LABS: Alanine Aminotransferase 21 U/L (0-40); Albumin Level 4.7 g/dL (3.5-5.0); Alkaline Phosphatase 68 U/L (39-117); Anion Gap 11 (12-20); Aspartate Amino Transferase 25 U/L (5-37); Blood Urea Nitrogen 23 mg/dL (9-16); Calcium 9.2 mg/dL (8.4-10.2); Carbon Dioxide 21 mmol/L (22-29); Chloride 115 mmol/L (96-108); Cholesterol 140 mg/dL (<200); Estimated Glomerular Filt Rate > 60; HDL Cholesterol 35 mg/dL (>40); Potassium 3.7 mmol/L (3.3-5.1); Sodium 143 mmol/L (135-145); Total Protein 7.4 g/dL (6.5-8.0); Triglycerides 105 mg/dL (<150)
== END 2025-09-04 09:12 | disposition home or self-care (01) ==
LOC: HO.LAB 09:11
PROVIDERS: PCP Internal Medicine; Visit Provider Internal Medicine
DX: E78.00 Pure hypercholesterolemia, unspecified (principal); D64.9 Anemia, unspecified; E11.9 Type 2 diabetes mellitus without complications
CPT/HCPCS: 36415; 80053; 80061; 82043; 82570; 83036; 85025

== ENCOUNTER 2025-09-07 13:14 | Outpatient (AMB) | payer MEDICARE, MEDICAID, SELFPAY ==
[2025-09-07 13:39] VITALS: BMI 30.7
--- NOTE | 2025-09-07 13:39 | A.OFFVIS_ITS ---
Vital Signs 09/07/25 13:39 Height 5 ft 8 in Weight 202 lb BMI 30.7 Intake Visit Reasons: New Pt - Diabetic Foot Exam & Ingrown Toenails Intake Note: He is a 55 year old male who presents today as a New Patient for a Diabetic Foot Exam and complaints of Ingrown Toenails. Pt states he has bilateral ingrown on the medial border and states this is a frequent occurrence. He has seen different home lending officer in the past and they have removed the nail however the nail persist to grow. His glucose as of last night is 157 and his last reported A1c was 6.7 as of 09/04/25. Patient reports he has bilateral numbness and tingling in his feet and he denies feeling a burning sensation. mentions having a bilateral open sore on the 4th toe but has since healed. Patient is diagnosed with arthritis in his back and he is not taking gabapentin at this time . Allergies No Known Allergies (No Known Allergies*) Allergy (Verified 09/07/25 13:40) HPI Comments Details: The patient is a 55-year-old male with a past medical history presenting with a bilateral hallux ingrown toenails and numbness and tingling in the extremities. The ingrown toenails has been a recurrent issue for the patient, with previous interventions including chemical treatments to prevent regrowth. The patient reports that the nail regrowth has been problematic, with a piece of the nail growing back despite previous procedures. The patient also experiences numbness and tingling in the extremities, which has been persistent and concerning. He will be undergoing nerve testing in September to evaluate the cause of these symptoms, with further testing scheduled for September. Patient states his blood glucose was 157 mg/dL last night. He denies any other pedal concerns. Denies any current N/V/F/C. [facility] Medical History (Updated 09/07/25 @ 14:36 by Toña Haskins DPM) Nail disorder Nail dystrophy Diabetic neuropathy Ingrown nail Type 2 diabetes mellitus with nephropathy Numbness Coarse tremors Type 2 diabetes mellitus Obesity (BMI 30-39.9) Colon cancer screening Oropharyngeal dysphagia Gastritis History of anoxic brain injury Epididymal cyst Hematuria Anxiety Obstructive sleep apnea Vitamin B12 deficiency Vitamin D deficiency Lumbar degenerative disc disease Asthma Pure hypercholesterolemia Migraine Cardiac arrhythmia Benign essential hypertension Surgical History H/O bilateral inguinal hernia repair H/O hernia repair History of esophagogastroduodenoscopy (EGD) Hx of colonoscopy History of extraction of renal calculus History of repair of rotator cuff Family History Father No problems noted. Mother Hypertension Cancer Sister Cancer Social History Household Members: Significant Other Housing: House Alcohol intake: never Patient Tobacco Use Status: Never used Tobacco e-Cigarette/Vaping Use: Never Used Second Hand Smoke Exposure: No service: No Current occupational status: disabled Current occupational exposures/hazards: No Cognitive needs: No Hearing needs: No Vision needs: No Review of Systems Const Details: - Neurological: Reports numbness and tingling in extremities. Denies any other neurological symptoms. - Dermatological: Reports recurrent ingrown toenails to B/L halluces. All systems reviewed & are unremarkable except as noted in HPI and below Physical Exam Vital Signs: BMI result Body Mass Index 30.7 Extrem Other: B/L LE Focused Physical Exam: Derm: Spicules of nail with ingrowing nature noted to B/L halluces medial borders. Mild edema and erythema noted to the medial nail border of B/L halluces. No drainage, purulence, or bleeding noted. Skin supple and turgor WNL. No maceration noted. Vasc: DP/PT pulses palpable. CFT < 3 secs. Temp gradient warm to warm. Pedal hair present. No varicosities noted. Neuro: Protective sensations grossly diminished to light touch and monofilament testing. MSK: Mild pain on palpation to the medial nail borders of B/L hallucal nails. No crepitus or fluctuance noted. ROM of the forefoot, hindfoot, and ankles WNL. Nonantalgic gait unassisted noted. Office Procedures AMB Debridement/Avulsion Podia Details: Performed a slant back to the nail spicules noted to proximal aspects of B/L hallucal nails medial borders using a curette and hemostat. Applied triple antibiotic ointment and a bandaid to B/L halluces with no incidents. [id number] of Nail <6 Procedure code (CPT) selection complete Diabetic Foot Exam G9226 - Diabetic Foot Exam Office Meds Triple Antibiotic 3.5 mg-400 unit-5,000 unit topical ointment packet Performing Provider: Toña Haskins DPM Performing Location: [facility] Administered by: Toña Haskins DPM on 09/07/25 14:46 Dose Route Admin Location Dispensed Lot Number Expiration Date [facility] [employer] 2 appl topical 2 appl [id number] [employer] Results Reviewed Results Reviewed: Laboratory Tests 09/04/25 09:23 Fasting Glucose 129 H Estimat Average Glucose 146 Hemoglobin A1c % 6.7 H Patient has nerve study testing scheduled in September. Assessment & Plan Assessment & Plan (1) Type 2 diabetes mellitus: Code(s): E11.9 - Type 2 diabetes mellitus without complications Category: Medical (2) Type 2 diabetes mellitus with nephropathy: Code(s): E11.21 - Type 2 diabetes mellitus with diabetic nephropathy Category: Medical (3) Ingrown nail: Code(s): L60.0 - Ingrowing nail Category: Medical (4) Diabetic neuropathy: Code(s): E11.40 - Type 2 diabetes mellitus with diabetic neuropathy, unspecified Category: Medical (5) Nail dystrophy: Code(s): L60.3 - Nail dystrophy Category: Medical (6) Nail disorder: Code(s): L60.9 - Nail disorder, unspecified Category: Medical Plan Patient was informed and verbally consented to the use of an ambient scribe for clinic note documentation during this visit. I discussed with the patient the management of his ingrown toenails, including the use of Epsom salt soaks and Neosporin application to prevent infection. We also talked about the upcoming neurological testing in September to better understand the cause of his numbness and tingling. I advised a follow-up visit in two weeks to monitor the healing process of the toenails to ensure no infection develops. - Performed a slant back of B/L hallucal nails medial borders with no incidents. Provided patient with after care instructional form. - Patient is to monitor the regrowth of the toenail and soak in Epsom salt and warm water to prevent infection. - Apply Neosporin and a Band-Aid daily to the affected area until the follow-up visit. - Advised patient to wear supportive shoe gear with a wide toe box and to avoid barefoot walking. - Await results of neurological testing in September to further evaluate numbness and tingling. RTC in 2 weeks for re-evaluation. Orders: Orders AMB Debridement/Avulsion Podiatry Today E11.21 - Type 2 diabetes mellitus with diabetic nephropathy, E11.40 - Type 2 diabetes mellitus with diabetic neuropathy, unspecified, E11.9 - Type 2 diabetes mellitus without complications, L60.0 - Ingrowing nail, L60.3 - Nail dystrophy, L60.9 - Nail disorder, unspecified AMB Diabetic Foot Exam Today E11.21 - Type 2 diabetes mellitus with diabetic nephropathy, E11.40 - Type 2 diabetes mellitus with diabetic neuropathy, unspecified, E11.9 - Type 2 diabetes mellitus without complications Coding Level of Care Code New Pt Level 4 (45214) Diagnoses Type 2 diabetes mellitus E11.9 Type 2 diabetes mellitus with nephropathy E11.21 Ingrown nail L60.0 Diabetic neuropathy E11.40 Nail dystrophy L60.3 Nail disorder L60.9 CPT Codes Skin Debridement - CPT: 36121-Fnlrehyubyp of Nail <6 ([id number]) Diabetic Foot Exam - CPT: G9226 - Diabetic Foot Exam ([id number]) Time Spent (min) 60
== END 2025-09-07 14:11 | disposition home or self-care (01) ==
LOC: HO.HPODS 13:15
PROVIDERS: PCP Internal Medicine; Visit Provider Student in an Organized Health Care Education/Training Program
DX: E11.21 Type 2 diabetes mellitus with diabetic nephropathy (principal); E11.40 Type 2 diabetes mellitus with diabetic neuropathy, unspecified; L60.0 Ingrowing nail; L60.3 Nail dystrophy; L60.9 Nail disorder, unspecified
CPT/HCPCS: 11720; 99203; G9226

== ENCOUNTER → 2025-09-07 13:14 | Outpatient (BNVA) | payer MEDICARE, MEDICAID, SELFPAY | PROVIDERS: PCP Internal Medicine; Visit Provider Student in an Organized Health Care Education/Training Program | DX: L60.0 Ingrowing nail (principal); L60.3 Nail dystrophy; L60.9 Nail disorder, unspecified; E11.40 Type 2 diabetes mellitus with diabetic neuropathy, unspecified; E11.21 Type 2 diabetes mellitus with diabetic nephropathy | CPT/HCPCS: 11720; 99202 ==

== ENCOUNTER 2025-09-12 08:41 | Outpatient (REF) | payer MEDICARE, MEDICAID, SELFPAY ==
[2025-09-13 21:29] LABS: Transglutaminase Ab IgG <1.0 U/mL
[2025-09-14 02:43] LABS: Class Almond 2; Class Brazil Nut 0; Class Cashew 0; Class Codfish 0; Class Cow's Milk 0/1; Class Egg white 1; Class Hazelnut 3; Class Macadamia Nut 0/1; Class Peanut 2; Class Salmon 0; Class Scallop 1; Class Sesame Seed 0/1; Class Shrimp 2; Class Soybean 1; Class Tuna 0; Class Walnut 0; Class Wheat 0/1; F345-IgE Macadmia Nut 0.19 kU/L
== END 2025-09-12 08:42 | disposition home or self-care (01) ==
LOC: HO.LAB 08:41
PROVIDERS: PCP Internal Medicine; Visit Provider Nurse Practitioner
DX: R19.7 Diarrhea, unspecified (principal); R14.0 Abdominal distension (gaseous); H00.019 Hordeolum externum unspecified eye, unspecified eyelid; Z79.899 Other long term (current) drug therapy; Z01.82 Encounter for allergy testing
CPT/HCPCS: 36415; 82785; 86003; 86140; 86364; 99212

== ENCOUNTER 2025-09-12 08:41 | Outpatient (AMB) | payer MEDICARE, MEDICAID, SELFPAY ==
[2025-09-12 08:53] VITALS: BP 133/73; PULSE 108; BMI 30.5
--- NOTE | 2025-09-12 08:53 | MHC.OFFVIS ---
Vital Signs 09/12/25 08:53 Height 5 ft 8 in Weight 200 lb 9.93 oz BMI 30.5 BP 133/73 Blood Pressure Location Lt brachial Position Sitting Pulse 108 H Intake Visit Reasons: 6 MO F/U CIC, GERD, PARESIS Intake Note: He returns to in office follow up of CIC, and GERD. CC: Patient states that every time he eats it sends him to the bathroom, and the stools are loose. He also reports that his PCP ordered an US of the abdomen he had done in June. Director Of Patient Financial Services Required: No Accompanied by: Self / Same As Patient Allergies No Known Allergies (No Known Allergies*) Allergy (Verified 09/12/25 09:09) HPI HPI 6 MO F/U CIC, GERD, PARESIS: Details: Assessment & Plan (1) Delayed gastric emptying: Code(s): K30 - Functional dyspepsia Category: Medical (2) Abdominal bloating: Code(s): R14.0 - Abdominal distension (gaseous) Category: Medical (3) Irritable bowel syndrome with both constipation and diarrhea: Code(s): K58.2 - Mixed irritable bowel syndrome Category: Medical (4) GERD (gastroesophageal reflux disease): Code(s): K21.9 - Gastro-esophageal reflux disease without esophagitis Category: Medical (5) Esophageal dysmotility: Code(s): K22.4 - Dyskinesia of esophagus Category: Medical Plan He is doing well on his GI regimen. He continues on his Reglan 10 mg 4 times a day, dicyclomine, pantoprazole 40 mg twice a day and simethicone His sleepiness has mostly resolved, ? r/t medication of his diabetes control. He now has a BG sensor! He is now on Mounjaro and a basal insulin and is doing better and is losing some weight r/t this and dieting. ROV 6 mos. Medications: Refilled pantoprazole (Protonix) 40 mg PO BID 60 tabs 6RF K21.9 - Gastro-esophageal reflux disease without esophagitis simethicone after meals 180 mg PO QID 120 caps 6RF 30 days dicyclomine 20 mg PO QID 120 tabs 6RF 30 days K58.2 - Mixed irritable bowel syndrome, R13.12 - Dysphagia, oropharyngeal phase metoclopramide HCl (Reglan) 10 mg PO QIDACHS 120 tabs 6RF 30 days K30 - Functional dyspepsia ULTRASOUND OF THE ABDOMEN 07/28/2025 FINDINGS: PANCREAS: Visualized portions are unremarkable. ABDOMINAL AORTA: The proximal, mid, and distal segments are normal in caliber. INFERIOR VENA CAVA: Visualized portions are normal. LIVER: The liver is normal in size. Right hepatic lobe measures 14.8 cm. The liver contour is normal. Diffusely increased parenchymal echogenicity suggestive of steatosis. Focal fatty sparing abutting the gallbladder fossa. No suspicious focal hepatic lesion. There is an oval echogenic for a lesion measuring 2.2 x 2.2 x 1.9 cm, consistent with a known hemangioma. There is no intrahepatic biliary duct dilatation seen. GALLBLADDER: The gallbladder is physiologically distended without evidence of stones, sludge, polyps, wall thickening or pericholecystic fluid. COMMON BILE DUCT: Normal in caliber measuring 0.4 cm in diameter. RIGHT KIDNEY: No hydronephrosis. No renal calculi or focal parenchymal lesions. The kidney measures 10.5 cm in maximum dimension. LEFT KIDNEY: No hydronephrosis. No renal calculi or focal parenchymal lesions. The kidney measures 10.6 cm in maximum dimension. SPLEEN: The spleen measures 10.3 cm in maximum dimension. FREE FLUID: None. US/US abdomen complete IMPRESSION: 1. Diffusely increased hepatic echogenicity suggestive of steatosis. There is a 2.2 cm stable segment 4A hemangioma, seen on prior studies and stable. 2. Normal gallbladder and bile ducts. 3. Remainder of the exam is normal. TODAY'S VISIT [facility] Medical History Nail disorder Nail dystrophy Diabetic neuropathy Ingrown nail Type 2 diabetes mellitus with nephropathy Numbness Coarse tremors Type 2 diabetes mellitus Obesity (BMI 30-39.9) Colon cancer screening Oropharyngeal dysphagia Gastritis History of anoxic brain injury Epididymal cyst Hematuria Anxiety Obstructive sleep apnea Vitamin B12 deficiency Vitamin D deficiency Lumbar degenerative disc disease Asthma Pure hypercholesterolemia Migraine Cardiac arrhythmia Benign essential hypertension Surgical History H/O bilateral inguinal hernia repair H/O hernia repair History of esophagogastroduodenoscopy (EGD) Hx of colonoscopy History of extraction of renal calculus History of repair of rotator cuff Family History Father No problems noted. Mother Hypertension Cancer Sister Cancer Social History Household Members: Significant Other Housing: House Alcohol intake: never Patient Tobacco Use Status: Never used Tobacco e-Cigarette/Vaping Use: Never Used Second Hand Smoke Exposure: No service: No Current occupational status: disabled Current occupational exposures/hazards: No Cognitive needs: No Hearing needs: No Vision needs: No Review of Systems Const Denies fatigue, Denies fever(s), Denies night sweats, Denies poor appetite and Denies weight loss Eyes Details: Stye on left inner eyelid ENT Reports Normal hearing present, Denies dental pain, Denies dysphagia, Denies hearing loss, Denies mouth pain, Denies odynophagia, Denies throat swelling, Denies tongue swelling and Reports other (Dentition adequate) Card Reports no additional complaints Resp Reports no additional complaints GI Details: Denies abdominal pain, Denies melena, Denies bloating, Denies hematochezia, Reports constipation, Denies GI cramping, Denies dysphagia, Denies excessive flatus, Denies early satiety, Reports heartburn, Reports diarrhea, Denies nausea, Denies odynophagia, Denies vomiting and Denies hematemesis Skin/Breast Denies pruritus, Denies lesions, Denies rash and Denies jaundice Neuro Reports Normal hearing present and Denies Abnormal speech present Endo Denies fatigue Aller/Immun Denies throat swelling and Denies tongue swelling Physical Exam Vital Signs: Last Vital Signs Pulse 108 H 09/12/25 08:53 BP 133/73 09/12/25 08:53 BMI result Body Mass Index 30.5 Const General: cooperative, no acute distress, well developed and well groomed Nutritional Appearance: well nourished and obese Orientation/consciousness: oriented to person, oriented to place and oriented to time Limitations: No language barrier HEENT Head: Yes normocephalic and Yes atraumatic Eyes Other: Stye on left inner eyelid General: appearance normal, both eyes and all related structures Pupils: Equal, round and reactive pupils present Neck Neck: Yes normal visual inspection and Yes no lymphadenopathy Thyroid: Thyroid normal Resp Effort & Inspection: normal respiratory effort and able to speak in complete sentences Auscultation: clear to auscultation bilaterally Cardio Rate: regular rate Rhythm: regular rhythm Heart sounds: Normal, physiologic split S2 sound present Peripheral pulses: radial pulses present and posterior tibial pulses present GI Inspection: No distended, No Abdominal panniculus present and Yes obesity Palpation (GI): Soft to palpation, nontender, no guarding, not rigid and No hepatosplenomegaly present Percussion: Yes normal to percussion Auscultation: normal bowel sounds Rectal Exam - Male: Yes deferred Skin General skin exam: no rashes or lesions noted, turgor normal, skin not dry, no jaundice, No spider nevi and no striae Rashes: no rashes Nails: normal Neuro General: oriented to person, oriented to place and oriented to time Cranial nerves: Yes Equal, round and reactive pupils present and Yes Normal hearing present Speech: No Abnormal speech present Extrem General: Yes normal to inspection, No clubbing, No cyanosis and No edema Psych Appearance: grossly normal and well kempt Mental Status: mental status grossly normal Speech and movement: Normal speech and movement present Affect: normal affect Attitude: cooperative Thought process: Normal thought process present and not confabulating Thought content: Normal thought content present Insight: Limited insight present (Psych) Judgement: Limited judgement present (Psych) Results Reviewed Results Reviewed: ULTRASOUND OF THE ABDOMEN 07/28/2025 FINDINGS: PANCREAS: Visualized portions are unremarkable. ABDOMINAL AORTA: The proximal, mid, and distal segments are normal in caliber. INFERIOR VENA CAVA: Visualized portions are normal. LIVER: The liver is normal in size. Right hepatic lobe measures 14.8 cm. The liver contour is normal. Diffusely increased parenchymal echogenicity suggestive of steatosis. Focal fatty sparing abutting the gallbladder fossa. No suspicious focal hepatic lesion. There is an oval echogenic for a lesion measuring 2.2 x 2.2 x 1.9 cm, consistent with a known hemangioma. There is no intrahepatic biliary duct dilatation seen. GALLBLADDER: The gallbladder is physiologically distended without evidence of stones, sludge, polyps, wall thickening or pericholecystic fluid. COMMON BILE DUCT: Normal in caliber measuring 0.4 cm in diameter. RIGHT KIDNEY: No hydronephrosis. No renal calculi or focal parenchymal lesions. The kidney measures 10.5 cm in maximum dimension. LEFT KIDNEY: No hydronephrosis. No renal calculi or focal parenchymal lesions. The kidney measures 10.6 cm in maximum dimension. SPLEEN: The spleen measures 10.3 cm in maximum dimension. FREE FLUID: None. US/US abdomen complete IMPRESSION: 1. Diffusely increased hepatic echogenicity suggestive of steatosis. There is a 2.2 cm stable segment 4A hemangioma, seen on prior studies and stable. 2. Normal gallbladder and bile ducts. 3. Remainder of the exam is normal. Assessment & Plan Assessment & Plan (1) Diarrhea: Code(s): R19.7 - Diarrhea, unspecified Category: Medical Qualifiers: Diarrhea type: unspecified type Qualified Code(s): R19.7 - Diarrhea, unspecified (2) Abdominal bloating: Code(s): R14.0 - Abdominal distension (gaseous) Category: Medical (3) Hordeolum externum (stye): Code(s): H00.019 - Hordeolum externum unspecified eye, unspecified eyelid Category: Medical Plan He continues on his Reglan 10 mg 4 times a day, dicyclomine, pantoprazole 40 mg twice a day and simethicone - The patient is a 55-year-old male presenting FOR FOLLOW-UP ON GERD, GASTROPARESIS AND IBS and has a new complaint of persistent diarrhea which has been occurring for three months. - The diarrhea is characterized by watery stools postprandial. - There are no accompanying symptoms such as vomiting or abdominal pain. - The patient has not made any recent dietary changes and continues to manage existing diabetes with Mounjaro, which had its dose increased after the onset of symptoms. - Previous diagnostic work includes a normal abdominal ultrasound and incomplete stool testing. - The family history is not significantly contributory to the present condition. - Medications have remained unchanged outside of the diabetes management regimen. I am uncertain what to make of this new onset, although he does have a history of diarrhea related to his irritable bowel in the past. We will get a basic acute diarrhea workup and go from there. I verify that he is taking his dicyclomine and this is not helping with the pain. She has a gallbladder and does not have gallstones. He incidentally notes a stye on the left inner upper eyelid and I advised him to use warm wet compresses to try to resolve this. Return office visit in 3 weeks Orders: Orders C Reactive Protein Today R19.7 - Diarrhea, unspecified Transglutaminase Ab IgG Today R19.7 - Diarrhea, unspecified GI Panel Today R19.7 - Diarrhea, unspecified Calprotectin, Fecal Today R19.7 - Diarrhea, unspecified Transglutaminase IgA Today R19.7 - Diarrhea, unspecified Rast Allergen Today R19.7 - Diarrhea, unspecified Coding Level of Care Code Est Pt Level 4 (80102) Diagnoses Diarrhea, unspecified type R19.7 Diarrhea type: unspecified type Abdominal bloating R14.0 Hordeolum externum (stye) H00.019 Time Spent (min) 36
== END 2025-09-12 09:50 | disposition home or self-care (01) ==
LOC: HO.HGI 08:42
PROVIDERS: PCP Internal Medicine; Visit Provider Nurse Practitioner
DX: R19.7 Diarrhea, unspecified (principal); R14.0 Abdominal distension (gaseous); H00.019 Hordeolum externum unspecified eye, unspecified eyelid
CPT/HCPCS: 99214

== ENCOUNTER 2025-09-13 11:00 | Outpatient (REF) | payer MEDICARE, MEDICAID, SELFPAY ==
[2025-09-13 13:20] LABS: E. coli EAEC Not Detected (Not Detect.); E. coli EPEC Not Detected (Not Detect.); E. coli ETEC Not Detected (Not Detect.); E. coli STEC Not Detected (Not Detect.); Shigella sp./EIEC Not Detected (Not Detect.)
[2025-09-20 23:48] LABS: Calprotectin, Fecal 67 mcg/g
== END 2025-09-13 11:01 | disposition home or self-care (01) ==
LOC: HO.LNP 11:00
PROVIDERS: Visit Provider Nurse Practitioner
DX: R19.7 Diarrhea, unspecified (principal)
CPT/HCPCS: 83993; 87507

== ENCOUNTER 2025-09-14 09:04 | Outpatient (AMB) | payer MEDICARE, MEDICAID, SELFPAY ==
[2025-09-14 09:09] VITALS: BP 110/80; PULSE 102; O2SAT 97; BMI 30.3
--- NOTE | 2025-09-14 09:09 | A.OFFPC_ITS ---
Vital Signs 09/14/25 09:09 Height 5 ft 8 in Weight 199 lb 6 oz BMI 30.3 BP 110/80 Blood Pressure Location Lt brachial Position Sitting Pulse 102 H Pulse Source Pulse Oximeter Pulse Oximetry (%) 97 Oxygen Delivery Method Room Air Intake Visit Reasons: 3 month Mobile Therapist Required: No Accompanied by: Self / Same As Patient Allergies No Known Allergies (No Known Allergies*) Allergy (Verified 09/14/25 09:52) Medication List - Last Reconciled 09/14/25 by Nathan Mendoza MD albuterol sulfate 90 mcg/actuation (ProAir HFA) 2 puffs inhalation Q6H PRN 30 days albuterol sulfate 2.5 mg (3 mL) inhalation TID PRN alcohol swabs 1 pad topical DAILY 30 days alprazolam 1 mg PO TID PRN amitriptyline 25 mg PO BEDTIME Asmanex HFA 200 mcg/actuation (mometasone) 1 puff inhalation BID 30 days NS atorvastatin 40 mg PO BEDTIME 90 days Basaglar KwikPen U-100 Insulin (insulin glargine) 10 units (0.1 mL) subcut QPM 30 days NS blood sugar diagnostic (FreeStyle Lite Strips) Twice a day 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 meter (FreeStyle Lite Meter kit) As directed 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 sensor (FreeStyle Jazmine 3 Plus Sensor device) every 15 days clonidine HCl 0.1 mg PO BEDTIME dicyclomine 20 mg PO QID 30 days famotidine 20 mg PO BID PRN FreeStyle Jazmine 3 [place] (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,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,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) As directed for use with freestyle Jazmine 3 sensors NS glucose 4 grams PO Q15M PRN lancets use as directed once a day lancets (FreeStyle Lancets) As directed- once a day lisinopril 10 mg PO DAILY 90 days metoclopramide HCl (Reglan) 10 mg PO QIDACHS 30 days [NEBULIZER and all related supplies As directed] pantoprazole (Protonix) 40 mg PO BID pen needle, diabetic (BD Ultra-Fine Melissa Pen Needle) As directed once a day primidone 50 mg PO BID tirzepatide (Mounjaro) 7.5 mg (0.5 mL) subcut QWEEK topiramate 100 mg PO BEDTIME 90 days tramadol 50 mg PO TID PRN 30 days Tobacco use date assessed: 09/14/25 Dental Screening Dental Screen Date: 09/14/25 Did you have a dental visit in the last 12 months?: No Did you have a dental problem in the last 6 months where you did not have access to dental care?: No Was dental information given to patient?: No HPI 3 month HPI Details Patient comes in today for his follow up visit States that he is still experiencing on and off abdominal pain/cramping and loose stools He was seen by GI recently and sent for some labs for further evaluation - states that he had 12 tubes of blood drawn at the lab a couple of days ago He denies any headaches or dizziness Denies any chest pains, no increased SOB No nausea/vomiting noted Adds that he had some eye infection (left eye swelled up) a few days ago and he now has some lesion on his left upper eyelid - states that he would like to get some Rx to help clear up the infection in his left eye He had his follow up labs done a couple of weeks ago - to discuss his results [facility] Medical History Nail disorder Nail dystrophy Diabetic neuropathy Ingrown nail Type 2 diabetes mellitus with nephropathy Numbness Coarse tremors Type 2 diabetes mellitus Obesity (BMI 30-39.9) Colon cancer screening Oropharyngeal dysphagia Gastritis History of anoxic brain injury Epididymal cyst Hematuria Anxiety Obstructive sleep apnea Vitamin B12 deficiency Vitamin D deficiency Lumbar degenerative disc disease Asthma Pure hypercholesterolemia Migraine Cardiac arrhythmia Benign essential hypertension Surgical History H/O bilateral inguinal hernia repair H/O hernia repair History of esophagogastroduodenoscopy (EGD) Hx of colonoscopy History of extraction of renal calculus History of repair of rotator cuff Family History Father No problems noted. Mother Hypertension Cancer Sister Cancer Social History Household Members: Significant Other Housing: House Alcohol intake: never Patient Tobacco Use Status: Never used Tobacco e-Cigarette/Vaping Use: Never Used Second Hand Smoke Exposure: No service: No Current occupational status: disabled Current occupational exposures/hazards: No Cognitive needs: No Hearing needs: No Vision needs: No Questionnaire PHQ-9 Over the last 2 weeks, how often have you been bothered by any of the following problems? Depression Screening Interpretation: Negative Depression Screening Done: Yes Source: Developed by Drs. Phil Medina, Leigh Ann, Daniel Ruelas and colleagues, with an educational marcin from [employer]. Thrive Questionnaire Date Thrive assessed: 06/08/25 I am a: Patient What is your living situation today?: I have a steady place to live Within the past 12 months, did the food you bought not last and you didn't have the money to get more?: I choose not to answer this question Within the past 12 months, did you worry whether your food would run out before you got money to buy more?: I choose not to answer this question Do you have trouble paying for medicines?: I choose not to answer this question Do you have trouble getting transportation to medical appointments?: I choose not to answer this question Do you have trouble paying your heating and electricity bill?: I choose not to answer this question Do you have trouble taking care of your child, family member or friend?: No Do you have trouble with day-to-day activities such as bathing, preparing meals, shopping, managing finances, etc.?: I choose not to answer this question Are you currently unemployed and looking for a job?: No Are you interested in more education?: No Please select the resources that you would like help with: None Currently or been in a relationship where the following occur: I choose not to answer THRIVE Score: 0 AUDIT C Alcohol Use Questionnaire (AUDIT-C) 1. How often do you have a drink containing alcohol?: Never 3. How often do you have six or more drinks on one occasion?: Never Total Score: 0 Score Reviewed/Action Taken: Yes DEVANTE-7 AMB Questionnaire DEVANTE-7 Date DEVANTE - 7 assessed: 06/08/25 Source: Developed by Drs. Phil Medina, Leigh Ann, Daniel Ruelas and colleagues, with an educational marcin from [employer]. Review of Systems Const Denies chills, Denies fatigue, Denies fever(s) and Denies headache(s) Eyes Details: (+) mild swelling of the left upper eyelid, with a small raised lesion near the margin of the eyelid ENT Reports dysphagia ((+) oropharyngeal dysphagia - he follows up with ENT for this issue), Denies dizziness, Denies otalgia, Denies headache(s), Denies neck pain, Denies odynophagia and Denies sore throat Card Denies chest pain, Denies palpitations and Denies dyspnea Resp Denies chest congestion, Denies cough and Denies dyspnea GI Reports as per HPI, Reports abdominal pain (on and off cramping pain), Denies hematochezia, Denies constipation, Reports dysphagia ((+) oropharyngeal dysphagia - he follows up with ENT for this issue), Denies heartburn, Reports diarrhea, Reports loose stools, Denies nausea, Denies odynophagia and Denies vomiting Denies difficulty urinating, Denies nocturia and Denies urinary frequency Musc Reports abnormal gait (unsteady gait), Reports back pain (over the lower back - chronic ), Reports arthralgias (over both knees; on and off right elbow pain) and Denies neck pain Skin/Breast Denies rash Neuro Reports abnormal gait (unsteady gait), Denies dizziness and Denies headache(s) Endo Denies fatigue and Denies palpitations Physical exam (Primary Care) Vital Signs: Last Vital Signs Pulse 102 H 09/14/25 09:09 BP 110/80 09/14/25 09:09 Pulse Ox 97 09/14/25 09:09 Oxygen Delivery Method Room Air 09/14/25 09:09 BMI result Body Mass Index 30.3 Tobacco/Smoking Status: Tobacco use Status Tobacco use date assessed 09/14/25 09/14/25 09:16 Patient Tobacco Use Status Never used Tobacco 09/14/25 09:16 e-Cigarette/Vaping Use Never Used 09/14/25 09:16 Depression Screening Interpretation: Negative Thrive Assessment: Date of Thrive Assessment Date Thrive assessed 06/08/25 09/14/25 09:16 Currently or been in a relationship where the following occur: I choose not to answer Const General: no acute distress and alert HENMT Ears: TM's normal bilaterally and EAC's normal Throat: Yes posterior oropharynx normal and Yes tonsils normal Eyes Other: (+) mild edema of the left upper eyelid, with a small raised skin tag just above the margin of the upper eyelid; no conjunctival injection noted in both eyes Neck Neck: Yes supple and No lymphadenopathy Thyroid: Thyroid normal Resp Auscultation: clear to auscultation bilaterally, no rales and no wheezes Cardio Rate: regular rate Rhythm: regular rhythm Heart sounds: no murmurs GI Palpation (GI): Soft to palpation and nontender Auscultation: normal bowel sounds General: Yes no CVA tenderness Back/Spine/Pelvis Back: no CVA tenderness Thoracic/Lumbar Spine: lumbar spinal tenderness Skin Rashes: no rashes Extrem General: Yes no clubbing, cyanosis or edema Left upper extremity: elbow/forearm Details: tenderness; no swelling Right lower extremity: knee Details: tenderness Left lower extremity: knee Details: tenderness Results Reviewed Results Reviewed: Laboratory Tests 08/14/25 09/04/25 09/04/25 10:01 09:19 09:23 WBC 5.9 Hgb 13.8 L Hct 40.0 L Plt Count 234 Sodium 143 Potassium 3.7 Creatinine 1.11 Estimated GFR > 60 Fasting Glucose 129 H Hemoglobin A1c % 6.7 H Calcium 9.2 AST 25 ALT 21 Triglycerides 105 Cholesterol 140 LDL Cholesterol, Calc 84 HDL Cholesterol 35 L Vitamin B12 361 Microalb/Creat Ratio 10.0 Coding Level of Care Code Est Pt Level 4 (82007) Complex EM visit Add On G2211 Diagnoses Type 2 diabetes mellitus without complication, with no history of insulin use E11.9 Pure hypercholesterolemia E78.00 Benign essential hypertension I10 Moderate persistent asthma without complication J45.40 Asthma complication type: uncomplicated Asthma persistence: persistent Asthma severity: moderate Diarrhea, unspecified type R19.7 Diarrhea type: unspecified type Migraine without status migrainosus, not intractable, unspecified migraine type G43.909 Intractability: not intractable Migraine type: unspecified Status migrainosus presence: without status migrainosus Gastroesophageal reflux disease without esophagitis K21.9 Esophagitis presence: without esophagitis Degeneration of intervertebral disc of lumbar region with discogenic back pain M51.360 Disc-related pain type: discogenic back pain only Obstructive sleep apnea G47.33 Vitamin D deficiency E55.9 Blepharitis of left upper eyelid, unspecified type H01.004 Blepharitis type: unspecified type Anxiety F41.9 Obesity (BMI 30.0-34.9) E66.9 Assessment & Plan Assessment & Plan (1) Type 2 diabetes mellitus without complication, with no history of insulin use: Code(s): E11.9 - Type 2 diabetes mellitus without complications Category: Medical Plan: His HgbA1c was at 6.7% on his labs done a couple of weeks ago (was previously at 6.4% a few months ago) - goal is < 6.5% Reinforced diabetic diet - he is now seeing diabetic head concierge regularly Continue Basaglar 10 units Q HS especially if his glucose is over 200 mg/dl and Mounjaro 7.5 mg SQ once a week He was taken off all of his previous oral meds (Pioglitazone, Trulicity and Acarbose) Follow up with endocrinology as scheduled (2) Pure hypercholesterolemia: Code(s): E78.00 - Pure hypercholesterolemia, unspecified Category: Medical Plan: Results of his labs done a couple of weeks ago reviewed and discussed with patient - his cholesterol numbers remain well-controlled Reinforced low cholesterol diet Continue Atorvastatin 40 mg QD Will recheck his labs and fasting lipids in 3 months for follow-up (3) Benign essential hypertension: Code(s): I10 - Essential (primary) hypertension Category: Medical Plan: Reinforced low-sodium diet -? goal is systolic BP of at least 120 to 130 mm or less Continue Lisinopril 10 mg QD (4) Asthma: Code(s): J45.909 - Unspecified asthma, uncomplicated Category: Medical Qualifiers: Asthma complication type: uncomplicated Asthma persistence: persistent Asthma severity: moderate Qualified Code(s): J45.40 - Moderate persistent asthma, uncomplicated Plan: Controlled Continue Asmanex 200 mcg 1 inhalation BID and Ventolin HFA 2 puffs 4 times a day as needed Patient also uses his nebulizer with Albuterol nebulizer solution 3 to 4 times a day when needed (5) Diarrhea: Code(s): R19.7 - Diarrhea, unspecified Category: Medical Qualifiers: Diarrhea type: unspecified type Qualified Code(s): R19.7 - Diarrhea, unspecified Plan: Stool WBC was negative back in May 2025 Abdominal US done a couple of months ago revealed (+) diffusely increased hepatic echogenicity suggestive of steatosis. There is a 2.2 cm stable segment 4A hemangioma, seen on prior studies and stable. Normal gallbladder and bile ducts. Remainder of the exam is normal She is currently being worked up by GI and based on some of the results that are back, he appears to have multiple food allergies Follow up with GI as scheduled (6) Migraine: Code(s): G43.909 - Migraine, unspecified, not intractable, without status migrainosus Category: Medical Qualifiers: Intractability: not intractable Migraine type: unspecified Status migrainosus presence: without status migrainosus Qualified Code(s): G43.909 - Migraine, unspecified, not intractable, without status migrainosus Plan: Stable/controlled on prophylactic Tx with Topiramate 100 mg Q HS Follow up with neurology as scheduled (7) GERD (gastroesophageal reflux disease): Code(s): K21.9 - Gastro-esophageal reflux disease without esophagitis Category: Medical Qualifiers: Esophagitis presence: without esophagitis Qualified Code(s): K21.9 - Gastro-esophageal reflux disease without esophagitis Plan: Dietary restrictions reinforced Continue Pantoprazole 40 mg QD and Famotidine 20 mg BID PRN for heartburns Follow up with GI as scheduled (8) Lumbar degenerative disc disease: Code(s): M51.36 - Other intervertebral disc degeneration, lumbar region Category: Medical Qualifiers: Disc-related pain type: discogenic back pain only Qualified Code(s): M51.360 - Other intervertebral disc degeneration, lumbar region with discogenic back pain only Plan: Repeat lumbar spine x-rays done last year revealed (+) mild spondylosis of the lumbar spine with no acute changes Reinforced activity and weight lifting restrictions Continue Tramadol 50 mg TID PRN and Naproxen 500 mg BID with food as needed for pain (9) Obstructive sleep apnea: Code(s): G47.33 - Obstructive sleep apnea (adult) (pediatric) Category: Medical Plan: Home sleep study done in 2022 revealed (+) mild CAMELIA He was advised back then that he does not need CPAP and should try to lose some weight and avoid sleeping on his side Follow up with Sleep Medicine as scheduled or as needed (10) Vitamin D deficiency: Code(s): E55.9 - Vitamin D deficiency, unspecified Category: Medical Plan: Continue Vitamin D3 2000 units QD (11) Blepharitis of left upper eyelid: Code(s): H01.004 - Unspecified blepharitis left upper eyelid Category: Medical Qualifiers: Blepharitis type: unspecified type Qualified Code(s): H01.004 - Unspecified blepharitis left upper eyelid Plan: Will start patient on Polytrim eyedrops to the left eye QID x 7 days (12) Anxiety: Code(s): F41.9 - Anxiety disorder, unspecified Category: Medical Plan: Continue Alprazolam 1 mt TID PRN (13) Obesity (BMI 30.0-34.9): Code(s): E66.9 - Obesity, unspecified Category: Medical Plan: Reinforced diet/exercise as tolerated/lose weight Plan Follow up in 3 months Orders: Orders Lipid Panel 3 Months E78.00 - Pure hypercholesterolemia, unspecified Hemoglobin A1c 3 Months E11.9 - Type 2 diabetes mellitus without complications UA CC w/rflx Micro + Cult 3 Months R30.0 - Dysuria Complete Blood Count Auto Diff 3 Months D64.9 - Anemia, unspecified Comprehensive [place]. Panel Fast 3 Months E78.00 - Pure hypercholesterolemia, unspecified Microalbumin, Random (w Creat) 3 Months E11.9 - Type 2 diabetes mellitus without complications TSH reflex Free T4 3 Months E78.00 - Pure hypercholesterolemia, unspecified Vitamin D 25-OH Total 3 Months E55.9 - Vitamin D deficiency, unspecified Medications: New polymyxin B sulf-trimethoprim 10,000 unit- 1 mg/mL 1 drp ophthalmic (eye) QID 10 mL 0RF 7 days
== END 2025-09-14 10:03 | disposition home or self-care (01) ==
LOC: HO.HMCH 09:04
PROVIDERS: PCP Internal Medicine; Visit Provider Internal Medicine
DX: E11.9 Type 2 diabetes mellitus without complications (principal); E78.00 Pure hypercholesterolemia, unspecified; I10 Essential (primary) hypertension; J45.40 Moderate persistent asthma, uncomplicated; R19.7 Diarrhea, unspecified; G43.909 Migraine, unspecified, not intractable, without status migrainosus; K21.9 Gastro-esophageal reflux disease without esophagitis; M51.360 Other intervertebral disc degeneration, lumbar region with discogenic back pain only; G47.33 Obstructive sleep apnea (adult) (pediatric); E55.9 Vitamin D deficiency, unspecified; H01.004 Unspecified blepharitis left upper eyelid; F41.9 Anxiety disorder, unspecified

== ENCOUNTER → 2025-09-14 09:04 | Outpatient (BNVA) | payer MEDICARE, MEDICAID, SELFPAY | PROVIDERS: PCP Internal Medicine; Visit Provider Internal Medicine | DX: E11.9 Type 2 diabetes mellitus without complications (principal); R10.9 Unspecified abdominal pain; E78.00 Pure hypercholesterolemia, unspecified; I10 Essential (primary) hypertension; J45.40 Moderate persistent asthma, uncomplicated; R19.7 Diarrhea, unspecified; G43.909 Migraine, unspecified, not intractable, without status migrainosus; K21.9 Gastro-esophageal reflux disease without esophagitis; M51.360 Other intervertebral disc degeneration, lumbar region with discogenic back pain only; G47.33 Obstructive sleep apnea (adult) (pediatric); E55.9 Vitamin D deficiency, unspecified; H01.004 Unspecified blepharitis left upper eyelid; F41.9 Anxiety disorder, unspecified; E66.9 Obesity, unspecified; Z68.30 Body mass index [BMI] 30.0-30.9, adult | CPT/HCPCS: 99212 ==

== ENCOUNTER 2025-09-18 09:29 | Outpatient (AMB) | payer MEDICARE, MEDICAID, SELFPAY | END 2025-09-18 09:29 | disposition home or self-care (01) | LOC: HO.HMGAL 09:29 | PROVIDERS: PCP Internal Medicine; Visit Provider Registered Nurse Emergency | DX: J30.89 Other allergic rhinitis (principal) | CPT/HCPCS: 95117; 95165 ==

== ENCOUNTER 2025-09-25 09:15 | Outpatient (AMB) | payer MEDICARE, MEDICAID, SELFPAY ==
--- NOTE | 2025-09-25 09:18 | MHC.OFFVIS ---
Vital Signs 09/25/25 09:20 Height 5 ft 8 in Weight 199 lb BMI 30.3 Intake Visit Reasons: f/u Diabetic Foot Exam & Ingrown Toenails Intake Note: Audie is a 55 year old male who presents today for a follow up on his Ingrown of the bilateral hallux. During patients last visit a slant back of B/L hallucal nails on the medial borders was performed and patient was provided with after care instructions. Patient reports his recovery has gone well and currently is not experiecing any more pain or discomort at this time. Allergies No Known Allergies (No Known Allergies*) Allergy (Verified 09/25/25 09:21) HPI Comments Details: The patient is a 55-year-old male presenting for a follow up S/P slant backs of B/L hallucal nails medial borders. Patient states he has been adhering to the aftercare protocol. He denies any pain to B/L halluces and denies any drainage, purulence, or bleeding from the site. He denies any new pedal injuries. Patient states his nerve study is scheduled for September. He denies any new pedal concerns. [facility] Medical History Nail disorder Nail dystrophy Diabetic neuropathy Ingrown nail Type 2 diabetes mellitus with nephropathy Numbness Coarse tremors Type 2 diabetes mellitus Obesity (BMI 30-39.9) Colon cancer screening Oropharyngeal dysphagia Gastritis History of anoxic brain injury Epididymal cyst Hematuria Anxiety Obstructive sleep apnea Vitamin B12 deficiency Vitamin D deficiency Lumbar degenerative disc disease Asthma Pure hypercholesterolemia Migraine Cardiac arrhythmia Benign essential hypertension Surgical History H/O bilateral inguinal hernia repair H/O hernia repair History of esophagogastroduodenoscopy (EGD) Hx of colonoscopy History of extraction of renal calculus History of repair of rotator cuff Family History Father No problems noted. Mother Hypertension Cancer Sister Cancer Social History Household Members: Significant Other Housing: House Alcohol intake: never Patient Tobacco Use Status: Never used Tobacco e-Cigarette/Vaping Use: Never Used Second Hand Smoke Exposure: No service: No Current occupational status: disabled Current occupational exposures/hazards: No Cognitive needs: No Hearing needs: No Vision needs: No Review of Systems Const Details: - Neurological: Reports numbness and tingling in extremities. Denies any other neurological symptoms. - Dermatological: Reports healed slant back sites to medial borders of B/L halluces. All systems reviewed & are unremarkable except as noted in HPI and below Physical Exam Vital Signs: BMI result Body Mass Index 30.3 Extrem Other: B/L LE Focused Physical Exam: Derm: Healed sites of slant backs performed to the medial borders of B/L halluces noted. No edema, erythema, purulence, drainage, or bleeding noted. Skin supple and turgor WNL. No maceration noted. Remaining nails noted to be slightly thickened within normal length. Vasc: DP/PT pulses palpable. CFT < 3 secs. Temp gradient warm to warm. Pedal hair present. No varicosities noted. Neuro: Protective sensations grossly diminished to light touch and monofilament testing. MSK: No pain on palpation to the medial nail borders of B/L hallucal nails. No crepitus or fluctuance noted. ROM of the forefoot, hindfoot, and ankles WNL. Nonantalgic gait unassisted noted. Results Reviewed Results Reviewed: Laboratory Tests 09/04/25 09:23 Fasting Glucose 129 H Estimat Average Glucose 146 Hemoglobin A1c % 6.7 H Patient has nerve study testing scheduled in September. Assessment & Plan Assessment & Plan (1) Type 2 diabetes mellitus: Code(s): E11.9 - Type 2 diabetes mellitus without complications Category: Medical Qualifiers: Diabetes mellitus complication detail: with polyneuropathy (2) Type 2 diabetes mellitus with nephropathy: Code(s): E11.21 - Type 2 diabetes mellitus with diabetic nephropathy Category: Medical (3) Ingrown nail: Code(s): L60.0 - Ingrowing nail Category: Medical (4) Diabetic neuropathy: Code(s): E11.40 - Type 2 diabetes mellitus with diabetic neuropathy, unspecified Category: Medical Qualifiers: Diabetes mellitus type: type 2 Diabetes mellitus complication detail: diabetic polyneuropathy Qualified Code(s): E11.42 - Type 2 diabetes mellitus with diabetic polyneuropathy (5) Nail dystrophy: Code(s): L60.3 - Nail dystrophy Category: Medical (6) Nail disorder: Code(s): L60.9 - Nail disorder, unspecified Category: Medical Plan Patient was informed and verbally consented to the use of an ambient scribe for clinic note documentation during this visit. I discussed with the patient that the slant back sites appear to be healing well, with no signs of infection or tenderness. I recommended discontinuing the Epsom salt soaks, triple antibiotic ointment, and bandaging. Recommend routine diabetic nail care every 9 weeks. - The patient was advised to discontinue soaking the toes in Epsom salt and warm water, triple antibiotic ointment, and bandaging as the condition has improved. - Recommend routine diabetic nail care for preventative measures. - Advised patient to wear supportive shoe gear with a wide toe box and to avoid barefoot walking. - Await results of neurological testing in September to further evaluate numbness and tingling. - Continue diabetic management as per PCP. RTC in 9 weeks. Coding Level of Care Code Est Pt Level 3 (54322) Diagnoses Type 2 diabetes mellitus E11.9 Diabetes mellitus complication detail: with polyneuropathy Type 2 diabetes mellitus with nephropathy E11.21 Ingrown nail L60.0 Diabetic polyneuropathy associated with type 2 diabetes mellitus E11.42 Diabetes mellitus type: type 2 Diabetes mellitus complication detail: diabetic polyneuropathy Nail dystrophy L60.3 Nail disorder L60.9 Time Spent (min) 25
[2025-09-25 09:20] VITALS: BMI 30.3
== END 2025-09-25 09:24 | disposition home or self-care (01) ==
LOC: HO.HPODS 09:16
PROVIDERS: PCP Internal Medicine; Visit Provider Student in an Organized Health Care Education/Training Program
DX: E11.21 Type 2 diabetes mellitus with diabetic nephropathy (principal); L60.0 Ingrowing nail; E11.42 Type 2 diabetes mellitus with diabetic polyneuropathy; L60.3 Nail dystrophy; L60.9 Nail disorder, unspecified
CPT/HCPCS: 99213

== ENCOUNTER → 2025-09-25 09:15 | Outpatient (BNVA) | payer MEDICARE, MEDICAID, SELFPAY | PROVIDERS: PCP Internal Medicine; Visit Provider Student in an Organized Health Care Education/Training Program | DX: E11.42 Type 2 diabetes mellitus with diabetic polyneuropathy (principal); E11.21 Type 2 diabetes mellitus with diabetic nephropathy; L60.0 Ingrowing nail; L60.3 Nail dystrophy | CPT/HCPCS: 99212 ==

== ENCOUNTER 2025-09-25 13:19 | Outpatient (AMB) | payer MEDICARE, MEDICAID, SELFPAY | END 2025-09-25 13:20 | disposition home or self-care (01) | LOC: HO.HMGAL 13:19 | PROVIDERS: PCP Internal Medicine; Visit Provider Registered Nurse Emergency | DX: J30.89 Other allergic rhinitis (principal) | CPT/HCPCS: 95117; 95165 ==

== ENCOUNTER 2025-10-02 09:02 | Outpatient (AMB) | payer MEDICARE, MEDICAID, SELFPAY | END 2025-10-02 09:03 | disposition home or self-care (01) | LOC: HO.HMGAL 09:02 | PROVIDERS: PCP Internal Medicine; Visit Provider Registered Nurse Emergency | DX: J30.89 Other allergic rhinitis (principal) | CPT/HCPCS: 95117; 95165 ==

== ENCOUNTER 2025-10-09 13:59 | Outpatient (AMB) | payer MEDICARE, MEDICAID, SELFPAY | END 2025-10-09 13:59 | disposition home or self-care (01) | LOC: HO.HMGAL 13:59 | PROVIDERS: PCP Internal Medicine; Visit Provider Registered Nurse Emergency | DX: J30.89 Other allergic rhinitis (principal) | CPT/HCPCS: 95117; 95165 ==

== ENCOUNTER 2025-10-10 08:15 | Outpatient (AMB) | payer MEDICARE, MEDICAID, SELFPAY ==
--- NOTE | 2025-10-10 08:30 | MHC.OFFVIS ---
Intake Visit Reasons: 6 month f/u Allergies No Known Allergies (No Known Allergies*) Allergy (Verified 10/10/25 08:34) Medication List - Last Reconciled 10/10/25 by Daya Sams CNP albuterol sulfate 90 mcg/actuation (ProAir HFA) 2 puffs inhalation Q6H PRN 30 days albuterol sulfate 2.5 mg (3 mL) inhalation TID PRN alcohol swabs 1 pad topical DAILY 30 days alprazolam 1 mg PO TID PRN amitriptyline 25 mg PO BEDTIME Asmanex HFA 200 mcg/actuation (mometasone) 1 puff inhalation BID 30 days NS atorvastatin 40 mg PO BEDTIME 90 days Basaglar KwikPen U-100 Insulin (insulin glargine) 10 units (0.1 mL) subcut QPM 30 days NS blood sugar diagnostic (FreeStyle Lite Strips) Twice a day 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 meter (FreeStyle Lite Meter kit) As directed 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 sensor (FreeStyle Jazmine 3 Plus Sensor device) every 15 days clonidine HCl 0.1 mg PO BEDTIME dicyclomine 20 mg PO QID 30 days famotidine 20 mg PO BID PRN FreeStyle Jazmine 3 [place] (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,[facility],cont) As directed for use with freestyle Jazmine 3 sensors NS glucose 4 grams PO Q15M PRN lancets use as directed once a day lancets (FreeStyle Lancets) As directed- once a day lisinopril 10 mg PO DAILY 90 days metoclopramide HCl (Reglan) 10 mg PO QIDACHS 30 days [NEBULIZER and all related supplies As directed] pantoprazole (Protonix) 40 mg PO BID pen needle, diabetic (BD Ultra-Fine Melissa Pen Needle) As directed once a day polymyxin B sulf-trimethoprim 10,000 unit- 1 mg/mL 1 drp ophthalmic (eye) QID 7 days primidone 50 mg PO BID tirzepatide (Mounjaro) 7.5 mg (0.5 mL) subcut QWEEK topiramate 100 mg PO BEDTIME 90 days tramadol 50 mg PO TID PRN 30 days HPI Comments Details: Migraines were under control with amitriptyline and topiramate at bedtime and were not that often. Headaches happened more during the summer with warmer weather. Sleep was okay. He saw Dr. Martinez for worsening hand tremors, R > L. He did not feel like primidone was helping anymore. He had to eat with plastic utensils. He was scheduled for NCV/EMG at [facility] later this month. Previously, felt tired all the time. Labs were normal, sleep study negative. Tremors vary in intensity. Some headaches in the morning. Was getting 4 headaches/week, waking with headache, bad 2-3 days/week and had to stay in bed most of the day. Occasional ringing on left and hearing loss on left. Snores a lot and wakes up tired. Topamax not helping anymore. Persistent numbness in right 3rd and 4th fingers. He fell backwards on 07/17/18 and hit back of head on wooden stairs. Dizziness is gone. No major migraine. Daily headache is resolved. Has a history of anxiety, depression and hyperlipidemia, diabetes mellitus II, migraines. [facility] Medical History Nail disorder Nail dystrophy Diabetic neuropathy Ingrown nail Type 2 diabetes mellitus with nephropathy Numbness Coarse tremors Type 2 diabetes mellitus Obesity (BMI 30-39.9) Colon cancer screening Oropharyngeal dysphagia Gastritis History of anoxic brain injury Epididymal cyst Hematuria Anxiety Obstructive sleep apnea Vitamin B12 deficiency Vitamin D deficiency Lumbar degenerative disc disease Asthma Pure hypercholesterolemia Migraine Cardiac arrhythmia Benign essential hypertension Surgical History H/O bilateral inguinal hernia repair H/O hernia repair History of esophagogastroduodenoscopy (EGD) Hx of colonoscopy History of extraction of renal calculus History of repair of rotator cuff Family History Father No problems noted. Mother Hypertension Cancer Sister Cancer Social History Household Members: Significant Other Housing: House Alcohol intake: never Patient Tobacco Use Status: Never used Tobacco e-Cigarette/Vaping Use: Never Used Second Hand Smoke Exposure: No service: No Current occupational status: disabled Current occupational exposures/hazards: No Cognitive needs: No Hearing needs: No Vision needs: No Review of Systems Const Denies chills, Denies daytime sleepiness, Denies difficulty sleeping, Denies fatigue, Denies fever(s), Denies frequent falls, Reports headache(s), Denies increased appetite, Denies poor appetite, Denies snoring, Denies weakness, Denies weight gain and Denies weight loss Eyes Denies loss of vision ENT Denies vertigo, Reports dizziness, Reports headache(s) and Reports neck pain Card Denies chest pain at rest, Denies chest pain with activity, Denies syncope, Denies leg edema, Denies palpitations, Denies dyspnea and Denies dyspnea on exertion Resp Denies cough, Denies dyspnea, Denies dyspnea on exertion and Denies snoring GI Denies abdominal pain, Denies constipation, Denies heartburn, Denies diarrhea and Denies nausea Denies urinary frequency, Denies urinary incontinence and Denies urinary urgency Musc Denies abnormal gait, Denies back pain, Reports myalgias, Denies arthralgias, Reports neck pain, Reports numbness and Reports tingling Neuro Denies abnormal gait, Denies vertigo, Reports dizziness, Denies syncope, Denies frequent falls, Reports headache(s), Denies lack of coordination, Denies loss of vision, Reports memory loss, Reports numbness, Denies Other visual disturbances, Denies restless legs, Denies seizure-like activity, Reports tingling, Denies paresthesias, Reports tremor(s) and Denies weakness Psych Denies anxiety, Denies depression, Denies auditory hallucinations, Reports memory loss and Denies visual hallucinations Endo Denies fatigue and Denies palpitations Physical Exam Const Other: General Appearance:? normal, in no acute distress. Heart:? S1, S2 normal, no murmurs. Lungs:? clear anteriorly and posteriorly. Musculoskeletal:? normal. Extremities:? no edema. Psych:? alert, oriented, cognitive function intact, cooperative with exam. Neuro Other: Abnormal Neurological Findings:?Minimal fine amplitude high frequency tremors of outstretched hands, R > L. Mental Status: alert and oriented X 3. Normal attention, orientation, memory, and affect. Cranial Nerves: Pupils are equal, round, and reactive to light. External ocular muscles are intact. Visual prieto are full, no ptosis. Face is symmetrical, no facial weakness or droop. Facial sensations are normal. Tongue protrudes in midline. Palate elevates symmetrically. Shoulder shrugging is normal Motor Examination: Normal muscle tone, bulk and strength. No atrophy or fasciculations. No drift of the extended upper extremities. DTR 2+. Plantars are flexor. Sensory Exam: Normal light touch, temperature, pinprick, vibration, and joint-position sensations. Rhomberg sign is absent. Coordination: No ataxia. No titubation. Gait Exam: Within normal limits. Cerebellar Signs: [id number] is okay. Extrapyramidal System: Tremor as above. No rigidity with normal facial expressions. No bradykinesia. No bradyphrenia. Normal arm swing and posture. No propulsion or retropulsion. Speech: Normal. Results Reviewed Results Reviewed: NCV/EMG UE 11/07/19 Borderline slowing of the median nerves bilaterally in the upper extremities. Normal EMG in the right C5-T1 innervated muscles. 07/28/22 CT head: No acute intracranial findings. Question bilateral maxillary sinus disease. 12/04/22 Sleep study: Mild CAMELIA in supine and left lateral position. [place] sat 70%. Advise weight loss and position therapy. Assessment & Plan Assessment & Plan (1) Migraine: Code(s): G43.909 - Migraine, unspecified, not intractable, without status migrainosus Category: Medical Qualifiers: Migraine type: unspecified Status migrainosus presence: without status migrainosus Intractability: not intractable Qualified Code(s): G43.909 - Migraine, unspecified, not intractable, without status migrainosus Plan: Continue topiramate 100mg 1 tablet at bedtime. Continue amitriptyline 25mg 1 tablet at bedtime. (2) Tremor: Code(s): R25.1 - Tremor, unspecified Category: Medical Plan: He was taking primidone 50mg 1 tablet twice a day, and did not feel that medication was helping. He was undergoing work up for tremors with Dr. Martinez at [facility] office and was scheduled for NCV/EMG later this month. Will defer further treatment/management to Dr. Martinez at this time. Medications: Changed From amitriptyline 25 mg PO BEDTIME To amitriptyline 25 mg PO BEDTIME 90 tabs 1RF 90 days Refilled topiramate 100 mg PO BEDTIME 90 tabs 1RF 90 days G43.909 - Migraine, unspecified, not intractable, without status migrainosus Coding Level of Care Code Est Pt Level 4 (89482) Diagnoses Migraine without status migrainosus, not intractable, unspecified migraine type G43.909 Migraine type: unspecified Status migrainosus presence: without status migrainosus Intractability: not intractable Tremor R25.1
== END 2025-10-10 08:43 | disposition home or self-care (01) ==
LOC: HO.HSM 08:16
PROVIDERS: PCP Internal Medicine; Referring Provider Internal Medicine; Visit Provider Registered Nurse
DX: G43.909 Migraine, unspecified, not intractable, without status migrainosus (principal); R25.1 Tremor, unspecified
CPT/HCPCS: 99214

== ENCOUNTER → 2025-10-10 08:15 | Outpatient (BNVA) | payer MEDICARE, MEDICAID, SELFPAY | PROVIDERS: PCP Internal Medicine; Referring Provider Internal Medicine; Visit Provider Registered Nurse | DX: G43.909 Migraine, unspecified, not intractable, without status migrainosus (principal); R25.1 Tremor, unspecified | CPT/HCPCS: 99212 ==

== ENCOUNTER 2025-10-16 09:02 | Outpatient (AMB) | payer MEDICARE, MEDICAID, SELFPAY | END 2025-10-16 09:03 | disposition home or self-care (01) | LOC: HO.HMGAL 09:02 | PROVIDERS: PCP Internal Medicine; Visit Provider Registered Nurse Emergency | DX: J30.89 Other allergic rhinitis (principal) | CPT/HCPCS: 95117; 95165 ==

== ENCOUNTER 2025-10-18 14:43 | Outpatient (REF) | payer MEDICARE, MEDICAID, SELFPAY ==
--- NOTE | 2025-10-18 14:45 | EMG_ITS ---
Chief complaint: Tremors, ataxia, based on neurology notes. Patient describes cramping of right hand. Lower back pain. History of diabetes on insulin. Reason for referral: Evaluate for neuropathy Referred by: Dr. Martinez Procedure done: Right upper extremity, bilateral lower extremity NCS/EMG Precautions and/or limitations: None The limb temperature was monitored continuously and remained between 32-36 degrees C during the performance of the NCS. Ulnar motor NCS was performed with moderate elbow flexion between 70-90 degrees, with across-elbow distance of 10 cm. Nerve Conduction Studies Anti Sensory Summary Table ?Stim Site NR Onset (ms) Norm Onset (ms) Peak (ms) Norm Peak (ms) O-P Amp (?V) Norm O-P Amp Site1 Site2 Delta-0 (ms) Dist (cm) Kevin (m/s) Norm Kevin (m/s) Right Median Anti Sensory (2nd Digit) Wrist ? 2.9 3.8 <3.6 12.9 >10 Wrist 2nd Digit 2.9 14.0 48 Right Radial Anti Sensory (Thumb) Forearm ? 2.1 2.7 <3.1 13.8 Forearm Thumb 2.1 0.0 Left Sural Anti Sensory (Lat Mall) Calf ? 2.6 3.3 <4.0 2.9 >5.0 Calf Lat Mall 2.6 14.0 54 Right Sural Anti Sensory (Lat Mall) Calf ? 3.0 3.7 <4.0 4.7 >5.0 Calf Lat Mall 3.0 14.0 47 Right Ulnar Anti Sensory (5th Digit) Wrist ? 2.3 3.5 <3.7 5.2 >15.0 Wrist 5th Digit 2.3 14.0 61 Motor Summary Table ?Stim Site NR Onset (ms) Norm Onset (ms) O-P Amp (mV) Norm O-P Amp iAmp (mV) Amp (1st) (%) Site1 Site2 Delta-0 (ms) Dist (cm) Kevin (m/s) Norm Kevin (m/s) Right Median Motor (Abd Poll Brev) Wrist ? 4.1 <3.9 8.0 >4.5 9.3 100.0 Elbow Wrist 4.3 21.0 49 >45 Elbow ? 8.4 7.1 8.3 88.8 Left Peroneal Motor (Ext Dig Brev) Ankle ? 4.5 <4.0 4.0 >2.5 4.8 100.0 Ankle Ext Dig Brev 4.5 0.0 B Fib ? 12.8 3.0 3.2 75.0 B Fib Ankle 8.3 32.0 39 >40 Poplt ? 13.9 3.1 3.3 77.5 Poplt B Fib 1.1 6.0 55 >40 Right Peroneal Motor (Ext Dig Brev) Ankle ? 3.9 <4.0 3.6 >2.5 4.0 100.0 Ankle Ext Dig Brev 3.9 0.0 B Fib ? 12.5 2.6 2.8 72.2 B Fib Ankle 8.6 33.5 39 >40 Poplt ? 13.2 2.8 3.1 77.8 Poplt B Fib 0.7 5.0 71 >40 Left Tibial Motor (Abd Ardon Brev) Ankle ? 3.7 <5 1.6 >2.5 2.4 100.0 Ankle Abd Ardon Brev 3.7 0.0 Knee ? 13.2 2.1 2.9 131.3 Knee Ankle 9.5 37.0 39 >40 Right Tibial Motor (Abd Ardon Brev) Ankle ? 3.8 <5 4.3 >2.5 5.9 100.0 Ankle Abd Ardon Brev 3.8 0.0 Knee ? 14.0 2.0 2.8 46.5 Knee Ankle 10.2 39.0 38 >40 Right Ulnar Motor (Abd Dig Minimi) Wrist ? 2.9 <3.0 7.6 >5 9.6 100.0 B Elbow Wrist 4.4 19.0 43 >45 B Elbow ? 7.3 6.8 8.6 89.5 A Elbow B Elbow 1.8 10.0 56 >45 A Elbow ? 9.1 6.5 8.0 85.5 EMG ?Side Muscle Nerve Root Ins Act Fibs Psw Amp Dur Poly Recrt Int Pat Comment Right 1stDorInt Ulnar C8-T1 Nml Nml Nml Nml Nml 0 Nml Complete Right FlexCarRad Median C6-7 Nml Nml Nml Nml Nml 0 Nml Complete Right Biceps Musculocut C5-6 Nml Nml Nml Nml Nml 0 Nml Complete Right Triceps Radial C6-7-8 Nml Nml Nml Nml Nml 0 Nml Complete Right Deltoid Axillary C5-6 Nml Nml Nml Nml Nml 0 Nml Complete Right AbdHallucis MedPlantar S1-2 Incr 1+ 1+ Nml Nml 0 Nml Complete Right AntTibialis Dp Br Peron L4-5 Nml Nml Nml Nml Nml 0 Nml Complete Right PostTibialis Tibial L5, S1 Incr 1+ 1+ Nml Nml 0 Nml Complete Right MedGastroc Tibial S1-2 Nml Nml Nml Nml Nml 0 Nml Complete Right VastusMed Femoral L2-4 Nml Nml Nml Nml Nml 0 Nml Complete Left AbdHallucis MedPlantar S1-2 Incr 1+ 1+ Nml Nml 0 Nml Complete Left AntTibialis Dp Br Peron L4-5 Nml Nml Nml Nml Nml 0 Nml Complete Left PostTibialis Tibial L5, S1 Incr 1+ 1+ Nml Nml 0 Nml Complete Left MedGastroc Tibial S1-2 Incr 1+ 1+ Nml Nml 0 Nml Complete Left VastusMed Femoral L2-4 Nml Nml Nml Nml Nml 0 Nml Complete Paraspinal EMG ?Side Muscle Nerve Root Ins Act Fibs Psw Comment Right Cervical Upper Rami Nml Nml Nml Right Cervical Mid Rami Nml Nml Nml Right Cervical Lower Rami Nml Nml Nml Right Lumbar Upper Rami Nml Nml Nml Right Lumbar Mid Rami Nml Nml Nml Right Lumbar Lower Rami Nml Nml Nml Left Lumbar Upper Rami Nml Nml Nml Left Lumbar Mid Rami Nml Nml Nml Left Lumbar Lower Rami Nml Nml Nml FINDINGS: Right peroneal nerve showed normal distal latency, normal amplitude and prolonged distal conduction velocity. No conduction block across fibular neck. Right tibial nerve showed normal distal latency, normal amplitude and slow conduction velocity. Left peroneal nerve showed prolonged distal latency, normal amplitude and slow distal conduction velocity. No conduction block across fibular neck. Bilateral sural nerves showed small amplitude. Right median motor nerve showed prolonged distal latencies, normal amplitude and normal conduction velocity. Right ulnar motor nerve showed normal distal latencies, normal amplitude and slow distal conduction velocity. No conduction block across fibular neck. Right median sensory nerve showed prolonged peak latency. Right ulnar sensory nerve showed small amplitude. Right radial sensory nerve within normal. Concentric needle EMG was performed in selected muscles of the right upper and bilateral lower extremities, cervical paraspinals and lumbar paraspinals. Study revealed signs of electric abnormalities as shown in the table above. Right AH and posterior tibialis showed increased insertional activity, PSWs and fibrillations. Left AH, posterior tibialis and medial gastrocnemius showed increased insertional activity, PSWs and fibrillations. No denervation seen on paraspinals. No fasciculations. No myopathic looking units. IMPRESSION: 1. This is an abnormal study. 2. There is electrodiagnostic evidence for symmetric, distal, sensorimotor, demyelinating and axonal, polyneuropathy. 3. Superimposed right median neuropathy at the wrist, possibly Carpal Tunnel Syndrome. 4. There is no electrodiagnostic evidence for brachial plexopathy, cervical radiculopathy, lumbosacral plexopathy, or lumbar radiculopathy. Thank you for your kind referral. Tatiana Carlson MD, ELIAZAR Board Certified, [place] [employer] and Rehabilitation (ABPMR) Board Certified, [place] Board of Electrodiagnostic Medicine (ABEM) CODIN 05126 x 3 extremities MTDD
== END 2025-10-18 14:44 | disposition home or self-care (01) ==
LOC: HO.NEURO 14:43
PROVIDERS: PCP Internal Medicine; Visit Provider Psychiatry & Neurology Neurology
DX: R20.0 Anesthesia of skin (principal)
CPT/HCPCS: 95886; 95912

== ENCOUNTER → 2025-10-18 14:45 | Outpatient (BNV) | payer MEDICARE, MEDICAID, SELFPAY | PROVIDERS: PCP Internal Medicine; Visit Provider Physical Medicine & Rehabilitation | DX: G62.9 Polyneuropathy, unspecified (principal) | CPT/HCPCS: 95886; 95912 ==

== ENCOUNTER 2025-10-20 15:41 | Outpatient (AMB) | payer MEDICARE, MEDICAID, SELFPAY ==
[2025-10-20 15:59] VITALS: BP 157/83; PULSE 101; BMI 30.8
--- NOTE | 2025-10-20 15:59 | A.OFFVIS_ITS ---
Vital Signs 10/20/25 15:59 Height 5 ft 8 in Weight 202 lb 13.204 oz BMI 30.8 BP 157/83 H Blood Pressure Location Rt brachial Position Sitting Pulse 101 H Intake Visit Reasons: 5 week/ CIC, GERD, PARESIS Intake Note: He presents to in office follow up for lab results. CC: Pt denies any changes today. Export Packer Required: No Accompanied by: Self / Same As Patient Allergies No Known Allergies (No Known Allergies*) Allergy (Verified 10/20/25 16:13) HPI HPI 5 week/ CIC, GERD, PARESIS: Details: Assessment & Plan (1) Diarrhea: Code(s): R19.7 - Diarrhea, unspecified Category: Medical Qualifiers: Diarrhea type: unspecified type Qualified Code(s): R19.7 - Diarrhea, unspecified (2) Abdominal bloating: Code(s): R14.0 - Abdominal distension (gaseous) Category: Medical (3) Hordeolum externum (stye): Code(s): H00.019 - Hordeolum externum unspecified eye, unspecified eyelid Category: Medical Plan He continues on his Reglan 10 mg 4 times a day, dicyclomine, pantoprazole 40 mg twice a day and simethicone - The patient is a 55-year-old male presenting FOR FOLLOW-UP ON GERD, GASTROPARESIS AND IBS and has a new complaint of persistent diarrhea which has been occurring for three months. - The diarrhea is characterized by watery stools postprandial. - There are no accompanying symptoms such as vomiting or abdominal pain. - The patient has not made any recent dietary changes and continues to manage existing diabetes with Mounjaro, which had its dose increased after the onset of symptoms. - Previous diagnostic work includes a normal abdominal ultrasound and incomplete stool testing. - The family history is not significantly contributory to the present condition. - Medications have remained unchanged outside of the diabetes management regimen. I am uncertain what to make of this new onset, although he does have a history of diarrhea related to his irritable bowel in the past. We will get a basic acute diarrhea workup and go from there. I verify that he is taking his dicyclomine and this is not helping with the pain. She has a gallbladder and does not have gallstones. He incidentally notes a stye on the left inner upper eyelid and I advised him to use warm wet compresses to try to resolve this. Return office visit in 3 weeks Orders: Orders C Reactive Protein Today R19.7 - Diarrhea, unspecified Transglutaminase Ab IgG Today R19.7 - Diarrhea, unspecified GI Panel Today R19.7 - Diarrhea, unspecified Calprotectin, Fecal Today R19.7 - Diarrhea, unspecified Transglutaminase IgA Today R19.7 - Diarrhea, unspecified Rast Allergen Today R19.7 - Diarrhea, unspecified LABS: Laboratory Tests 09/04/25 09/12/25 09/13/25 09:23 10:12 09:11 Hemoglobin A1c % 6.7 H C-Reactive Protein 0.18 Brooks Allergen IgE Ab 1.86 H Cow's Milk IgE Ab 0.12 H Egg White IgE Ab 0.59 H Hazelnut Allergen IgE 6.77 H Macadamia Nut IgE Ab 0.19 H Peanut Allergen IgE Ab 1.37 H Scallop Allergen IgE Ab 0.52 H Sesame Seed IgE Ab 0.19 H Shrimp Allergen IgE Ab 1.83 H Soybean Allergen IgE 0.65 H Wheat Allergen IgE Ab 0.25 H Stool Calprotectin 67 09/13/25-[address]: Nathan Mendoza MD ORDERED: GI Panel Test Result Flag Reference Campylobacter Not Detected Not Detect. P. shigelloides Not Detected Not Detect. Salmonella Not Detected Not Detect. Vibrio Not Detected Not Detect. Vibrio Cholerae Not Detected Not Detect. Y. enterocolit. Not Detected Not Detect. E. coli EAEC Not Detected Not Detect. E. coli EPEC Not Detected Not Detect. E. coli ETEC Not Detected Not Detect. E. coli STEC Not Detected Not Detect. E. coli O157 Not applicable Not Detect. E. coli containing the O157 antigen are a subset of Shiga-like toxin-producing E. coli (STEC). Shigella/EIEC Not Detected Not Detect. Cryptosporidium Not Detected Not Detect. Cyclospora Not Detected Not Detect. E. histolytica Not Detected Not Detect. Giardia lamblia Not Detected Not Detect. Adenovirus Not Detected Not Detect. Astrovirus Not Detected Not Detect. Norovirus Not Detected Not Detect. Rotavirus A Not Detected Not Detect. Sapovirus Not Detected Not Detect. All results must be correlated with clinical findings. TODAY'S VISIT [facility] Medical History Nail disorder Nail dystrophy Diabetic neuropathy Ingrown nail Type 2 diabetes mellitus with nephropathy Numbness Coarse tremors Type 2 diabetes mellitus Obesity (BMI 30-39.9) Colon cancer screening Oropharyngeal dysphagia Gastritis History of anoxic brain injury Epididymal cyst Hematuria Anxiety Obstructive sleep apnea Vitamin B12 deficiency Vitamin D deficiency Lumbar degenerative disc disease Asthma Pure hypercholesterolemia Migraine Cardiac arrhythmia Benign essential hypertension Surgical History H/O bilateral inguinal hernia repair H/O hernia repair History of esophagogastroduodenoscopy (EGD) Hx of colonoscopy History of extraction of renal calculus History of repair of rotator cuff Family History Father No problems noted. Mother Hypertension Cancer Sister Cancer Social History Household Members: Significant Other Housing: House Alcohol intake: never Patient Tobacco Use Status: Never used Tobacco e-Cigarette/Vaping Use: Never Used Second Hand Smoke Exposure: No service: No Current occupational status: disabled Current occupational exposures/hazards: No Cognitive needs: No Hearing needs: No Vision needs: No Review of Systems Const Denies fatigue, Denies fever(s), Denies night sweats, Denies poor appetite and Denies weight loss ENT Reports Normal hearing present, Denies dental pain, Denies dysphagia, Denies hearing loss, Denies mouth pain, Denies odynophagia, Denies throat swelling, Denies tongue swelling and Reports other (Dentition adequate) Card Reports no additional complaints Resp Reports no additional complaints GI Details: Denies abdominal pain, Denies melena, Denies bloating, Denies hematochezia, Denies constipation, Denies GI cramping, Denies dysphagia, Denies excessive flatus, Denies early satiety, Reports heartburn, Reports diarrhea, Denies nausea, Denies odynophagia, Denies vomiting and Denies hematemesis Skin/Breast Denies pruritus, Denies lesions, Denies rash and Denies jaundice Neuro Reports Normal hearing present and Denies Abnormal speech present Endo Denies fatigue Aller/Immun Denies throat swelling and Denies tongue swelling Physical Exam Vital Signs: Last Vital Signs Pulse 101 H 10/20/25 15:59 BP 157/83 H 10/20/25 15:59 BMI result Body Mass Index 30.8 Const General: cooperative, no acute distress, well developed and well groomed Nutritional Appearance: well nourished and obese Orientation/consciousness: oriented to person, oriented to place and oriented to time Limitations: No language barrier HEENT Head: Yes normocephalic and Yes atraumatic Eyes General: appearance normal, both eyes and all related structures Pupils: Equal, round and reactive pupils present Neck Neck: Yes normal visual inspection and Yes no lymphadenopathy Thyroid: Thyroid normal Resp Effort & Inspection: normal respiratory effort and able to speak in complete sentences Auscultation: clear to auscultation bilaterally Cardio Rate: regular rate Rhythm: regular rhythm Heart sounds: Normal, physiologic split S2 sound present Peripheral pulses: radial pulses present and posterior tibial pulses present GI Inspection: No distended, No Abdominal panniculus present and Yes obesity Palpation (GI): Soft to palpation, nontender, no guarding, not rigid, No hepatosplenomegaly present and Hepatosplenomegaly present Percussion: Yes normal to percussion Auscultation: normal bowel sounds Rectal Exam - Male: Yes deferred Skin General skin exam: no rashes or lesions noted, turgor normal, skin not dry, no jaundice, No spider nevi and no striae Rashes: no rashes Nails: normal Neuro General: oriented to person, oriented to place and oriented to time Cranial nerves: Yes Equal, round and reactive pupils present and Yes Normal hearing present Speech: No Abnormal speech present Extrem General: Yes normal to inspection, No clubbing, No cyanosis and No edema Psych Appearance: grossly normal and well kempt Mental Status: mental status grossly normal Speech and movement: Normal speech and movement present Affect: normal affect Attitude: cooperative Thought process: Normal thought process present and not confabulating Thought content: Normal thought content present Insight: Limited insight present (Psych) Judgement: Limited judgement present (Psych) Assessment & Plan Assessment & Plan (1) Multiple food allergies: Comment: Almonds, Cows milk, egg whites, Purvi nuts, macadamia nuts, peanuts, scallops, sesame seeds, shrimp, soy beans, wheat Code(s): Z91.018 - Allergy to other foods Category: Medical (2) Wheat allergy: Code(s): Z91.018 - Allergy to other foods Category: Medical (3) Postprandial diarrhea: Code(s): K52.9 - Noninfective gastroenteritis and colitis, unspecified Category: Medical (4) GERD (gastroesophageal reflux disease): Code(s): K21.9 - Gastro-esophageal reflux disease without esophagitis Category: Medical Qualifiers: Esophagitis presence: without esophagitis Qualified Code(s): K21.9 - Gastro-esophageal reflux disease without esophagitis (5) Type 2 diabetes mellitus: Code(s): E11.9 - Type 2 diabetes mellitus without complications Category: Medical Qualifiers: Diabetes mellitus complication detail: with polyneuropathy Plan Subjective Patient presents for guidance on extensive food allergies and associated gastrointestinal symptoms. Reports difficulty identifying safe foods and fear of eating due to frequent diarrhea episodes, often occurring at night and triggered after certain foods. Notes that salads and limited options may lower blood sugar and is concerned about diabetes management. Currently receiving allergy shots through an flake cutter operator and inquires about additional treatments or medications. Diabetes mellitus noted. Objective - Prior testing reviewed indicating gastrointestinal inflammation. - Documented food allergies discussed: all nuts (notably high reactivity to hazelnuts, almonds, peanuts; relatively lower to macadamia nuts), soybeans/soy oil, cow?s milk, egg whites, wheat (least reactive), shellfish (scallops, shrimp). Assessment & Plan Multiple food allergies with gastrointestinal manifestations (diarrhea): Extensive food allergen sensitivities with primary manifestations as diarrhea; prior testing suggests GI inflammation. Patient is already receiving allergy immunotherapy; discussed potential desensitization strategies through Allergy. - Referrals placed: - Allergy/Immunology: referral directed to prior practice associated with Dr. Sarah (now covered by new provider); staff to book with current provider at that practice. - Nutrition/Dietary (Merissa): for comprehensive diet planning, to be scheduled under diabetes care with concurrent focus on food allergies. - Medication: Short course of oral prednisolone solution prescribed to reduce gastrointestinal inflammatory response; to discontinue once evaluated by Allergy. - Diet guidance provided: - Strict avoidance of: all nuts; soybeans and soy oil; cow?s milk and dairy products including cheese and yogurt; egg whites; shellfish (scallops, shrimp). - Education to read labels carefully and verify cooking oils in restaurants; clarified that EpiPen is for respiratory anaphylaxis and not effective for GI- only allergic symptoms. - May trial wheat-based foods (bread/pasta) as wheat appears least reactive; discontinue if diarrhea ensues. - Consider alternative non-cow?s milk options such as goat milk; avoid almond and soy milks; Lactaid not appropriate due to true milk allergy. - Patient advised to contact flake cutter operator?s office regarding referral and ongoing allergy shots; next allergy shot scheduled Thursday. - Follow-up with me in 3 months, sooner if symptoms worsen or inability to maintain adequate intake. Diabetes mellitus - Refer to Nutrition/Dietary (Merissa) for diabetes-focused meal planning within the constraints of multiple food allergies. - Monitor for hypoglycemia given limited diet; defer medication changes pending dietary stabilization. Orders: Referrals Allergy & Immunology Referral Z91.018 - Allergy to other foods Nutrition/Dietitian Referral E11.9 - Type 2 diabetes mellitus without complications, Z91.018 - Allergy to other foods Medications: New prednisolone 15 mg (5 mL) PO TID 100 mL 1RF Z91.018 - Allergy to other foods Coding Level of Care Code Est Pt Level 4 (09269) Diagnoses Multiple food allergies Z91.018 Wheat allergy Z91.018 Postprandial diarrhea K52.9 Gastroesophageal reflux disease without esophagitis K21.9 Esophagitis presence: without esophagitis Type 2 diabetes mellitus E11.9 Diabetes mellitus complication detail: with polyneuropathy Time Spent (min) 38
== END 2025-10-20 16:30 | disposition home or self-care (01) ==
LOC: HO.HGI 15:42
PROVIDERS: PCP Internal Medicine; Visit Provider Nurse Practitioner
DX: Z91.018 Allergy to other foods (principal); K52.9 Noninfective gastroenteritis and colitis, unspecified; K21.9 Gastro-esophageal reflux disease without esophagitis; E11.9 Type 2 diabetes mellitus without complications
CPT/HCPCS: 99214

== ENCOUNTER → 2025-10-20 15:41 | Outpatient (BNVA) | payer MEDICARE, MEDICAID, SELFPAY | PROVIDERS: PCP Internal Medicine; Visit Provider Nurse Practitioner | DX: K21.9 Gastro-esophageal reflux disease without esophagitis (principal); K52.9 Noninfective gastroenteritis and colitis, unspecified; Z91.018 Allergy to other foods; E11.42 Type 2 diabetes mellitus with diabetic polyneuropathy; Z79.85 Long-term (current) use of injectable non-insulin antidiabetic drugs; Z79.4 Long term (current) use of insulin; I10 Essential (primary) hypertension | CPT/HCPCS: 99212 ==

== ENCOUNTER 2025-10-23 09:04 | Outpatient (AMB) | payer MEDICARE, MEDICAID, SELFPAY | END 2025-10-23 09:06 | disposition home or self-care (01) | LOC: HO.HMGAL 09:04 | PROVIDERS: PCP Internal Medicine; Visit Provider Registered Nurse Emergency | DX: J30.89 Other allergic rhinitis (principal) | CPT/HCPCS: 95117; 95165 ==

== ENCOUNTER 2025-10-30 09:28 | Outpatient (AMB) | payer MEDICARE, MEDICAID, SELFPAY | END 2025-10-30 09:28 | disposition home or self-care (01) | LOC: HO.HMGAL 09:28 | PROVIDERS: PCP Internal Medicine; Visit Provider Registered Nurse Emergency | DX: J30.89 Other allergic rhinitis (principal) | CPT/HCPCS: 95117; 95165 ==

== ENCOUNTER 2025-11-06 08:11 | Outpatient (AMB) | payer MEDICARE, MEDICAID, SELFPAY | END 2025-11-06 08:12 | disposition home or self-care (01) | LOC: HO.HMGAL 08:11 | PROVIDERS: PCP Internal Medicine; Visit Provider Registered Nurse Emergency | DX: J30.89 Other allergic rhinitis (principal) | CPT/HCPCS: 95117; 95165 ==

== ENCOUNTER 2025-11-14 08:17 | Outpatient (AMB) | payer MEDICARE, MEDICAID, SELFPAY ==
--- NOTE | 2025-11-14 08:20 | MHC.OFFVIS ---
Vital Signs 11/14/25 08:21 Height 5 ft 8 in Weight 202 lb 2.622 oz BMI 30.7 BP 110/76 Blood Pressure Location Lt brachial Position Sitting Pulse 103 H Pulse Source Pulse Oximeter Pulse Oximetry (%) 98 Oxygen Delivery Method Room Air Intake Visit Reasons: DM2 Intake Note: Patient present today to follow up on Type 2 Diabetes Mellitus. Last Diabetic Eye exam: Last exam was on 11/2024 Last Podiatry Visit: First visit was on 09/2025 and has upcoming appt in November. Random Glucose: 165 mg/dl Hgb A1C: 6.7% Diversity Specialist Required: No Accompanied by: Self / Same As Patient Allergies No Known Allergies (No Known Allergies*) Allergy (Verified 11/14/25 08:28) HPI Comments Details: This is a 55-year-old male with a past medical history of tremors, type 2 diabetes, tachycardia, IBS, esophageal dysmotility, hyperlipidemia, asthma, hypertension and obesity presenting for diabetic management. He also has a history of anoxic brain injury as an . He was initially diagnosed with type 2 diabetes in 2019. Family history of type 2 diabetes in mother. Hemoglobin A1c 11/14/2025: 6.7%. Reviewed glucose summary October 31 through November 14 In range 100% of the time, average glucose 130 mg/dL, highest 158, lowest 104, 0.8 readings per day Current regimen: Basaglar 10 units nightly, Mounjaro 7.5 mg weekly Patient has a follow up scheduled with the registered dietitian, Merissa Owens, and he has seen the certified lactation educator, Mikayla Nolasco. Hypoglycemia: occasional lows overnight in mid to high 60s, treated with OJ or glucose tablets Hyperglycemia: No symptoms Complications: Nephropathy (microalbuminuria and CKD stage III documented however recent tests normal); neuropathy of the feet. HTN treated with Lisinopril. He has hyperlipidemia, on statin. Patient is walking regularly and following a low-carbohydrate diet. Drinks coke zero or vitamin water occasionally. Drinks more water now. ROS: Constitutional: No unexplained weight loss, fever, chills, fatigue or night sweats. Eyes: No vision changes, blurry vision, double vision Respiratory: No shortness of breath Cardiovascular: No chest pain, chest pressure or chest discomfort. No palpitations or pedal edema. Gastrointestinal: No anorexia, nausea, vomiting or diarrhea. No abdominal pain Neurologic: No headache, dizziness, syncope, no numbness or tingling in the extremities. Endocrine: No cold or heat intolerance. No polyuria or polydipsia. Physical exam: Constitutional: Alert, in no distress. Neck: Supple, Full range of motion. No lymphadenopathy. No palpable thyroid masses. Respiratory: Clear to auscultation. Cardiovascular: S1 S2 regular. No murmurs Right foot: Warm and well perfused. No clubbing, cyanosis or edema. Intact DP pulse. Decreased vibratory sensation. Decreased sensation to monofilament (great toe). No open wounds. Left foot: Warm and well perfused. No clubbing, cyanosis or edema. Intact DP pulse. Decreased vibratory sensation. Intact sensation to monofilament. No open wounds. [facility] Medical History Nail disorder Nail dystrophy Diabetic neuropathy Ingrown nail Type 2 diabetes mellitus with nephropathy Numbness Coarse tremors Type 2 diabetes mellitus Obesity (BMI 30-39.9) Colon cancer screening Oropharyngeal dysphagia Gastritis History of anoxic brain injury Epididymal cyst Hematuria Anxiety Obstructive sleep apnea Vitamin B12 deficiency Vitamin D deficiency Lumbar degenerative disc disease Asthma Pure hypercholesterolemia Migraine Cardiac arrhythmia Benign essential hypertension Surgical History H/O bilateral inguinal hernia repair H/O hernia repair History of esophagogastroduodenoscopy (EGD) Hx of colonoscopy History of extraction of renal calculus History of repair of rotator cuff Family History Father No problems noted. Mother Hypertension Cancer Sister Cancer Social History Household Members: Significant Other Housing: House Alcohol intake: never Patient Tobacco Use Status: Never used Tobacco e-Cigarette/Vaping Use: Never Used Second Hand Smoke Exposure: No service: No Current occupational status: disabled Current occupational exposures/hazards: No Cognitive needs: No Hearing needs: No Vision needs: No Physical Exam Vital Signs: Last Vital Signs Pulse 103 H 11/14/25 08:21 BP 110/76 11/14/25 08:21 Pulse Ox 98 11/14/25 08:21 Oxygen Delivery Method Room Air 11/14/25 08:21 BMI result Body Mass Index 30.7 Results AMB Hemoglobin A1c AMB Hemoglobin A1c 6.7 % Last Edit by DONALDO Moran on 11/14/25 08:41 Results Reviewed Results Reviewed: Laboratory Last Values Glucose (Clinic) 165 mg/dL (60-115) H 11/14/25 08:31 Hgb A1c (Clinic) 6.7 % (4.0-6.0) H 11/14/25 08:33 Laboratory Tests 09/04/25 09/04/25 09/12/25 09:19 09:23 10:12 Creatinine 1.11 Estimated GFR > 60 AST 25 ALT 21 C-Reactive Protein 0.18 Triglycerides 105 Cholesterol 140 LDL Cholesterol, Calc 84 HDL Cholesterol 35 L Urine Creatinine 229.09 Urine Microalbumin 23.0 Microalb/Creat Ratio 10.0 Assessment & Plan Assessment & Plan (1) Type 2 diabetes mellitus with nephropathy: Code(s): E11.21 - Type 2 diabetes mellitus with diabetic nephropathy Category: Medical Plan: In summary this is a 55-year-old male with controlled type 2 diabetes with nephropathy. Discussed pathophysiology of Type II Diabetes Mellitus with the patient in detail.? I explained the long term care phlebotomist risks and complications associated with uncontrolled diabetes including nephropathy, neuropathy, peripheral vascular disease, retinopathy, increased risk of heart disease and stroke.? Discussed lifestyle modification with the patient. Recommended 30 minutes of moderately vigorous exercise 5 days per week to promote weight loss. Continue routine eye exams. Patient met with the dietitian and certified certified lactation educator. Continue Mounjaro to 7.5 mg weekly and continue Basaglar 10 units nightly. If he has frequent low blood sugars he will reduce Basaglar to 8 units nightly. Continue JESSICA inhibitor for renal protection. (2) Benign essential hypertension: Code(s): I10 - Essential (primary) hypertension Category: Medical Plan: Hypertension is well-controlled. Continue current regimen. Recommended low-sodium diet. Continue to exercise to promote weight loss. (3) Pure hypercholesterolemia: Code(s): E78.00 - Pure hypercholesterolemia, unspecified Category: Medical Plan: Continue statin. Continue to work on low carbohydrate and low sugar diet to improve triglycerides. Plan Follow up in 3 months for type 2 diabetes. Orders: Orders AMB Hemoglobin A1c Today E11.9 - Type 2 diabetes mellitus without complications, Z13.9 - Encounter for screening, unspecified Medications: Refilled tirzepatide (Mounjaro) 7.5 mg (0.5 mL) subcut QWEEK 2 mL 3RF Basaglar KwikPen U-100 Insulin (insulin glargine) 10 units (0.1 mL) subcut QPM 3 mL 6RF 30 days NS E11.9 - Type 2 diabetes mellitus without complications Patient Instructions: Continue Basaglar 10 units nightly. if you have frequent low sugars decrease to 8 units nightly. Continue Mounjaro 7.5 mg weekly. If you experience low blood sugar (under 70), treat this by eating a chewable fruit candy like skittles or jelly beans (about 8 pieces), 4 ounces (1/2 cup) of fruit juice (not diet), 1 tablespoon of honey or 4 glucose tablets. If your blood sugar is under 50, take double the amount of one of the above. Recheck your blood sugar in 15 minutes. Coding Level of Care Code Est Pt Level 4 (02200) Add On Problem Visit Only Diagnoses Type 2 diabetes mellitus with nephropathy E11.21 Benign essential hypertension I10 Pure hypercholesterolemia E78.00
[2025-11-14 08:21] VITALS: BP 110/76; PULSE 103; O2SAT 98; BMI 30.7
[2025-11-14 08:35] LABS: Glucose, Whole Blood 165 mg/dL (60-115)
== END 2025-11-14 08:57 | disposition home or self-care (01) ==
LOC: HO.ENCR 08:17
PROVIDERS: PCP Internal Medicine; Visit Provider Physician Assistant Medical
DX: E11.21 Type 2 diabetes mellitus with diabetic nephropathy (principal); I10 Essential (primary) hypertension; E78.00 Pure hypercholesterolemia, unspecified

== ENCOUNTER → 2025-11-14 08:17 | Outpatient (BNVA) | payer MEDICARE, MEDICAID, SELFPAY | PROVIDERS: PCP Internal Medicine; Visit Provider Physician Assistant Medical | DX: E11.21 Type 2 diabetes mellitus with diabetic nephropathy (principal); I10 Essential (primary) hypertension; E78.00 Pure hypercholesterolemia, unspecified; Z13.9 Encounter for screening, unspecified; Z79.4 Long term (current) use of insulin | CPT/HCPCS: 82947; 83036; 99212 ==

== ENCOUNTER 2025-11-15 09:18 | Outpatient (AMB) | payer MEDICARE, MEDICAID, SELFPAY | END 2025-11-15 09:18 | disposition home or self-care (01) | LOC: HO.HMGAL 09:18 | PROVIDERS: PCP Internal Medicine; Visit Provider Registered Nurse Emergency | DX: J30.89 Other allergic rhinitis (principal) | CPT/HCPCS: 95117; 95165 ==

== ENCOUNTER 2025-11-20 09:13 | Outpatient (AMB) | payer MEDICARE, MEDICAID, SELFPAY | END 2025-11-20 09:13 | disposition home or self-care (01) | LOC: HO.HMGAL 09:13 | PROVIDERS: PCP Internal Medicine; Visit Provider Registered Nurse Emergency | DX: J30.89 Other allergic rhinitis (principal) | CPT/HCPCS: 95117; 95165 ==

== ENCOUNTER 2025-11-27 08:20 | Outpatient (AMB) | payer MEDICARE, MEDICAID, SELFPAY ==
[2025-11-27 08:31] VITALS: BMI 30.7
--- NOTE | 2025-11-27 08:31 | MHC.OFFVIS ---
Vital Signs 11/27/25 08:31 Height 5 ft 8 in Weight 202 lb BMI 30.7 Intake Visit Reasons: routine diabetic nail care Intake Note: He is a 55 year old male who present today for a diabetic nail trim appointment. Last A1c was 6.7 as of 11/14/25. Patient reports his glucose was 120 as of last night and he states he believes his ingrown toe nail has returned on his right hallux medial border. He experiences slight pain to the toe. Allergies No Known Allergies (No Known Allergies*) Allergy (Verified 11/27/25 08:31) HPI Comments Details: The patient is a 55 year old male who presented for routine nail care. He states he has been experiencing mild discomfort to the medial nail border of the right hallux and has concerns about a possible ingrown. He denies any drainage, purulence, erythema, or swelling to the toe. He experiences discomfort to the toes when the nails are too long or thick. In his relevant medical history, the patient reports his blood sugar has been good, with a recent reading of approximately 120 mg/dL. He has been wearing supportive shoe gear and has been avoiding barefoot walking. He denies any other pedal concerns. He denies any new pedal injuries. [facility] Medical History Nail disorder Nail dystrophy Diabetic neuropathy Ingrown nail Type 2 diabetes mellitus with nephropathy Numbness Coarse tremors Type 2 diabetes mellitus Obesity (BMI 30-39.9) Colon cancer screening Oropharyngeal dysphagia Gastritis History of anoxic brain injury Epididymal cyst Hematuria Anxiety Obstructive sleep apnea Vitamin B12 deficiency Vitamin D deficiency Lumbar degenerative disc disease Asthma Pure hypercholesterolemia Migraine Cardiac arrhythmia Benign essential hypertension Surgical History H/O bilateral inguinal hernia repair H/O hernia repair History of esophagogastroduodenoscopy (EGD) Hx of colonoscopy History of extraction of renal calculus History of repair of rotator cuff Family History Father No problems noted. Mother Hypertension Cancer Sister Cancer Social History Household Members: Significant Other Housing: House Alcohol intake: never Patient Tobacco Use Status: Never used Tobacco e-Cigarette/Vaping Use: Never Used Second Hand Smoke Exposure: No service: No Current occupational status: disabled Current occupational exposures/hazards: No Cognitive needs: No Hearing needs: No Vision needs: No Review of Systems Const Details: - Neurological: Reports numbness and tingling in extremities. Denies any other neurological symptoms. - Dermatological: Reports thickened and elongated toenails with mild subungual debris. Reports discomfort and toes. All systems reviewed & are unremarkable except as noted in HPI and below Physical Exam Vital Signs: BMI result Body Mass Index 30.7 Extrem Other: B/L LE Focused Physical Exam: Derm: Healed sites of slant backs performed to the medial borders of B/L halluces noted with mild incurvation of the medial nail border to the right hallux noted. Toenails x10 noted to have Increased length and thickness with subungual debris noted. No edema, erythema, purulence, drainage, or bleeding noted. Skin supple and turgor WNL. No maceration noted. Vasc: DP/PT pulses palpable. CFT < 3 secs. Temp gradient warm to warm. Pedal hair present. No varicosities noted. Neuro: Protective sensations grossly diminished to light touch and monofilament testing. MSK: Mild discomfort noted to the medial nail border of the right hallux prior to debridement. No pain on palpation to the remaining toes. No crepitus or fluctuance noted. ROM of the forefoot, hindfoot, and ankles WNL. Nonantalgic gait unassisted noted. Office Procedures AMB Debridement/Avulsion Podia Details: Debrided toenails x10 using sterile nail nippers and Dremel without any incidents. [id number] of Nail 6+ Procedure code (CPT) selection complete Results Reviewed Results Reviewed: Laboratory Tests 09/04/25 11/14/25 11/14/25 09:23 08:31 08:33 WBC 5.9 Glucose (Clinic) 165 H Hgb A1c (Clinic) 6.7 H EMG/NCV (10/18/2025): FINDINGS: Right peroneal nerve showed normal distal latency, normal amplitude and prolonged distal conduction velocity. No conduction block across fibular neck. Right tibial nerve showed normal distal latency, normal amplitude and slow conduction velocity. Left peroneal nerve showed prolonged distal latency, normal amplitude and slow distal conduction velocity. No conduction block across fibular neck. Bilateral sural nerves showed small amplitude. Right median motor nerve showed prolonged distal latencies, normal amplitude and normal conduction velocity. Right ulnar motor nerve showed normal distal latencies, normal amplitude and slow distal conduction velocity. No conduction block across fibular neck. Right median sensory nerve showed prolonged peak latency. Right ulnar sensory nerve showed small amplitude. Right radial sensory nerve within normal. Concentric needle EMG was performed in selected muscles of the right upper and bilateral lower extremities, cervical paraspinals and lumbar paraspinals. Study revealed signs of electric abnormalities as shown in the table above. Right AH and posterior tibialis showed increased insertional activity, PSWs and fibrillations. Left AH, posterior tibialis and medial gastrocnemius showed increased insertional activity, PSWs and fibrillations. No denervation seen on paraspinals. No fasciculations. No myopathic looking units. IMPRESSION: 1. This is an abnormal study. 2. There is electrodiagnostic evidence for symmetric, distal, sensorimotor, demyelinating and axonal, polyneuropathy. 3. Superimposed right median neuropathy at the wrist, possibly Carpal Tunnel Syndrome. 4. There is no electrodiagnostic evidence for brachial plexopathy, cervical radiculopathy, lumbosacral plexopathy, or lumbar radiculopathy. Assessment & Plan Assessment & Plan (1) Type 2 diabetes mellitus: Code(s): E11.9 - Type 2 diabetes mellitus without complications Category: Medical Qualifiers: Diabetes mellitus complication detail: with polyneuropathy (2) Diabetic neuropathy: Code(s): E11.40 - Type 2 diabetes mellitus with diabetic neuropathy, unspecified Category: Medical Qualifiers: Diabetes mellitus type: type 2 Diabetes mellitus complication detail: diabetic polyneuropathy Qualified Code(s): E11.42 - Type 2 diabetes mellitus with diabetic polyneuropathy (3) Nail dystrophy: Code(s): L60.3 - Nail dystrophy Category: Medical (4) Nail disorder: Code(s): L60.9 - Nail disorder, unspecified Category: Medical (5) Tinea unguium: Code(s): B35.1 - Tinea unguium Category: Medical Plan Patient was informed and verbally consented to the use of an ambient scribe for clinic note documentation during this visit. Recommended continued routine nail care due to discomfort of toes when nails are too thick, long, or incurvated. The patient understood the plan and is scheduled to return in nine weeks for continued nail care. - Debrided toenails x10. - Patient was advised to continue wearing supportive shoe gear, monitor his feet daily, and avoid barefoot walking. - Continue diabetic management as per PCP. RTC in 9 weeks. Orders: Orders AMB Debridement/Avulsion Podiatry Today B35.1 - Tinea unguium, E11.42 - Type 2 diabetes mellitus with diabetic polyneuropathy, E11.9 - Type 2 diabetes mellitus without complications, L60.3 - Nail dystrophy, L60.9 - Nail disorder, unspecified Coding Level of Care Code Est Pt Level 3 (51591) Diagnoses Type 2 diabetes mellitus E11.9 Diabetes mellitus complication detail: with polyneuropathy Diabetic polyneuropathy associated with type 2 diabetes mellitus E11.42 Diabetes mellitus type: type 2 Diabetes mellitus complication detail: diabetic polyneuropathy Nail dystrophy L60.3 Nail disorder L60.9 Tinea unguium B35.1 CPT Codes Skin Debridement - CPT: 91093-Mhhrasylpai of Nail 6+ ([id number]) Time Spent (min) 26 Comment 6 mins for procedure
== END 2025-11-27 08:39 | disposition home or self-care (01) ==
LOC: HO.HPODS 08:21
PROVIDERS: PCP Internal Medicine; Visit Provider Student in an Organized Health Care Education/Training Program
DX: E11.42 Type 2 diabetes mellitus with diabetic polyneuropathy (principal); L60.3 Nail dystrophy; L60.9 Nail disorder, unspecified; B35.1 Tinea unguium
CPT/HCPCS: 11721; 99213

== ENCOUNTER → 2025-11-27 08:20 | Outpatient (BNVA) | payer MEDICARE, MEDICAID, SELFPAY | PROVIDERS: PCP Internal Medicine; Visit Provider Student in an Organized Health Care Education/Training Program | DX: E11.40 Type 2 diabetes mellitus with diabetic neuropathy, unspecified (principal); L60.3 Nail dystrophy; L60.9 Nail disorder, unspecified; B35.1 Tinea unguium | CPT/HCPCS: 11721; 99212 ==